=== PATIENT | female | born 1960 | race Caucasian/White ===

== ENCOUNTER 2017-01-22 14:17 | Inpatient (IN) | payer OTHER ==
[~2017-01-22] VITALS: Ht 170.2 cm; Wt 150.0 kg
[2017-01-22] VITALS (13 sets, daily range): BP systolic 152–210; BP diastolic 59–112; PULSE 68–91; TEMP 36.5–36.9; O2SAT 92–95; Ht 170.2 cm; Wt 150.0 kg
[~2017-01-22 14:17] MED LIST: ALPR-411 PO; ASPI81TA28 PO; ATOR-26 PO; CHOL100010 PO; CITA40TA4 PO; FENT25DI2 TD; IPRASOL4 INH; METO1TAB66 PO; MORP30TA23 PO; NYST100098 TOP; OMEP40CA PO; ONDA4TAB46 PO; OXYC1TAB3 PO; PRVHFAIN INH; SYMIN INH; TIOTCAP INH; ZOLP5TAB PO; [UNRECOGNIZED DRUG - REMARK] PO
[2017-01-22] MEDS ORDERED: ZOLP10TA PO (15:01)
[2017-01-22] MEDS ORDERED: MORP30TA PO (15:21)
[2017-01-22] MEDS ORDERED: DRGTP100 TD (15:21)
[2017-01-22] MEDS ORDERED: FENT25DI10 TD (15:21)
[2017-01-22] MEDS ORDERED: SPRIN/30 INH (15:21)
[2017-01-22] MEDS ORDERED: ERGO1CAP41 PO (15:21)
--- NOTE | 2017-01-22 15:23 | DIAGNOSTIC IMAGING REPORT ---
CHEST ONE VIEW PORTABLE HISTORY:56 yearsFemaledialysis port on right fell out last night COMPARISON: 06/29/2015. TECHNIQUE: Portable upright AP view of the chest FINDINGS: Cardiac silhouette is again mildly enlarged. Left internal jugular central venous catheter is present with distal tip terminating within the expected region of the proximal SVC. There is atherosclerosis of the aorta. No pneumothorax or large pleural effusion. There are several masslike opacities in the lungs bilaterally, notably within the right upper lobe which measures up to 2.5 x 2.5 cm. Bones are grossly intact. IMPRESSION: 1. Multiple masslike opacities within the lungs bilaterally warrant further evaluation with CT of the chest. 2. Left internal jugular hemodialysis catheter terminates in the expected region of the proximal SVC. No pneumothorax. The above report was generated using voice recognition software. It may contain grammatical, syntax or spelling errors. Electronically signed by: Denzel Palomo 01/22/2017 3:22 PM Dictated Date/Time: 01/22/2017 3:19 PM
[2017-01-22] MEDS ORDERED: METO-217 PO (15:27)
[2017-01-22 16:53] LABS: ISTAT CREATININE 4.5 mg/dl (0.6-1.3); ISTAT HEMOGLOBIN 9.2 g/dl (12.0-16.0); ISTAT IONIZED CALCIUM 1.17 mmol/l (1.12-1.32)
[2017-01-22 16:54] LABS: BASO % 0.5 %; BASO ABS # 0.05 K/uL (0-0.2); COMPLETE YES; IG% 0.5 %; LYMPH % 22.7 %; LYMPH ABS # 2.16 K/uL (1.2-3.4); MEAN CELL VOLUME 92.4 fL (80-100); MEAN CORPUSCULAR HEMOGLOBIN 29.7 pg (25-34); MEAN CORPUSCULAR HGB CONC 32.1 g/dl (32-36); MEAN PLATELET VOLUME 8.9 fL (7.4-10.4); MONO % 4.7 %; NEUT % 69.6 %; PLATELET COUNT 366 K/uL (130-400); RED BLOOD COUNT 3.03 M/uL (4.2-5.4)
[2017-01-22 17:04] LABS: PARTIAL THROMBOPLASTIN RATIO 1.1; PROTHROMBIN TIME (PATIENT) 11.1 SECONDS (9.0-12.0)
[2017-01-22 17:59] LABS: ALKALINE PHOSPHATASE 113 U/L (45-117); ALT/SGPT 14 U/L (12-78); AST/SGOT 20 U/L (15-37); BLOOD UREA NITROGEN 40 mg/dl (7-18); CALCIUM 8.7 mg/dl (8.5-10.1); CARBON DIOXIDE 19 mmol/L (21-32); CHLORIDE 108 mmol/L (98-107); CKMB/CK RATIO 4.2 (0-3.0); GLUCOSE 142 mg/dl (70-99); POTASSIUM 5.8 mmol/L (3.5-5.1); SODIUM 137 mmol/L (136-145)
[2017-01-22] MEDS ORDERED: ALPRAZOLAM 0.5 MG TAB PO PRN (18:15)
[2017-01-22] MEDS ORDERED: ACETAMINOPHEN 325 MG TAB PO PRN (18:15)
[2017-01-22] MEDS ORDERED: ALBUT/IPRATROP 3MG/0.5MG NEB 3 ML VIAL INH PRN (18:15)
[2017-01-22] MEDS ORDERED: MAGNESIUM HYDROXIDE SUSP 30 ML UDC PO PRN (18:15)
[2017-01-22] MEDS ORDERED: ONDANSETRON 4 MG TAB PO PRN (18:15)
[2017-01-22] MEDS ORDERED: ONDANSETRON INJ 2 MG/ML 2 ML VIAL IV PRN (18:15)
--- NOTE | 2017-01-22 18:25 | Nephrology Consultation ---
Nephrology Consultation Date & Providers Date of Consultation: Jan 22, 2017. Primary Care Provider: Gerson Estrada D.O. Referring Provider: Reason for Consultation Provide emergency HD History of Present Illness Mrs. Beth is a 56 year old white female who is seen at the request of Dr. Hanna to provide emergency HD. Patient is agitated and argumentative. She cannot provide only limited details of her medical history. She states repeatedly "I have cancer throughout my body. I can only live for 3 months and I have this damn thing in my neck!". Medical history was obtained from 06/29 hospital records and discussion with the ED physician. Mrs. Beth lives in [place], [place]. In 06/29 she was found to have a renal mass. She underwent R laproscopic nephrectomy. 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 Post-op course was complicated by retroperitoneal hemorrhage, hypotension and SAVANNAH. Serum creatinine stabilized at 2.1 and patient was discharged from the hospital. She had one [facility] nephrology outpatient visit w/ Dr. Laureano but she was then lost to follow up. Mrs. Beth indicates that she was started on IHD 05/31. She does not remember the name of her regular relationship counselor. She dialyzes at the [facility] HD unit via a R IJ THC. Recently her THC became dislodged. She was admitted to [facility]. Dr. Spivey was able to place a L IJ temporary dialysis catheter. The patient was dialyzed 01/19/14 at [facility] without complication and was discharged to home. Today Mrs. Beth presented to the [facility] dialysis unit. staff development coordinator rn indicated that per policy they were not permitted to use a non tunneled dialysis catheter. The patient was subsequently transported to [facility] for inpatient HD and vascular surgery evaluation. In the ED her serum potassium was elevated at 5.9. ECG revealed mild peaking of the T-waves. Plan of care including admission, HD and vascular surgery evaluation tomorrow was discussed in detail with the patient. She refused indicating "I just want to go home and !' After further discussion w / myself and Dr. Hanna she then agreed to hospital admission, hemodialysis and ongoing medical treatment. Past Medical/Surgical History Medical: # CHF due to diastolic dysfunction # HTN # Obesity # Atrial fibrillation # Metastatic RCCA Surgical: # R IJ THC # Temporary L IJ dialysis catheter # R laproscopic nephrectomy 06/29 due to RCCA Allergies Coded Allergies: Iodinated Diagnostic Agents (Verified Allergy, Severe, ANAPHYLAXIS, ) Perflutren (Verified Allergy, Severe, RASH, DIFFICULTY BREATHING, ANAPHALYSIS, 01/22/17) Surgical Lubricant (Verified Allergy, Mild, rash, 01/22/17) Adhesives (Verified Allergy, Unknown, RASH, 01/22/17) Propylene Glycol (Verified Allergy, Unknown, RASH, 01/22/17) Inpatient Medications Current Inpatient Medications Medications (Trade) Dose Ordered Sig/Rica Route Start Time Stop Time Status Last Admin Dose Admin Heparin Sodium (Porcine) (No Heparin In Dialysis) 1 ea ONE ONCE N/A 01/22/17 18:15 01/22/17 18:16 UNV Family History None stated Negative for CKD / ESRD Social History Smoking Status: Current Every Day Smoker Drug Use: none Housing Status: long-term Occupation: disabled . w/ history of brain tumor. Medically disabled. History of tobacco use. Review of Systems Constitutional: No fever Respiratory: No cough Cardiovascular: No chest pain Abdomen: No pain, No nausea A complete review of systems was performed. Pertinent positives are noted above. All other systems are negative. Physical Exam Date Time Temp Pulse Resp B/P (MAP) Pulse Ox O2 Delivery O2 Flow Rate FiO2 01/22/17 18:06 79 18 178/81 92 Room Air 01/22/17 14:21 36.6 93 20 164/85 96 Room Air General Appearance: + obese, + pertinent finding (agitated) Head: normocephalic, atraumatic Eyes: PERRL, EOMI Neck: no adenopathy, + pertinent finding (L IJ temporary dialysis catheter w/ clean dry dressing in place) Respiratory/Chest: lungs clear Cardiovascular: regular rate, rhythm Abdomen/GI: non tender, soft Extremities/Musculoskelatal: no pedal edema Neurologic/Psych: alert Laboratory Results Last 24 Hours Test 01/22/17 16:33 01/22/17 16:42 01/22/17 18:03 White Blood Count 9.50 K/uL Red Blood Count 3.03 M/uL Hemoglobin 9.0 g/dL Hematocrit 28.0 % Mean Corpuscular Volume 92.4 fL Mean Corpuscular Hemoglobin 29.7 pg Mean Corpuscular Hemoglobin Concent 32.1 g/dl Platelet Count 366 K/uL Mean Platelet Volume 8.9 fL Neutrophils (%) (Auto) 69.6 % Lymphocytes (%) (Auto) 22.7 % Monocytes (%) (Auto) 4.7 % Eosinophils (%) (Auto) 2.0 % Basophils (%) (Auto) 0.5 % Neutrophils # (Auto) 6.60 K/uL Lymphocytes # (Auto) 2.16 K/uL Monocytes # (Auto) 0.45 K/uL Eosinophils # (Auto) 0.19 K/uL Basophils # (Auto) 0.05 K/uL RDW Standard Deviation 44.6 fL RDW Coefficient of Variation 13.2 % Immature Granulocyte % (Auto) 0.5 % Immature Granulocyte # (Auto) 0.05 K/uL Prothrombin Time 11.1 SECONDS Prothromb Time International Ratio 1.0 Activated Partial Thromboplast Time 28.5 SECONDS Partial Thromboplastin Ratio 1.1 Sodium Level 137 mmol/L Potassium Level 5.8 mmol/L Chloride Level 108 mmol/L Carbon Dioxide Level 19 mmol/L Anion Gap 10.0 mmol/L 17.0 mmol/L Blood Urea Nitrogen 40 mg/dl Creatinine 4.50 mg/dl Est Creatinine Clear Calc Drug Dose 20.1 ml/min Estimated GFR () 12.0 Estimated GFR (Non- 10.4 BUN/Creatinine Ratio 9.0 Random Glucose 142 mg/dl Calcium Level 8.7 mg/dl Total Bilirubin 0.2 mg/dl Direct Bilirubin mg/dl Aspartate Amino Transf (AST/SGOT) 20 U/L Alanine Aminotransferase (ALT/SGPT) 14 U/L Alkaline Phosphatase 113 U/L Total Creatine Kinase 57 U/L Creatine Kinase MB 2.4 ng/ml Creatine Kinase MB Ratio 4.2 Troponin I 0.082 ng/ml Total Protein 7.4 gm/dl Albumin 2.4 gm/dl Lipase 144 U/L Chemistry Specimen Hemolysis Bedside Hemoglobin 9.2 g/dl Bedside Hematocrit 27 % Bedside Sodium 139 mEq/L Bedside Potassium 5.9 mEq/L Bedside Chloride 107 mEq/L Bedside Total CO2 22 mEq/l Bedside Blood Urea Nitrogen 45 mg/dl Bedside Creatinine 4.5 mg/dl Bedside Glucose (other) 147 mg/dl Bedside Ionized Calcium (Javan) 1.17 mmol/l Impression (1) Hyperkalemia (2) Metastatic renal cell carcinoma (3) Hypertension (4) End-stage renal disease on hemodialysis Mrs. Beth presents for inpatient dialysis. Her temporary L IJ dialysis catheter could not be used per policy at the outpatient dialysis unit. She is now admitted for correction of hyperkalemia, inpatient HD and vascular surgery evaluation. Patient has metastatic RCCA. Recommendations One hour provided to the patient today in the ED. She is very emotional due to her diagnosis of metastatic cancer. Indications and benefits to hospital admission, HD and vascular surgery evaluation discussed in detail with the patient by myself and Dr. Hanna. Patient consents to the outlined plan of care. Will ask hospitalist service to admit patient. Will schedule 2 hour HD treatment tonight for correction of serum potassium. Will consult vascular surgery to place new IJ THC in am. Recommend that patient be kept NPO after MN for possible procedure tomorrow am. Patient has been discussed w/ HD RN national [employer] member and orders have been placed for heparin free HD in EMR. I have personally reviewed the CXR film taken in the ED. L IJ dialysis catheter appears to be in appropriate position. There is no pneumothorax.
--- NOTE | 2017-01-22 18:50 | History and Physical ---
History & Physical Date & Time of Service: Jan 22, 2017 at 18:27 Chief Complaint: Port In Chest Ripped Out/Neck Pain Primary Care Physician: Gerson Estrada D.O. History of Present Illness Source: patient 56 y/o c/o HD port malfunction. Pt is ESRD with HD on . Pt denies any current issues other than being hungry. Pt denies fever, SOB, chest pain, abd pain, n/v/c/d, LE pain or swelling. She is not interested to repeat her story to me at this time. Further details were taken from other providers' notes and sign out discussions. Pt apparently had some sort of malfunction of her HD catheter. She initially saw the [facility] surg in [place] who placed this catheter. There was some sort of argument and pt has decided she does not want him replacing her catheter. She has a temporary catheter in place and was able to have HD on Sunday, however her usual HD facility ([facility]) is unable to use a temporary catheter and therefore pt cannot receive further HD until she has this catheter replaced. She came to the ED today due to pain in her neck from the catheter that is partially disabled. Pt was seen by Dr. Tovar in the ED. During her discussion with Dr. Tovar, pt reportedly became upset and stated that she did not want the catheter replaced or further HD as she has metastatic renal cancer. She reportedly stated that she would prefer to have the catheter d/c'd in the ED and be allowed to go home to . After further discussions with Dr. Tovar and Dr. Hanna, pt has agreed to stay for emergent HD tonight and catheter replacement tomorrow. Past Medical/Surgical History Medical Problems: (1) Back pain, chronic Status: Chronic (2) Congestive heart failure of unknown etiology Status: Chronic (3) Osteomyelitis Status: Chronic (4) PICC (peripherally inserted central catheter) flush Status: Resolved (5) Pulmonary embolism Status: Resolved (6) Spinal abscess Status: Resolved RCC with mets ESRD Anemia COPD Depression/anxiety HTN Hx of PE Hx of osteomyelitis Family History Family history was reviewed; no changes noted. Social History Smoking Status: Current Every Day Smoker Alcohol Use: none Drug Use: none Housing status: custodial Occupational Status: disabled Allergies Coded Allergies: Iodinated Diagnostic Agents (Verified Allergy, Severe, ANAPHYLAXIS, ) Perflutren (Verified Allergy, Severe, RASH, DIFFICULTY BREATHING, ANAPHALYSIS, 01/22/17) Surgical Lubricant (Verified Allergy, Mild, rash, 01/22/17) Adhesives (Verified Allergy, Unknown, RASH, 01/22/17) Propylene Glycol (Verified Allergy, Unknown, RASH, 01/22/17) Home Medications Scheduled Albuterol (Ventolin Hfa), 2 PUFFS INH QID Aspirin (Aspirin Ec), 81 MG PO DAILY Atorvastatin (Lipitor), 80 MG PO QAM Budesonide/Formoterol Fumarate (Symbicort 160-4.5 Mcg/Act), 2 PUFFS INH BID Citalopram (Citalopram Hydrobromide), 40 MG PO QAM Ergocalciferol (Vitamin D 08026 Unit), 1 CAP PO SUNDAY Fentanyl (Duragesic), 25 MCG TD Q72H Metoprolol Succinate (Toprol Xl), 50 MG PO QAM Tiotropium [place] (Spiriva Handihaler), 2 PUFFS INH QAM Zolpidem Tartrate (Ambien), 10 MG PO HS Scheduled PRN Alprazolam (Xanax), 1 MG PO Q6H PRN for Anxiety Ipratropium-Albuterol (Duoneb), 1 TREATMENT INH Q4H PRN for SOB/Wheezing Morphine Sulfate Ir (Morphine Sulfate Ir), 30 MG PO QAM PRN for Pain Ondansetron Hcl (Zofran), 4 MG PO Q4 PRN for Nausea Oxycodone Ir (Roxicodone Ir), 10 MG PO Q6H PRN for Severe Pain [Itching Medication], 1 TAB PO UD PRN for ITCHING Review of Systems Reviewed and negative Physical Exam Vital Signs Date Time Temp Pulse Resp B/P (MAP) Pulse Ox O2 Delivery O2 Flow Rate FiO2 01/22/17 18:06 79 18 178/81 92 Room Air 01/22/17 14:21 36.6 93 20 164/85 96 Room Air General Appearance: no apparent distress, + obese Head: normocephalic, atraumatic Eyes: normal inspection, EOMI Respiratory/Chest: normal breath sounds, no respiratory distress Cardiovascular: regular rate, rhythm, no edema Abdomen/GI: non tender, soft Extremities/Musculoskelatal: no calf tenderness, no pedal edema Neurologic/Psych: alert, oriented x 3, + pertinent finding (pt is disgruntled with short answers) Skin: normal color, warm/dry Diagnostics Laboratory Results Results Past 24 Hours Test 01/22/17 16:33 01/22/17 16:42 01/22/17 18:03 Range/Units White Blood Count 9.50 4.8-10.8 K/uL Red Blood Count 3.03 4.2-5.4 M/uL Hemoglobin 9.0 12.0-16.0 g/dL Hematocrit 28.0 37-47 % Mean Corpuscular Volume 92.4 80-100 fL Mean Corpuscular Hemoglobin 29.7 25-34 pg Mean Corpuscular Hemoglobin Concent 32.1 32-36 g/dl Platelet Count 366 130-400 K/uL Mean Platelet Volume 8.9 7.4-10.4 fL Neutrophils (%) (Auto) 69.6 % Lymphocytes (%) (Auto) 22.7 % Monocytes (%) (Auto) 4.7 % Eosinophils (%) (Auto) 2.0 % Basophils (%) (Auto) 0.5 % Neutrophils # (Auto) 6.60 1.4-6.5 K/uL Lymphocytes # (Auto) 2.16 1.2-3.4 K/uL Monocytes # (Auto) 0.45 0.11-0.59 K/uL Eosinophils # (Auto) 0.19 0-0.5 K/uL Basophils # (Auto) 0.05 0-0.2 K/uL RDW Standard Deviation 44.6 36.4-46.3 fL RDW Coefficient of Variation 13.2 11.5-14.5 % Immature Granulocyte % (Auto) 0.5 % Immature Granulocyte # (Auto) 0.05 0.00-0.02 K/uL Prothrombin Time 11.1 9.0-12.0 SECONDS Prothromb Time International Ratio 1.0 0.9-1.1 Activated Partial Thromboplast Time 28.5 21.0-31.0 SECONDS Partial Thromboplastin Ratio 1.1 Sodium Level 137 136-145 mmol/L Potassium Level 5.8 3.5-5.1 mmol/L Chloride Level 108 98-107 mmol/L Carbon Dioxide Level 19 21-32 mmol/L Anion Gap 10.0 17.0 16-25 mmol/L Blood Urea Nitrogen 40 7-18 mg/dl Creatinine 4.50 0.60-1.20 mg/dl Est Creatinine Clear Calc Drug Dose 20.1 ml/min Estimated GFR () 12.0 Estimated GFR (Non- 10.4 BUN/Creatinine Ratio 9.0 10-20 Random Glucose 142 70-99 mg/dl Calcium Level 8.7 8.5-10.1 mg/dl Total Bilirubin 0.2 0.2-1 mg/dl Direct Bilirubin 0-0.2 mg/dl Aspartate Amino Transf (AST/SGOT) 20 15-37 U/L Alanine Aminotransferase (ALT/SGPT) 14 12-78 U/L Alkaline Phosphatase 113 45-117 U/L Total Creatine Kinase 57 26-192 U/L Creatine Kinase MB 2.4 0.5-3.6 ng/ml Creatine Kinase MB Ratio 4.2 0-3.0 Troponin I 0.082 0-0.045 ng/ml Total Protein 7.4 6.4-8.2 gm/dl Albumin 2.4 3.4-5.0 gm/dl Lipase 144 73-393 U/L Chemistry Specimen Hemolysis Bedside Hemoglobin 9.2 12.0-16.0 g/dl Bedside Hematocrit 27 37-47 % Bedside Sodium 139 135-144 mEq/L Bedside Potassium 5.9 3.3-5.0 mEq/L Bedside Chloride 107 101-112 mEq/L Bedside Total CO2 22 24-31 mEq/l Bedside Blood Urea Nitrogen 45 7-18 mg/dl Bedside Creatinine 4.5 0.6-1.3 mg/dl Bedside Glucose (other) 147 70-99 mg/dl Bedside Ionized Calcium (Javan) 1.17 1.12-1.32 mmol/l Diagnostic Radiology CXR: opacities of uncertain dx, will need f/u CT chest Normal EKG Impression Assessment and Plan 56 y/o F who was admitted on 01/22 for emergent HD and HD catheter replacement Emergent HD in ESRD pt: Pt's HD schedule has been interrupted due to malfunctioning catheter Baseline cr is around 2.1 HyperK noted HD tonight as per Dr. Tovar, who will be consulted Malfunctioning HD catheter: to be replaced tomorrow with Dr. Maguire Elevated trop: likely related to renal disease Serials pending Tele monitor, can likely move to med/surg if trops are stable Chronic anemia: Uncertain baseline as labs on file are not the most recent Monitor HTN: labile in the setting of likely fluid overload given HD needs continue home meds CHF: continue home meds, no current exacerbation COPD: continue inhaler, no current exacerbation Tobacco use: nicotine patch Other: DNR/DNI Heparin for DVT proph Renal AHA diet CM c/s for ongoing outpt HD needs Pt did express wishes c/w hospice care in the ED. She did not discuss this with this provider, however pt was not interested in speaking with me. This may become a more active request moving forward vs acute adjustment rxn Level of Care Telemetry Resuscitation Status DO NOT RESUSCITATE VTE Prophylaxis VTE Risk Assessment Done? Y/N: Yes Risk Level: Moderate
--- NOTE | 2017-01-22 18:51 | Nephrology Progress Note ---
Nephrology Progress Note Date of Service Jan 22, 2017. Chief Complaint Provide emergency HD Subjective Resting comfortably on HD. Denies angina, dyspnea. L IJ temporary HD catheter running A --> A at Qb 300 cc/min Review of Systems A complete review of systems was performed. Pertinent positives are noted above. All other systems are negative. Vital Signs Last 8 Hrs Date Time Temp Pulse Resp B/P (MAP) Pulse Ox O2 Delivery O2 Flow Rate FiO2 01/22/17 18:06 79 18 178/81 92 Room Air 01/22/17 14:21 36.6 93 20 164/85 96 Room Air Last Recorded Weight Weight (Kilograms): 130.000 Physical Exam General Appearance: no apparent distress Respiratory/Chest: lungs clear Cardiovascular: regular rate, rhythm Family History None stated Negative for CKD / ESRD Social History Drug Use: none Housing Status: group home Occupation: disabled . w/ history of brain tumor. Medically disabled. History of tobacco use. Laboratory Results Past 24 Hours 01/22/17 16:33 Red Blood Count 3.03, Mean Corpuscular Volume 92.4, Mean Corpuscular Hemoglobin 29.7, Mean Corpuscular Hemoglobin Concent 32.1, Mean Platelet Volume 8.9, Neutrophils (%) (Auto) 69.6, Lymphocytes (%) (Auto) 22.7, Monocytes (%) (Auto) 4.7, Eosinophils (%) (Auto) 2.0, Basophils (%) (Auto) 0.5, Neutrophils # (Auto) 6.60, Lymphocytes # (Auto) 2.16, Monocytes # (Auto) 0.45, Eosinophils # (Auto) 0.19, Basophils # (Auto) 0.05 01/22/17 16:33 Test 01/22/17 16:33 01/22/17 16:42 01/22/17 18:30 White Blood Count 9.50 K/uL (4.8-10.8) Red Blood Count 3.03 M/uL (4.2-5.4) Hemoglobin 9.0 g/dL (12.0-16.0) Hematocrit 28.0 % (37-47) Mean Corpuscular Volume 92.4 fL (80-100) Mean Corpuscular Hemoglobin 29.7 pg (25-34) Mean Corpuscular Hemoglobin Concent 32.1 g/dl (32-36) Platelet Count 366 K/uL (130-400) Mean Platelet Volume 8.9 fL (7.4-10.4) Neutrophils (%) (Auto) 69.6 % Lymphocytes (%) (Auto) 22.7 % Monocytes (%) (Auto) 4.7 % Eosinophils (%) (Auto) 2.0 % Basophils (%) (Auto) 0.5 % Neutrophils # (Auto) 6.60 K/uL (1.4-6.5) Lymphocytes # (Auto) 2.16 K/uL (1.2-3.4) Monocytes # (Auto) 0.45 K/uL (0.11-0.59) Eosinophils # (Auto) 0.19 K/uL (0-0.5) Basophils # (Auto) 0.05 K/uL (0-0.2) RDW Standard Deviation 44.6 fL (36.4-46.3) RDW Coefficient of Variation 13.2 % (11.5-14.5) Immature Granulocyte % (Auto) 0.5 % Immature Granulocyte # (Auto) 0.05 K/uL (0.00-0.02) Prothrombin Time 11.1 SECONDS (9.0-12.0) Prothromb Time International Ratio 1.0 (0.9-1.1) Activated Partial Thromboplast Time 28.5 SECONDS (21.0-31.0) Partial Thromboplastin Ratio 1.1 Anion Gap 10.0 mmol/L (3-11) 17.0 mmol/L (16-25) Est Creatinine Clear Calc Drug Dose 20.1 ml/min Estimated GFR () 12.0 Estimated GFR (Non- 10.4 BUN/Creatinine Ratio 9.0 (10-20) Calcium Level 8.7 mg/dl (8.5-10.1) Total Bilirubin 0.2 mg/dl (0.2-1) Direct Bilirubin mg/dl (0-0.2) Aspartate Amino Transf (AST/SGOT) 20 U/L (15-37) Alanine Aminotransferase (ALT/SGPT) 14 U/L (12-78) Alkaline Phosphatase 113 U/L (45-117) Total Creatine Kinase 57 U/L (26-192) Creatine Kinase MB 2.4 ng/ml (0.5-3.6) Creatine Kinase MB Ratio 4.2 (0-3.0) Troponin I 0.082 ng/ml (0-0.045) Total Protein 7.4 gm/dl (6.4-8.2) Albumin 2.4 gm/dl (3.4-5.0) Lipase 144 U/L (73-393) Chemistry Specimen Hemolysis Bedside Hemoglobin 9.2 g/dl (12.0-16.0) Bedside Hematocrit 27 % (37-47) Bedside Sodium 139 mEq/L (135-144) Bedside Potassium 5.9 mEq/L (3.3-5.0) Bedside Chloride 107 mEq/L (101-112) Bedside Total CO2 22 mEq/l (24-31) Bedside Blood Urea Nitrogen 45 mg/dl (7-18) Bedside Creatinine 4.5 mg/dl (0.6-1.3) Bedside Glucose (other) 147 mg/dl (70-99) Bedside Ionized Calcium (Javan) 1.17 mmol/l (1.12-1.32) Allergies Coded Allergies: Iodinated Diagnostic Agents (Verified Allergy, Severe, ANAPHYLAXIS, ) Perflutren (Verified Allergy, Severe, RASH, DIFFICULTY BREATHING, ANAPHALYSIS, 01/22/17) Surgical Lubricant (Verified Allergy, Mild, rash, 01/22/17) Adhesives (Verified Allergy, Unknown, RASH, 01/22/17) Propylene Glycol (Verified Allergy, Unknown, RASH, 01/22/17) Medications Current Inpatient Medications Medications (Trade) Dose Ordered Sig/Rica Route Start Time Stop Time Status Last Admin Dose Admin Heparin Sodium (Porcine) (No Heparin In Dialysis) 1 ea TODAY@1815 N/A 01/22/17 18:15 01/22/17 23:59 Heparin Sodium (Porcine) (Heparin Sq 5000 Unit/0.5ml) 5,000 unit Q8 SQ 01/22/17 22:00 02/21/17 21:59 UNV Acetaminophen (Tylenol Tab) 650 mg Q4H PRN PO 01/22/17 18:15 02/21/17 18:14 Magnesium Hydroxide (Milk Of Magnesia Susp) 30 ml Q12H PRN PO 01/22/17 18:15 02/21/17 18:14 Ondansetron HCl (Zofran Inj) 4 mg Q6H PRN IV 01/22/17 18:15 02/21/17 18:14 Albuterol (Ventolin Hfa Inhaler) 2 puffs QID INH 01/22/17 21:00 02/21/17 20:59 UNV Alprazolam (Xanax Tab) 1 mg Q6H PRN PO 01/22/17 18:15 02/21/17 18:14 Aspirin (Ecotrin Tab) 81 mg DAILY PO 01/23/17 09:00 02/22/17 08:59 UNV Atorvastatin Calcium (Lipitor Tab) 80 mg QAM PO 01/23/17 09:00 02/22/17 08:59 UNV Budesonide/ Formoterol Fumarate (Symbicort 160/ 4.5 Inh) 2 puffs BID INH 01/22/17 21:00 02/21/17 20:59 UNV Citalopram Hydrobromide (celeXA TAB) 40 mg QAM PO 01/23/17 09:00 02/22/17 08:59 UNV Ergocalciferol (Vitamin D Cap) 50,000 interunit UD PO 01/22/17 18:15 02/21/17 18:14 UNV Fentanyl (Duragesic Patch) 25 mcg Q72H TD 01/22/17 18:15 02/05/17 18:14 UNV Albuterol/ Ipratropium (Duoneb) 3 ml Q4H PRN INH 01/22/17 18:15 02/21/17 18:14 Metoprolol Succinate (Toprol Xl Tab) 50 mg QAM PO 01/23/17 09:00 02/22/17 08:59 UNV Ondansetron HCl (Zofran Tab) 4 mg Q4 PRN PO 01/22/17 18:15 02/21/17 18:14 UNV Oxycodone HCl (Roxicodone Immediate Rel Tab) 10 mg Q6H PRN PO 01/22/17 18:15 02/05/17 18:14 Tiotropium [place] (Spiriva Handihaler Inhaler) 60 puff QAM INH 01/23/17 09:00 02/22/17 08:59 UNV Zolpidem Tartrate (Ambien Tab) 10 mg HS PO 01/22/17 21:00 02/21/17 20:59 Non-Formulary Medication (Morphine Sulfate Ir ) 30 mg QAM PRN PO 01/22/17 18:15 02/21/17 18:14 UNV Non-Formulary Medication ([Itching Medication] ) 1 tab UD PRN PO 01/22/17 18:15 02/21/17 18:14 UNV Nicotine (Nicoderm Cq 21MG Patch) 1 patch QAM TD 01/23/17 09:00 02/22/17 08:59 UNV Miscellaneous (Remove Nicoderm Patch) 1 ea HS N/A 01/22/17 21:00 02/21/17 20:59 UNV Impression (1) Hyperkalemia (2) Metastatic renal cell carcinoma (3) Hypertension (4) End-stage renal disease on hemodialysis Mrs. Beth presents for inpatient dialysis. Her temporary L IJ dialysis catheter could not be used per policy at the outpatient dialysis unit. She is now admitted for correction of hyperkalemia, inpatient HD and vascular surgery evaluation. Patient has metastatic RCCA. Recommendations Patient was seen & examined while on HD this evening. She is medically stable at this time. She voices no new medical concerns. 2K 2Ca dialysate being used. No heparin. Will reassess need for HD again in am
[2017-01-22] MEDS ORDERED: MoRPHine SULFATE IR 15 MG TAB (IMMEDIATE RELEASE) PO PRN (19:15)
[2017-01-22 19:26] LABS: HEPATITIS B AB NEG
--- NOTE | 2017-01-22 20:17 | EMERGENCY ROOM VISIT NOTE ---
History Report prepared by Carol: Cory Ordaz Under the Supervision of: Dr. Lm Hanna D.O. First contact with patient: 14:26 Chief Complaint: OTHER COMPLAINT Stated Complaint: PORT IN CHEST RIPPED OUT/NECK PAIN History of Present Illness The patient is a 56 year old female who presents to the Emergency Room with complaints of dialysis port malfunction starting a few days ago. The patient initially had a port in her chest which was being used for dialysis. The dog pulled on the port site last week. On January 18, dialysis could not be performed through the port. On January 20, the patient had a catheter placed in her neck to be used for dialysis. Last night, the patient woke up with blood all over her and her port in her chest fell out. She reports severe pain in her neck. The catheter in neck is pulling and keeps coming out of her neck. The patient has tried to keep it in place by taping it to her neck. Today, the patient was referred to the Emergency Room by the vascular surgeon at [facility] to place a new port, take out the port from her neck, and take out the stitches from her chest. She denies fevers, chills, or any other complaints. Source of History: patient Onset: a few days ago Position: neck, chest Symptom Intensity: severe Quality: other (dialysis port malfunction) Associated Symptoms: No fevers, No chills Review of Systems See HPI for pertinent positives & negatives. A total of 10 systems reviewed and were otherwise negative. Past Medical & Surgical Medical Problems: (1) Acute kidney injury (2) Anemia (3) Back pain, chronic (4) Congestive heart failure of unknown etiology (5) End-stage renal disease on hemodialysis (6) Hyperkalemia (7) Hypertension (8) Metastatic renal cell carcinoma (9) Osteomyelitis (10) PICC (peripherally inserted central catheter) flush (11) Pulmonary embolism (12) Renal mass, right (13) Spinal abscess Family History None stated Social History Smoking Status: Current Every Day Smoker Drug Use: none Housing Status: lives with family Occupation Status: disabled Current/Historical Medications Scheduled Albuterol (Ventolin Hfa), 2 PUFFS INH QID Aspirin (Aspirin Ec), 81 MG PO DAILY Atorvastatin (Lipitor), 80 MG PO QAM Budesonide/Formoterol Fumarate (Symbicort 160-4.5 Mcg/Act), 2 PUFFS INH BID Citalopram (Citalopram Hydrobromide), 40 MG PO QAM Ergocalciferol (Vitamin D 73580 Unit), 1 CAP PO SUNDAY Fentanyl (Duragesic), 25 MCG TD Q72H Metoprolol Succinate (Toprol Xl), 50 MG PO QAM Tiotropium Bailey (Spiriva Handihaler), 2 PUFFS INH QAM Zolpidem Tartrate (Ambien), 10 MG PO HS Scheduled PRN Alprazolam (Xanax), 1 MG PO Q6H PRN for Anxiety Ipratropium-Albuterol (Duoneb), 1 TREATMENT INH Q4H PRN for SOB/Wheezing Morphine Sulfate Ir (Morphine Sulfate Ir), 30 MG PO QAM PRN for Pain Ondansetron Hcl (Zofran), 4 MG PO Q4 PRN for Nausea Oxycodone Ir (Roxicodone Ir), 10 MG PO Q6H PRN for Severe Pain [Itching Medication], 1 TAB PO UD PRN for ITCHING Allergies Coded Allergies: Iodinated Diagnostic Agents (Verified Allergy, Severe, ANAPHYLAXIS, ) Perflutren (Verified Allergy, Severe, RASH, DIFFICULTY BREATHING, ANAPHALYSIS, 01/22/17) Surgical Lubricant (Verified Allergy, Mild, rash, 01/22/17) Adhesives (Verified Allergy, Unknown, RASH, 01/22/17) Propylene Glycol (Verified Allergy, Unknown, RASH, 01/22/17) Physical Exam Vital Signs Date Time Temp Pulse Resp B/P (MAP) Pulse Ox O2 Delivery O2 Flow Rate FiO2 01/22/17 20:00 72 168/71 01/22/17 19:45 75 176/68 01/22/17 19:30 76 200/98 01/22/17 19:15 77 184/112 01/22/17 19:00 77 176/101 01/22/17 18:45 71 183/92 01/22/17 18:30 69 191/88 01/22/17 18:15 72 185/89 01/22/17 18:10 36.5 68 210/95 (133) 01/22/17 18:06 79 18 178/81 92 Room Air 01/22/17 14:21 36.6 93 20 164/85 96 Room Air Physical Exam CONSTITUTIONAL/VITAL SIGNS: Reviewed / noted above. GENERAL: Non-toxic in appearance. INTEGUMENTARY: Warm, dry, and Umbarger. HEAD: Normocephalic. EYES: without scleral icterus or trauma. ENT/OROPHARYNX: clear and moist. LYMPHADENOPATHY/NECK: Is supple without lymphadenopathy or meningismus. Dialysis catheter in the left neck. CHEST: No port in the right chest. RESPIRATORY: Lungs clear and equal. CARDIOVASCULAR: Regular rate and rhythm. GI/ABDOMEN: Soft and nontender. No organomegaly or pulsatile mass. No rebound or guarding. Normal bowel sounds. EXTREMITIES: Warm and well perfused. BACK: No CVA tenderness. NEUROLOGICAL: Intact without focal deficits. PSYCHIATRIC: normal affect. MUSCULOSKELETAL: Normally developed with good muscle tone. Medical Decision & Procedures ER Provider Diagnostic Interpretation: X ray results and stated below per my interpretation and radiology interpretation. CHEST ONE VIEW PORTABLE HISTORY:56 yearsFemaledialysis port on right fell out last night COMPARISON: 06/29/2015. TECHNIQUE: Portable upright AP view of the chest FINDINGS: Cardiac silhouette is again mildly enlarged. Left internal jugular central venous catheter is present with distal tip terminating within the expected region of the proximal SVC. There is atherosclerosis of the aorta. No pneumothorax or large pleural effusion. There are several masslike opacities in the lungs bilaterally, notably within the right upper lobe which measures up to 2.5 x 2.5 cm. Bones are grossly intact. IMPRESSION: 1. Multiple masslike opacities within the lungs bilaterally warrant further evaluation with CT of the chest. 2. Left internal jugular hemodialysis catheter terminates in the expected region of the proximal SVC. No pneumothorax. The above report was generated using voice recognition software. It may contain grammatical, syntax or spelling errors. Electronically signed by: Denzel Palomo 01/22/2017 3:22 PM Dictated Date/Time: 01/22/2017 3:19 PM Laboratory Results 01/22/17 16:33 Red Blood Count 3.03, Mean Corpuscular Volume 92.4, Mean Corpuscular Hemoglobin 29.7, Mean Corpuscular Hemoglobin Concent 32.1, Mean Platelet Volume 8.9, Neutrophils (%) (Auto) 69.6, Lymphocytes (%) (Auto) 22.7, Monocytes (%) (Auto) 4.7, Eosinophils (%) (Auto) 2.0, Basophils (%) (Auto) 0.5, Neutrophils # (Auto) 6.60, Lymphocytes # (Auto) 2.16, Monocytes # (Auto) 0.45, Eosinophils # (Auto) 0.19, Basophils # (Auto) 0.05 01/22/17 16:33 Test 01/22/17 16:33 01/22/17 16:42 01/22/17 18:30 White Blood Count 9.50 K/uL (4.8-10.8) Red Blood Count 3.03 M/uL (4.2-5.4) Hemoglobin 9.0 g/dL (12.0-16.0) Hematocrit 28.0 % (37-47) Mean Corpuscular Volume 92.4 fL (80-100) Mean Corpuscular Hemoglobin 29.7 pg (25-34) Mean Corpuscular Hemoglobin Concent 32.1 g/dl (32-36) Platelet Count 366 K/uL (130-400) Mean Platelet Volume 8.9 fL (7.4-10.4) Neutrophils (%) (Auto) 69.6 % Lymphocytes (%) (Auto) 22.7 % Monocytes (%) (Auto) 4.7 % Eosinophils (%) (Auto) 2.0 % Basophils (%) (Auto) 0.5 % Neutrophils # (Auto) 6.60 K/uL (1.4-6.5) Lymphocytes # (Auto) 2.16 K/uL (1.2-3.4) Monocytes # (Auto) 0.45 K/uL (0.11-0.59) Eosinophils # (Auto) 0.19 K/uL (0-0.5) Basophils # (Auto) 0.05 K/uL (0-0.2) RDW Standard Deviation 44.6 fL (36.4-46.3) RDW Coefficient of Variation 13.2 % (11.5-14.5) Immature Granulocyte % (Auto) 0.5 % Immature Granulocyte # (Auto) 0.05 K/uL (0.00-0.02) Prothrombin Time 11.1 SECONDS (9.0-12.0) Prothromb Time International Ratio 1.0 (0.9-1.1) Activated Partial Thromboplast Time 28.5 SECONDS (21.0-31.0) Partial Thromboplastin Ratio 1.1 Est Creatinine Clear Calc Drug Dose 20.1 ml/min Estimated GFR () 12.0 Estimated GFR (Non- 10.4 BUN/Creatinine Ratio 9.0 (10-20) Calcium Level 8.7 mg/dl (8.5-10.1) Total Bilirubin 0.2 mg/dl (0.2-1) Direct Bilirubin mg/dl (0-0.2) Aspartate Amino Transf (AST/SGOT) 20 U/L (15-37) Alanine Aminotransferase (ALT/SGPT) 14 U/L (12-78) Alkaline Phosphatase 113 U/L (45-117) Total Creatine Kinase 57 U/L (26-192) Creatine Kinase MB 2.4 ng/ml (0.5-3.6) Creatine Kinase MB Ratio 4.2 (0-3.0) Troponin I 0.082 ng/ml (0-0.045) Total Protein 7.4 gm/dl (6.4-8.2) Albumin 2.4 gm/dl (3.4-5.0) Lipase 144 U/L (73-393) Chemistry Specimen Hemolysis Bedside Hemoglobin 9.2 g/dl (12.0-16.0) Bedside Hematocrit 27 % (37-47) Bedside Sodium 139 mEq/L (135-144) Bedside Potassium 5.9 mEq/L (3.3-5.0) Bedside Chloride 107 mEq/L (101-112) Bedside Total CO2 22 mEq/l (24-31) Anion Gap 17.0 mmol/L (16-25) Bedside Blood Urea Nitrogen 45 mg/dl (7-18) Bedside Creatinine 4.5 mg/dl (0.6-1.3) Bedside Glucose (other) 147 mg/dl (70-99) Bedside Ionized Calcium (Javan) 1.17 mmol/l (1.12-1.32) Hepatitis B Surface Antigen NEG (NEG) Hepatitis B Surface Antibody NEG Laboratory results as stated above per my review. ECG Indication: other (Dialysis port malfunction) Rate (beats per minute): 76 Rhythm: normal sinus Findings: no acute ischemic change, no ectopy ED Course 1426: Previous medical records were reviewed. The patient was evaluated in room C04. A complete history and physical examination was performed. 1435: I discussed the patient's case with Paul, from [facility] in [place], who reported that the patient's last dialysis treatment was 3 days ago in [facility]. 1533: I discussed the patient's case with MELANY from the office of Dr. Maguire, vascular surgeon with [facility]. 1700: I discussed the patient's case with Dr. Tovar, milk receiver tank truck with [facility]. 1711: On reevaluation, the patient is resting comfortably. I discussed the results and findings with her. She verbalized agreement of the treatment plan. I spoke with Dr. Lawrence of the [facility] Hospitalist Service. The patient will be evaluated for further management and care. Medical Decision Medication Reconciliation: I attest that I have personally reviewed the patient' s current medication list. Patient was found to have a slightly elevated blood pressure due to circumstances. I do not believe that the patient requires hypertension monitoring. Differential includes acute coronary syndrome, myocardial infarction, CVA, TIA, anemia, infection, pneumonia, UTI, pyelonephritis, poor nutrition, dehydration, electrolyte disturbance,hypoglycemia. This is a 56-year-old female who presents to the ED with a chief complaint of needing a tunneled catheter for dialysis. The patient states that she has had problems with Dr. Rogers from [facility] with regards to her dialysis catheter. She was having problems with a tunneled catheter that she had in her right chest and therefore a temporary dialysis catheter was placed in her left neck. The patient states that she does not want this surgeon to place another tunneled catheter. She went to her [place] dialysis Center today and was told that she could not have this catheter used. She came here to question to have a permacath placed. I spoke with Dr. Maguire who agreed to place the permacath tomorrow. Because the patient has not had dialysis since Sunday, the patient will need to stay for dialysis. I spoke to Dr. Tovar about this. He is arranging for this. I also spoke with the hospitalist who will admit the patient. The patient seems to be frustrated and is somewhat angry. Initially she stated she just wanted to go home because she has cancer. She was convinced to stay and receive dialysis and see Dr. Maguire for the permacath tomorrow. She did agree to stay and will be sent to dialysis at this time. Consults Time Called: 1420 Consulting Physician: Paul, from [facility] in [place] Returned Call: 1435 I discussed the patient's case with Paul, from [facility] in [place], who reported that the patient's last dialysis treatment was 3 days ago in [facility]. Additional Consults: Time Called: 1528 Consulted Physician: MELANY from the office of Dr. Maguire, vascular surgeon with [facility] Returned Call: 1533 Additional Comments: I discussed the patient's case with MELANY from the office of Dr. Maguire, vascular surgeon with [facility]. Time Called: 1645 Consulted Physician: Dr. Tovar, milk receiver tank truck with [facility] Returned Call: 1701 Additional Comments: I discussed the patient's case with Dr. Tovar, milk receiver tank truck with [facility]. Impression Primary Impression: Hyperkalemia Additional Impressions: Acute renal failure on dialysis Malfunctioning dialysis catheter Scribe Attestation The scribe's documentation has been prepared under my direction and personally reviewed by me in its entirety. I confirm that the note above accurately reflects all work, treatment, procedures, and medical decision making performed by me. Departure Information Dispostion Being Evaluated By Hospitalist Referrals No Doctor, Assigned (PCP) Patient Instructions [facility] Problem Qualifiers
[2017-01-22] MEDS ORDERED: FENTANYL PATCH REMOVE & WASTE SCH (20:59)
[2017-01-22] MEDS ORDERED: FENTANYL 25 MCG/HR TDSY TD SCH (21:00)
[2017-01-22] MEDS ORDERED: ZOLPIDEM TARTRATE 10 MG TAB PO SCH (21:00)
[2017-01-22] MEDS: BUDESONIDE/FORMOTEROL FUMARATE 160/4.5 60 PUFFS/INHALER INH SCH (21:38)
[2017-01-22] MEDS: ALBUTEROL HFA 8 GM INHALER INH SCH (21:39)
[2017-01-22] MEDS: OXYCODONE HCL IR 5 MG TAB (IMMEDIATE RELEASE) PO PRN (21:44)
[2017-01-22] MEDS: HEPARIN SOD 5000 UNIT/0.5 ML CARP SQ SCH (21:46)
[2017-01-23] VITALS (21 sets, daily range): BP systolic 121–180; BP diastolic 68–101; PULSE 70–93; TEMP 36.6–36.8; O2SAT 96–100
[2017-01-23] MEDS ORDERED: DiphenhydrAMINE HCL 50 MG/ML VIAL IV STA ×2 (00:41→14:27)
[2017-01-23] MEDS ORDERED: NURSING VERBAL MED ORDER ONE (00:45)
[2017-01-23 05:03] LABS: URINE APPEARANCE CLOUDY (CLEAR); URINE BILIRUBIN NEG (NEG); URINE COLOR YELLOW; URINE EPITHELIAL CELL AUTO >30 /lpf (0-5); URINE NITRITE POS (NEG); URINE PH 7.5 (4.5-7.5); URINE SPECIFIC GRAVITY 1.013 (1.000-1.030); UROBILINOGEN NEG (NEG)
[2017-01-23 05:04] LABS: MANUAL MICROSCOPIC REQUIRED? NO; REVIEW REQ? NO; SULFASALICYLIC ACID POS (NEG)
[2017-01-23] MEDS: HEPARIN SOD 5000 UNIT/0.5 ML CARP SQ SCH ×2 (06:00→14:00)
[2017-01-23 06:27] LABS: HEMATOCRIT 25.2 % (37-47); MEAN CORPUSCULAR HEMOGLOBIN 29.6 pg (25-34); MEAN CORPUSCULAR HGB CONC 32.1 g/dl (32-36); PLATELET COUNT 310 K/uL (130-400); RED BLOOD COUNT 2.74 M/uL (4.2-5.4); WHITE BLOOD COUNT 7.52 K/uL (4.8-10.8)
[2017-01-23 07:00] LABS: BUN/CREATININE RATIO 7.9 (10-20); CALCIUM 8.1 mg/dl (8.5-10.1); CREATININE 3.6 mg/dl (0.60-1.20); POTASSIUM 5.1 mmol/L (3.5-5.1)
[2017-01-23] MEDS ORDERED: CEFAZOLIN IV 2,000 MG in DEXTROSE 5% 50ML 50 ML IV ONE (07:30)
[2017-01-23] MEDS ORDERED: CEFAZOLIN 3000 MG/65 ML D5W IV SCH (08:00)
[2017-01-23] MEDS: BUDESONIDE/FORMOTEROL FUMARATE 160/4.5 60 PUFFS/INHALER INH SCH (08:16)
[2017-01-23] MEDS: ALBUTEROL HFA 8 GM INHALER INH SCH ×3 (08:16→17:00)
[2017-01-23] MEDS: CHECK FENTANYL PATCH PLACEMENT SCH ×3 (08:17→16:51)
[2017-01-23] MEDS ORDERED: CITALOPRAM 40 MG TAB PO SCH (09:00)
[2017-01-23] MEDS ORDERED: NICOTINE 21 MG/24 HR TDSY TD SCH (09:00)
[2017-01-23] MEDS ORDERED: ASPIRIN 81 MG ECTAB PO SCH (09:00)
[2017-01-23] MEDS ORDERED: METOPROLOL SUCC 50MG EXT REL TAB PO SCH (09:00)
[2017-01-23] MEDS ORDERED: ATORVASTATIN 40 MG TAB PO SCH (09:00)
[2017-01-23] MEDS ORDERED: TIOTROPIUM BROMIDE 5 PUFF/90 MCG INH INH SCH (09:00)
--- NOTE | 2017-01-23 09:18 | Nephrology Progress Note ---
Nephrology Progress Note Date of Service Jan 23, 2017. Chief Complaint ESRD Subjective Upset that she is NPO and that procedure has not yet been completed. Denies fever, dyspnea or angina this am. Patient completed 2 hours hemodialysis last evening. Temporary catheter functioned well. Patient was hypertensive at start of treatment. Blood pressure came down with 1 L UF. No complications reported. Serum potassium improved to 5.1 this am. Review of Systems Constitutional: No fever Cardiovascular: No chest pain Respiratory: No dyspnea at rest Abdomen: No pain, No nausea Extremities: No leg edema A complete review of systems was performed. Pertinent positives are noted above. All other systems are negative. Vital Signs Last 8 Hrs Date Time Temp Pulse Resp B/P (MAP) Pulse Ox O2 Delivery O2 Flow Rate FiO2 01/23/17 08:20 36.8 70 18 154/88 (110) 99 01/23/17 04:38 36.7 93 18 160/101 (120) 96 Room Air 01/23/17 04:00 Room Air Last Recorded Weight Weight (Kilograms): 150.000 Physical Exam General Appearance: no apparent distress Head: normocephalic, atraumatic Eyes: PERRL Neck: no adenopathy Respiratory/Chest: lungs clear Cardiovascular: regular rate, rhythm Abdomen/GI: normal bowel sounds, non tender, soft Extremities/Musculoskelatal: no calf tenderness, no pedal edema Neurologic/Psych: alert Family History None stated Negative for CKD / ESRD Social History Alcohol Use: none Drug Use: none Housing Status: [facility] Occupation: disabled . w/ history of brain tumor. Medically disabled. History of tobacco use. Laboratory Results Past 24 Hours 01/22/17 16:33 Red Blood Count 3.03, Mean Corpuscular Volume 92.4, Mean Corpuscular Hemoglobin 29.7, Mean Corpuscular Hemoglobin Concent 32.1, Mean Platelet Volume 8.9, Neutrophils (%) (Auto) 69.6, Lymphocytes (%) (Auto) 22.7, Monocytes (%) (Auto) 4.7, Eosinophils (%) (Auto) 2.0, Basophils (%) (Auto) 0.5, Neutrophils # (Auto) 6.60, Lymphocytes # (Auto) 2.16, Monocytes # (Auto) 0.45, Eosinophils # (Auto) 0.19, Basophils # (Auto) 0.05 01/23/17 06:19 01/22/17 16:33 01/23/17 06:19 Test 01/22/17 16:33 01/22/17 16:42 01/22/17 18:30 01/22/17 22:23 White Blood Count 9.50 K/uL (4.8-10.8) Red Blood Count 3.03 M/uL (4.2-5.4) Hemoglobin 9.0 g/dL (12.0-16.0) Hematocrit 28.0 % (37-47) Mean Corpuscular Volume 92.4 fL (80-100) Mean Corpuscular Hemoglobin 29.7 pg (25-34) Mean Corpuscular Hemoglobin Concent 32.1 g/dl (32-36) Platelet Count 366 K/uL (130-400) Mean Platelet Volume 8.9 fL (7.4-10.4) Neutrophils (%) (Auto) 69.6 % Lymphocytes (%) (Auto) 22.7 % Monocytes (%) (Auto) 4.7 % Eosinophils (%) (Auto) 2.0 % Basophils (%) (Auto) 0.5 % Neutrophils # (Auto) 6.60 K/uL (1.4-6.5) Lymphocytes # (Auto) 2.16 K/uL (1.2-3.4) Monocytes # (Auto) 0.45 K/uL (0.11-0.59) Eosinophils # (Auto) 0.19 K/uL (0-0.5) Basophils # (Auto) 0.05 K/uL (0-0.2) RDW Standard Deviation 44.6 fL (36.4-46.3) RDW Coefficient of Variation 13.2 % (11.5-14.5) Immature Granulocyte % (Auto) 0.5 % Immature Granulocyte # (Auto) 0.05 K/uL (0.00-0.02) Prothrombin Time 11.1 SECONDS (9.0-12.0) Prothromb Time International Ratio 1.0 (0.9-1.1) Activated Partial Thromboplast Time 28.5 SECONDS (21.0-31.0) Partial Thromboplastin Ratio 1.1 Anion Gap 10.0 mmol/L (3-11) 17.0 mmol/L (16-25) Est Creatinine Clear Calc Drug Dose 20.1 ml/min Estimated GFR () 12.0 Estimated GFR (Non- 10.4 BUN/Creatinine Ratio 9.0 (10-20) Calcium Level 8.7 mg/dl (8.5-10.1) Total Bilirubin 0.2 mg/dl (0.2-1) Direct Bilirubin mg/dl (0-0.2) Aspartate Amino Transf (AST/SGOT) 20 U/L (15-37) Alanine Aminotransferase (ALT/SGPT) 14 U/L (12-78) Alkaline Phosphatase 113 U/L (45-117) Total Creatine Kinase 57 U/L (26-192) Creatine Kinase MB 2.4 ng/ml (0.5-3.6) Creatine Kinase MB Ratio 4.2 (0-3.0) Troponin I 0.082 ng/ml (0-0.045) 0.074 ng/ml (0-0.045) Total Protein 7.4 gm/dl (6.4-8.2) Albumin 2.4 gm/dl (3.4-5.0) Lipase 144 U/L (73-393) Chemistry Specimen Hemolysis Bedside Hemoglobin 9.2 g/dl (12.0-16.0) Bedside Hematocrit 27 % (37-47) Bedside Sodium 139 mEq/L (135-144) Bedside Potassium 5.9 mEq/L (3.3-5.0) Bedside Chloride 107 mEq/L (101-112) Bedside Total CO2 22 mEq/l (24-31) Bedside Blood Urea Nitrogen 45 mg/dl (7-18) Bedside Creatinine 4.5 mg/dl (0.6-1.3) Bedside Glucose (other) 147 mg/dl (70-99) Bedside Ionized Calcium (Javan) 1.17 mmol/l (1.12-1.32) Hepatitis B Surface Antigen NEG (NEG) Hepatitis B Surface Antibody NEG Test 01/23/17 04:45 01/23/17 06:19 Urine Color YELLOW Urine Appearance CLOUDY (CLEAR) Urine pH 7.5 (4.5-7.5) Urine Specific [place] 1.013 (1.000-1.030) Urine Protein 1+ (NEG) Urine Glucose (UA) TRACE (NEG) Urine Ketones NEG (NEG) Urine Occult Blood TRACE (NEG) Urine Nitrite POS (NEG) Urine Bilirubin NEG (NEG) Urine Urobilinogen NEG (NEG) Urine Leukocyte Esterase SMALL (NEG) Urine WBC (Auto) >30 /hpf (0-5) Urine RBC (Auto) 5-10 /hpf (0-4) Urine Hyaline Casts (Auto) 1-5 /lpf (0-5) Urine Epithelial Cells (Auto) >30 /lpf (0-5) Urine Bacteria (Auto) 1+ (NEG) Red Blood Count 2.74 M/uL (4.2-5.4) Mean Corpuscular Volume 92.0 fL (80-100) Mean Corpuscular Hemoglobin 29.6 pg (25-34) Mean Corpuscular Hemoglobin Concent 32.1 g/dl (32-36) RDW Standard Deviation 44.1 fL (36.4-46.3) RDW Coefficient of Variation 13.2 % (11.5-14.5) Mean Platelet Volume 8.0 fL (7.4-10.4) Anion Gap 7.0 mmol/L (3-11) Est Creatinine Clear Calc Drug Dose 27.3 ml/min Estimated GFR () 15.7 Estimated GFR (Non- 13.6 BUN/Creatinine Ratio 7.9 (10-20) Calcium Level 8.1 mg/dl (8.5-10.1) Troponin I 0.074 ng/ml (0-0.045) Allergies Coded Allergies: Iodinated Diagnostic Agents (Verified Allergy, Severe, ANAPHYLAXIS, ) Perflutren (Verified Allergy, Severe, RASH, DIFFICULTY BREATHING, ANAPHALYSIS, 01/22/17) Surgical Lubricant (Verified Allergy, Mild, rash, 01/22/17) Adhesives (Verified Allergy, Unknown, RASH, 01/22/17) Propylene Glycol (Verified Allergy, Unknown, RASH, 01/22/17) Medications Current Inpatient Medications Medications (Trade) Dose Ordered Sig/Rica Route Start Time Stop Time Status Last Admin Dose Admin Heparin Sodium (Porcine) (Heparin Sq 5000 Unit/0.5ml) 5,000 unit Q8 SQ 01/22/17 22:00 02/21/17 21:59 01/22/17 21:46 5,000 UNIT Acetaminophen (Tylenol Tab) 650 mg Q4H PRN PO 01/22/17 18:15 02/21/17 18:14 Magnesium Hydroxide (Milk Of Magnesia Susp) 30 ml Q12H PRN PO 01/22/17 18:15 02/21/17 18:14 Ondansetron HCl (Zofran Inj) 4 mg Q6H PRN IV 01/22/17 18:15 02/21/17 18:14 Albuterol (Ventolin Hfa Inhaler) 2 puffs QID INH 01/22/17 21:00 02/21/17 20:59 01/22/17 21:39 2 PUFFS Alprazolam (Xanax Tab) 1 mg Q6H PRN PO 01/22/17 18:15 02/21/17 18:14 Aspirin (Ecotrin Tab) 81 mg DAILY PO 01/23/17 09:00 02/22/17 08:59 Atorvastatin Calcium (Lipitor Tab) 80 mg QAM PO 01/23/17 09:00 02/22/17 08:59 Budesonide/ Formoterol Fumarate (Symbicort 160/ 4.5 Inh) 2 puffs BID INH 01/22/17 21:00 02/21/17 20:59 01/22/17 21:38 2 PUFFS Citalopram Hydrobromide (celeXA TAB) 40 mg QAM PO 01/23/17 09:00 02/22/17 08:59 Ergocalciferol (Vitamin D Cap) 50,000 interunit Mo@0900 PO 01/29/17 09:00 02/28/17 08:59 Fentanyl (Duragesic Patch) 25 mcg Q3D@2100 TD 01/22/17 21:00 02/05/17 20:59 01/22/17 21:45 25 MCG Albuterol/ Ipratropium (Duoneb) 3 ml Q4H PRN INH 01/22/17 18:15 02/21/17 18:14 Metoprolol Succinate (Toprol Xl Tab) 50 mg QAM PO 01/23/17 09:00 02/22/17 08:59 Ondansetron HCl (Zofran Tab) 4 mg Q4 PRN PO 01/22/17 18:15 02/21/17 18:14 Oxycodone HCl (Roxicodone Immediate Rel Tab) 10 mg Q6H PRN PO 01/22/17 18:15 02/05/17 18:14 01/22/17 21:44 10 MG Tiotropium [place] (Spiriva Handihaler Inhaler) 1 puff QAM INH 01/23/17 09:00 02/22/17 08:59 Zolpidem Tartrate (Ambien Tab) 10 mg HS PO 01/22/17 21:00 02/21/17 20:59 01/22/17 21:48 10 MG Morphine Sulfate (MoRPHine SULFATE IR TAB) 30 mg DAILY PRN PO 01/22/17 19:15 02/05/17 19:14 Miscellaneous Information (Order Awaiting Action) 1 ea QS N/A 01/23/17 00:00 02/22/17 00:00 Nicotine (Nicoderm Cq 21MG Patch) 1 patch QAM TD 01/23/17 09:00 02/22/17 08:59 Miscellaneous (Remove Nicoderm Patch) 1 ea HS N/A 01/22/17 21:00 02/21/17 20:59 Miscellaneous (Fentanyl Patch Remove & Waste) 1 ea Q3D@2059 N/A 01/22/17 20:59 02/21/17 20:58 Miscellaneous Information (Check Fentanyl Patch Placement) 1 ea QS N/A 01/23/17 00:00 02/22/17 00:00 01/23/17 08:17 1 EA Cefazolin Sodium 65 ml @ 100 mls/hr PREOP IV 01/23/17 08:00 01/23/17 18:00 Impression (1) Hyperkalemia (2) Metastatic renal cell carcinoma (3) Hypertension (4) End-stage renal disease on hemodialysis Mrs. Beth presents for inpatient dialysis. Her temporary L IJ dialysis catheter could not be used per policy at the outpatient dialysis unit. She is now admitted for correction of hyperkalemia, inpatient HD and vascular surgery evaluation. Patient has metastatic RCCA. Recommendations END STAGE RENAL DISEASE: -- Vascular surgery has been consulted for IJ THC placement and removal of temporary dialysis catheter -- I have spoken w/ Naomi RN at [facility]] HD unit. Their unit closes at 2 pm today. Patient dialyzes TTS. Her chronic HD orders are 4 hr 2K 2Ca HCO3 35 F180 EDW 148 Heparin 3500 bolus + pump 500 units hourly. Appeals Examiner is Dr. Byers, PCP is Dr. Estrada. -- Will provide HD today following IJ THC insertion to ensure catheter function , correct K and allow patient to resume TTS outpatient schedule. Orders placed in EMR and HD RN notified this morning -- Will need to schedule AVF creation as outpatient METASTATIC RCCA: -- Patient reports that she is on chemotherapy and has an established relationship w/ an Oncologist in [place]. Recommend that primary service schedule Oncology follow up prior to discharge to ensure treatment of patient's malignancy
[2017-01-23] MEDS ORDERED: HYDROmorphone INJ 0.5 MG/0.5 ML SYR IV PRN (10:00)
--- NOTE | 2017-01-23 10:19 | Surgery Consultation ---
Consultation Date of Service Jan 23, 2017. (Anaya Ramirez, MELANY) Chief Complaint ESRD, need permcath for HD (Anaya Ramirez, MELANY) History of Present Illness The patient is a 56 year old female with hx of chronic back pain, renal cell ca s/p nephrectomy, admitted with ESRD and hyperkalemia, seen in consultation today for permcath insertion for HD. Pt was recently admitted to [facility] and started on HD through permcath, however, this malfunctioned and pt refused vs surgeon refused to replace it, so temporary line was placed and pt was discharged home for outpt hd. When she arrived at [facility] HD unit, they were unable to use temporary line for HD per regulations, so she was sent to [facility] ED. Last HD had been 01/19, then underwent inpt HD last evening d/t hyperkalemia. Pt c/o chronic pain, refuses to say where. Pt refuses to answer questions and is confrontational regarding timing of her permcath insertion. No further HPI obtainable at this time. (Anaya Ramirez, EMLANY) Vitals Vital Signs Past 12 Hours Date Time Temp Pulse Resp B/P (MAP) Pulse Ox O2 Delivery O2 Flow Rate FiO2 01/23/17 08:20 36.8 70 18 154/88 (110) 99 01/23/17 08:00 Room Air 01/23/17 04:38 36.7 93 18 160/101 (120) 96 Room Air 01/23/17 04:00 Room Air 01/22/17 23:59 Room Air 01/22/17 23:21 36.9 91 16 152/98 (116) 95 Room Air (Anaya Ramirez, ABDIC) Allergies Coded Allergies: Iodinated Diagnostic Agents (Verified Allergy, Severe, ANAPHYLAXIS, ) Perflutren (Verified Allergy, Severe, RASH, DIFFICULTY BREATHING, ANAPHALYSIS, 01/22/17) Surgical Lubricant (Verified Allergy, Mild, rash, 01/22/17) Adhesives (Verified Allergy, Unknown, RASH, 01/22/17) Propylene Glycol (Verified Allergy, Unknown, RASH, 01/22/17) Home Medications Scheduled Albuterol (Ventolin Hfa), 2 PUFFS INH QID Aspirin (Aspirin Ec), 81 MG PO DAILY Atorvastatin (Lipitor), 80 MG PO QAM Budesonide/Formoterol Fumarate (Symbicort 160-4.5 Mcg/Act), 2 PUFFS INH BID Citalopram (Citalopram Hydrobromide), 40 MG PO QAM Ergocalciferol (Vitamin D 08873 Unit), 1 CAP PO SUNDAY Fentanyl (Duragesic), 25 MCG TD Q72H Metoprolol Succinate (Toprol Xl), 50 MG PO QAM Tiotropium [place] (Spiriva [place]), 2 PUFFS INH QAM Zolpidem Tartrate (Ambien), 10 MG PO HS Scheduled PRN Alprazolam (Xanax), 1 MG PO Q6H PRN for Anxiety Ipratropium-Albuterol (Duoneb), 1 TREATMENT INH Q4H PRN for SOB/Wheezing Morphine Sulfate Ir (Morphine Sulfate Ir), 30 MG PO QAM PRN for Pain Ondansetron Hcl (Zofran), 4 MG PO Q4 PRN for Nausea Oxycodone Ir (Roxicodone Ir), 10 MG PO Q6H PRN for Severe Pain [Itching Medication], 1 TAB PO UD PRN for ITCHING Problem List Medical Problems: (1) Acute kidney injury (2) Anemia (3) Back pain, chronic (4) Congestive heart failure of unknown etiology (5) End-stage renal disease on hemodialysis (6) Hyperkalemia (7) Hypertension (8) Metastatic renal cell carcinoma (9) Osteomyelitis (10) PICC (peripherally inserted central catheter) flush (11) Pulmonary embolism (12) Renal mass, right (13) Spinal abscess (Anaya Ramirez, ABDIC) Surgical / Medical History Hx Cardiac Surgery: Yes (CARDIAC CATH NO INTERVENTION, UNSUCCESSFUL) Hx Cancer Surgery: Yes (nephrectomy) Hx Thoracic Surgery: No Hx Urinary Tract Surgery: Yes (STENT PLACEMENT AND REMOVAL) Past Medical/Surgical History: Cancer, Hypertension, Kidney Disease (Anaya Ramirez, ABDIC) Family History None stated (Anaya Ramirez, ABDIC) None stated (Beto Maguire M.D.) Social History Smoking Status: Current Every Day Smoker Hx Tobacco Use In Past Year?: Yes Hx Alcohol Use - Type & Amnt: Yes (socially) Hx Substance Use -Type & Amnt: No (Anaya Ramirez, MELANY) Review of Systems Additional Comments: unobtainable d/t pt refuses (Anaya Ramirez, MELANY) Physical Exam Constitutional: General Apperance: well-nourished, well-developed, obese Level of Distress: NAD (belligerent, confrontational, defers most of exam), chronically ill Psychiatric: Mental Status: active & alert, anxious, agitated Orientation: oriented except where noted, to time, to place, to person Memory: recent memory normal, remote memory normal Head: normocephalic, atraumatic ENMT: hearing grossly normal Neck: trachea midline Lungs: Respiratory effort: no dyspnea Cardiovascular: Heart Auscultation: RRR Peripheral Pulses: Radial Pulse: normal on the left, normal on the right Femoral Pulse: normal on the left, normal on the right Dorsalis Pedis Pulse: decreased on the left, decreased on the right Abdomen: Bowel Sounds: normal Inspection & Palpation: soft, no tenderness, guarding & rebound Extremities: Upper Right: no cyanosis, no edema, no varicosities Upper Left: no cyanosis, no edema, no varicosities Lower Right: no cyanosis, no varicosities, no palpable cord, edema Lower Left: no cyanosis, no varicosities, edema Neurologic: Cranial Nerves: grossly intact Sensation: grossly intact (Anaya Ramirez, MELANY) Assessment and Plan ASSESSMENT and PLAN: ESRD Pt for permcath insertion this afternoon. Pt agitated, stating she wants to eat lunch. Advised that we will perform as soon as possible, however, other cases were already scheduled. Pt states, " I hope I on the table." Began discussion regarding AVF creation as well. Advised pt that AVF typically takes 3 months to mature before using for HD. Pt states that her life expectancy is not that long and she is frustrated that she "has no choices." Advised pt that as long as she wishes to continue with HD, she will require access by starting with the permcath, then possibly having AVF created as outpt if she wishes. When asked if she wishes to continue with current plan for permcath insertion today, pt states,"Whatever." Please call if pt refuses. (Anaya Ramirez, PA-C) Patient was seen, examined, and chart reviewed. Agree with exam and treatment plan of the Vascular PA. Patient in need of permcath for dialysis. I have discussed the risks options and benefits of the procedure with the patient. The patient understands the risks options and benefits and agrees to the procedure. (Beto Maguire M.D.)
--- NOTE | 2017-01-23 10:56 | Procedure Note ---
Pre-Mod Sedation Assessment General Date of Moderate Sedation: Jan 23, 2017. Vital Signs: Vital Signs Past 12 Hours Date Time Temp Pulse Resp B/P (MAP) Pulse Ox O2 Delivery O2 Flow Rate FiO2 01/23/17 08:20 36.8 70 18 154/88 (110) 99 01/23/17 08:00 Room Air 01/23/17 04:38 36.7 93 18 160/101 (120) 96 Room Air 01/23/17 04:00 Room Air 01/22/17 23:59 Room Air 01/22/17 23:21 36.9 91 16 152/98 (116) 95 Room Air Review Cardiovascular: regular rate, rhythm Abdomen: normal bowel sounds, non tender, soft Lungs: lungs clear Pre-Sedation Airway Assessment Smoking Status: Current Every Day Smoker Mallampati Classification: Class I ASA Classification: Class III Notes The planned sedation has been discussed with the patient and consent obtained. I have identified the patient, determined the appropriateness of sedation and have assessed the patient immediately prior to the procedure. All medicine(s) and interventions are by my order.
[2017-01-23] MEDS ORDERED: HEPARIN SOD (PORCINE) 5000 UNIT/ML 1 ML VIAL ONE (11:00)
[2017-01-23] MEDS ORDERED: FENTANYL CITRATE INJ 50 MCG/1 ML 2 ML VIAL ONE (11:01)
[2017-01-23] MEDS ORDERED: MIDAZOLAM HCL 5 MG/ML 1 ML VIAL ONE (11:01)
[2017-01-23] MEDS ORDERED: MIDAZOLAM HCL 1 MG/ML 2ML VIAL IV ONE ×2 (11:48→11:52)
[2017-01-23] MEDS ORDERED: FENTANYL CITRATE INJ 50 MCG/1 ML 2 ML VIAL IV ONE (11:48)
[2017-01-23] MEDS ORDERED: LIDOCAINE HCL 1% 20 ML VIAL INJ ONE ×2 (11:53→11:57)
[2017-01-23] MEDS ORDERED: HEPARIN SOD (PORCINE) 5000 UNIT/ML 1 ML VIAL IV ONE (12:09)
--- NOTE | 2017-01-23 12:13 | Procedure Note ---
Post-Moderate Sedation Plan General Date of Moderate Sedation Jan 23, 2017. Vital Signs: Vital Signs Past 12 Hours Date Time Temp Pulse Resp B/P (MAP) Pulse Ox O2 Delivery O2 Flow Rate FiO2 01/23/17 08:20 36.8 70 18 154/88 (110) 99 01/23/17 08:00 Room Air 01/23/17 04:38 36.7 93 18 160/101 (120) 96 Room Air 01/23/17 04:00 Room Air Review - Discharge Plan Post Moderate Sedation Plan: On clinical assessment, the patient appears to have tolerated the conscious sedation without complications. Patient is recovering as anticipated. Patient will continue to be monitored by nursing and may be discharged when conscious sedation discharge criteria are met.
--- NOTE | 2017-01-23 12:17 | [facility] Operative Report ---
Operative Report Operative Date Jan 23, 2017. Pre-Operative Diagnosis end stage renal disease Post-Operative Diagnosis same Procedure(s) Performed Insertion Of Perm Catheter, Right Internal Jugular Approach, Ultrasound Localization of Right Internal Jugular Vein, Fluoroscopy For Positioning, Moderate Concious Sedation [address] Maguire Extern Surgeon(s) none Estimated Blood Loss 5 ml Findings tip in mid svc Specimens none Anesthesia Local with sedation Complication(s) None Disposition Indications The patient is a 56-year-old white female who has end-stage renal disease. She has a left internal jugular vein temporary catheter in place. She is in need of a tunneled line for dialysis purposes. A right internal jugular vein PermCath was recommended. She understood the risks options benefits and agreed to go ahead with this procedure. Description of Procedure Patient was takent to the angio suite and placed in the supine position. The right side of the neck and chest wall were prepped and draped in a sterile manner. Local anesthesia was then administered to the appropriate areas of the neck and chest wall. Ultrasound was then used to locate the right internal jugular vein. The vein compressed easily, had no filing defects, and was patent. The vein was then punctured under direct ultrasound imaging. A 035 glidewire was then passed centrally under fluoroscopic imaging. A stab wound was then made in the anterior chest wall and a 19 cm permcath was passed from the stab wound on the chest wall to the puncture site on the neck. The puncture site was then dilated till the 14Fr peel away sheath was inserted. The permcath was then inserted through the sheath to a central position in the mid superior vena cava. The peel away sheath was then removed. The catheter was then sutured in place using nylon sutures. The puncture was then closed using a 4-0 Vicryl subcuticular suture. Dermabond was used for a dressing on the puncture site. Both ports aspirated and flushed easily and were then packed with heparin. A sterile dressing was applied to the catheter. The patient left the angio suite in good condition and tolerated the procedure well. Will pull temporary catheter once the permcath is used to ensure a good run. I attest to the content of the Intraoperative Record and any orders documented therein. Any exceptions are noted below.
[2017-01-23] MEDS: OXYCODONE HCL IR 5 MG TAB (IMMEDIATE RELEASE) PO PRN (13:04)
--- NOTE | 2017-01-23 13:48 | Hospitalist Progress Note ---
Hospitalist Progress Note Date of Service Jan 23, 2017. Subjective Pt evaluation today including: conversation w/ patient, physical exam, chart review, lab review, review of studies, review of inpatient medication list Patient very angry, rude, and upset/anxious. Upset that vascular surgery didn't see her last PM. States, "everyone here is lying to me." Cannot obtain ROS due to patient being upset and yelling about not seeing vascular surgery yet. Palliative care: While in ED patient mentioned she would like "catheter d/c'd in the ED and be allowed to go home to ." However, after speaking w/ lace roller and ED physician, patient decided to be admitted and receive dialysis. Discussed consulting palliative care w/ patient and she denied wanting to speak w/ them. Discussed continuing HD at this time and patient deferred to a different topic. Asked patient who her oncologist is and stated "a quack in [place]." Offered for her to speak w/ [facility] oncologist and patient declined. Spoke w/ RN: patient refused medications because she had no breakfast. Very unpleasant and rude to staff. Objective Vital Signs Date Time Temp Pulse Resp B/P (MAP) Pulse Ox O2 Delivery O2 Flow Rate FiO2 01/23/17 13:05 85 20 156/91 100 Nasal Cannula 2.0 01/23/17 12:55 83 20 168/83 100 Nasal Cannula 2.0 01/23/17 12:45 78 20 154/83 100 Nasal Cannula 2.0 01/23/17 12:35 86 20 173/94 100 Nasal Cannula 2.0 01/23/17 12:30 36.7 90 20 177/91 100 Nasal Cannula 2.0 01/23/17 12:11 16 211/91 97 Nasal Cannula 4 01/23/17 08:20 36.8 70 18 154/88 (110) 99 01/23/17 08:00 Room Air 01/23/17 04:38 36.7 93 18 160/101 (120) 96 Room Air 01/23/17 04:00 Room Air 01/22/17 23:59 Room Air 01/22/17 23:21 36.9 91 16 152/98 (116) 95 Room Air 01/22/17 20:25 36.8 73 179/88 (118) 01/22/17 20:15 71 166/59 01/22/17 20:00 36.8 73 18 179/88 Room Air 01/22/17 20:00 72 168/71 01/22/17 19:45 75 176/68 01/22/17 19:30 76 200/98 01/22/17 19:15 77 184/112 01/22/17 19:00 77 176/101 01/22/17 18:45 71 183/92 01/22/17 18:30 69 191/88 01/22/17 18:15 72 185/89 01/22/17 18:10 36.5 68 210/95 (133) 01/22/17 18:06 79 18 178/81 92 Room Air 01/22/17 14:21 36.6 93 20 164/85 96 Room Air Physical Exam General Appearance: no apparent distress, + obese Eyes: normal inspection, PERRL ENT: hearing grossly normal Neck: supple Respiratory/Chest: lungs clear, no respiratory distress, no accessory muscle use Cardiovascular: regular rate, rhythm Abdomen: normal bowel sounds, non tender, soft Extremities: no pedal edema, no calf tenderness Neurologic/Psychiatric: alert, oriented x 3, + pertinent finding (angry, anxious/upset ) Skin: normal color, warm/dry, no rash Laboratory Results Last 24 Hours Test 01/22/17 16:33 01/22/17 16:42 01/22/17 18:30 01/22/17 22:23 White Blood Count 9.50 K/uL Red Blood Count 3.03 M/uL Hemoglobin 9.0 g/dL Hematocrit 28.0 % Mean Corpuscular Volume 92.4 fL Mean Corpuscular Hemoglobin 29.7 pg Mean Corpuscular Hemoglobin Concent 32.1 g/dl Platelet Count 366 K/uL Mean Platelet Volume 8.9 fL Neutrophils (%) (Auto) 69.6 % Lymphocytes (%) (Auto) 22.7 % Monocytes (%) (Auto) 4.7 % Eosinophils (%) (Auto) 2.0 % Basophils (%) (Auto) 0.5 % Neutrophils # (Auto) 6.60 K/uL Lymphocytes # (Auto) 2.16 K/uL Monocytes # (Auto) 0.45 K/uL Eosinophils # (Auto) 0.19 K/uL Basophils # (Auto) 0.05 K/uL RDW Standard Deviation 44.6 fL RDW Coefficient of Variation 13.2 % Immature Granulocyte % (Auto) 0.5 % Immature Granulocyte # (Auto) 0.05 K/uL Prothrombin Time 11.1 SECONDS Prothromb Time International Ratio 1.0 Activated Partial Thromboplast Time 28.5 SECONDS Partial Thromboplastin Ratio 1.1 Sodium Level 137 mmol/L Potassium Level 5.8 mmol/L Chloride Level 108 mmol/L Carbon Dioxide Level 19 mmol/L Anion Gap 10.0 mmol/L 17.0 mmol/L Blood Urea Nitrogen 40 mg/dl Creatinine 4.50 mg/dl Est Creatinine Clear Calc Drug Dose 20.1 ml/min Estimated GFR () 12.0 Estimated GFR (Non- 10.4 BUN/Creatinine Ratio 9.0 Random Glucose 142 mg/dl Calcium Level 8.7 mg/dl Total Bilirubin 0.2 mg/dl Direct Bilirubin mg/dl Aspartate Amino Transf (AST/SGOT) 20 U/L Alanine Aminotransferase (ALT/SGPT) 14 U/L Alkaline Phosphatase 113 U/L Total Creatine Kinase 57 U/L Creatine Kinase MB 2.4 ng/ml Creatine Kinase MB Ratio 4.2 Troponin I 0.082 ng/ml 0.074 ng/ml Total Protein 7.4 gm/dl Albumin 2.4 gm/dl Lipase 144 U/L Chemistry Specimen Hemolysis Bedside Hemoglobin 9.2 g/dl Bedside Hematocrit 27 % Bedside Sodium 139 mEq/L Bedside Potassium 5.9 mEq/L Bedside Chloride 107 mEq/L Bedside Total CO2 22 mEq/l Bedside Blood Urea Nitrogen 45 mg/dl Bedside Creatinine 4.5 mg/dl Bedside Glucose (other) 147 mg/dl Bedside Ionized Calcium (Javan) 1.17 mmol/l Hepatitis B Surface Antigen NEG Hepatitis B Surface Antibody NEG Test 01/23/17 04:45 01/23/17 06:19 Urine Color YELLOW Urine Appearance CLOUDY Urine pH 7.5 Urine Specific [place] 1.013 Urine Protein 1+ Urine Glucose (UA) TRACE Urine Ketones NEG Urine Occult Blood TRACE Urine Nitrite POS Urine Bilirubin NEG Urine Urobilinogen NEG Urine Leukocyte Esterase SMALL Urine WBC (Auto) >30 /hpf Urine RBC (Auto) 5-10 /hpf Urine Hyaline Casts (Auto) 1-5 /lpf Urine Epithelial Cells (Auto) >30 /lpf Urine Bacteria (Auto) 1+ White Blood Count 7.52 K/uL Red Blood Count 2.74 M/uL Hemoglobin 8.1 g/dL Hematocrit 25.2 % Mean Corpuscular Volume 92.0 fL Mean Corpuscular Hemoglobin 29.6 pg Mean Corpuscular Hemoglobin Concent 32.1 g/dl RDW Standard Deviation 44.1 fL RDW Coefficient of Variation 13.2 % Platelet Count 310 K/uL Mean Platelet Volume 8.0 fL Sodium Level 139 mmol/L Potassium Level 5.1 mmol/L Chloride Level 108 mmol/L Carbon Dioxide Level 24 mmol/L Anion Gap 7.0 mmol/L Blood Urea Nitrogen 29 mg/dl Creatinine 3.60 mg/dl Est Creatinine Clear Calc Drug Dose 27.3 ml/min Estimated GFR () 15.7 Estimated GFR (Non- 13.6 BUN/Creatinine Ratio 7.9 Random Glucose 86 mg/dl Calcium Level 8.1 mg/dl Troponin I 0.074 ng/ml Assessment and Plan 56 y/o F who was admitted on 01/22 for emergent HD and HD catheter replacement. Malfunctioning HD catheter: - Consulted vascular surgery, appreciate recommendations -- Insertion Of Perm Catheter, Right Internal Jugular Approach, Ultrasound Localization of Right Internal Jugular Vein, Fluoroscopy For Positioning on 01/23 -- f/u outpatient if wishing to pursue AVF creation ESRD requiring HD on TTS, baseline Cr. 2.1: - Consult nephrology, appreciate recommendations -- Received emergent HD on 01/22 -- HD scheduled for 01/23 after PermCath placement - Supervisor Special Services is Dr. Byers Metastatic RCCA: Follows w/ oncologist in [place]- continue outpatient follow-up Chronically elevated trop, likely related to renal disease- STABLE: - Admit to tele for cardiac monitoring- no acute events - Trend cardiac enzymes- peak trop 0.082 Chronic anemia, likely secondary to ESRD- STABLE: Follow H&H Palliative care: Patient declined consultation HTN: Continue Metoprolol 50 mg daily Chronic diastolic CHF- STABLE: Continue Metoprolol 50 mg daily, ASA 81 mg daily COPD- STABLE: Continue Ventolin, Spiriva, Symbicort, DuoNeb q4 hrs PRN Dyslipidemia: Continue Lipitor 80 mg HS Depression/anxiety/insomnia: Celexa 40 mg QAM, Xanax 0.5 mg q6 hrs PRN, Ambien 10 mg HS Chronic pain: IV Dilaudid 0.5 mg q4 hrs PRN; continue home regimen of Morphine 30 mg QAM, Roxicodone 10 mg q6 hrs PRN, Fentanyl patch Tobacco use: - Smoking cessation counselling - Nicotine patch available GI Prophylaxis: IV Zofran PRN, Milk of Mag PRN DVT Prophylaxis: Heparin TID Code Status: LEVEL V, DNR Dispo: Discharge to home once medically stable
--- NOTE | 2017-01-23 14:30 | Discharge Summary ---
Discharge Summary Date of Service Jan 23, 2017. Discharge Summary Admission Date: Jan 22, 2017 at 18:13 Discharge Date: Jan 23, 2017 Discharge Disposition: Home Principal Diagnosis: Malfunctioning HD catheter Problems/Secondary Diagnoses: ESRD requiring HD on TTS Metastatic RCCA Chronically elevated trop Chronic anemia HTN Chronic diastolic CHF COPD Dyslipidemia Depression/anxiety Insomnia Chronic pain Tobacco use h/o PE h/o osteomyelitis Procedures: CHEST ONE VIEW PORTABLE HISTORY:56 yearsFemaledialysis port on right fell out last night COMPARISON: 06/29/2015. TECHNIQUE: Portable upright AP view of the chest FINDINGS: Cardiac silhouette is again mildly enlarged. Left internal jugular central venous catheter is present with distal tip terminating within the expected region of the proximal SVC. There is atherosclerosis of the aorta. No pneumothorax or large pleural effusion. There are several masslike opacities in the lungs bilaterally, notably within the right upper lobe which measures up to 2.5 x 2.5 cm. Bones are grossly intact. IMPRESSION: 1. Multiple masslike opacities within the lungs bilaterally warrant further evaluation with CT of the chest. 2. Left internal jugular hemodialysis catheter terminates in the expected region of the proximal SVC. No pneumothorax. The above report was generated using voice recognition software. It may contain grammatical, syntax or spelling errors. Electronically signed by: Denzel Palomo 01/22/2017 3:22 PM Dictated Date/Time: 01/22/2017 3:19 PM The status of this report is Signed. Draft = Not yet reviewed or approved by Radiologist. Signed = Reviewed and approved by Radiologist. Operative Report Operative Date Jan 23, 2017. Pre-Operative Diagnosis end stage renal disease Post-Operative Diagnosis same Procedure(s) Performed Insertion Of Perm Catheter, Right Internal Jugular Approach, Ultrasound Localization of Right Internal Jugular Vein, Fluoroscopy For Positioning, Moderate Concious Sedation 114[address] Maguire Analyst Programmer Surgeon(s) none Estimated Blood Loss 5 ml Findings tip in mid svc Specimens none Anesthesia Local with sedation Complication(s) None Disposition Consultations: Nephrology Vascular surgery Medication Reconciliation Continued Medications: Albuterol (Ventolin Hfa) 60 Puffs/5400 Mcg Aers 2 PUFFS INH QID Alprazolam (Xanax) 0.5 Mg Tab 1 MG PO Q6H PRN for Anxiety Aspirin (Aspirin Ec) 81 Mg Tab 81 MG PO DAILY Restart in 1 week if no bleeding from incisions Atorvastatin (Lipitor) 80 Mg Tab 80 MG PO QAM Budesonide/Formoterol Fumarate (Symbicort 160-4.5 Mcg/Act) 60 Puffs/Inhaler Aero 2 PUFFS INH BID Citalopram (Citalopram Hydrobromide) 40 Mg Tab 40 MG PO QAM Ergocalciferol (Vitamin D 43044 Unit) 50,000 Unit Cap 1 CAP PO SUNDAY Fentanyl (Duragesic) 25 Mcg/Hr Dis 25 MCG TD Q72H Ipratropium-Albuterol (Duoneb) 3 Ml Nebu 1 TREATMENT INH Q4H PRN for SOB/Wheezing Metoprolol Succinate (Toprol Xl) 50 Mg Tabcr 50 MG PO QAM, #30 TAB Morphine Sulfate Ir (Morphine Sulfate Ir) 30 Mg Tab 30 MG PO QAM PRN for Pain Ondansetron Hcl (Zofran) 4 Mg Tab 4 MG PO Q4 PRN for Nausea Oxycodone Ir (Roxicodone Ir) 5 Mg Tab 10 MG PO Q6H PRN for Severe Pain Tiotropium [place] (Spiriva Handihaler) 30 Puff/540 Mcg Aerp 2 PUFFS INH QAM Zolpidem Tartrate (Ambien) 10 Mg Tab 10 MG PO HS [Itching Medication] () 1 TAB PO UD PRN for ITCHING Referrals At Discharge Follow up Referrals: Physician Referral - Within 1 Week with Gerson Estrada D.O. Discharge Exam Patient very angry, rude, and upset/anxious. Upset that vascular surgery didn't see her last PM. States, "everyone here is lying to me." Cannot obtain ROS due to patient being upset and yelling about not seeing vascular surgery yet. Palliative care: While in ED patient mentioned she would like "catheter d/c'd in the ED and be allowed to go home to ." However, after speaking w/ piece dye worker and ED physician, patient decided to be admitted and receive dialysis. Discussed consulting palliative care w/ patient and she denied wanting to speak w/ them. Discussed continuing HD at this time and patient deferred to a different topic. Physical Exam: General Appearance: no apparent distress, + obese Eyes: normal inspection, PERRL ENT: hearing grossly normal Neck: supple Respiratory/Chest: lungs clear, no respiratory distress, no accessory muscle use Cardiovascular: regular rate, rhythm Abdomen / GI: normal bowel sounds, non tender, soft Extremities: no calf tenderness, no pedal edema Neurologic/Psychiatric: alert, oriented x 3, + pertinent finding (angry, anxious/upset) Skin: normal color, warm/dry, no rash Hospital Course Admission H&P: 56 y/o c/o HD port malfunction. Pt is ESRD with HD on //. Pt denies any current issues other than being hungry. Pt denies fever, SOB, chest pain, abd pain, n/v/c/d, LE pain or swelling. She is not interested to repeat her story to me at this time. Further details were taken from other providers' notes and sign out discussions. Pt apparently had some sort of malfunction of her HD catheter. She initially saw the [facility] surg in [place] who placed this catheter. There was some sort of argument and pt has decided she does not want him replacing her catheter. She has a temporary catheter in place and was able to have HD on Sunday, however her usual HD facility ([facility]) is unable to use a temporary catheter and therefore pt cannot receive further HD until she has this catheter replaced. She came to the ED today due to pain in her neck from the catheter that is partially disabled. Pt was seen by Dr. Tovar in the ED. During her discussion with Dr. Tovar, pt reportedly became upset and stated that she did not want the catheter replaced or further HD as she has metastatic renal cancer. She reportedly stated that she would prefer to have the catheter d/c'd in the ED and be allowed to go home to . After further discussions with Dr. Tovar and Dr. Hanna, pt has agreed to stay for emergent HD tonight and catheter replacement tomorrow. Physical Exam Vital Signs Date Time Temp Pulse Resp B/P (MAP) Pulse Ox O2 Delivery O2 Flow Rate FiO2 01/22/17 18:06 79 18 178/81 92 Room Air 01/22/17 14:21 36.6 93 20 164/85 96 Room Air General Appearance: no apparent distress, + obese Head: normocephalic, atraumatic Eyes: normal inspection, EOMI Respiratory/Chest: normal breath sounds, no respiratory distress Cardiovascular: regular rate, rhythm, no edema Abdomen/GI: non tender, soft Extremities/Musculoskelatal: no calf tenderness, no pedal edema Neurologic/Psych: alert, oriented x 3, + pertinent finding (pt is disgruntled with short answers) Skin: normal color, warm/dry Malfunctioning HD catheter: - Consulted vascular surgery, appreciate recommendations -- Insertion Of Perm Catheter, Right Internal Jugular Approach, Ultrasound Localization of Right Internal Jugular Vein, Fluoroscopy For Positioning on 01/23 -- Discussed AVF creation w/ patient if she wishes to pursue -- f/u outpatient ESRD requiring HD on TTS, baseline Cr. 2.1: - Consult nephrology, appreciate recommendations -- Received emergent HD on 01/22 -- HD on 01/23 after PermCath placement - Sample Tailor is Dr. Byers- continue outpatient f/u Metastatic RCCA: Follows w/ oncologist in [place]- continue outpatient follow-up Chronically elevated trop, likely related to renal disease- STABLE: - Admit to tele for cardiac monitoring- no acute events - Trend cardiac enzymes- peak trop 0.082 Chronic anemia, likely secondary to ESRD- STABLE: Followed [facility]&H Palliative care: Patient declined consultation HTN: Continue Metoprolol 50 mg daily Chronic diastolic CHF- STABLE: Continue Metoprolol 50 mg daily, ASA 81 mg daily COPD- STABLE: Continue Ventolin, Spiriva, Symbicort, DuoNeb q4 hrs PRN Dyslipidemia: Continue Lipitor 80 mg HS Depression/anxiety/insomnia: Celexa 40 mg QAM, Xanax 0.5 mg q6 hrs PRN, Ambien 10 mg HS Chronic pain: IV Dilaudid 0.5 mg q4 hrs PRN; continue home regimen of Morphine 30 mg QAM, Roxicodone 10 mg q6 hrs PRN, Fentanyl patch Tobacco use: - Smoking cessation counselling - Nicotine patch available GI Prophylaxis: IV Zofran PRN, Milk of Mag PRN DVT Prophylaxis: Heparin TID Code Status: LEVEL V, DNR Dispo: Discharge to home Total Time Spent: Greater than 30 minutes This includes examination of the patient, discharge planning, medication reconciliation, and communication with other providers. Discharge Instructions Please refer to the electronic Patient Visit Report (Discharge Instructions) for additional information. Follow-Up Please follow-up with your PCP within 5-7 days Continue HD on Sunday, , Sunday Please keep follow-up with Oncologist Follow-up with Dr. Maguire (vascular surgery) as instructed by him Please follow-up/keep all of your subspecialty appointments Additional Copies To Gerson Estrada D.O.
--- NOTE | 2017-01-23 14:35 | Discharge Instructions ---
Discharge Instructions Date of Service Jan 23, 2017. Admission Reason for Admission: Acute Kidney Injury Discharge Discharge Diagnosis / Problem: Malfunctioning HD catheter; ESRD requiring HD Discharge Goals Goal(s): Decrease discomfort, Improve function, Therapeutic intervention, Prevent Disease Progression Activity Recommendations Activity Limitations: resume your previous activity (if no limitations per vascular surgery or as per vascular surgery instructions ) . Instructions / Follow-Up Instructions / Follow-Up Resume all regular home medications as prescribed Continue with dialysis as scheduled on Sunday, , Sunday at [facility] Follow-ups: Please follow-up with your PCP within 5-7 days Please keep follow-up with Oncologist Follow-up with Dr. Maguire (vascular surgery) as instructed by him Please follow-up/keep all of your subspecialty appointments Current Hospital Diet Patient's current hospital diet: AHA Diet (Heart Healthy), Renal Diet Discharge Diet Recommended Diet: AHA Diet (Heart Healthy), Renal Diet Procedures Procedures Performed: 1. Insertion Of Perm Catheter, Right Internal Jugular Approach, Ultrasound Localization of Right Internal Jugular Vein, Fluoroscopy For Positioning, Moderate Concious Sedation 1148 To 1210 2. Chest x-ray Pending Studies Studies pending at discharge: no Laboratory Results Last 24 Hours Test 01/22/17 16:33 01/22/17 16:42 01/22/17 18:30 01/22/17 22:23 White Blood Count 9.50 K/uL Red Blood Count 3.03 M/uL Hemoglobin 9.0 g/dL Hematocrit 28.0 % Mean Corpuscular Volume 92.4 fL Mean Corpuscular Hemoglobin 29.7 pg Mean Corpuscular Hemoglobin Concent 32.1 g/dl Platelet Count 366 K/uL Mean Platelet Volume 8.9 fL Neutrophils (%) (Auto) 69.6 % Lymphocytes (%) (Auto) 22.7 % Monocytes (%) (Auto) 4.7 % Eosinophils (%) (Auto) 2.0 % Basophils (%) (Auto) 0.5 % Neutrophils # (Auto) 6.60 K/uL Lymphocytes # (Auto) 2.16 K/uL Monocytes # (Auto) 0.45 K/uL Eosinophils # (Auto) 0.19 K/uL Basophils # (Auto) 0.05 K/uL RDW Standard Deviation 44.6 fL RDW Coefficient of Variation 13.2 % Immature Granulocyte % (Auto) 0.5 % Immature Granulocyte # (Auto) 0.05 K/uL Prothrombin Time 11.1 SECONDS Prothromb Time International Ratio 1.0 Activated Partial Thromboplast Time 28.5 SECONDS Partial Thromboplastin Ratio 1.1 Sodium Level 137 mmol/L Potassium Level 5.8 mmol/L Chloride Level 108 mmol/L Carbon Dioxide Level 19 mmol/L Anion Gap 10.0 mmol/L 17.0 mmol/L Blood Urea Nitrogen 40 mg/dl Creatinine 4.50 mg/dl Est Creatinine Clear Calc Drug Dose 20.1 ml/min Estimated GFR () 12.0 Estimated GFR (Non- 10.4 BUN/Creatinine Ratio 9.0 Random Glucose 142 mg/dl Calcium Level 8.7 mg/dl Total Bilirubin 0.2 mg/dl Direct Bilirubin mg/dl Aspartate Amino Transf (AST/SGOT) 20 U/L Alanine Aminotransferase (ALT/SGPT) 14 U/L Alkaline Phosphatase 113 U/L Total Creatine Kinase 57 U/L Creatine Kinase MB 2.4 ng/ml Creatine Kinase MB Ratio 4.2 Troponin I 0.082 ng/ml 0.074 ng/ml Total Protein 7.4 gm/dl Albumin 2.4 gm/dl Lipase 144 U/L Chemistry Specimen Hemolysis Bedside Hemoglobin 9.2 g/dl Bedside Hematocrit 27 % Bedside Sodium 139 mEq/L Bedside Potassium 5.9 mEq/L Bedside Chloride 107 mEq/L Bedside Total CO2 22 mEq/l Bedside Blood Urea Nitrogen 45 mg/dl Bedside Creatinine 4.5 mg/dl Bedside Glucose (other) 147 mg/dl Bedside Ionized Calcium (Javan) 1.17 mmol/l Hepatitis B Surface Antigen NEG Hepatitis B Surface Antibody NEG Test 01/23/17 04:45 01/23/17 06:19 Urine Color YELLOW Urine Appearance CLOUDY Urine pH 7.5 Urine Specific Stout 1.013 Urine Protein 1+ Urine Glucose (UA) TRACE Urine Ketones NEG Urine Occult Blood TRACE Urine Nitrite POS Urine Bilirubin NEG Urine Urobilinogen NEG Urine Leukocyte Esterase SMALL Urine WBC (Auto) >30 /hpf Urine RBC (Auto) 5-10 /hpf Urine Hyaline Casts (Auto) 1-5 /lpf Urine Epithelial Cells (Auto) >30 /lpf Urine Bacteria (Auto) 1+ White Blood Count 7.52 K/uL Red Blood Count 2.74 M/uL Hemoglobin 8.1 g/dL Hematocrit 25.2 % Mean Corpuscular Volume 92.0 fL Mean Corpuscular Hemoglobin 29.6 pg Mean Corpuscular Hemoglobin Concent 32.1 g/dl RDW Standard Deviation 44.1 fL RDW Coefficient of Variation 13.2 % Platelet Count 310 K/uL Mean Platelet Volume 8.0 fL Sodium Level 139 mmol/L Potassium Level 5.1 mmol/L Chloride Level 108 mmol/L Carbon Dioxide Level 24 mmol/L Anion Gap 7.0 mmol/L Blood Urea Nitrogen 29 mg/dl Creatinine 3.60 mg/dl Est Creatinine Clear Calc Drug Dose 27.3 ml/min Estimated GFR () 15.7 Estimated GFR (Non- 13.6 BUN/Creatinine Ratio 7.9 Random Glucose 86 mg/dl Calcium Level 8.1 mg/dl Troponin I 0.074 ng/ml Medical Emergencies . Who to Call and When: Medical Emergencies: If at any time you feel your situation is an emergency, please call 911 immediately. . Non-Emergent Contact Non-Emergency issues call your: Primary Care Provider . . "Provider Documentation" section prepared by Juana Rhoades. . VTE Core Measure Inpt VTE Proph given/why not?: Unfractionated heparin SQ, T.E.D. Stockings, SCD 's
[2017-01-23] MEDS ORDERED: HYDROmorphone INJ 0.5 MG/0.5 ML SYR IV ONE (15:30)
--- NOTE | 2017-01-23 16:45 | DIAGNOSTIC IMAGING REPORT ---
VENOUS MAPPING RIGHT UPPER EXTREMITY CLINICAL HISTORY: End stage renal disease COMPARISON STUDY: No previous studies for comparison. FINDINGS: The patient would not tolerate compression. A central venous catheter is visualized within the right internal jugular vein. Basilic and cephalic vein diameters and depths at the shoulder, proximal upper arm, mid upper arm, distal upper arm, antecubital fossa, proximal forearm, mid forearm, distal forearm, and wrists were measured and recorded. The worksheet was scanned into PACS. IMPRESSION: Venous mapping was performed, and the data was scanned into PACS on the document section of the examination. Electronically signed by: Emery Acevedo M.D. 01/23/2017 4:44 PM Dictated Date/Time: 01/23/2017 4:39 PM
--- NOTE | 2017-01-24 12:32 | Procedure Note ---
Procedure Note Date of Service Jan 24, 2017. Procedure Note Late Entry Removal of Left Internal Jugular Temporary Dialysis Catheter Date of Service 01/23/2017 Time of Procedure 16:50 Narrative: Called to bedside by RN caring for the patient. Patient had a LIJ temporary dialysis catheter placed at [facility] They reported that calls to vascular surgery went unanswered I was called to evaluate and remove the line as the ICU provides line services when needed and as the Chief APC for the hospitalist service Discharge summary and instructions were completed in the chart Dr. Subhash Lorenzana had issued order to remove temporary dialysis prior to discharge home Chart reviewed revealing INR of 1.0, platelet count of 310,000 Insertion of right perm catheter placed by Dr. Maguire and completed at 12:10pm Hemodialysis successfully performed via perm cath from 12:30pm to15:30 The left IJ temporary catheter dressing was removed and the insertion site examined. Using clean technique, 2 retaining sutures were easily removed and the left IJ temporary catheter was removed with out difficulty I personally applied the first 5 minutes of direct pressure to the sight. No bleeding or hematoma was identified. Celia Osborne RN was then instructed to apply direct pressure for a total of 15 mins and then apply dressing with tape and leave in place for 24 hours. Nursing staff advised to call me or Dr. Stevenson if any complications developed. The patient tolerated the procedure well. There was no evidence of blood loss or hematoma at the completion of the removal of the line. All questioned addressed to the satisfaction of the patient
[2017-01-29] MEDS ORDERED: ERGOCALCIFEROL 50,000 INTER.UNIT CAP PO SCH (09:00)
[2017-02-14] MEDS ORDERED: CEFA1INJ3 IV (12:52)
[2017-02-14] MEDS ORDERED: ACET-1047 PO (15:05)
[2017-02-14] MEDS ORDERED: VANC1INJ9 IV (15:05)
== END 2017-01-23 19:08 | disposition home or self-care (01) | DRG 314 ==
LOC: C.EDB 14:19 → C.2E 18:13 → ENRESERV 18:25 → CANRESERV 18:25 → ENRESERV 18:43
PROVIDERS: ADMIT Family Medicine; ATTEND Internal Medicine
PROC: 02HV33Z Insertion of Infusion Device into Superior Vena Cava, Percutaneous Approach (ICD-10-PCS; principal; 2017-01-23 11:45)
PROC: 0JH60XZ Insertion of Tunneled Vascular Access Device into Chest Subcutaneous Tissue and Fascia, Open Approach (ICD-10-PCS; principal; 2017-01-23 11:45)
PROC: 0JP Subcutaneous Tissue and Fascia, Removal (ICD-10-PCS; principal; 2017-01-23 11:45)
DX: T82.49XA Other complication of vascular dialysis catheter, initial encounter (principal); N18.6 End stage renal disease; N17.9 Acute kidney failure, unspecified; I13.2 Hypertensive heart and chronic kidney disease with heart failure and with stage 5 chronic kidney disease, or end stage renal disease; I50.32 Chronic diastolic (congestive) heart failure; C79.9 Secondary malignant neoplasm of unspecified site; Z68.43 Body mass index [BMI] 50.0-59.9, adult; E87.5 Hyperkalemia; D64.9 Anemia, unspecified; J44.9 Chronic obstructive pulmonary disease, unspecified; E78.5 Hyperlipidemia, unspecified; G89.29 Other chronic pain; M54.5 Low back pain; I48.91 Unspecified atrial fibrillation; F41.9 Anxiety disorder, unspecified; E66.9 Obesity, unspecified; G47.00 Insomnia, unspecified; F32.9 Major depressive disorder, single episode, unspecified; F17.200 Nicotine dependence, unspecified, uncomplicated; Z51.81 Encounter for therapeutic drug level monitoring; Z79.899 Other long term (current) drug therapy; Z79.82 Long term (current) use of aspirin; Z79.891 Long term (current) use of opiate analgesic; Z66 Do not resuscitate; Z99.2 Dependence on renal dialysis; Z85.528 Personal history of other malignant neoplasm of kidney; Z90.5 Acquired absence of kidney; Z86.711 Personal history of pulmonary embolism; Z87.39 Personal history of other diseases of the musculoskeletal system and connective tissue; Y83.8 Other surgical procedures as the cause of abnormal reaction of the patient, or of later complication, without mention of misadventure at the time of the procedure; Y99.8 Other external cause status

== ENCOUNTER 2017-02-06 19:17 | Inpatient (IN) | payer OTHER ==
[~2017-02-06] VITALS: Ht 170.2 cm; Wt 159.5 kg
[~2017-02-06 19:17] MED LIST changes: -CHOL100010 PO; +ERGO1CAP41 PO; +FENT25DI10 TD; -FENT25DI2 TD; +METO-217 PO; -METO1TAB66 PO; +MORP30TA PO; -MORP30TA23 PO; -NYST100098 TOP; -OMEP40CA PO; +SPRIN/30 INH; -TIOTCAP INH; +ZOLP10TA PO; -ZOLP5TAB PO
--- NOTE | 2017-02-06 19:55 | EMERGENCY ROOM VISIT NOTE ---
History Report prepared by Carol: Radha Costello Under the Supervision of: Dr. Adonis Gil D.O. First contact with patient: 19:25 Chief Complaint: INFECTION Stated Complaint: CHEST PAIN - CAN'T TURN NECK RIGHT History of Present Illness The patient is a 56 year old female who presents to the Emergency Room with complaints of persistent right sided chest pain that began yesterday. She currently rates her discomfort as a 10/10 in severity. The patient states that two weeks ago she had a port placed for dialysis. She states that she was given 1 mg of Fentanyl and 1 mg of Xanax for her discomfort. The patient states that she has been experiencing pain to the right side of her neck. She states that she cannot move her neck without pain. The patient additionally associates 102 degrees Fahrenheit, stating that she last took Tylenol around 1500 today. She states that she has not been to dialysis in four cycles, but states that she still makes urine. The patient states that she did go to dialysis a few days ago, but states that the port was not working properly so she left without dialysis. She states that she goes to dialysis on Sunday, , and Sunday. The patient additionally reports shortness of breath and nausea. She denies any vomiting or swelling to her lower extremities. The patient denies being on any blood thinners. Source of History: patient Onset: yesterday Position: chest (right) Symptom Intensity: 10/10 Timing: other (persistent) Associated Symptoms: + fevers, + neck pain, + SOB, + nausea, No vomiting Review of Systems See HPI for pertinent positives & negatives. A total of 10 systems reviewed and were otherwise negative. Past Medical & Surgical Medical Problems: (1) Acute kidney injury (2) Anemia (3) Back pain, chronic (4) Congestive heart failure of unknown etiology (5) Dialysis catheter clot or failure (6) End-stage renal disease on hemodialysis (7) Hyperkalemia (8) Hypertension (9) Metastatic renal cell carcinoma (10) Osteomyelitis (11) PICC (peripherally inserted central catheter) flush (12) Pulmonary embolism (13) Renal mass, right (14) Spinal abscess Family History None stated Social History Smoking Status: Current Every Day Smoker Drug Use: none Housing Status: lives with family Occupation Status: disabled Current/Historical Medications Scheduled Albuterol (Ventolin Hfa), 2 PUFFS INH QID Aspirin (Aspirin Ec), 81 MG PO DAILY Atorvastatin (Lipitor), 80 MG PO QAM Budesonide/Formoterol Fumarate (Symbicort 160-4.5 Mcg/Act), 2 PUFFS INH BID Citalopram (Citalopram Hydrobromide), 40 MG PO QAM Ergocalciferol (Vitamin D 24813 Unit), 1 CAP PO SUNDAY Fentanyl (Duragesic), 25 MCG TD Q72H Metoprolol Succinate (Toprol Xl), 50 MG PO QAM Tiotropium [place] (Spiriva Handihaler), 2 PUFFS INH QAM Trazodone Hcl (Trazodone), 50 MG PO HS Zolpidem Tartrate (Ambien), 10 MG PO HS Scheduled PRN Alprazolam (Xanax), 1 MG PO Q6H PRN for Anxiety Hydroxyzine Hcl (Atarax), 25 MG PO DIRECTED PRN for Itching Ipratropium-Albuterol (Duoneb), 1 TREATMENT INH Q4H PRN for SOB/Wheezing Morphine Sulfate Ir (Morphine Sulfate Ir), 30 MG PO QAM PRN for Pain Ondansetron Hcl (Zofran), 4 MG PO Q4 PRN for Nausea Oxycodone Ir (Roxicodone Ir), 10 MG PO Q6H PRN for Severe Pain Allergies Coded Allergies: Iodinated Diagnostic Agents (Verified Allergy, Severe, ANAPHYLAXIS, ) Perflutren (Verified Allergy, Severe, RASH, DIFFICULTY BREATHING, ANAPHALYSIS, 02/06/17) Surgical Lubricant (Verified Allergy, Mild, rash, 02/06/17) Adhesives (Verified Allergy, Unknown, RASH, 02/06/17) Propylene Glycol (Verified Allergy, Unknown, RASH, 02/06/17) Physical Exam Vital Signs Date Time Temp Pulse Resp B/P (MAP) Pulse Ox O2 Delivery O2 Flow Rate FiO2 02/07/17 00:59 97 22 197/89 97 Room Air 02/07/17 00:04 94 02/06/17 23:33 94 25 195/121 98 Room Air 02/06/17 22:10 92 22 219/84 100 Room Air 02/06/17 20:47 84 22 177/114 100 Room Air 02/06/17 20:23 84 02/06/17 19:45 100 Room Air 02/06/17 19:19 36.9 24 213/86 Room Air Physical Exam GENERAL: Patient is awake, alert, very anxious and uncomfortable appearing. EYES: The conjunctivae are clear. The pupils are round and reactive. EARS, NOSE, MOUTH AND THROAT: The nose is without any evidence of any deformity. Mucous membranes are moist tongue is midline NECK: Induration and tenderness over right vascular bundle, no erythema was noted, no posterior tenderness noted. RESPIRATORY: Diminished breath sounds in both bases. No tachypnea or conversational dyspnea. CARDIOVASCULAR: Tachycardic rate, regular rhythm, no murmur noted to auscultation. GASTROINTESTINAL: The abdomen is soft. Bowel sounds are present in all quadrants. Abdomen is nontender MUSCULOSKELETAL/EXTREMITIES: There is no evidence of gross deformity full range of motion is noted in the hips and shoulders SKIN: Pedal edema noted bilaterally, dialysis is port noted in right chest wall. There is no obvious evidence of any rash. There are no petechiae, pallor or cyanosis noted. NEUROLOGIC: Patient is awake alert and oriented x3. Medical Decision & Procedures ER Provider Diagnostic Interpretation: Radiology results as stated below per my review and radiologist interpretation: CHEST ONE VIEW PORTABLE CLINICAL HISTORY: 56 years-old Female presenting with Sepsis. TECHNIQUE: Portable upright AP view of the chest was obtained. COMPARISON: 01/22/2017. FINDINGS: Tunneled right internal jugular dialysis catheter terminates in the right IJ proximal to the brachiocephalic confluence. Cardiomediastinal silhouette remains prominent. Multiple rounded opacities noted in the right mid and upper lung as well as the left lower lung, unchanged from prior. No large effusion or pneumothorax. Osseous structures and upper abdomen normal. IMPRESSION: 1. Tunneled right IJ dialysis catheter terminates proximal to the expected location. Replacement/repositioning recommended. 2. Multiple masslike opacities for which chest CT is warranted as previously mentioned. The report will be called/faxed according to standard departmental protocol. Electronically signed by: Ross Mao M.D. 02/06/2017 8:06 PM Dictated Date/Time: 02/06/2017 8:03 PM RIGHT EXTREMITY NONVASCULAR LIMITED CLINICAL HISTORY: 56 years-old Female presenting with right neck pain after port placement Right. TECHNIQUE: Real-time grayscale ultrasound imaging of the right base of the neck was performed. Color Doppler was also performed. COMPARISON: None. FINDINGS: Nonocclusive filling defect in the right internal jugular vein along the course of the catheter, consistent with nonocclusive thrombus. Subclavian vein patent. At the site of clinical interest at the port, no associated fluid collection. IMPRESSION: 1. No associated fluid collection at the port site to suggest hematoma or abscess. 2. Nonocclusive thrombus along the course of the intravascular catheter within the right internal jugular vein. Electronically signed by: Ross Mao M.D. 02/06/2017 9:58 PM Dictated Date/Time: 02/06/2017 9:56 PM Laboratory Results Test 02/06/17 21:16 02/06/17 23:20 02/06/17 23:25 Venous Blood pH 7.35 (7.36-7.41) Venous Blood Partial Pressure CO2 32 mmHg (38.0-50.0) Venous Blood Partial Pressure O2 27 mmHg Venous Blood HCO3 17 mmol/L Venous Blood Oxygen Saturation < 60.0 % Venous Blood Base Excess -7.3 mmol/L Erythrocyte Sedimentation Rate 50 mm/hr (0-21) Prothrombin Time 12.0 SECONDS (9.0-12.0) Prothromb Time International Ratio 1.1 (0.9-1.1) Phosphorus Level 4.0 mg/dl (2.5-4.9) Total Bilirubin 0.3 mg/dl (0.2-1) Aspartate Amino Transf (AST/SGOT) 11 U/L (15-37) Alanine Aminotransferase (ALT/SGPT) 10 U/L (12-78) Alkaline Phosphatase 101 U/L (45-117) Total Creatine Kinase 36 U/L (26-192) Creatine Kinase MB < 0.5 ng/ml (0.5-3.6) Creatine Kinase MB Ratio (0-3.0) Troponin I 0.064 ng/ml (0-0.045) C-Reactive Protein 3.62 mg/dl (0-0.29) Pro-B-Type Natriuretic Peptide 7070 pg/ml (0-900) Total Protein 6.7 gm/dl (6.4-8.2) Albumin 2.4 gm/dl (3.4-5.0) Globulin 4.3 gm/dl (2.5-4.0) Albumin/Globulin Ratio 0.6 (0.9-2) Lipase 172 U/L (73-393) Bedside Lactic Acid Venous 0.85 mmol/L (0.90-1.70) Laboratory results per my review. Medications Administered Medications (Trade) Dose Ordered Sig/Rica Route Start Time Stop Time Status Last Admin Dose Admin Lorazepam (Ativan Tab) 1 mg NOW STAT PO 02/06/17 20:29 02/06/17 20:30 DC 02/06/17 20:33 1 MG Hydromorphone HCl (Dilaudid Inj) 1 mg NOW STAT IV 02/06/17 23:04 02/06/17 23:05 DC 02/06/17 23:38 1 MG Ondansetron HCl (Zofran Inj) 4 mg NOW STAT IV 02/06/17 23:04 02/06/17 23:05 DC 02/06/17 23:37 4 MG Magnesium Sulfate (Magnesium Sulfate) 1 gm NOW STAT IV 02/07/17 00:13 02/07/17 00:14 DC 02/07/17 00:23 1 GM Vancomycin HCl 2800 mg/Sodium Chloride 556 ml @ 200 mls/hr ONE STAT IV 02/07/17 00:25 02/07/17 03:11 DC 02/07/17 00:57 200 MLS/HR Procedure Central Venous Catheter Indication: renal failure Catheter type: triple lumen Location: right femoral vein Verbal consent was obtained after the risks and benefits were explained, including but not limited to pneumothorax, hemothorax, vessel injury, bleeding, scarring, infection, pain, and bone/joint/nerve damage. At this time, the risks of the procedure are less than the risks of NOT performing the procedure. A time out was taken and the correct patient and site identified. The patient was placed in the supine position and the skin was prepped in the standard fashion with chlorhexidine and full sterile drapes applied. The proper landmarks were identified with ultrasound, anesthetized with 1% lidocaine without epinephrine, and the needle was inserted through the skin in the standard fashion. The needle was carefully advanced into blood vessel lumen under ultrasound guidance. The guidewire was placed uneventfully. The vessel is dilated and the catheter was placed. It was sutured into position. There was good blood return from all ports. The patient tolerated the procedure well and there were no complications. Post procedure x-ray was normal. ECG Indication: chest pain Rhythm: normal sinus Findings: no ectopy, other (no acute ST segment change) Comparison ECG Date: 01/22/17 Change: no significant change ED Course 1928: The patient was evaluated in room B6. A complete history and physical examination were performed. 2028:Ordered Ativan Tab 1 mg PO. 2099: I reevaluated the patient and she is resting. Nursing staff is having difficulty establishing an IV site. 2230: I reevaluated the patient and an IV still has not been established. The patient will now get a central line. 2250: The patient would not allow me to place a central line on her without being fully sedated. I told her that we do not do that here. She has decided to sign out against medical advice. 4: After further discussion with the patient she has agreed to the central line. See procedure note for further detail. Ordered Zofran Inj 4 mg IV, Dilaudid Inj 1 mg IV. 0013: Ordered Magnesium Sulfate 1 gm IV. 0015: I reevaluated the patient and she is resting. I discussed the exam findings with her and I discussed the treatment plan. She verbalized complete understanding and agreement. She will be evaluated for further treatment. 0025: Ordered Vancomycin HCl 2800 mg/Sodium Chloride 556 ml @ 200 mls/hr IV. 0035: I discussed the patients case with [place] [facility] [place] is going to evaluate the patient for further treatment. Medical Decision Differential diagnosis: Etiologies such as DVT, musculoskeletal, infection, joint effusion, trauma, lymphedema, idiopathic, CHF, as well as others were entertained. Nursing notes reviewed. The patient is a 56-year-old female who presented to the emergency department for evaluation of neck pain. The patient states that she's been increasing fever as well as pain around the right side of her neck. The patient recently had a dialysis port placed on the right side of her chest. She states that she' s had significant pain there. The patient was treated with pain medication as well as antiemetics. I discussed the patient's laboratory and radiographic studies with her. Attempts to obtain IV access as well as blood were not very successful so a central line was placed. I discussed the patient's condition hospitalist. At this point I feel the patient may require inpatient evaluation as well as dialysis. She may also require an evaluation to determine if this port is functioning or may need to be removed. Medication Reconcilliation Current Medication List: was personally reviewed by me Blood Pressure Screening Patient's blood pressure: Elevated blood pressure Blood pressure disposition: Did not require urgent referral She is in renal failure Consults Time Called: 9 Consulting Physician: JENNIFER Keenan Returned Call: 0035 I discussed the patients case with JENNIFER Keenan. He is going to evaluate the patient for further treatment. Impression Primary Impression: Dialysis catheter clot or failure Additional Impressions: Renal failure Fever Hypomagnesemia Scribe Attestation The scribe's documentation has been prepared under my direction and personally reviewed by me in its entirety. I confirm that the note above accurately reflects all work, treatment, procedures, and medical decision making performed by me. Departure Information Dispostion Being Evaluated By Hospitalist Referrals Gerson Estrada D.O. (PCP) Problem Qualifiers Additional Impressions: Renal failure Renal failure chronicity: unspecified chronicity Qualified Codes: N19 - Unspecified kidney failure Fever Fever type: unspecified Qualified Codes: R50.9 - Fever, unspecified
[2017-02-06] MEDS ORDERED: TRAZ50TA35 PO (19:57)
[2017-02-06] MEDS ORDERED: HYDR-3124 PO (19:57)
--- NOTE | 2017-02-06 20:08 | DIAGNOSTIC IMAGING REPORT ---
CHEST ONE VIEW PORTABLE CLINICAL HISTORY: 56 years-old Female presenting with Sepsis. TECHNIQUE: Portable upright AP view of the chest was obtained. COMPARISON: 01/22/2017. FINDINGS: Tunneled right internal jugular dialysis catheter terminates in the right IJ proximal to the brachiocephalic confluence. Cardiomediastinal silhouette remains prominent. Multiple rounded opacities noted in the right mid and upper lung as well as the left lower lung, unchanged from prior. No large effusion or pneumothorax. Osseous structures and upper abdomen normal. IMPRESSION: 1. Tunneled right IJ dialysis catheter terminates proximal to the expected location. Replacement/repositioning recommended. 2. Multiple masslike opacities for which chest CT is warranted as previously mentioned. The report will be called/faxed according to standard departmental protocol. Electronically signed by: Ross Mao M.D. 02/06/2017 8:06 PM Dictated Date/Time: 02/06/2017 8:03 PM
[2017-02-06] MEDS ORDERED: LORAZEPAM 1 MG TAB PO STA (20:29)
[2017-02-06 21:30] LABS: VEN BLD GAS O2 SATURATION < 60.0 %; VEN BLOOD GAS BASE EXCESS -7.3 mmol/L; VENOUS BLOOD GAS PCO2 32 mmHg (38.0-50.0); VENOUS BLOOD GAS PO2 27 mmHg
--- NOTE | 2017-02-06 22:00 | DIAGNOSTIC IMAGING REPORT ---
RIGHT EXTREMITY NONVASCULAR LIMITED CLINICAL HISTORY: 56 years-old Female presenting with right neck pain after port placement Right. TECHNIQUE: Real-time grayscale ultrasound imaging of the right base of the neck was performed. Color Doppler was also performed. COMPARISON: None. FINDINGS: Nonocclusive filling defect in the right internal jugular vein along the course of the catheter, consistent with nonocclusive thrombus. Subclavian vein patent. At the site of clinical interest at the port, no associated fluid collection. IMPRESSION: 1. No associated fluid collection at the port site to suggest hematoma or abscess. 2. Nonocclusive thrombus along the course of the intravascular catheter within the right internal jugular vein. Electronically signed by: Ross Mao M.D. 02/06/2017 9:58 PM Dictated Date/Time: 02/06/2017 9:56 PM
[2017-02-06] MEDS ORDERED: HYDROmorphone INJ 1 MG/ML SYR IV STA (23:04)
[2017-02-06] MEDS ORDERED: ONDANSETRON INJ 2 MG/ML 2 ML VIAL IV STA (23:04)
[2017-02-06 23:30] LABS: BASO % 0.3 %; BASO ABS # 0.04 K/uL (0-0.2); COMPLETE YES; EOS % 0.2 %; HEMATOCRIT 28.1 % (37-47); IG% 0.2 %; LYMPH % 7.4 %; LYMPH ABS # 0.94 K/uL (1.2-3.4); MEAN CELL VOLUME 91.8 fL (80-100); MEAN CORPUSCULAR HEMOGLOBIN 29.7 pg (25-34); MEAN CORPUSCULAR HGB CONC 32.4 g/dl (32-36); MEAN PLATELET VOLUME 9.1 fL (7.4-10.4); MONO % 3.3 %; NEUT % 88.6 %; PLATELET COUNT 255 K/uL (130-400); RED BLOOD COUNT 3.06 M/uL (4.2-5.4); WHITE BLOOD COUNT 12.65 K/uL (4.8-10.8)
[2017-02-06 23:41] LABS: INR 1.1 (0.9-1.1); PARTIAL THROMBOPLASTIN RATIO 0.9
[2017-02-07] VITALS (12 sets, daily range): BP systolic 108–253; BP diastolic 50–99; PULSE 75–90; TEMP 36.7–38.9; O2SAT 91–98; Ht 170.2 cm; Wt 159.5 kg
[2017-02-07 00:02] LABS: ALB/GLOB RATIO 0.6 (0.9-2); ALKALINE PHOSPHATASE 101 U/L (45-117); ALT/SGPT 10 U/L (12-78); AST/SGOT 11 U/L (15-37); BLOOD UREA NITROGEN 57 mg/dl (7-18); C-REACTIVE PROTEIN 3.62 mg/dl (0-0.29); CALCIUM 7.9 mg/dl (8.5-10.1); CARBON DIOXIDE 18 mmol/L (21-32); CHLORIDE 109 mmol/L (98-107); GLUCOSE 127 mg/dl (70-99); MAGNESIUM 1.6 mg/dl (1.8-2.4); POTASSIUM 5.2 mmol/L (3.5-5.1); SODIUM 138 mmol/L (136-145)
[2017-02-07] MEDS ORDERED: MAGNESIUM SULFATE 1GM / D5W 1 GM BAG IV STA (00:13)
[2017-02-07] MEDS ORDERED: VANCOMYCIN IV STA (00:17)
[2017-02-07] MEDS ORDERED: SODIUM CHLORIDE 0.9% IV STA (00:17)
[2017-02-07] MEDS ORDERED: VANCOMYCIN INJ 2,800 MG in SODIUM CHLORIDE 0.9% 500ML 500 ML IV STA (00:25)
[2017-02-07] MEDS ORDERED: ALPRAZOLAM 0.5 MG TAB PO PRN (02:00)
[2017-02-07] MEDS ORDERED: HEPARIN SOD 5000 UNIT/0.5 ML CARP ONE (02:11)
[2017-02-07] MEDS ORDERED: HEPARIN 25000 UNIT/500 ML D5W ONE (02:11)
[2017-02-07] MEDS ORDERED: METOPROLOL TARTRATE 1 MG/ML VIAL ONE (02:45)
--- NOTE | 2017-02-07 02:53 | History and Physical ---
History & Physical Date & Time of Service: Feb 07, 2017 at 02:22 Chief Complaint: Chest Pain - Can't Turn Neck Right Primary Care Physician: Gerson Estrada D.O. History of Present Illness Source: patient, hospital records Mrs. Beth is a 56 year old female who presented to the ER as recommended by her dialysis as her tunneled catheter had stopped working. She also complains of right neck pain and chest pain. When seen s/p Dilaudid and lorazepam she was unable to provide any meaningful history and repeatedly tells me her oncologist is a "quack", palliative care a"a joke" and the doctors don't know what they are doing. This appears to be similar to her previous admission on January 22 at which time she had a temporary catheter that was replaced with her current tunneled cath by Dr Maguire. She reports being awake all of that procedure and it being extremely traumatic. She also required emergent dialysis during that admission for end stage renal disease. History was therefore taken from previous admission and ER notes. In 06/29 she was found to have a renal mass. She underwent R laparoscopic nephrectomy. 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 Started on IHD 05/31. Initially dialyzed at the [facility] HD unit via a R IJ THC. THC became dislodged. Admitted to [facility] - Dr. Spivey was able to place a L IJ temporary dialysis catheter. She was then admitted to [facility] from -24 January for perm cath placement as her dialysis unit was unable to use the temporary cath. I am unclear how much she has dialyzed since having a perm cath placed by Dr Maguire on 24 January 2016 as she is not forthcoming with this information. The rest is as above. Past Medical/Surgical History Medical Problems: (1) Back pain, chronic (2) Congestive heart failure of unknown etiology (3) Osteomyelitis Status: Chronic (4) Pulmonary embolism (5) Spinal abscess (6) Malignant renal cell carcinoma (7) Hx C. diff colitis Family History None stated Noncontributory Social History Smoking Status: Current Every Day Smoker Drug Use: none Marital Status: Housing status: lives with family, [facility] Occupational Status: employed, disabled Immunizations History of Influenza Vaccine: Unknown History of Tetanus Vaccine?: Unknown History of Pneumococcal: Unknown History of Hepatitis B Vaccine: Unknown Multi-Drug Resistant Organisms History of MDRO: No Allergies Coded Allergies: Iodinated Diagnostic Agents (Verified Allergy, Severe, ANAPHYLAXIS, ) Perflutren (Verified Allergy, Severe, RASH, DIFFICULTY BREATHING, ANAPHALYSIS, 02/06/17) Surgical Lubricant (Verified Allergy, Mild, rash, 02/06/17) Adhesives (Verified Allergy, Unknown, RASH, 02/06/17) Propylene Glycol (Verified Allergy, Unknown, RASH, 02/06/17) Home Medications Scheduled Albuterol (Ventolin Hfa), 2 PUFFS INH QID Aspirin (Aspirin Ec), 81 MG PO DAILY Atorvastatin (Lipitor), 80 MG PO QAM Budesonide/Formoterol Fumarate (Symbicort 160-4.5 Mcg/Act), 2 PUFFS INH BID Citalopram (Citalopram Hydrobromide), 40 MG PO QAM Ergocalciferol (Vitamin D 95023 Unit), 1 CAP PO SUNDAY Fentanyl (Duragesic), 25 MCG TD Q72H Metoprolol Succinate (Toprol Xl), 50 MG PO QAM Tiotropium [place] (Spiriva Handihaler), 2 PUFFS INH QAM Trazodone Hcl (Trazodone), 50 MG PO HS Zolpidem Tartrate (Ambien), 10 MG PO HS Scheduled PRN Alprazolam (Xanax), 1 MG PO Q6H PRN for Anxiety Hydroxyzine Hcl (Atarax), 25 MG PO DIRECTED PRN for Itching Ipratropium-Albuterol (Duoneb), 1 TREATMENT INH Q4H PRN for SOB/Wheezing Morphine Sulfate Ir (Morphine Sulfate Ir), 30 MG PO QAM PRN for Pain Ondansetron Hcl (Zofran), 4 MG PO Q4 PRN for Nausea Oxycodone Ir (Roxicodone Ir), 10 MG PO Q6H PRN for Severe Pain Review of Systems Unable to obtain as patient did not wish to answer questions and frequently falling asleep during H&P Physical Exam Vital Signs Date Time Temp Pulse Resp B/P (MAP) Pulse Ox O2 Delivery O2 Flow Rate FiO2 02/07/17 00:59 97 22 197/89 97 Room Air 02/07/17 00:04 94 02/06/17 23:33 94 25 195/121 98 Room Air 02/06/17 22:10 92 22 219/84 100 Room Air 02/06/17 20:47 84 22 177/114 100 Room Air 02/06/17 20:23 84 02/06/17 19:45 100 Room Air 02/06/17 19:19 36.9 24 213/86 Room Air General Appearance: + moderate distress (on palpation anywhere on upper extremity), + obese, + pertinent finding (appears very tired) Eyes: normal inspection (pupils equal, dilated) ENT: normal ENT inspection, pharynx normal Neck: supple, no JVD Respiratory/Chest: + pertinent finding (tender all over upper extremity with light touch) Cardiovascular: regular rate, rhythm, no murmur, normal peripheral pulses Abdomen/GI: normal bowel sounds, non tender, soft Extremities/Musculoskelatal: no calf tenderness, normal capillary refill, no pedal edema, + pertinent finding (Hx right above elbow amputation) Skin: normal color, warm/dry, no rash Diagnostics Laboratory Results Results Past 24 Hours Test 02/06/17 21:16 02/06/17 23:20 02/06/17 23:25 Range/Units Venous Blood pH 7.35 7.36-7.41 Venous Blood Partial Pressure CO2 32 38.0-50.0 mmHg Venous Blood Partial Pressure O2 27 mmHg Venous Blood HCO3 17 mmol/L Venous Blood Oxygen Saturation < 60.0 % Venous Blood Base Excess -7.3 mmol/L White Blood Count 12.65 4.8-10.8 K/uL Red Blood Count 3.06 4.2-5.4 M/uL Hemoglobin 9.1 12.0-16.0 g/dL Hematocrit 28.1 37-47 % Mean Corpuscular Volume 91.8 80-100 fL Mean Corpuscular Hemoglobin 29.7 25-34 pg Mean Corpuscular Hemoglobin Concent 32.4 32-36 g/dl Platelet Count 255 130-400 K/uL Mean Platelet Volume 9.1 7.4-10.4 fL Neutrophils (%) (Auto) 88.6 % Lymphocytes (%) (Auto) 7.4 % Monocytes (%) (Auto) 3.3 % Eosinophils (%) (Auto) 0.2 % Basophils (%) (Auto) 0.3 % Neutrophils # (Auto) 11.19 1.4-6.5 K/uL Lymphocytes # (Auto) 0.94 1.2-3.4 K/uL Monocytes # (Auto) 0.42 0.11-0.59 K/uL Eosinophils # (Auto) 0.03 0-0.5 K/uL Basophils # (Auto) 0.04 0-0.2 K/uL RDW Standard Deviation 44.9 36.4-46.3 fL RDW Coefficient of Variation 13.4 11.5-14.5 % Immature Granulocyte % (Auto) 0.2 % Immature Granulocyte # (Auto) 0.03 0.00-0.02 K/uL Erythrocyte Sedimentation Rate 50 0-21 mm/hr Prothrombin Time 12.0 9.0-12.0 SECONDS Prothromb Time International Ratio 1.1 0.9-1.1 Activated Partial Thromboplast Time 23.9 21.0-31.0 SECONDS Partial Thromboplastin Ratio 0.9 Sodium Level 138 136-145 mmol/L Potassium Level 5.2 3.5-5.1 mmol/L Chloride Level 109 98-107 mmol/L Carbon Dioxide Level 18 21-32 mmol/L Anion Gap 11.0 3-11 mmol/L Blood Urea Nitrogen 57 7-18 mg/dl Creatinine 4.70 0.60-1.20 mg/dl Estimated GFR () 11.4 Estimated GFR (Non- 9.8 BUN/Creatinine Ratio 12.0 10-20 Random Glucose 127 70-99 mg/dl Calcium Level 7.9 8.5-10.1 mg/dl Phosphorus Level 4.0 2.5-4.9 mg/dl Magnesium Level 1.6 1.8-2.4 mg/dl Total Bilirubin 0.3 0.2-1 mg/dl Aspartate Amino Transf (AST/SGOT) 11 15-37 U/L Alanine Aminotransferase (ALT/SGPT) 10 12-78 U/L Alkaline Phosphatase 101 45-117 U/L Total Creatine Kinase 36 26-192 U/L Creatine Kinase MB < 0.5 0.5-3.6 ng/ml Creatine Kinase MB Ratio 0-3.0 Troponin I 0.064 0-0.045 ng/ml C-Reactive Protein 3.62 0-0.29 mg/dl Pro-B-Type Natriuretic Peptide 7070 0-900 pg/ml Total Protein 6.7 6.4-8.2 gm/dl Albumin 2.4 3.4-5.0 gm/dl Globulin 4.3 2.5-4.0 gm/dl Albumin/Globulin Ratio 0.6 0.9-2 Lipase 172 73-393 U/L Bedside Lactic Acid Venous 0.85 0.90-1.70 mmol/L Microbiology Results 02/06/17 Blood Culture, Received Pending 02/06/17 Blood Culture, Received Pending Diagnostic Radiology CHEST ONE VIEW PORTABLE CLINICAL HISTORY: 56 years-old Female presenting with Sepsis. TECHNIQUE: Portable upright AP view of the chest was obtained. COMPARISON: 01/22/2017. FINDINGS: Tunneled right internal jugular dialysis catheter terminates in the right IJ proximal to the brachiocephalic confluence. Cardiomediastinal silhouette remains prominent. Multiple rounded opacities noted in the right mid and upper lung as well as the left lower lung, unchanged from prior. No large effusion or pneumothorax. Osseous structures and upper abdomen normal. IMPRESSION: 1. Tunneled right IJ dialysis catheter terminates proximal to the expected location. Replacement/repositioning recommended. 2. Multiple masslike opacities for which chest CT is warranted as previously mentioned. The report will be called/faxed according to standard departmental protocol. Electronically signed by: Ross Mao M.D. 02/06/2017 8:06 PM Dictated Date/Time: 02/06/2017 8:03 PM RIGHT EXTREMITY NONVASCULAR LIMITED CLINICAL HISTORY: 56 years-old Female presenting with right neck pain after port placement Right. TECHNIQUE: Real-time grayscale ultrasound imaging of the right base of the neck was performed. Color Doppler was also performed. COMPARISON: None. FINDINGS: Nonocclusive filling defect in the right internal jugular vein along the course of the catheter, consistent with nonocclusive thrombus. Subclavian vein patent. At the site of clinical interest at the port, no associated fluid collection. IMPRESSION: 1. No associated fluid collection at the port site to suggest hematoma or abscess. 2. Nonocclusive thrombus along the course of the intravascular catheter within the right internal jugular vein. Electronically signed by: Ross Mao M.D. 02/06/2017 9:58 PM Dictated Date/Time: 02/06/2017 9:56 PM EKG Normal sinus rhythm, 92 bpm Poor R wave progression No significant change from previous EKG 01/23/2016 Impression Assessment and Plan 56 year old female with metastatic renal cell carcinoma who presents to the ER on advice of her dialysis unit due to a non functioning tunneled catheter placed on 01/23/[address] Maguire. Non occlusive clot shown on imaging Suspected infection - pending UA, mildly raised WBC, no source but also unable to take any meaningful history from patient at present. - treat with vanc and zosyn - follow up blood cultures - consider echo +/- CT chest to assess for septic emboli and right heart strain Right sided neck pain and chest pain - unclear history whether acute, subacute or chronic given she has had similar complaints on her previous admissions. Light touch suggests this is neuropathic pain and may benefit from gabapentin ( renally dosed) etc... - chest pain may represent a PE given history of this on her problem list, unfortunately limited with CT given ESRD and unclear when her next dialysis will be. On treatment with IV heparin overnight - consult pain management End stage renal disease - patient reportedly does still make some urine however - consult nephrology - renal diet Nonocclusive thrombus in intravascular catheter within right IJ vein - start IV heparin - Consult Vascular (Dr Maguire) Elevated troponin - at baseline secondary to end stage renal disease, no need to repeat Chronic anemia: at baseline, likely secondary to nutrition and malignancy HTN: continue home meds CHF: continue home meds, no current exacerbation COPD: continue inhalers, add duonebs to help with coughing, no current exacerbation Code - DNR/DNI as per patient wishes VTE Prophylaxis - IV heparin bolus + standard dose drip Disposition - admit to telemetry Attending Addendum: I have physically seen and examined this patient, have supervised the medical residents activities, and agree with the H&P as noted above with the following exceptions: NONE The patient is awake, disoriented, responses to questiions after coaxing, normocephalic and atraumatic, lying in bed and in moderate distress secondary to generalized pain HEENT--PERRL, EOMI, mucous membranes and oropharynx dry. Neck--supple, no JVD or bruits, thyroid normal, trachea midline, no adenopathy. Heart--normal S1 and S2, no extra beats, no murmurs, rubs or gallops. Lungs--decreased breath sounds throughout, no respiratory distress, no accessory muscle use. Abdomen--normal bowel sounds and soft, nontender and nondistended, morbidly obese. Extremities--no cyanosis, clubbing or edema. There are good distal pulses b/l. History of right above elbow amputation. Dermatologic--normal skin turgor, normal color, warm and dry, no abnormal lymph nodes, no rash. Neurologic--uncooperative with exam Rheumatologic--uncooperative with exam. Pain on palpation of upper extremities. Psychiatric--anxious, complains of pain all over. Assessment and Plan: 1. End-stage renal disease on hemodialysis/nonfunctional tunneled catheter placed on 01/23/2017/nonocclusive right upper extremity DVT-- The patient will be admitted to the telemetry unit. Empiric vancomycin IV with pharmacokinetic monitoring and Zosyn 3.375 mg IV every 8 hours. Follow blood cultures. Anticoagulation with IV heparin standard dose per protocol. Consults to vascular surgery Dr. Maguire. Consult to infectious disease Dr. Mott. Consult to nephrology. Consult pain management. Level of Care Telemetry Advanced Directives Existing Advance Directive: No Existing Living Will: No Existing Power of Lead Refinery Supervisor: No Resuscitation Status DO NOT RESUSCITATE VTE Prophylaxis VTE Risk Assessment Done? Y/N: Yes Risk Level: High Given or contraindicated: Other Anticoagulation Resident Tracking Resident Involvement: Resident Care Provided Care Provided: Adult Hospital Medicine
[2017-02-07] MEDS ORDERED: NURSING VERBAL MED ORDER STA (02:55)
[2017-02-07] MEDS ORDERED: AMLODIPINE BESYLATE 5 MG TAB PO STA (03:40)
[2017-02-07] MEDS ORDERED: PIPERACILL/TAZOBAC IV 4.5 GM in DEXTROSE 5% 100ML 100 ML IV ONE (04:30)
[2017-02-07] MEDS ORDERED: HEPARIN 25000 UNIT/ D5W 500 ML (PHARMACY PREPARED) IV PRN ×2 (04:30)
[2017-02-07] MEDS: ACETAMINOPHEN 325 MG TAB PO PRN ×2 (05:12→23:59)
[2017-02-07 05:44] LABS: URINE APPEARANCE TURBID (CLEAR); URINE BILIRUBIN NEG (NEG); URINE COLOR YELLOW; URINE EPITHELIAL CELL AUTO >30 /lpf (0-5); URINE NITRITE POS (NEG); URINE SPECIFIC GRAVITY 1.021 (1.000-1.030); UROBILINOGEN NEG (NEG); ZZUR CULT IF INDIC CLEAN CATCH YES
[2017-02-07] MEDS ORDERED: ACETAMINOPHEN 325 MG TAB ONE (05:47)
[2017-02-07 06:02] LABS: MANUAL MICROSCOPIC REQUIRED? NO; REVIEW REQ? YES
[2017-02-07 06:53] LABS: BASO % 0.4 %; BASO ABS # 0.04 K/uL (0-0.2); EOS % 0.2 %; HEMATOCRIT 24.9 % (37-47); IG% 0.3 %; LYMPH % 6.6 %; LYMPH ABS # 0.74 K/uL (1.2-3.4); MEAN CELL VOLUME 92.6 fL (80-100); MEAN CORPUSCULAR HEMOGLOBIN 30.5 pg (25-34); MEAN CORPUSCULAR HGB CONC 32.9 g/dl (32-36); MEAN PLATELET VOLUME 9.2 fL (7.4-10.4); MONO % 4.4 %; NEUT % 88.1 %; PLATELET COUNT 218 K/uL (130-400); RED BLOOD COUNT 2.69 M/uL (4.2-5.4); WHITE BLOOD COUNT 11.27 K/uL (4.8-10.8)
[2017-02-07 07:35] LABS: COMPLETE YES
[2017-02-07] MEDS: ALBUT/IPRATROP 3MG/0.5MG NEB 3 ML VIAL INH SCH ×4 (07:49→19:10)
[2017-02-07 08:00] LABS: BUN/CREATININE RATIO 11.8 (10-20); CALCIUM 7.6 mg/dl (8.5-10.1); CREATININE 4.7 mg/dl (0.60-1.20); MAGNESIUM 1.7 mg/dl (1.8-2.4); POTASSIUM 5.3 mmol/L (3.5-5.1)
[2017-02-07] MEDS: FENTANYL PATCH REMOVE & WASTE SCH (08:59)
[2017-02-07] MEDS ORDERED: ALBUTEROL HFA 8 GM INHALER INH SCH (09:00)
[2017-02-07] MEDS: CHECK FENTANYL PATCH PLACEMENT SCH ×3 (09:06→23:58)
[2017-02-07] MEDS: FENTANYL 25 MCG/HR TDSY TD SCH (09:07)
[2017-02-07] MEDS: CITALOPRAM 40 MG TAB PO SCH (09:08)
[2017-02-07] MEDS: ASPIRIN 81 MG ECTAB PO SCH (09:08)
[2017-02-07] MEDS: METOPROLOL SUCC 50MG EXT REL TAB PO SCH (09:08)
[2017-02-07] MEDS: ATORVASTATIN 40 MG TAB PO SCH (09:08)
[2017-02-07] MEDS: BUDESONIDE/FORMOTEROL FUMARATE 160/4.5 60 PUFFS/INHALER INH SCH ×2 (09:09→20:26)
[2017-02-07] MEDS: TIOTROPIUM BROMIDE 5 PUFF/90 MCG INH INH SCH (09:14)
--- NOTE | 2017-02-07 09:41 | Pain Management Consultation ---
Pain Management Consultation Date of Consultation Feb 07, 2017. Reason for Consultation Right-sided cervicalgia Pain Location 1 - History I saw 56-year-old MsRosita Beth today the [facility]. She has a history of renal failure on hemodialysis and recently had a permanent tunneled dialysis catheter placed through her right IJ on 01/23/2017. She states that since that time she's had pressure and discomfort in her right side of her neck which she feels is attributed to her dialysis catheter. She states that it is difficult to move her neck to the right side. She denies any other possible etiology of her pain including falls or trauma to the area. She states that her pain is difficult to describe it characterizes it as as a pressure feeling rating it at about 3 out of 10. She is tearful on exam and has a lot of questions about dialysis and renal transplantation today. She offers no other constitutional complaints Past Medical/Surgical History (1) Renal mass, right (2) Anemia (3) Chronic osteomyelitis (4) Degenerative joint disease (5) Low back strain (6) Acute kidney injury (7) End-stage renal disease on hemodialysis (8) Metastatic renal cell carcinoma (9) Fever (10) Renal failure (11) Hypomagnesemia (12) End stage renal disease (13) Dialysis catheter clot or failure (14) Back pain, chronic (15) Osteomyelitis (16) Pulmonary embolism (17) Spinal abscess (18) Congestive heart failure of unknown etiology (19) Respiratory distress (20) SOB (shortness of breath) (21) CHF (congestive heart failure) (22) Osteomyelitis (23) PICC (peripherally inserted central catheter) flush (24) Hypertension Family History None stated Family Hx Review: history personally reviewed by me Social / Work History Marital Status: Housing Status: lives with family Occupation: disabled Allergies Coded Allergies: Iodinated Diagnostic Agents (Verified Allergy, Severe, ANAPHYLAXIS, ) Perflutren (Verified Allergy, Severe, RASH, DIFFICULTY BREATHING, ANAPHALYSIS, 02/06/17) Surgical Lubricant (Verified Allergy, Mild, rash, 02/06/17) Adhesives (Verified Allergy, Unknown, RASH, 02/06/17) Propylene Glycol (Verified Allergy, Unknown, RASH, 02/06/17) Medications Current Inpatient Medications Medications (Trade) Dose Ordered Sig/Rica Route Start Time Stop Time Status Last Admin Dose Admin Ondansetron HCl (Zofran Inj) 4 mg Q6H PRN IV 02/07/17 02:00 03/09/17 01:59 Alprazolam (Xanax Tab) 1 mg Q6H PRN PO 02/07/17 02:00 03/09/17 01:59 Aspirin (Ecotrin Tab) 81 mg DAILY PO 02/07/17 09:00 03/09/17 08:59 02/07/17 09:08 81 MG Atorvastatin Calcium (Lipitor Tab) 80 mg QAM PO 02/07/17 09:00 03/09/17 08:59 02/07/17 09:08 80 MG Budesonide/ Formoterol Fumarate (Symbicort 160/ 4.5 Inh) 2 puffs BID INH 02/07/17 09:00 03/09/17 08:59 02/07/17 09:09 2 PUFFS Citalopram Hydrobromide (celeXA TAB) 40 mg QAM PO 02/07/17 09:00 03/09/17 08:59 02/07/17 09:08 40 MG Fentanyl (Duragesic Patch) 25 mcg Q72H TD 02/07/17 09:00 02/21/17 08:59 02/07/17 09:07 25 MCG Hydroxyzine HCl (Vistaril Tab) 25 mg Q6H PRN PO 02/07/17 02:00 03/09/17 01:59 Metoprolol Succinate (Toprol Xl Tab) 50 mg QAM PO 02/07/17 09:00 03/09/17 08:59 02/07/17 09:08 50 MG Oxycodone HCl (Roxicodone Immediate Rel Tab) 10 mg Q6H PRN PO 02/07/17 02:00 02/21/17 01:59 Tiotropium [place] (Spiriva Handihaler Inhaler) 1 puff QAM INH 02/07/17 09:00 03/09/17 08:59 02/07/17 09:14 1 PUFF Trazodone HCl (Desyrel Tab) 50 mg HS PO 02/07/17 21:00 03/09/17 20:59 Zolpidem Tartrate (Ambien Tab) 10 mg HS PO 02/07/17 21:00 03/09/17 20:59 Piperacillin Sod/ Tazobactam Sod 4.5 gm/Dextrose 120 ml @ 30 mls/hr Q12@0000,1200 IV 02/07/17 12:00 02/09/17 11:59 Albuterol/ Ipratropium (Duoneb) 3 ml QIDR INH 02/07/17 08:00 03/09/17 07:59 02/07/17 07:49 3 ML Miscellaneous (Fentanyl Patch Remove & Waste) 1 ea Q3D@0859 N/A 02/07/17 08:59 03/09/17 08:58 Miscellaneous Information (Check Fentanyl Patch Placement) 1 ea QS N/A 02/07/17 08:00 03/09/17 07:59 02/07/17 09:06 1 EA Heparin Sodium (Porcine) 57913 unit/Dextrose 500 ml @ 36 mls/hr [id number] PRN IV 02/07/17 04:30 03/09/17 04:29 Acetaminophen (Tylenol Tab) 650 mg Q4H PRN PO 02/07/17 05:00 03/09/17 04:59 02/07/17 05:12 650 MG Review of Systems 10 point review of systems was otherwise negative aside from HPI Physical Exam Height & Weight: Height 5 feet, 7.00 inches. Weight 155.600 (Kilograms) 343 (Pounds) Last Vital Signs Documentation Date Time Temp Pulse Resp B/P (MAP) Pulse Ox O2 Delivery O2 Flow Rate FiO2 02/07/17 08:00 38.0 88 20 171/60 (97) 96 Room Air Exam: Patient's awake alert noted 3 appearing in no acute distress eating breakfast on examination. Pupils are equal round and reactive to light She has minimal discomfort over her axial cervical spine she does have decreased range of motion in all planes of her cervical spine particular with right sidebending. She is tender over her tunneled catheter at the right side at the inferior portion of her sternocleidomastoid. There is no facet provocation of her cervical spine being positive She moves all extremities with 5 out of 5 strength with the exception of a portion of her left arm being absent. Gait was not observed Laboratory Laboratory Results (Last CBC): 02/07/17 06:11 Red Blood Count 2.69 L, Mean Corpuscular Volume 92.6, Mean Corpuscular Hemoglobin 30.5, Mean Corpuscular Hemoglobin Concent 32.9, Mean Platelet Volume 9.2, Neutrophils (%) (Auto) 88.1, Lymphocytes (%) (Auto) 6.6, Monocytes (%) ( Auto) 4.4, Eosinophils (%) (Auto) 0.2, Basophils (%) (Auto) 0.4, Neutrophils # ( Auto) 9.94 H, Lymphocytes # (Auto) 0.74 L, Monocytes # (Auto) 0.50, Eosinophils # (Auto) 0.02, Basophils # (Auto) 0.04 Assessment 1. Right Sided cervicalgia suspect secondary to presence of tunneled hemodialysis catheter 2. Renal failure with hemodialysis Recommendations 1. We'll check plain film x-ray of her cervical spine to ensure there is no other pathology that could be responsible for her pain however I suspect that her pain is secondary to presence of her catheter. I asked her to speak with vascular team in regards to options for her dialysis. She understands why this catheter is necessary for her medical care. 2. I would continue her current medications as prescribed in regards to pain. 3. Please call with any questions
--- NOTE | 2017-02-07 09:51 | Surgery Consultation ---
Consultation Date of Service Feb 07, 2017. Chief Complaint permcath dislodged History of Present Illness The patient is a 56 year old female with multiple medical problems, including ESRD on HD, admitted with dislodged permcath. Pt had permcath inserted a few weeks ago by Dr Maguire. Per HD unit, pt has not had HD for over 1 week. When she presented for HD yesterday, they noted her catheter cuff was dislodged. Pt states she feels terrible. Admits fevers and feeling terrible x 1 week. Refuses to answer any other questions or name a family member we can speak with. Vitals Vital Signs Past 12 Hours Date Time Temp Pulse Resp B/P (MAP) Pulse Ox O2 Delivery O2 Flow Rate FiO2 02/07/17 08:00 38.0 88 20 171/60 (97) 96 Room Air 02/07/17 07:20 82 20 97 Room Air 02/07/17 06:15 38.2 165/60 (95) 02/07/17 04:25 38.9 02/07/17 04:04 37.5 90 26 253/99 Room Air 02/07/17 03:03 82 22 215/99 98 02/07/17 02:57 82 22 181/122 97 Room Air 02/07/17 02:50 94 220/91 02/07/17 00:59 97 22 197/89 97 Room Air 02/07/17 00:04 94 02/06/17 23:33 94 25 195/121 98 Room Air 02/06/17 22:10 92 22 219/84 100 Room Air Allergies Coded Allergies: Iodinated Diagnostic Agents (Verified Allergy, Severe, ANAPHYLAXIS, ) Perflutren (Verified Allergy, Severe, RASH, DIFFICULTY BREATHING, ANAPHALYSIS, 02/06/17) Surgical Lubricant (Verified Allergy, Mild, rash, 02/06/17) Adhesives (Verified Allergy, Unknown, RASH, 02/06/17) Propylene Glycol (Verified Allergy, Unknown, RASH, 02/06/17) Home Medications Scheduled Albuterol (Ventolin Hfa), 2 PUFFS INH QID Aspirin (Aspirin Ec), 81 MG PO DAILY Atorvastatin (Lipitor), 80 MG PO QAM Budesonide/Formoterol Fumarate (Symbicort 160-4.5 Mcg/Act), 2 PUFFS INH BID Citalopram (Citalopram Hydrobromide), 40 MG PO QAM Ergocalciferol (Vitamin D 99632 Unit), 1 CAP PO SUNDAY Fentanyl (Duragesic), 25 MCG TD Q72H Metoprolol Succinate (Toprol Xl), 50 MG PO QAM Tiotropium [place] (Spiriva Handihaler), 2 PUFFS INH QAM Trazodone Hcl (Trazodone), 50 MG PO HS Zolpidem Tartrate (Ambien), 10 MG PO HS Scheduled PRN Alprazolam (Xanax), 1 MG PO Q6H PRN for Anxiety Hydroxyzine Hcl (Atarax), 25 MG PO DIRECTED PRN for Itching Ipratropium-Albuterol (Duoneb), 1 TREATMENT INH Q4H PRN for SOB/Wheezing Morphine Sulfate Ir (Morphine Sulfate Ir), 30 MG PO QAM PRN for Pain Ondansetron Hcl (Zofran), 4 MG PO Q4 PRN for Nausea Oxycodone Ir (Roxicodone Ir), 10 MG PO Q6H PRN for Severe Pain Problem List Medical Problems: (1) Acute kidney injury (2) Anemia (3) Back pain, chronic (4) Congestive heart failure of unknown etiology (5) Dialysis catheter clot or failure (6) End-stage renal disease on hemodialysis (7) Hyperkalemia (8) Hypertension (9) Metastatic renal cell carcinoma (10) Osteomyelitis (11) PICC (peripherally inserted central catheter) flush (12) Pulmonary embolism (13) Renal mass, right (14) Spinal abscess Surgical / Medical History Hx Cardiac Surgery: Yes (CARDIAC CATH NO INTERVENTION, UNSUCCESSFUL) Hx Abdominal Surgery: Yes (cholecystectomy, appendectomy) Hx Cancer Surgery: Yes (nephrectomy) Hx Thoracic Surgery: No Hx Orthopedic: Yes (above L elbow amputation) Hx Urinary Tract Surgery: Yes (STENT PLACEMENT AND REMOVAL) Past Medical/Surgical History: CHF, Hypertension, Kidney Disease Family History None stated Social History Smoking Status: Current Every Day Smoker Hx Tobacco Use In Past Year?: Yes Hx Alcohol Use - Type & Amnt: Yes (socially ) Hx Substance Use -Type & Amnt: No Review of Systems Additional Comments: refuses to answer questions Physical Exam Constitutional: General Apperance: obese Level of Distress: acutely ill, chronically ill Psychiatric: Mental Status: lethargic Head: normocephalic, atraumatic ENMT: normal ENT inspection Neck: supple, trachea midline, pertinent finding (exquisite tenderness and mild edema/erythema over R IJ permcath tunnel. ) Lungs: Auscultation: decreased breath sounds, wet rales/crackles Cardiovascular: Apical Impulse: not displaced Heart Auscultation: RRR, no rubs, no gallops Peripheral Pulses: Pulses: full and equal, in all extremities except if noted Bruits: none appreciated Carotid Pulse: normal on the left, normal on the right Radial Pulse: normal on the right Femoral Pulse: normal on the right Posterior Tibialis Pulse: decreased on the left, decreased on the right Dorsalis Pedis Pulse: decreased on the left, decreased on the right Abdomen: Bowel Sounds: normal Inspection & Palpation: soft, non-distended, no tenderness, guarding & rebound Musculoskeletal: normal strength (5/5 throughout), normal tone Extremities: Upper Right: no cyanosis, no edema, no varicosities Lower Right: no cyanosis, no varicosities, edema Lower Left: no cyanosis, no varicosities, edema Assessment and Plan ASSESSMENT and PLAN: Infected and dislodged permcath ESRD on HD Pt with exquisite tenderness, mild edema over permcath tunnel, fever, and mild leukocytosis, indicating permcath infection. Blood cx drawn, not completed. Pt discussed with Dr Laureano. Recommend pt to have permcath removed today, if possible. Unfortunately, Dr Maguire is out of town until next week, so recommend discuss with gen surgery whether they are comfortable removing it. Otheriwse, pt will require transfer for removal. She will also require temporary HD catheter insertion in order to undergo HD until blood cx neg and new permcath is safe to place sometime next week. Unsure whether pt understanding the discussion as she either cannot or refuses to answer.
[2017-02-07] MEDS ORDERED: PIPERACILL/TAZOBAC CONSULT ACTIVE PRN (10:15)
[2017-02-07 10:50] LABS: PARTIAL THROMBOPLASTIN RATIO 1.9
--- NOTE | 2017-02-07 10:53 | Nephrology Consultation ---
Nephrology Consultation Date & Providers Date of Consultation: Feb 07, 2017. Primary Care Provider: Gerson Estrada D.O. Referring Provider: Reason for Consultation ESRD History of Present Illness Nikky was seen and evaluated in her hospital room this morning. I discussed the plan of care with Dr. Lorenzana and with Anaya Ramirez. I also spoke with nursing staff (Naomi) at the patient's dialysis unit ([facility]). The patient's last dialysis treatment was one week ago. She has a history of non compliance with therapy and many missed treatments. She presented to the unit yesterday and was referred to the ED at [facility] due to a dislodged permcath. Dialysis was not able to be performed. Maty refused to answer questions this morning. She did offer that she has been feeling terrible with fevers and chills for one week. She reports significant pain in her neck. She has tenderness along the catheter. Medical records including records from her prior hospitalization were reviewed in detail today. Cultures are pending. Past Medical/Surgical History Medical: Mrs. Beth lives in [place], [place]. In 06/29 she was found to have a renal mass. She underwent R laproscopic nephrectomy. 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 Post-op course was complicated by retroperitoneal hemorrhage, hypotension and SAVANNAH. Serum creatinine stabilized at 2.1 and patient was discharged from the hospital. She had one [facility] nephrology outpatient visit w/ Dr. Laureano but she was then lost to follow up. Mrs. Beth indicates that she was started on IHD 05/31. 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 She dialyzes at the [facility] HD unit via a R IJ THC. Recently her THC became dislodged. She was admitted to [facility]. Dr. Spivey was able to place a L IJ temporary dialysis catheter. The patient was dialyzed 01/19/14 at [facility] without complication and was discharged to home. She was admitted to [facility] earlier this month. Dr. Maguire placed a TDC on January 22. Yesterday Mrs. Beth presented to the [facility] dialysis unit. staffing account manager indicated that per policy they were not permitted to use a non tunneled dialysis catheter. The patient was referred to [facility] for inpatient HD and vascular surgery evaluation. # ESRD # CHF due to diastolic dysfunction # HTN # Obesity # Atrial fibrillation # Metastatic RCCA Surgical: # R IJ THC (multiple) # Temporary L IJ dialysis catheter # R laproscopic nephrectomy 06/29 due to RCCA Allergies Coded Allergies: Iodinated Diagnostic Agents (Verified Allergy, Severe, ANAPHYLAXIS, ) Perflutren (Verified Allergy, Severe, RASH, DIFFICULTY BREATHING, ANAPHALYSIS, 02/06/17) Surgical Lubricant (Verified Allergy, Mild, rash, 02/06/17) Adhesives (Verified Allergy, Unknown, RASH, 02/06/17) Propylene Glycol (Verified Allergy, Unknown, RASH, 02/06/17) Inpatient Medications Current Inpatient Medications Medications (Trade) Dose Ordered Sig/Rica Route Start Time Stop Time Status Last Admin Dose Admin Ondansetron HCl (Zofran Inj) 4 mg Q6H PRN IV 02/07/17 02:00 03/09/17 01:59 Alprazolam (Xanax Tab) 1 mg Q6H PRN PO 02/07/17 02:00 03/09/17 01:59 Aspirin (Ecotrin Tab) 81 mg DAILY PO 02/07/17 09:00 03/09/17 08:59 02/07/17 09:08 81 MG Atorvastatin Calcium (Lipitor Tab) 80 mg QAM PO 02/07/17 09:00 03/09/17 08:59 02/07/17 09:08 80 MG Budesonide/ Formoterol Fumarate (Symbicort 160/ 4.5 Inh) 2 puffs BID INH 02/07/17 09:00 03/09/17 08:59 02/07/17 09:09 2 PUFFS Citalopram Hydrobromide (celeXA TAB) 40 mg QAM PO 02/07/17 09:00 03/09/17 08:59 02/07/17 09:08 40 MG Fentanyl (Duragesic Patch) 25 mcg Q72H TD 02/07/17 09:00 02/21/17 08:59 02/07/17 09:07 25 MCG Hydroxyzine HCl (Vistaril Tab) 25 mg Q6H PRN PO 02/07/17 02:00 03/09/17 01:59 Metoprolol Succinate (Toprol Xl Tab) 50 mg QAM PO 02/07/17 09:00 03/09/17 08:59 02/07/17 09:08 50 MG Oxycodone HCl (Roxicodone Immediate Rel Tab) 10 mg Q6H PRN PO 02/07/17 02:00 02/21/17 01:59 Tiotropium [place] (Spiriva Handihaler Inhaler) 1 puff QAM INH 02/07/17 09:00 03/09/17 08:59 02/07/17 09:14 1 PUFF Trazodone HCl (Desyrel Tab) 50 mg HS PO 02/07/17 21:00 03/09/17 20:59 Zolpidem Tartrate (Ambien Tab) 10 mg HS PO 02/07/17 21:00 03/09/17 20:59 Piperacillin Sod/ Tazobactam Sod 4.5 gm/Dextrose 120 ml @ 30 mls/hr Q12@0000,1200 IV 02/07/17 12:00 02/09/17 11:59 Albuterol/ Ipratropium (Duoneb) 3 ml QIDR INH 02/07/17 08:00 03/09/17 07:59 02/07/17 07:49 3 ML Miscellaneous (Fentanyl Patch Remove & Waste) 1 ea Q3D@0859 N/A 02/07/17 08:59 03/09/17 08:58 Miscellaneous Information (Check Fentanyl Patch Placement) 1 ea QS N/A 02/07/17 08:00 03/09/17 07:59 02/07/17 09:06 1 EA Heparin Sodium (Porcine) 86328 unit/Dextrose 500 ml @ 36 mls/hr [id number] PRN IV 02/07/17 04:30 03/09/17 04:29 Acetaminophen (Tylenol Tab) 650 mg Q4H PRN PO 02/07/17 05:00 03/09/17 04:59 02/07/17 05:12 650 MG Piperacillin Sod/ Tazobactam Sod (Consult) 1 ea UD PRN N/A 02/07/17 10:15 03/09/17 10:14 Family History None stated Social History Smoking Status: Current Every Day Smoker Drug Use: none Marital Status: Housing Status: lives with family Occupation: disabled Review of Systems A complete review of systems was performed. Pertinent positives are noted above. All other systems are negative. Physical Exam Date Time Temp Pulse Resp B/P (MAP) Pulse Ox O2 Delivery O2 Flow Rate FiO2 02/07/17 08:00 38.0 88 20 171/60 (97) 96 Room Air 02/07/17 07:20 82 20 97 Room Air 02/07/17 06:15 38.2 165/60 (95) 02/07/17 04:25 38.9 02/07/17 04:04 37.5 90 26 253/99 Room Air 02/07/17 03:03 82 22 215/99 98 02/07/17 02:57 82 22 181/122 97 Room Air 02/07/17 02:50 94 220/91 02/07/17 00:59 97 22 197/89 97 Room Air 02/07/17 00:04 94 02/06/17 23:33 94 25 195/121 98 Room Air 02/06/17 22:10 92 22 219/84 100 Room Air 02/06/17 20:47 84 22 177/114 100 Room Air 02/06/17 20:23 84 02/06/17 19:45 100 Room Air 02/06/17 19:19 36.9 24 213/86 Room Air General Appearance: + mild distress, + obese Head: normocephalic, atraumatic Eyes: normal inspection, sclerae normal ENT: normal ENT inspection, pharynx normal Neck: + JVD, + pertinent finding (RIJ TDC with tenderness and surrounding erythema) Extremities/Musculoskelatal: + pertinent finding (LE edema +1 with no distal cyanosis) Patient refused the majority of her exam Laboratory Results Last 24 Hours Test 02/06/17 21:16 02/06/17 23:20 02/06/17 23:25 02/07/17 05:26 Venous Blood pH 7.35 Venous Blood Partial Pressure CO2 32 mmHg Venous Blood Partial Pressure O2 27 mmHg Venous Blood HCO3 17 mmol/L Venous Blood Oxygen Saturation < 60.0 % Venous Blood Base Excess -7.3 mmol/L White Blood Count 12.65 K/uL Red Blood Count 3.06 M/uL Hemoglobin 9.1 g/dL Hematocrit 28.1 % Mean Corpuscular Volume 91.8 fL Mean Corpuscular Hemoglobin 29.7 pg Mean Corpuscular Hemoglobin Concent 32.4 g/dl Platelet Count 255 K/uL Mean Platelet Volume 9.1 fL Neutrophils (%) (Auto) 88.6 % Lymphocytes (%) (Auto) 7.4 % Monocytes (%) (Auto) 3.3 % Eosinophils (%) (Auto) 0.2 % Basophils (%) (Auto) 0.3 % Neutrophils # (Auto) 11.19 K/uL Lymphocytes # (Auto) 0.94 K/uL Monocytes # (Auto) 0.42 K/uL Eosinophils # (Auto) 0.03 K/uL Basophils # (Auto) 0.04 K/uL RDW Standard Deviation 44.9 fL RDW Coefficient of Variation 13.4 % Immature Granulocyte % (Auto) 0.2 % Immature Granulocyte # (Auto) 0.03 K/uL Erythrocyte Sedimentation Rate 50 mm/hr Prothrombin Time 12.0 SECONDS Prothromb Time International Ratio 1.1 Activated Partial Thromboplast Time 23.9 SECONDS Partial Thromboplastin Ratio 0.9 Sodium Level 138 mmol/L Potassium Level 5.2 mmol/L Chloride Level 109 mmol/L Carbon Dioxide Level 18 mmol/L Anion Gap 11.0 mmol/L Blood Urea Nitrogen 57 mg/dl Creatinine 4.70 mg/dl Estimated GFR () 11.4 Estimated GFR (Non- 9.8 BUN/Creatinine Ratio 12.0 Random Glucose 127 mg/dl Calcium Level 7.9 mg/dl Phosphorus Level 4.0 mg/dl Magnesium Level 1.6 mg/dl Total Bilirubin 0.3 mg/dl Aspartate Amino Transf (AST/SGOT) 11 U/L Alanine Aminotransferase (ALT/SGPT) 10 U/L Alkaline Phosphatase 101 U/L Total Creatine Kinase 36 U/L Creatine Kinase MB < 0.5 ng/ml Creatine Kinase MB Ratio Troponin I 0.064 ng/ml C-Reactive Protein 3.62 mg/dl Pro-B-Type Natriuretic Peptide 7070 pg/ml Total Protein 6.7 gm/dl Albumin 2.4 gm/dl Globulin 4.3 gm/dl Albumin/Globulin Ratio 0.6 Lipase 172 U/L Bedside Lactic Acid Venous 0.85 mmol/L Urine Color YELLOW Urine Appearance TURBID Urine pH 6.0 Urine Specific [place] 1.021 Urine Protein 4+ Urine Glucose (UA) 1+ Urine Ketones NEG Urine Occult Blood 2+ Urine Nitrite POS Urine Bilirubin NEG Urine Urobilinogen NEG Urine Leukocyte Esterase MODERATE Urine WBC (Auto) >30 /hpf Urine RBC (Auto) 5-10 /hpf Urine Hyaline Casts (Auto) 1-5 /lpf Urine Epithelial Cells (Auto) >30 /lpf Urine Bacteria (Auto) 2+ Urine Yeast (Auto) Test 02/07/17 06:11 02/07/17 10:08 White Blood Count 11.27 K/uL Red Blood Count 2.69 M/uL Hemoglobin 8.2 g/dL Hematocrit 24.9 % Mean Corpuscular Volume 92.6 fL Mean Corpuscular Hemoglobin 30.5 pg Mean Corpuscular Hemoglobin Concent 32.9 g/dl Platelet Count 218 K/uL Mean Platelet Volume 9.2 fL Neutrophils (%) (Auto) 88.1 % Lymphocytes (%) (Auto) 6.6 % Monocytes (%) (Auto) 4.4 % Eosinophils (%) (Auto) 0.2 % Basophils (%) (Auto) 0.4 % Neutrophils # (Auto) 9.94 K/uL Lymphocytes # (Auto) 0.74 K/uL Monocytes # (Auto) 0.50 K/uL Eosinophils # (Auto) 0.02 K/uL Basophils # (Auto) 0.04 K/uL RDW Standard Deviation 45.4 fL RDW Coefficient of Variation 13.4 % Immature Granulocyte % (Auto) 0.3 % Immature Granulocyte # (Auto) 0.03 K/uL Red Blood Cell Morphology Unremarkable Sodium Level 134 mmol/L Potassium Level 5.3 mmol/L Chloride Level 107 mmol/L Carbon Dioxide Level 20 mmol/L Anion Gap 7.0 mmol/L Blood Urea Nitrogen 55 mg/dl Creatinine 4.70 mg/dl Est Creatinine Clear Calc Drug Dose 21.4 ml/min Estimated GFR () 11.4 Estimated GFR (Non- 9.8 BUN/Creatinine Ratio 11.8 Random Glucose 135 mg/dl Calcium Level 7.6 mg/dl Magnesium Level 1.7 mg/dl Impression (1) End-stage renal disease on hemodialysis (2) Fever (3) Hypertension (4) Dialysis catheter clot or failure Mrs. Beth presents with ESRD and multiple electrolyte abnormalities including hyperkalemia due to missed dialysis treatments. She has evidence of volume overload. CXR was reviewed. Her TDC is retracted. She is febrile and the catheter has evidence of a tunnel tract infection. Blood cultures have been obtained and are pending. The catheter will need to be removed today. It cannot be used for dialysis. A request for placement of a temporary catheter has been made. We will plan hemodialysis once access has been secured. Unfortunately, Dr. Maguire is not available so alternative arrangements are being made. At least 45 minutes was spent today discussing and coordinating care with members involved. At this time, blood pressure, volume status and electrolytes are acceptable and dialysis will be provided once clinically appropriate.
--- NOTE | 2017-02-07 11:36 | Medical Consult ---
Consultation Date of Consultation: Feb 07, 2017. Attending Physician: Subhash Lorenzana D.O. Reason for Consultation: Removal of tunneled HD catheter. History of Present Illness History mostly obtained from ED records- patient extremely drowsy and only answers questions with a few words. 56-year-old female with history of ESRD on HD admitted to [facility] for infected and dislodged perm cath- Right Internal Jugular. Patient was sent to ED by dialysis after it was discovered that her catheter was not functioning. Perm cath was placed by Dr. Maguire on 01/23/2017. Patient states that she had not been feeling well for at least the last week to 10 days. Past Medical/Surgical History Medical Problems: (1) Acute renal failure on dialysis Status: Acute (2) End stage renal disease Status: Acute (3) Fever Status: Acute (4) Hypomagnesemia Status: Acute (5) Renal failure Status: Acute Surgical History Hx Cardiac Surgery: Yes (CARDIAC CATH NO INTERVENTION, UNSUCCESSFUL) Hx Abdominal Surgery: Yes (cholecystectomy, appendectomy) Hx Cancer Surgery: Yes (nephrectomy) Hx Thoracic Surgery: No Hx Orthopedic: Yes (above L elbow amputation) Hx Urinary Tract Surgery: Yes (STENT PLACEMENT AND REMOVAL) Past Medical/Surgical History: CHF, Hypertension, Kidney Disease Family History None stated Social History Smoking Status: Current Every Day Smoker Drug Use: none Marital Status: Housing Status: lives with family Occupation Status: disabled Allergies Coded Allergies: Iodinated Diagnostic Agents (Verified Allergy, Severe, ANAPHYLAXIS, ) Perflutren (Verified Allergy, Severe, RASH, DIFFICULTY BREATHING, ANAPHALYSIS, 02/06/17) Surgical Lubricant (Verified Allergy, Mild, rash, 02/06/17) Adhesives (Verified Allergy, Unknown, RASH, 02/06/17) Propylene Glycol (Verified Allergy, Unknown, RASH, 02/06/17) Current Inpatient Medications Current Inpatient Medications Medications (Trade) Dose Ordered Sig/Rica Route Start Time Stop Time Status Last Admin Dose Admin Ondansetron HCl (Zofran Inj) 4 mg Q6H PRN IV 02/07/17 02:00 03/09/17 01:59 Alprazolam (Xanax Tab) 1 mg Q6H PRN PO 02/07/17 02:00 03/09/17 01:59 Aspirin (Ecotrin Tab) 81 mg DAILY PO 02/07/17 09:00 03/09/17 08:59 02/07/17 09:08 81 MG Atorvastatin Calcium (Lipitor Tab) 80 mg QAM PO 02/07/17 09:00 03/09/17 08:59 02/07/17 09:08 80 MG Budesonide/ Formoterol Fumarate (Symbicort 160/ 4.5 Inh) 2 puffs BID INH 02/07/17 09:00 03/09/17 08:59 02/07/17 09:09 2 PUFFS Citalopram Hydrobromide (celeXA TAB) 40 mg QAM PO 02/07/17 09:00 03/09/17 08:59 02/07/17 09:08 40 MG Fentanyl (Duragesic Patch) 25 mcg Q72H TD 02/07/17 09:00 02/21/17 08:59 02/07/17 09:07 25 MCG Hydroxyzine HCl (Vistaril Tab) 25 mg Q6H PRN PO 02/07/17 02:00 03/09/17 01:59 Metoprolol Succinate (Toprol Xl Tab) 50 mg QAM PO 02/07/17 09:00 03/09/17 08:59 02/07/17 09:08 50 MG Oxycodone HCl (Roxicodone Immediate Rel Tab) 10 mg Q6H PRN PO 02/07/17 02:00 02/21/17 01:59 Tiotropium [place] (Spiriva Handihaler Inhaler) 1 puff QAM INH 02/07/17 09:00 03/09/17 08:59 02/07/17 09:14 1 PUFF Trazodone HCl (Desyrel Tab) 50 mg HS PO 02/07/17 21:00 03/09/17 20:59 Zolpidem Tartrate (Ambien Tab) 10 mg HS PO 02/07/17 21:00 03/09/17 20:59 Piperacillin Sod/ Tazobactam Sod 4.5 gm/Dextrose 120 ml @ 30 mls/hr Q12@0000,1200 IV 02/07/17 12:00 02/09/17 11:59 Albuterol/ Ipratropium (Duoneb) 3 ml QIDR INH 02/07/17 08:00 03/09/17 07:59 02/07/17 07:49 3 ML Miscellaneous (Fentanyl Patch Remove & Waste) 1 ea Q3D@0859 N/A 02/07/17 08:59 03/09/17 08:58 Miscellaneous Information (Check Fentanyl Patch Placement) 1 ea QS N/A 02/07/17 08:00 03/09/17 07:59 02/07/17 09:06 1 EA Heparin Sodium (Porcine) 70524 unit/Dextrose 500 ml @ 36 mls/hr [id number] PRN IV 02/07/17 04:30 03/09/17 04:29 Acetaminophen (Tylenol Tab) 650 mg Q4H PRN PO 02/07/17 05:00 03/09/17 04:59 02/07/17 05:12 650 MG Piperacillin Sod/ Tazobactam Sod (Consult) 1 ea UD PRN N/A 02/07/17 10:15 03/09/17 10:14 Review of Systems Quite difficult to obtain- patient in and out of sleep. Constitutional: + fever, + fatigue Physical Exam Date Time Temp Pulse Resp B/P (MAP) Pulse Ox O2 Delivery O2 Flow Rate FiO2 02/07/17 08:00 38.0 88 20 171/60 (97) 96 Room Air 02/07/17 07:20 82 20 97 Room Air 02/07/17 06:15 38.2 165/60 (95) 02/07/17 04:25 38.9 02/07/17 04:04 37.5 90 26 253/99 Room Air 02/07/17 03:03 82 22 215/99 98 02/07/17 02:57 82 22 181/122 97 Room Air 02/07/17 02:50 94 220/91 02/07/17 00:59 97 22 197/89 97 Room Air 02/07/17 00:04 94 02/06/17 23:33 94 25 195/121 98 Room Air 02/06/17 22:10 92 22 219/84 100 Room Air 02/06/17 20:47 84 22 177/114 100 Room Air 02/06/17 20:23 84 02/06/17 19:45 100 Room Air 02/06/17 19:19 36.9 24 213/86 Room Air General Appearance: + moderate distress, + obese, + pertinent finding (patient expresses that everywhere hurts. ) Head: normocephalic, atraumatic Neck: no JVD, + pertinent finding ( mild edema/erythema over R IJ permcath tunnel, pain with palpation ) Respiratory/Chest: + decreased breath sounds Abdomen/GI: soft Laboratory Results Last 24 Hours Test 02/06/17 21:16 02/06/17 23:20 02/06/17 23:25 02/07/17 05:26 Venous Blood pH 7.35 Venous Blood Partial Pressure CO2 32 mmHg Venous Blood Partial Pressure O2 27 mmHg Venous Blood HCO3 17 mmol/L Venous Blood Oxygen Saturation < 60.0 % Venous Blood Base Excess -7.3 mmol/L White Blood Count 12.65 K/uL Red Blood Count 3.06 M/uL Hemoglobin 9.1 g/dL Hematocrit 28.1 % Mean Corpuscular Volume 91.8 fL Mean Corpuscular Hemoglobin 29.7 pg Mean Corpuscular Hemoglobin Concent 32.4 g/dl Platelet Count 255 K/uL Mean Platelet Volume 9.1 fL Neutrophils (%) (Auto) 88.6 % Lymphocytes (%) (Auto) 7.4 % Monocytes (%) (Auto) 3.3 % Eosinophils (%) (Auto) 0.2 % Basophils (%) (Auto) 0.3 % Neutrophils # (Auto) 11.19 K/uL Lymphocytes # (Auto) 0.94 K/uL Monocytes # (Auto) 0.42 K/uL Eosinophils # (Auto) 0.03 K/uL Basophils # (Auto) 0.04 K/uL RDW Standard Deviation 44.9 fL RDW Coefficient of Variation 13.4 % Immature Granulocyte % (Auto) 0.2 % Immature Granulocyte # (Auto) 0.03 K/uL Erythrocyte Sedimentation Rate 50 mm/hr Prothrombin Time 12.0 SECONDS Prothromb Time International Ratio 1.1 Activated Partial Thromboplast Time 23.9 SECONDS Partial Thromboplastin Ratio 0.9 Sodium Level 138 mmol/L Potassium Level 5.2 mmol/L Chloride Level 109 mmol/L Carbon Dioxide Level 18 mmol/L Anion Gap 11.0 mmol/L Blood Urea Nitrogen 57 mg/dl Creatinine 4.70 mg/dl Estimated GFR () 11.4 Estimated GFR (Non- 9.8 BUN/Creatinine Ratio 12.0 Random Glucose 127 mg/dl Calcium Level 7.9 mg/dl Phosphorus Level 4.0 mg/dl Magnesium Level 1.6 mg/dl Total Bilirubin 0.3 mg/dl Aspartate Amino Transf (AST/SGOT) 11 U/L Alanine Aminotransferase (ALT/SGPT) 10 U/L Alkaline Phosphatase 101 U/L Total Creatine Kinase 36 U/L Creatine Kinase MB < 0.5 ng/ml Creatine Kinase MB Ratio Troponin I 0.064 ng/ml C-Reactive Protein 3.62 mg/dl Pro-B-Type Natriuretic Peptide 7070 pg/ml Total Protein 6.7 gm/dl Albumin 2.4 gm/dl Globulin 4.3 gm/dl Albumin/Globulin Ratio 0.6 Lipase 172 U/L Bedside Lactic Acid Venous 0.85 mmol/L Urine Color YELLOW Urine Appearance TURBID Urine pH 6.0 Urine Specific [place] 1.021 Urine Protein 4+ Urine Glucose (UA) 1+ Urine Ketones NEG Urine Occult Blood 2+ Urine Nitrite POS Urine Bilirubin NEG Urine Urobilinogen NEG Urine Leukocyte Esterase MODERATE Urine WBC (Auto) >30 /hpf Urine RBC (Auto) 5-10 /hpf Urine Hyaline Casts (Auto) 1-5 /lpf Urine Epithelial Cells (Auto) >30 /lpf Urine Bacteria (Auto) 2+ Urine Yeast (Auto) Test 02/07/17 06:11 02/07/17 10:08 White Blood Count 11.27 K/uL Red Blood Count 2.69 M/uL Hemoglobin 8.2 g/dL Hematocrit 24.9 % Mean Corpuscular Volume 92.6 fL Mean Corpuscular Hemoglobin 30.5 pg Mean Corpuscular Hemoglobin Concent 32.9 g/dl Platelet Count 218 K/uL Mean Platelet Volume 9.2 fL Neutrophils (%) (Auto) 88.1 % Lymphocytes (%) (Auto) 6.6 % Monocytes (%) (Auto) 4.4 % Eosinophils (%) (Auto) 0.2 % Basophils (%) (Auto) 0.4 % Neutrophils # (Auto) 9.94 K/uL Lymphocytes # (Auto) 0.74 K/uL Monocytes # (Auto) 0.50 K/uL Eosinophils # (Auto) 0.02 K/uL Basophils # (Auto) 0.04 K/uL RDW Standard Deviation 45.4 fL RDW Coefficient of Variation 13.4 % Immature Granulocyte % (Auto) 0.3 % Immature Granulocyte # (Auto) 0.03 K/uL Red Blood Cell Morphology Unremarkable Sodium Level 134 mmol/L Potassium Level 5.3 mmol/L Chloride Level 107 mmol/L Carbon Dioxide Level 20 mmol/L Anion Gap 7.0 mmol/L Blood Urea Nitrogen 55 mg/dl Creatinine 4.70 mg/dl Est Creatinine Clear Calc Drug Dose 21.4 ml/min Estimated GFR () 11.4 Estimated GFR (Non- 9.8 BUN/Creatinine Ratio 11.8 Random Glucose 135 mg/dl Calcium Level 7.6 mg/dl Magnesium Level 1.7 mg/dl Assessment & Plan Discussed patient with Dr. Garcia- Will add patient to OR schedule for perm cath removal. Patient NPO after midnight. Stop Heparin at 7AM tomorrow, 02/08/2017, for 9am start in OR. We will continue to follow. 02/07/17 3:[address] Lorenzana will plan removal today at his request hold heparin 1 1/2 hr before procedure discussed with pt consent obtained
[2017-02-07] MEDS: PIPERACILL/TAZOBAC IV 4.5 GM in DEXTROSE 5% 100ML 100 ML IV SCH ×2 (12:09→23:58)
--- NOTE | 2017-02-07 13:28 | DIAGNOSTIC IMAGING REPORT ---
C-SPINE ROUTINE 4 OR 5 VIEWS HISTORY: 56 years-old Female r sided cervicalgia COMPARISON: Chest radiograph 02/06/2017 TECHNIQUE: Lateral, bilateral oblique, AP and odontoid views of the cervical spine. FINDINGS: The sixth and seventh vertebral segments are not well seen on the lateral projection secondary to overlying soft tissue. There is intervertebral disc space narrowing with prominent endplate spurring at the C5-C6 and C6-C7 levels. No acute fracture is identified. There is 2 mm retrolisthesis of C3 on C4 with extension. This is likely on a degenerative basis as there is associated moderate facet arthropathy at this level. Multilevel moderate facet arthropathy involves the mid and lower levels. Evaluation of the foramina is limited secondary to positioning. Image odontoid process and lateral pillars of C1 appear intact. There is no prevertebral soft tissue swelling There is atherosclerotic plaquing of the carotid bulbs. There is a right internal jugular hemodialysis catheter which appears unchanged with distal tip terminating at the level of the right clavicular head. IMPRESSION: 1. No acute fracture. 2 mm retrolisthesis of C3 on C4 is likely secondary to associated facet arthropathy. 2. Intervertebral disc space narrowing is seen at C5-C6 and C6-C7. 3. Carotid atherosclerotic vascular disease. The above report was generated using voice recognition software. It may contain grammatical, syntax or spelling errors. Electronically signed by: Denzel Palomo M.D. 02/07/2017 1:27 PM Dictated Date/Time: 02/07/2017 1:22 PM
--- NOTE | 2017-02-07 14:25 | Inpt Pre-Op Anesthesia Eval ---
Pre-Op Anesthesia Consultation Service Date Feb 07, 2017. Surgery Proposed Surgery Surgeon: Height / Weight / BMI Height: 5 (Feet) 7.00 (Inches) 170.2 (Centimeters) 1.7018 (Meters) Weight: 343 (Pounds) 0.6 (Ounces) 155.600 (Kilograms) 360483.000 (Grams) BMI: 53.519 Allergies Latex Allergies: No Coded Allergies: Iodinated Diagnostic Agents (Verified Allergy, Severe, ANAPHYLAXIS, ) Perflutren (Verified Allergy, Severe, RASH, DIFFICULTY BREATHING, ANAPHALYSIS, 02/06/17) Surgical Lubricant (Verified Allergy, Mild, rash, 02/06/17) Adhesives (Verified Allergy, Unknown, RASH, 02/06/17) Propylene Glycol (Verified Allergy, Unknown, RASH, 02/06/17) Home Medications Scheduled Albuterol (Ventolin Hfa), 2 PUFFS INH QID Aspirin (Aspirin Ec), 81 MG PO DAILY Atorvastatin (Lipitor), 80 MG PO QAM Budesonide/Formoterol Fumarate (Symbicort 160-4.5 Mcg/Act), 2 PUFFS INH BID Citalopram (Citalopram Hydrobromide), 40 MG PO QAM Ergocalciferol (Vitamin D 32724 Unit), 1 CAP PO SUNDAY Fentanyl (Duragesic), 25 MCG TD Q72H Metoprolol Succinate (Toprol Xl), 50 MG PO QAM Tiotropium [place] (Spiriva Handihaler), 2 PUFFS INH QAM Trazodone Hcl (Trazodone), 50 MG PO HS Zolpidem Tartrate (Ambien), 10 MG PO HS Scheduled PRN Alprazolam (Xanax), 1 MG PO Q6H PRN for Anxiety Hydroxyzine Hcl (Atarax), 25 MG PO DIRECTED PRN for Itching Ipratropium-Albuterol (Duoneb), 1 TREATMENT INH Q4H PRN for SOB/Wheezing Morphine Sulfate Ir (Morphine Sulfate Ir), 30 MG PO QAM PRN for Pain Ondansetron Hcl (Zofran), 4 MG PO Q4 PRN for Nausea Oxycodone Ir (Roxicodone Ir), 10 MG PO Q6H PRN for Severe Pain Inpatient Medications Acetaminophen (Tylenol Tab) 650 mg Q4H PRN PO Last administered on 02/07/17 05 :12; Admin Dose 650 MG; Start 02/07/17 at 05:00; Stop 03/09/17 at 04:59 Albuterol/ Ipratropium (Duoneb) 3 ml QIDR INH Last administered on 02/07/17 11: 23; Admin Dose 3 ML; Start 02/07/17 at 08:00; Stop 03/09/17 at 07:59 Alprazolam (Xanax Tab) 1 mg Q6H PRN PO; Start 02/07/17 at 02:00; Stop 03/09/17 at 01:59 Aspirin (Ecotrin Tab) 81 mg DAILY PO Last administered on 02/07/17 09:08; Admin Dose 81 MG; Start 02/07/17 at 09:00; Stop 03/09/17 at 08:59 Atorvastatin Calcium (Lipitor Tab) 80 mg QAM PO Last administered on 02/07/17 09:08; Admin Dose 80 MG; Start 02/07/17 at 09:00; Stop 03/09/17 at 08:59 Budesonide/ Formoterol Fumarate (Symbicort 160/ 4.5 Inh) 2 puffs BID INH Last administered on 02/07/17 09:09; Admin Dose 2 PUFFS; Start 02/07/17 at 09:00; Stop 03/09/17 at 08:59 Citalopram Hydrobromide (celeXA TAB) 40 mg QAM PO Last administered on 09:08; Admin Dose 40 MG; Start 02/07/17 at 09:00; Stop 03/09/17 at 08:59 Epoetin [place] (Procrit Inj) 10,000 units TODAY@1500 IV; Start 02/07/17 at 15:00; Stop 02/07/17 at 18:00 Fentanyl (Duragesic Patch) 25 mcg Q72H TD Last administered on 02/07/17 09:07; Admin Dose 25 MCG; Start 02/07/17 at 09:00; Stop 02/21/17 at 08:59 Heparin Sodium (Porcine) 58481 unit/Dextrose 500 ml @ 36 mls/hr [id number] PRN IV ; Start 02/07/17 at 04:30; Stop 03/09/17 at 04:29 Hydroxyzine HCl (Vistaril Tab) 25 mg Q6H PRN PO; Start 02/07/17 at 02:00; Stop 03/09/17 at 01:59 Metoprolol Succinate (Toprol Xl Tab) 50 mg QAM PO Last administered on 09:08; Admin Dose 50 MG; Start 02/07/17 at 09:00; Stop 03/09/17 at 08:59 Miscellaneous (Fentanyl Patch Remove & Waste) 1 ea Q3D@0859 N/A; Start 02/07/17 at 08:59; Stop 03/09/17 at 08:58 Miscellaneous Information (Check Fentanyl Patch Placement) 1 ea QS N/A Last administered on 02/07/17 09:06; Admin Dose 1 EA; Start 02/07/17 at 08:00; Stop 03/09/17 at 07:59 Ondansetron HCl (Zofran Inj) 4 mg Q6H PRN IV; Start 02/07/17 at 02:00; Stop at 01:59 Oxycodone HCl (Roxicodone Immediate Rel Tab) 10 mg Q6H PRN PO; Start 02/07/17 at 02:00; Stop 02/21/17 at 01:59 Piperacillin Sod/ Tazobactam Sod (Consult) 1 ea UD PRN N/A; Start 02/07/17 at 10:15; Stop 03/09/17 at 10:14 Piperacillin Sod/ Tazobactam Sod 4.5 gm/Dextrose 120 ml @ 30 mls/hr Q12@0000, 1200 IV Last administered on 02/07/17 12:09; Admin Dose 30 MLS/HR; Start at 12:00; Stop 02/09/17 at 11:59 Tiotropium [place] (Spiriva Handihaler Inhaler) 1 puff QAM INH Last administered on 02/07/17 09:14; Admin Dose 1 PUFF; Start 02/07/17 at 09:00; Stop 03/09/17 at 08:59 Trazodone HCl (Desyrel Tab) 50 mg HS PO; Start 02/07/17 at 21:00; Stop 03/09/17 at 20:59 Zolpidem Tartrate (Ambien Tab) 10 mg HS PO; Start 02/07/17 at 21:00; Stop at 20:59 Past Medical History Atrial Fibrillation, Diabetes, Arthritis, Asthma, Pulmonary Emboli, Anxiety, Reflux, Blood Dyscrasias, Cancer, High Cholesterol, Heart Disease, CHF, Hypertension, Kidney Disease, CVA/TIA, Other, Depression History of Psychiatric Problem: No Past Surgical History Hx Cardiac Surgery: Yes (CARDIAC CATH NO INTERVENTION, UNSUCCESSFUL) Hx Abdominal Surgery: Yes (cholecystectomy, appendectomy) Hx Cancer Surgery: Yes (nephrectomy) Hx Thoracic Surgery: No Hx Orthopedic: Yes (above L elbow amputation) Hx Urinary Tract Surgery: Yes (STENT PLACEMENT AND REMOVAL) Anesthesia History Hx Anesthesia Reactions: No Anesthesia Complications: None Hx Post-Op Nausea and Vomiting: Yes Family Anesthesia Complication: None Social History Alcohol Use: Yes (socially ) Substance Use: No Smoking Status: Current Every Day Smoker Tobacco Use In Past Year?: Yes Dip or Chew Tobacco Use: No How Many Cigarettes per Day: 20 Testing Laboratory Results Last Resulted CBC 02/07/17 06:11 Red Blood Count 2.69 L, Mean Corpuscular Volume 92.6, Mean Corpuscular Hemoglobin 30.5, Mean Corpuscular Hemoglobin Concent 32.9, Mean Platelet Volume 9.2, Neutrophils (%) (Auto) 88.1, Lymphocytes (%) (Auto) 6.6, Monocytes (%) ( Auto) 4.4, Eosinophils (%) (Auto) 0.2, Basophils (%) (Auto) 0.4, Neutrophils # ( Auto) 9.94 H, Lymphocytes # (Auto) 0.74 L, Monocytes # (Auto) 0.50, Eosinophils # (Auto) 0.02, Basophils # (Auto) 0.04 Last Resulted BMP 02/07/17 06:11 Test 02/06/17 23:20 02/07/17 10:08 Range/Units Prothrombin Time INR 1.1 0.9-1.1 Prothrombin Time 12.0 9.0-12.0 SECONDS PTT 49.7 *H 21.0-31.0 SECONDS Partial Thromboplastin Ratio 1.9 Exam Risk The proposed anesthesia plan with the risk/benefits has been reviewed with the patient / POA / parent / guardian and accept the plan. Vital Signs Last Vital Signs Documentation Date Time Temp Pulse Resp B/P (MAP) Pulse Ox O2 Delivery O2 Flow Rate FiO2 02/07/17 12:00 Room Air 02/07/17 11:34 37.8 85 22 168/66 (100) 91 Review Teaching/Discussion Pre-Anesthesia Teaching/Discussion Notes: Instructed NPO after midnight before surgery,except medications with 15 cc of water. Medication instructions provided according to the PAT guidelines. Chart Review Additional Notes: Pt seen pre op for permcath placement tomorrow. Risks/benefits explained and pt consented. Will recheck K in am.
[2017-02-07] MEDS ORDERED: KETAMINE HCL INJ 50 MG/ML 10 ML VIAL ONE (14:58)
[2017-02-07] MEDS ORDERED: MIDAZOLAM HCL 1 MG/ML 2ML VIAL ONE (14:58)
[2017-02-07] MEDS ORDERED: LIDOCAINE HCL 1% 20 ML VIAL ONE (14:58)
[2017-02-07] MEDS ORDERED: BUPIVACAINE/EPINEPHRINE 0.5% MPF 1:200,000 10 ML VIAL ONE (14:58)
[2017-02-07] MEDS ORDERED: EpHEDrine SULFATE INJ 50 MG/ML AMP IV PRN (15:00)
[2017-02-07] MEDS ORDERED: ONDANSETRON INJ 2 MG/ML 2 ML VIAL IV PRN (15:00)
[2017-02-07] MEDS ORDERED: ATROPINE SULFATE 0.1 MG/ML 5ML SYR IV PRN (15:00)
[2017-02-07] MEDS ORDERED: EPOETIN ALFA 10,000 UNITS/ML VIAL IV SCH (15:00)
[2017-02-07] MEDS ORDERED: FENTANYL CITRATE INJ 50 MCG/1 ML 2 ML VIAL IV PRN (15:00)
--- NOTE | 2017-02-07 15:04 | History & Physical Bridge Note ---
H&P Re-Evaluation Bridge Note: I have examined the patient, reviewed the History & Physical and in the interval since the performance of the History & Physical I have noted the following changes of clinical significance: No changes noted discussed with Dr Lorenzana would like cath removed today. pt ate breakfast and on heparin drip will plan for 3:30 or 4:00 hold heparin 1 1/2 hour before consent signed
[2017-02-07] MEDS ORDERED: FENTANYL CITRATE INJ 50 MCG/1 ML 2 ML VIAL ONE (15:31)
--- NOTE | 2017-02-07 15:43 | [facility] Operative Report ---
Operative Report Operative Date Feb 07, 2017. Pre-Operative Diagnosis Infected Dialysis Catheter right int jugular Post-Operative Diagnosis Same Infected Dialysis Catheter Procedure(s) Performed Removal Infected Dialysis Catheter Surgeon Dr. Hammonds Etl Lead Surgeon(s) Vick Bailey PA-C Estimated Blood Loss 0ml Findings as preop Specimens Microbiology: Infected Dialysis Catheter -Gram Stain -Anaerobic/Aerobic -Gram Stain Permanent Specimen: A. Explanted Dialysis Catheter Indications infected dialysis cath Description of Procedure removal send tip for c and s I attest to the content of the Intraoperative Record and any orders documented therein. Any exceptions are noted below.
[2017-02-07] MEDS ORDERED: PROPOFOL IV EMULSION 10 MG/ML 20 ML VIAL IV ONE (15:54)
[2017-02-07] MEDS ORDERED: LIDOCAINE HCL 2% 2 ML VIAL (20MG/ML) ONE (15:54)
--- NOTE | 2017-02-07 16:02 | Anesthesiology Progress Note ---
Anesthesia Post Op Note Date & Time Feb 07, 2017 at 16:01 Vital Signs Pain Intensity: 0 Vital Signs Past 12 Hours Date Time Temp Pulse Resp B/P (MAP) Pulse Ox O2 Delivery O2 Flow Rate FiO2 02/07/17 16:00 36.9 73 16 111/51 99 Mask 7 02/07/17 15:50 81 14 94/58 95 Mask 7 02/07/17 15:40 37.2 85 14 96/61 95 Mask 7 02/07/17 15:01 37.1 82 16 117/84 (95) 93 Room Air 02/07/17 12:00 Room Air 02/07/17 11:34 37.8 85 22 168/66 (100) 91 Room Air 02/07/17 11:25 90 20 92 Room Air 02/07/17 08:30 Room Air 02/07/17 08:00 38.0 88 20 171/60 (97) 96 Room Air 02/07/17 07:20 82 20 97 Room Air 02/07/17 06:15 38.2 165/60 (95) 02/07/17 04:25 38.9 02/07/17 04:04 37.5 90 26 253/99 Room Air Notes Mental Status: alert / awake / arousable, participated in evaluation Pt Amnestic to Procedure: Yes Nausea / Vomiting: adequately controlled Pain: adequately controlled Airway Patency, RR, SpO2: stable & adequate BP & HR: stable & adequate Hydration State: stable & adequate Anesthetic Complications: no major complications apparent
--- NOTE | 2017-02-07 16:05 | OPERATIVE REPORT ---
DATE OF OPERATION: 02/07/2017 PREOPERATIVE DIAGNOSIS: Infected dialysis catheter, right internal jugular. POSTOPERATIVE DIAGNOSIS: Same. PROCEDURE: Removal. SURGEON: Dr. Hammonds. HAND BOOKED FOLDER AND STITCHER: Earl Bailey PA-C. OPERATION AND FINDINGS: SUMMARY: The patient who has a BMI of 54 was brought into the operating room theater. Actually we used the same bed we did when we were over in the hospital bed. We laid her fairly flat. Anesthesia gave her some minimal IV sedation. The right chest area was prepped with Betadine solution and the neck area and properly draped. After some IV sedation we used local anesthetic to infiltrate right around the entry site of the dialysis catheter in the anterior chest wall which shows no real true inflammation, had purulent drainage, but little redness at the entrance. We then removed the sutures that held the catheter in place and actually we looked at the preop chest x-ray on her and this seemed like the catheter may have been almost out of the internal jugular. It was hard to tell given the patient's position but having said that once we achieved enough sufficient anesthetic level, we just gently tugged on the catheter and actually came out with the Dacron cuff fairly easily. We held pressure on the internal jugular area at the site of the exit in the anterior chest wall. We cut the tip of the catheter and sent it for cultures. At this point, we held pressure for approximately 5 minutes. There was no true evidence of any bleeding along the tract, but a small opening I put 1 single suture of 3-0 nylon to close the entry site in the anterior chest wall, some Vaseline gauze was placed along with 2 x 2 and Op-Site since the patient was allergic to any adhesive tape. The procedure was tolerated well by the patient, 0 blood loss. The patient was taken to recovery room in good condition. I attest to the content of the Intraoperative Record and any orders documented therein. Any exception s are noted below.
--- NOTE | 2017-02-07 16:19 | Progress Note ---
Progress Note Date of Service Feb 07, 2017. Progress Note admission follow up note, patient admitted after midnight today patient still lethargic, vitals stable but spiking fevers blood cultures growing gram positive cocci discussed case with Dr. Larueano, Dr. Hammonds and ICU staff had tunnelled HD catheter removed today for line holiday plan for temp line tomorrow and then can perform HD 56 year old female with metastatic renal cell carcinoma who presents to the ER on advice of her dialysis unit due to a non functioning tunneled catheter placed on 01/23/[address] Maguire. Non occlusive clot shown on imaging Sepsis secondary to infected tunneled HD catheter - continue vancomycin and Zosyn - 1 set of blood cultures growing gram positive cocci - will order echocardiogram to look for endocarditis, no murmurs on exam Right sided neck pain and chest pain - - ongoing issue, related to line placement, c/o this last admission - sleeping comfortably, no complaints of pain today End stage renal disease - patient reportedly does still make some urine however - consult nephrology - plan for HD tomorrow after temporary line placed Nonocclusive thrombus in intravascular catheter within right IJ vein - stop heparin, pull line today Elevated troponin - at baseline secondary to end stage renal disease, no need to repeat Chronic anemia: at baseline, likely secondary to nutrition and malignancy HTN: continue home meds CHF: continue home meds, no current exacerbation COPD: continue inhalers, add duonebs to help with coughing, no current exacerbation Code - DNR/DNI as per patient wishes VTE Prophylaxis - IV heparin bolus + standard dose drip Disposition - admit to telemetry
[2017-02-07] MEDS: OXYCODONE HCL IR 5 MG TAB (IMMEDIATE RELEASE) PO PRN (18:18)
[2017-02-07] MEDS: TRAZODONE HCL 50 MG TAB PO SCH (20:26)
[2017-02-07] MEDS: ZOLPIDEM TARTRATE 10 MG TAB PO SCH (20:26)
[2017-02-07] MEDS ORDERED: VANCOMYCIN CONSULT ACTIVE PRN (21:00)
--- NOTE | 2017-02-07 21:19 | Pharmacy Progress Note ---
Pharmacy Abx Initial Consult Date of Service Feb 07, 2017. Pharmacy Dosing Scope Date of Consult: 02/07/17 Consultation requested by: Dr. Jones Pharmacy is consulted to initiate vancomycin IV dosing therapy, order appropriate labs and adjust drug dose/frequency. Subjective The patient is a 56 year old female admitted on Feb 07, 2017 at 01:56. Objective Height (Feet): 5 Height (Inches): 7.00 Weight (Kilograms): 155.600 Vital Signs (Past 12Hrs) Vital Signs Past 12 Hours Date Time Temp Pulse Resp B/P (MAP) Pulse Ox O2 Delivery O2 Flow Rate FiO2 02/07/17 20:12 37.2 79 18 123/50 (74) 98 Nasal Cannula 2.0 02/07/17 20:00 Nasal Cannula 2.0 02/07/17 19:10 80 18 98 Nasal Cannula 3.0 02/07/17 17:20 36.9 78 22 108/76 (87) 96 Nasal Cannula 3.0 02/07/17 16:50 36.7 80 20 139/52 (81) 98 Nasal Cannula 3.0 02/07/17 16:20 36.8 75 20 121/50 (73) 97 Nasal Cannula 3.0 02/07/17 16:00 Nasal Cannula 3.0 02/07/17 16:00 36.9 73 16 111/51 99 Mask 7 02/07/17 15:50 81 14 94/58 95 Mask 7 02/07/17 15:40 37.2 85 14 96/61 95 Mask 7 02/07/17 15:01 37.1 82 16 117/84 (95) 93 Room Air 02/07/17 12:00 Room Air 02/07/17 11:34 37.8 85 22 168/66 (100) 91 Room Air 02/07/17 11:25 90 20 92 Room Air Lab Results (24Hrs) Laboratory Tests (24 Hours) Test 02/06/17 23:20 02/07/17 06:11 C-Reactive Protein 3.62 mg/dl (0-0.29) H Erythrocyte Sedimentation Rate 50 mm/hr (0-21) H Total Creatine Kinase 36 U/L (26-192) White Blood Count 11.27 K/uL (4.8-10.8) H Red Blood Count 2.69 M/uL (4.2-5.4) L Hemoglobin 8.2 g/dL (12.0-16.0) L Hematocrit 24.9 % (37-47) L Mean Corpuscular Volume 92.6 fL (80-100) Mean Corpuscular Hemoglobin 30.5 pg (25-34) Mean Corpuscular Hemoglobin Concent 32.9 g/dl (32-36) Platelet Count 218 K/uL (130-400) Mean Platelet Volume 9.2 fL (7.4-10.4) Neutrophils (%) (Auto) 88.1 % Lymphocytes (%) (Auto) 6.6 % Monocytes (%) (Auto) 4.4 % Eosinophils (%) (Auto) 0.2 % Basophils (%) (Auto) 0.4 % Neutrophils # (Auto) 9.94 K/uL (1.4-6.5) H Lymphocytes # (Auto) 0.74 K/uL (1.2-3.4) L Monocytes # (Auto) 0.50 K/uL (0.11-0.59) Eosinophils # (Auto) 0.02 K/uL (0-0.5) Basophils # (Auto) 0.04 K/uL (0-0.2) Micro Results Date/Time Source Procedure Growth Status 02/06/17 21:09 Blood Blood Culture - Preliminary Gram Positive Cocci Resulted 02/06/17 21:01 Blood Blood Culture - Preliminary Gram Positive Cocci Resulted 02/07/17 05:26 Urine , Clean Catch Urine Culture Pending Received 02/07/17 15:32 Catheter Tip Perm. Catheter Catheter Tip Culture Pending Received Risk Factors for Resistance * Resident in a [place] [facility] facility or extended-care facility * Hospitalization for 48 hours or more within the past 90 days * Chronic dialysis within the past 30 days * Immunocompromised (chronic steroid therapy, chemotherapy, immunomodulators) Assessment & Plan Assessment 56 year old female currently on Zosyn and received a one time dose of vancomycin for infected perm cath, now with GPC in 2 of 2 blood cultures. Plan Vancomycin IV * Loading dose: 2800 mg (17.5 mg/kg) given last night ~0100 (suspect that this would have achieved a peak of between 25-30) * Patient is a dialysis patient so maintenance doses are based upon pre- dialysis levels * Plan is for patient to have dialysis in the AM * Will order random level w/ AM labs and re-dose based upon the level Piperacillin/tazobactam * Continue 4.5 g IV extended infusion every 12 hours dialysis. - of note, will d /c 02/09 @ 1159 * Aggressive dosing selected due to critically ill status/BMI 35 or more/ history of cystic fibrosis. Pharmacy will continue to follow and will adjust dose/frequency as necessary. Thank you.
[2017-02-07] MEDS: ONDANSETRON INJ 2 MG/ML 2 ML VIAL IV PRN (23:59)
[2017-02-08] VITALS (12 sets, daily range): BP systolic 100–163; BP diastolic 47–60; PULSE 68–85; TEMP 36.1–38.8; O2SAT 92–98
[2017-02-08 05:13] LABS: BASO % 0.3 %; BASO ABS # 0.04 K/uL (0-0.2); EOS % 0.2 %; HEMATOCRIT 23.9 % (37-47); IG% 0.2 %; LYMPH % 7.8 %; LYMPH ABS # 0.95 K/uL (1.2-3.4); MEAN CELL VOLUME 91.9 fL (80-100); MEAN CORPUSCULAR HEMOGLOBIN 28.5 pg (25-34); MEAN PLATELET VOLUME 9.1 fL (7.4-10.4); NEUT % 87.5 %; PLATELET COUNT 202 K/uL (130-400); WHITE BLOOD COUNT 12.16 K/uL (4.8-10.8)
[2017-02-08 05:24] LABS: PARTIAL THROMBOPLASTIN RATIO 1.2
[2017-02-08 05:51] LABS: BUN/CREATININE RATIO 11.1 (10-20); CALCIUM 7.6 mg/dl (8.5-10.1); COMPLETE YES; CREATININE 5.4 mg/dl (0.60-1.20); MAGNESIUM 1.9 mg/dl (1.8-2.4); PHOSPHORUS 5.9 mg/dl (2.5-4.9); POTASSIUM 5.9 mmol/L (3.5-5.1)
--- NOTE | 2017-02-08 06:37 | Surgery Progress Note ---
Surgery Progress Note Date of Service Feb 08, 2017. Subjective Post OP Day: 1 s/p removal infected dialysis cath rij alert coherent op findings discussed with pt Objective Vital Signs: Date Time Temp Pulse Resp B/P (MAP) Pulse Ox O2 Delivery O2 Flow Rate FiO2 02/08/17 04:00 Nasal Cannula 2.0 02/08/17 04:00 36.7 77 20 108/54 (72) 97 Nasal Cannula 2.0 02/08/17 00:00 Nasal Cannula 2.0 02/08/17 00:00 38.8 82 21 163/60 (94) 98 Nasal Cannula 2.0 02/07/17 20:12 37.2 79 18 123/50 (74) 98 Nasal Cannula 2.0 02/07/17 20:00 Nasal Cannula 2.0 02/07/17 19:10 80 18 98 Nasal Cannula 3.0 02/07/17 17:20 36.9 78 22 108/76 (87) 96 Nasal Cannula 3.0 02/07/17 16:50 36.7 80 20 139/52 (81) 98 Nasal Cannula 3.0 02/07/17 16:20 36.8 75 20 121/50 (73) 97 Nasal Cannula 3.0 02/07/17 16:00 Nasal Cannula 3.0 02/07/17 16:00 36.9 73 16 111/51 99 Mask 7 02/07/17 15:50 81 14 94/58 95 Mask 7 02/07/17 15:40 37.2 85 14 96/61 95 Mask 7 02/07/17 15:01 37.1 82 16 117/84 (95) 93 Room Air 02/07/17 12:00 Room Air 02/07/17 11:34 37.8 85 22 168/66 (100) 91 Room Air 02/07/17 11:25 90 20 92 Room Air 02/07/17 08:30 Room Air 02/07/17 08:00 38.0 88 20 171/60 (97) 96 Room Air 02/07/17 07:20 82 20 97 Room Air Incision(s): intact, findings (dressing intact dry, no chest wall swelling or neck swelling) Laboratory Results: Results Past 24 Hours Test 02/07/17 10:08 02/08/17 04:49 Range/Units Activated Partial Thromboplast Time 49.7 31.7 21.0-31.0 SECONDS Partial Thromboplastin Ratio 1.9 1.2 White Blood Count 12.16 4.8-10.8 K/uL Red Blood Count 2.60 4.2-5.4 M/uL Hemoglobin 7.4 12.0-16.0 g/dL Hematocrit 23.9 37-47 % Mean Corpuscular Volume 91.9 80-100 fL Mean Corpuscular Hemoglobin 28.5 25-34 pg Mean Corpuscular Hemoglobin Concent 31.0 32-36 g/dl Platelet Count 202 130-400 K/uL Mean Platelet Volume 9.1 7.4-10.4 fL Neutrophils (%) (Auto) 87.5 % Lymphocytes (%) (Auto) 7.8 % Monocytes (%) (Auto) 4.0 % Eosinophils (%) (Auto) 0.2 % Basophils (%) (Auto) 0.3 % Neutrophils # (Auto) 10.63 1.4-6.5 K/uL Lymphocytes # (Auto) 0.95 1.2-3.4 K/uL Monocytes # (Auto) 0.49 0.11-0.59 K/uL Eosinophils # (Auto) 0.03 0-0.5 K/uL Basophils # (Auto) 0.04 0-0.2 K/uL RDW Standard Deviation 45.4 36.4-46.3 fL RDW Coefficient of Variation 13.5 11.5-14.5 % Immature Granulocyte % (Auto) 0.2 % Immature Granulocyte # (Auto) 0.02 0.00-0.02 K/uL Red Blood Cell Morphology Unremarkable Sodium Level 133 136-145 mmol/L Potassium Level 5.9 3.5-5.1 mmol/L Chloride Level 107 98-107 mmol/L Carbon Dioxide Level 19 21-32 mmol/L Anion Gap 7.0 3-11 mmol/L Blood Urea Nitrogen 60 7-18 mg/dl Creatinine 5.40 0.60-1.20 mg/dl Est Creatinine Clear Calc Drug Dose 18.7 ml/min Estimated GFR () 9.6 Estimated GFR (Non- 8.3 BUN/Creatinine Ratio 11.1 10-20 Random Glucose 120 70-99 mg/dl Calcium Level 7.6 8.5-10.1 mg/dl Phosphorus Level 5.9 2.5-4.9 mg/dl Magnesium Level 1.9 1.8-2.4 mg/dl Albumin 1.8 3.4-5.0 gm/dl Random Vancomycin Level 18.7 mcg/ml Microbiology Results 02/07/17 Catheter Tip Culture, Received Pending Assessment & Plan 02/08/17 change dressing prn will follow peripherally
[2017-02-08] MEDS: ALBUT/IPRATROP 3MG/0.5MG NEB 3 ML VIAL INH SCH ×4 (07:29→19:25)
--- NOTE | 2017-02-08 09:27 | Anesthesiology Progress Note ---
Anesthesia Post Op Note Date & Time Feb 08, 2017 at 09:27 Vital Signs Pain Intensity: 0.0 Vital Signs Past 12 Hours Date Time Temp Pulse Resp B/P (MAP) Pulse Ox O2 Delivery O2 Flow Rate FiO2 02/08/17 08:19 36.7 71 18 121/51 (74) 98 2.0 02/08/17 07:33 70 18 98 Nasal Cannula 3.0 02/08/17 04:00 Nasal Cannula 2.0 02/08/17 04:00 36.7 77 20 108/54 (72) 97 Nasal Cannula 2.0 02/08/17 00:00 Nasal Cannula 2.0 02/08/17 00:00 38.8 82 21 163/60 (94) 98 Nasal Cannula 2.0 Notes Mental Status: alert / awake / arousable, participated in evaluation Pt Amnestic to Procedure: Yes Nausea / Vomiting: adequately controlled Pain: adequately controlled Airway Patency, RR, SpO2: stable & adequate BP & HR: stable & adequate Hydration State: stable & adequate Anesthetic Complications: no major complications apparent
[2017-02-08] MEDS: CHECK FENTANYL PATCH PLACEMENT SCH ×3 (09:50→23:39)
[2017-02-08] MEDS: SODIUM BICARBONATE 650 MG TAB PO SCH ×3 (09:55→20:31)
[2017-02-08] MEDS: OXYCODONE HCL IR 5 MG TAB (IMMEDIATE RELEASE) PO PRN ×2 (09:55→20:30)
[2017-02-08] MEDS: CITALOPRAM 40 MG TAB PO SCH (09:56)
[2017-02-08] MEDS: METOPROLOL SUCC 50MG EXT REL TAB PO SCH (09:56)
[2017-02-08] MEDS: ASPIRIN 81 MG ECTAB PO SCH (09:56)
[2017-02-08] MEDS: ATORVASTATIN 40 MG TAB PO SCH (09:56)
[2017-02-08] MEDS: TIOTROPIUM BROMIDE 5 PUFF/90 MCG INH INH SCH (09:57)
[2017-02-08] MEDS: BUDESONIDE/FORMOTEROL FUMARATE 160/4.5 60 PUFFS/INHALER INH SCH ×2 (09:57→20:30)
--- NOTE | 2017-02-08 10:43 | Nephrology Progress Note ---
Nephrology Progress Note Date of Service Feb 08, 2017. Chief Complaint ESRD Subjective I had a long conversation with Maty early this morning. She expressed frustration and multiple concerns. Maty's primary personal goal at this time is to avoid pain and suffering. She expressed a desire to preserve her quality of life including the ability to swim and shower. She has been suffering with dialysis. She has suffered through the placement of multiple dialysis catheters and mentally is not in a good place to have another procedure performed. She also stated that she is not sure dialysis is something that she wants to continue. She is not ready to enter into hospice care however. She is aware of the limited options at this time to treat her renal dysfunction. She is aware of the risk of from ESRD. She stated that she is not afraid to . She would not definitely make a commitment to not restarting dialysis. She does not want to feel pressured into having a dialysis catheter placed. At this time, my understanding is that she would like to wait to speak to psychiatry and take her time before having any additional procedures. I returned later this morning and readdressed Maty. She reiterated that she does not wish to procedure with placement of a temporary hemodialysis catheter at this time unless she can be put to sleep. I explained that I did not think that would be an option given the risks of anesthesia for a bedside procedure. She denies fevers or chills. She is having some persistent pain at the site of prior catheter removal. Review of Systems A complete review of systems was performed. Pertinent positives are noted above. All other systems are negative. Vital Signs Last 8 Hrs Date Time Temp Pulse Resp B/P (MAP) Pulse Ox O2 Delivery O2 Flow Rate FiO2 02/08/17 08:19 36.7 71 18 121/51 (74) 98 2.0 02/08/17 07:33 70 18 98 Nasal Cannula 3.0 02/08/17 04:00 Nasal Cannula 2.0 02/08/17 04:00 36.7 77 20 108/54 (72) 97 Nasal Cannula 2.0 Last Recorded Weight Weight (Kilograms): 155.700 Physical Exam General Appearance: no apparent distress, + obese Head: normocephalic, atraumatic Eyes: normal inspection, sclerae normal ENT: normal ENT inspection, pharynx normal Neck: supple, + JVD, + pertinent finding (Improving erythema at site of prior RIJ catheter) Neurologic/Psych: alert, + depressed affect, + pertinent finding (No tremor) Heart and lung exam were deferred by patient request Family History None stated Social History Drug Use: none Marital Status: Housing Status: lives with family Occupation: disabled Laboratory Results Past 24 Hours 02/08/17 04:49 Red Blood Count 2.60, Mean Corpuscular Volume 91.9, Mean Corpuscular Hemoglobin 28.5, Mean Corpuscular Hemoglobin Concent 31.0, Mean Platelet Volume 9.1, Neutrophils (%) (Auto) 87.5, Lymphocytes (%) (Auto) 7.8, Monocytes (%) (Auto) 4.0, Eosinophils (%) (Auto) 0.2, Basophils (%) (Auto) 0.3, Neutrophils # (Auto) 10.63, Lymphocytes # (Auto) 0.95, Monocytes # (Auto) 0.49, Eosinophils # (Auto) 0.03, Basophils # (Auto) 0.04 02/08/17 04:49 Test 02/08/17 04:49 White Blood Count 12.16 K/uL (4.8-10.8) Red Blood Count 2.60 M/uL (4.2-5.4) Hemoglobin 7.4 g/dL (12.0-16.0) Hematocrit 23.9 % (37-47) Mean Corpuscular Volume 91.9 fL (80-100) Mean Corpuscular Hemoglobin 28.5 pg (25-34) Mean Corpuscular Hemoglobin Concent 31.0 g/dl (32-36) Platelet Count 202 K/uL (130-400) Mean Platelet Volume 9.1 fL (7.4-10.4) Neutrophils (%) (Auto) 87.5 % Lymphocytes (%) (Auto) 7.8 % Monocytes (%) (Auto) 4.0 % Eosinophils (%) (Auto) 0.2 % Basophils (%) (Auto) 0.3 % Neutrophils # (Auto) 10.63 K/uL (1.4-6.5) Lymphocytes # (Auto) 0.95 K/uL (1.2-3.4) Monocytes # (Auto) 0.49 K/uL (0.11-0.59) Eosinophils # (Auto) 0.03 K/uL (0-0.5) Basophils # (Auto) 0.04 K/uL (0-0.2) RDW Standard Deviation 45.4 fL (36.4-46.3) RDW Coefficient of Variation 13.5 % (11.5-14.5) Immature Granulocyte % (Auto) 0.2 % Immature Granulocyte # (Auto) 0.02 K/uL (0.00-0.02) Red Blood Cell Morphology Unremarkable Activated Partial Thromboplast Time 31.7 SECONDS (21.0-31.0) Partial Thromboplastin Ratio 1.2 Anion Gap 7.0 mmol/L (3-11) Est Creatinine Clear Calc Drug Dose 18.7 ml/min Estimated GFR () 9.6 Estimated GFR (Non- 8.3 BUN/Creatinine Ratio 11.1 (10-20) Calcium Level 7.6 mg/dl (8.5-10.1) Phosphorus Level 5.9 mg/dl (2.5-4.9) Magnesium Level 1.9 mg/dl (1.8-2.4) Albumin 1.8 gm/dl (3.4-5.0) Random Vancomycin Level 18.7 mcg/ml Allergies Coded Allergies: Iodinated Diagnostic Agents (Verified Allergy, Severe, ANAPHYLAXIS, ) Perflutren (Verified Allergy, Severe, RASH, DIFFICULTY BREATHING, ANAPHALYSIS, 02/06/17) Surgical Lubricant (Verified Allergy, Mild, rash, 02/06/17) Adhesives (Verified Allergy, Unknown, RASH, 02/06/17) Propylene Glycol (Verified Allergy, Unknown, RASH, 02/06/17) Medications Current Inpatient Medications Medications (Trade) Dose Ordered Sig/Rica Route Start Time Stop Time Status Last Admin Dose Admin Ondansetron HCl (Zofran Inj) 4 mg Q6H PRN IV 02/07/17 02:00 03/09/17 01:59 02/07/17 23:59 4 MG Alprazolam (Xanax Tab) 1 mg Q6H PRN PO 02/07/17 02:00 03/09/17 01:59 Aspirin (Ecotrin Tab) 81 mg DAILY PO 02/07/17 09:00 03/09/17 08:59 02/08/17 09:56 81 MG Atorvastatin Calcium (Lipitor Tab) 80 mg QAM PO 02/07/17 09:00 03/09/17 08:59 02/08/17 09:56 80 MG Budesonide/ Formoterol Fumarate (Symbicort 160/ 4.5 Inh) 2 puffs BID INH 02/07/17 09:00 03/09/17 08:59 02/08/17 09:57 2 PUFFS Citalopram Hydrobromide (celeXA TAB) 40 mg QAM PO 02/07/17 09:00 03/09/17 08:59 02/08/17 09:56 40 MG Fentanyl (Duragesic Patch) 25 mcg Q72H TD 02/07/17 09:00 02/21/17 08:59 02/07/17 09:07 25 MCG Hydroxyzine HCl (Vistaril Tab) 25 mg Q6H PRN PO 02/07/17 02:00 03/09/17 01:59 Metoprolol Succinate (Toprol Xl Tab) 50 mg QAM PO 02/07/17 09:00 03/09/17 08:59 02/08/17 09:56 50 MG Oxycodone HCl (Roxicodone Immediate Rel Tab) 10 mg Q6H PRN PO 02/07/17 02:00 02/21/17 01:59 02/08/17 09:55 10 MG Tiotropium Carson (Spiriva Handihaler Inhaler) 1 puff QAM INH 02/07/17 09:00 03/09/17 08:59 02/08/17 09:57 1 PUFF Trazodone HCl (Desyrel Tab) 50 mg HS PO 02/07/17 21:00 03/09/17 20:59 02/07/17 20:26 50 MG Zolpidem Tartrate (Ambien Tab) 10 mg HS PO 02/07/17 21:00 03/09/17 20:59 02/07/17 20:26 10 MG Piperacillin Sod/ Tazobactam Sod 4.5 gm/Dextrose 120 ml @ 30 mls/hr Q12@0000,1200 IV 02/07/17 12:00 02/09/17 11:59 02/07/17 23:58 30 MLS/HR Albuterol/ Ipratropium (Duoneb) 3 ml QIDR INH 02/07/17 08:00 03/09/17 07:59 02/08/17 07:29 3 ML Miscellaneous (Fentanyl Patch Remove & Waste) 1 ea Q3D@0859 N/A 02/07/17 08:59 03/09/17 08:58 Miscellaneous Information (Check Fentanyl Patch Placement) 1 ea QS N/A 02/07/17 08:00 03/09/17 07:59 02/08/17 09:50 1 EA Acetaminophen (Tylenol Tab) 650 mg Q4H PRN PO 02/07/17 05:00 03/09/17 04:59 02/07/17 23:59 650 MG Piperacillin Sod/ Tazobactam Sod (Consult) 1 ea UD PRN N/A 02/07/17 10:15 03/09/17 10:14 Ondansetron HCl (Zofran Inj) 4 mg ONE PRN IV 02/07/17 15:00 Vancomycin HCl (Consult) 1 ea UD PRN N/A 02/07/17 21:00 03/09/17 20:59 Sodium Bicarbonate (Sodium Bicarbonate Tab) 650 mg TID PO 02/08/17 09:00 03/10/17 08:59 02/08/17 09:55 650 MG Impression (1) End-stage renal disease on hemodialysis (2) Fever (3) Hypertension (4) Dialysis catheter clot or failure Mrs. Beth is a 56 year old female with ESRD. She has staph bacteremia from an infected TDC. Urine culture grew E coli. The catheter was also non functional. Catheter has been removed and patient is refusing placement of a new catheter. She has deferred dialysis (as documented in the subjective portion of the note above). She is agreeable to medications to treat her infection and as an attempt to temporize electrolyte and acid/base abnormalities. She has evidence of volume overload. We have discussed dying of end-stage renal disease and her limited life expectancy without dialysis. She would like time prior to moving forward with any procedures. I discussed the current plan of care and my conversations with Dr. Lorenzana this morning. I asked Maty to consider a blood transfusion for anemia. Recommendations -- Start NaHCO3 1300 BID -- Potassium restrict diet -- Monitor metabolic profile q 12 hours -- Psych consult pending -- Consult palliative care -- Continue discussion regarding goals of care -- Consider PRBC (washed) transfusion with furosemide -- Consider standing dose of loop diuretic -- Monitor vanco level prior to each dose
[2017-02-08] MEDS: PIPERACILL/TAZOBAC IV 4.5 GM in DEXTROSE 5% 100ML 100 ML IV SCH ×2 (12:33→23:38)
--- NOTE | 2017-02-08 12:42 | Psychiatric Consultation ---
Consultation Date of Consultation Feb 08, 2017. Identifying Data 56-year-old woman with multiple medical problems including metastatic renal carcinoma with end-stage renal disease, hypertension, diabetes, morbid obesity, CHF COPD who was admitted to the hospital for a failed hemodialysis catheter. We are consulted to evaluate depression. Information is gathered from the patient and the electronic medical record, and considered to be reliable. Chief Complaint "I don't want nothing". History of Present Illness Maty Beth is a 56-year-old woman with multiple medical conditions as listed above, who reported to the emergency department for admission due to a failed hemodialysis catheter. She was found to be septic, and since has had Dr. Jamie Beaver remove the failed catheter in her right arm. She is being followed by nephrology, Dr. Laureano, who is suggesting she have another hemodialysis placed via the groin which she is refusing. It has been clearly discussed in documented, that without the catheter and the hemodialysis, that she is at risk of a hastened due to her end-stage renal disease and is accepting of that. When I see her today she is both angry and depressed. She indicates that she is been through many surgeries over the course the last 7 years, many of them because of left arm injuries incurred after she passed out and was down on that arm for 3 days. 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 She has also had multiple catheters placed for her hemodialysis, the last of which she found very painful and traumatic. She is refusing to have another one placed in left she is under anesthesia, which according to Dr. Laureano's note, is not a possibility due to the risks associated with her many medical conditions. She admits that she has been depressed since she had to have her arm removed and has been on Celexa 40 mg, without benefit. She yells angrily about the worthlessness of the medications and those who prescribed them. She talks at length about her many medical conditions including her renal carcinoma that has since metastasized to her left kidney, liver, pancreas in both lungs. She is blaming other people for not treating her conditions appropriately, resulting in the extensive metastasis. She admits that she has been severely depressed and having suicidal thoughts "all the time" and is somewhat gamy when I ask her if she is safe here in the hospital. She indicates that she "can't answer that honestly because she'll commit me". She then talks angrily about her previous commitment [facility], after her diagnosis of renal cell carcinoma, when she also made a statement about having suicidal thoughts. She denies any auditory or visual hallucinations. She denies any self-injurious acts. Her anxiety is high regarding her conditions and medical decisions. She is able to restate what Dr. Laureano has told her, specifically that without dialysis she will hasten her own and says that ultimately "I want to live" but is not willing to suffer more trauma in having another catheter placed and less it is under anesthesia. She is already a DO NOT RESUSCITATE and does not want to pursue life with more pain. She says that she feels like she is a "thorn in everyone's side". The patient is fully oriented, remembers conversations with her previous physicians, understands the risks and refusing the dialysis catheter and hemodialysis. Past Psychiatric History Current OP Treatment: no current treatment Prior OP Treatment: psychiatrist (court ordered) Prior Psych Hospitalizations: none ([facility] in [place], [facility] in 1993 for suicide attempt) Access to a Gun: No Suicide Attempts: Yes Past Medication Trials Cannot remember but says she has had many trials Past Medical/Surgical History History of Concussion/Seizure: No (1) obesity class IV (2) End stage renal disease (3) Chronic osteomyelitis (4) Dialysis catheter clot or failure (5) Congestive heart failure of unknown etiology (6) Hypertension Allergies Allergies: Coded Allergies: Iodinated Diagnostic Agents (Verified Allergy, Severe, ANAPHYLAXIS, ) Perflutren (Verified Allergy, Severe, RASH, DIFFICULTY BREATHING, ANAPHALYSIS, 02/06/17) Surgical Lubricant (Verified Allergy, Mild, rash, 02/06/17) Adhesives (Verified Allergy, Unknown, RASH, 02/06/17) Propylene Glycol (Verified Allergy, Unknown, RASH, 02/06/17) Home Medications Scheduled Albuterol (Ventolin Hfa), 2 PUFFS INH QID Aspirin (Aspirin Ec), 81 MG PO DAILY Atorvastatin (Lipitor), 80 MG PO QAM Budesonide/Formoterol Fumarate (Symbicort 160-4.5 Mcg/Act), 2 PUFFS INH BID Citalopram (Citalopram Hydrobromide), 40 MG PO QAM Ergocalciferol (Vitamin D 65305 Unit), 1 CAP PO SUNDAY Fentanyl (Duragesic), 25 MCG TD Q72H Metoprolol Succinate (Toprol Xl), 50 MG PO QAM Tiotropium [place] (Spiriva Handihaler), 2 PUFFS INH QAM Trazodone Hcl (Trazodone), 50 MG PO HS Zolpidem Tartrate (Ambien), 10 MG PO HS Scheduled PRN Alprazolam (Xanax), 1 MG PO Q6H PRN for Anxiety Hydroxyzine Hcl (Atarax), 25 MG PO DIRECTED PRN for Itching Ipratropium-Albuterol (Duoneb), 1 TREATMENT INH Q4H PRN for SOB/Wheezing Morphine Sulfate Ir (Morphine Sulfate Ir), 30 MG PO QAM PRN for Pain Ondansetron Hcl (Zofran), 4 MG PO Q4 PRN for Nausea Oxycodone Ir (Roxicodone Ir), 10 MG PO Q6H PRN for Severe Pain Family History None stated History of Suicide: No History of Substance Abuse: Yes (father was an alcoholic, mother a drug addict) Psychiatric History: No Alcohol Use Alcohol Use In Past 12 Months: No Smoking Use Smoking Status: Current Every Day Smoker Personal History Lives in: [facility] Education: started high school (dropped out at age 18) Work History: On disability Relationship History: ( for 32 years to her current who she does not have good things to say about) Children: 3 children who she feels use her for money and things Psychological Trauma History: Other (prior dialysis catheter placements, losing her left arm) Review of Systems Constitutional: denies no symptoms reported, denies see HPI, denies chills, denies diaphoresis, denies fever, denies malaise, denies weakness, denies other Eyes: denies: no symptoms, as stated in HPI, eye pain, tearing, itching, redness, discharge, double vision, visual changes, blurred vision, photophobia, other ENT: denies: no symptoms reported, see HPI, ear pain, ear discharge, loss of hearing, tinnitus, nasal pain, nasal congestion, rhinorrhea, epistaxis, sore throat, stidor, throat swelling, mouth pain, mouth swelling, dental pain, gum swelling, other Cardiovascular: denies: no symptoms reported, see HPI, chest pain, chest tightness, chest pressure, diaphoresis, palpitations, syncope, other Respiratory: reports: short of breath Gastrointestinal: denies no symptoms reported, denies see HPI, denies abdominal pain, denies constipation, denies diarrhea, denies nausea, denies vomiting, denies other Genitourinary - Female: denies: no symptoms, see HPI, rash, amenorrhea, dysmenorrhea, menorrhagia, metrorrhagia, , vaginal bleeding, vaginal itching, vaginal discharge, vulvadynia, other Musculoskeletal: back pain Integumentary: denies no symptoms reported, denies see HPI, denies change in color, denies change in hair/nails, denies dryness, denies lesions, denies lumps , denies rash, denies other Neurologic: denies: no symptoms, see HPI, headache, numbness, paresthesias, pre -existing deficit, seizure, tingling, tremors, general weakness, tics, focal weakness, vertigo, lethargy, memory loss, dizziness, other Endocrine: denies: no symptoms, as stated in HPI, cold intolerance, heat intolerance, hair changes, goiter, polydipsia, polyuria, skin changes, other Hematologic / Lymphatic: denies: no symptoms, as stated in HPI, abnormal clotting, adenopathy, anemia, easy bleeding, easy bruising, gums bleeding, petechiae, other Examination Physical Examination As per Dr. Laureano Vital Signs Vital Signs Past 12 Hours Date Time Temp Pulse Resp B/P (MAP) Pulse Ox O2 Delivery O2 Flow Rate FiO2 02/08/17 12:03 36.9 68 18 102/52 (69) 92 2.0 02/08/17 08:30 Nasal Cannula 2.0 02/08/17 08:19 36.7 71 18 121/51 (74) 98 2.0 02/08/17 07:33 70 18 98 Nasal Cannula 3.0 02/08/17 04:00 Nasal Cannula 2.0 02/08/17 04:00 36.7 77 20 108/54 (72) 97 Nasal Cannula 2.0 Laboratory Results Last 24 Hours Test 02/08/17 04:49 White Blood Count 12.16 K/uL Red Blood Count 2.60 M/uL Hemoglobin 7.4 g/dL Hematocrit 23.9 % Mean Corpuscular Volume 91.9 fL Mean Corpuscular Hemoglobin 28.5 pg Mean Corpuscular Hemoglobin Concent 31.0 g/dl Platelet Count 202 K/uL Mean Platelet Volume 9.1 fL Neutrophils (%) (Auto) 87.5 % Lymphocytes (%) (Auto) 7.8 % Monocytes (%) (Auto) 4.0 % Eosinophils (%) (Auto) 0.2 % Basophils (%) (Auto) 0.3 % Neutrophils # (Auto) 10.63 K/uL Lymphocytes # (Auto) 0.95 K/uL Monocytes # (Auto) 0.49 K/uL Eosinophils # (Auto) 0.03 K/uL Basophils # (Auto) 0.04 K/uL RDW Standard Deviation 45.4 fL RDW Coefficient of Variation 13.5 % Immature Granulocyte % (Auto) 0.2 % Immature Granulocyte # (Auto) 0.02 K/uL Red Blood Cell Morphology Unremarkable Activated Partial Thromboplast Time 31.7 SECONDS Partial Thromboplastin Ratio 1.2 Sodium Level 133 mmol/L Potassium Level 5.9 mmol/L Chloride Level 107 mmol/L Carbon Dioxide Level 19 mmol/L Anion Gap 7.0 mmol/L Blood Urea Nitrogen 60 mg/dl Creatinine 5.40 mg/dl Est Creatinine Clear Calc Drug Dose 18.7 ml/min Estimated GFR () 9.6 Estimated GFR (Non- 8.3 BUN/Creatinine Ratio 11.1 Random Glucose 120 mg/dl Calcium Level 7.6 mg/dl Phosphorus Level 5.9 mg/dl Magnesium Level 1.9 mg/dl Albumin 1.8 gm/dl Random Vancomycin Level 18.7 mcg/ml Mental Examination During interview pt is: alert and oriented, cooperative Appearance: appropriately dressed Eye contact is: good Motor behavior is: psychomotor agitation Speech: loud (angry) Affect: labile (from angry to crying) Mood is: depressed Thought process: tangential Thought content: reality based without delusions Suicidal thought are: present, Plan: present (gamy, would not directly answer questions) Homicidal thoughts are: denied Hallucinations: denies auditory, denies visual Cognition: memory grossly intact, attention grossly intact, language grossly intact Intelligence estimated to be: average Insight: fair Judgement: poor Impression / Recommendations Impression 56-year-old woman who is admitted to the Hospital due to hemodialysis catheter failure. They're recommending a new catheter be placed in her groin which she is refusing and less she is under anesthesia. She is not a candidate for anesthesia per the notes, and Dr. Villagran has reviewed the risks of refusing to have that done including . The patient is able to restate those risks, and says that she is willing to accept the risk of dying although if she could have the procedures with anesthesia and says "I want to live". I believe that she has a good grasp on her prognosis and understands that her many conditions are likely to have a poor outcome. Nonetheless I have tried to talk with her about the benefits of treating her depression so that she does not make her decisions in that context. At this point however she does not want me to change her medications or make any further adjustments to treat her depression. She does not feel that it would be worth it. We try to discuss again whether she would be willing to have the catheter placed in order to proceed with dialysis but she angrily refuses and less she is under anesthesia. Although she is clearly depressed and at times being gamy with me about her level of suicidality, I believe that she has the capability to make her own decisions about this. She has already designated herself as a DO NOT RESUSCITATE and is doing so with a sound mind. I have considered whether or not there would be benefited in bringing her to the mental health unit to treat her depression and I feel that there are many barriers to this. She would not, on a voluntary basis and therefore we would have to commit her and this would only further fuel her anger at the system for "doing to her". I'm also not sure that she would benefit from the inpatient environment given the degree of her medical concerns. Ultimately, if she is going to refuse further treatment for her end- stage renal disease, then it seems that pallliative care would be appropriate. To be sure that we are not missing any vital pieces of information, we will attempt to contact her with whom she lives, to determine if he has concerns about her coming home or has had evidence that she is at risk for imminent suicide. I have offered to return if she wishes to talk or if she changes her mind about treating her depression with other medications. 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 -At this point I see no benefit in forcing inpatient mental health treatment on her and less there is information from the family that is of concern. This is because I do not think that there are risk factors for us to mediate in the inpatient setting given the severity of her medical conditions if she refuses dialysis Has been reviewed with Dr. Jane Mario
--- NOTE | 2017-02-08 13:25 | Progress Note ---
Subjective Date of Service: Feb 08, 2017. Subjective Pt evaluation today including: conversation w/ patient, physical exam, lab review, review of studies, conversation w/ office 365 consultant, review of inpatient medication list Pain: pain in neck PO Intake: adequate Voiding: no voiding problems patient laying in bed this AM, upset about her prognosis long talk with Dr. Laureano this AM with patient, discussed future with dialysis patient tearful, frustrated with pain associated with catheters and frustrated with infected line discussed that blood cultures positive but covered with antibiotics plan today is to treat with antibiotics, no temp cath today plan for bicarb, blood and kayexalate ICU team will be able to place the temp cath if needed appreciate psychiatry and nephrology notes, talked personally with Dr. Laureano and ICU team Problem List Medical Problems: (1) Acute renal failure on dialysis Status: Acute (2) End stage renal disease Status: Acute (3) Fever Status: Acute (4) Hypomagnesemia Status: Acute (5) Renal failure Status: Acute Review of Systems Constitutional: + fever, + weakness, + fatigue Psychiatric: + depression symptoms, + anxiety All Other Systems: Reviewed and Negative Medications Current Inpatient Medications Medications (Trade) Dose Ordered Sig/Rica Route Start Time Stop Time Status Last Admin Dose Admin Ondansetron HCl (Zofran Inj) 4 mg Q6H PRN IV 02/07/17 02:00 03/09/17 01:59 02/07/17 23:59 4 MG Alprazolam (Xanax Tab) 1 mg Q6H PRN PO 02/07/17 02:00 03/09/17 01:59 Aspirin (Ecotrin Tab) 81 mg DAILY PO 02/07/17 09:00 03/09/17 08:59 02/08/17 09:56 81 MG Atorvastatin Calcium (Lipitor Tab) 80 mg QAM PO 02/07/17 09:00 03/09/17 08:59 02/08/17 09:56 80 MG Budesonide/ Formoterol Fumarate (Symbicort 160/ 4.5 Inh) 2 puffs BID INH 02/07/17 09:00 03/09/17 08:59 02/08/17 09:57 2 PUFFS Citalopram Hydrobromide (celeXA TAB) 40 mg QAM PO 02/07/17 09:00 03/09/17 08:59 02/08/17 09:56 40 MG Fentanyl (Duragesic Patch) 25 mcg Q72H TD 02/07/17 09:00 02/21/17 08:59 02/07/17 09:07 25 MCG Hydroxyzine HCl (Vistaril Tab) 25 mg Q6H PRN PO 02/07/17 02:00 03/09/17 01:59 Metoprolol Succinate (Toprol Xl Tab) 50 mg QAM PO 02/07/17 09:00 03/09/17 08:59 02/08/17 09:56 50 MG Oxycodone HCl (Roxicodone Immediate Rel Tab) 10 mg Q6H PRN PO 02/07/17 02:00 02/21/17 01:59 02/08/17 09:55 10 MG Tiotropium [place] (Spiriva Handihaler Inhaler) 1 puff QAM INH 02/07/17 09:00 03/09/17 08:59 02/08/17 09:57 1 PUFF Trazodone HCl (Desyrel Tab) 50 mg HS PO 02/07/17 21:00 03/09/17 20:59 02/07/17 20:26 50 MG Zolpidem Tartrate (Ambien Tab) 10 mg HS PO 02/07/17 21:00 03/09/17 20:59 02/07/17 20:26 10 MG Piperacillin Sod/ Tazobactam Sod 4.5 gm/Dextrose 120 ml @ 30 mls/hr Q12@0000,1200 IV 02/07/17 12:00 02/18/17 11:59 02/08/17 12:33 30 MLS/HR Albuterol/ Ipratropium (Duoneb) 3 ml QIDR INH 02/07/17 08:00 03/09/17 07:59 02/08/17 07:29 3 ML Miscellaneous (Fentanyl Patch Remove & Waste) 1 ea Q3D@0859 N/A 02/07/17 08:59 03/09/17 08:58 Miscellaneous Information (Check Fentanyl Patch Placement) 1 ea QS N/A 02/07/17 08:00 03/09/17 07:59 02/08/17 09:50 1 EA Acetaminophen (Tylenol Tab) 650 mg Q4H PRN PO 02/07/17 05:00 03/09/17 04:59 02/07/17 23:59 650 MG Piperacillin Sod/ Tazobactam Sod (Consult) 1 ea UD PRN N/A 02/07/17 10:15 03/09/17 10:14 Ondansetron HCl (Zofran Inj) 4 mg ONE PRN IV 02/07/17 15:00 Vancomycin HCl (Consult) 1 ea UD PRN N/A 02/07/17 21:00 03/09/17 20:59 Sodium Bicarbonate (Sodium Bicarbonate Tab) 650 mg TID PO 02/08/17 09:00 03/10/17 08:59 02/08/17 09:55 650 MG Objective Vital Signs Date Time Temp Pulse Resp B/P (MAP) Pulse Ox O2 Delivery O2 Flow Rate FiO2 02/08/17 12:03 36.9 68 18 102/52 (69) 92 2.0 02/08/17 08:30 Nasal Cannula 2.0 02/08/17 08:19 36.7 71 18 121/51 (74) 98 2.0 02/08/17 07:33 70 18 98 Nasal Cannula 3.0 02/08/17 04:00 Nasal Cannula 2.0 02/08/17 04:00 36.7 77 20 108/54 (72) 97 Nasal Cannula 2.0 02/08/17 00:00 Nasal Cannula 2.0 02/08/17 00:00 38.8 82 21 163/60 (94) 98 Nasal Cannula 2.0 02/07/17 20:12 37.2 79 18 123/50 (74) 98 Nasal Cannula 2.0 02/07/17 20:00 Nasal Cannula 2.0 02/07/17 19:10 80 18 98 Nasal Cannula 3.0 02/07/17 17:20 36.9 78 22 108/76 (87) 96 Nasal Cannula 3.0 02/07/17 16:50 36.7 80 20 139/52 (81) 98 Nasal Cannula 3.0 02/07/17 16:20 36.8 75 20 121/50 (73) 97 Nasal Cannula 3.0 02/07/17 16:00 Nasal Cannula 3.0 02/07/17 16:00 36.9 73 16 111/51 99 Mask 7 02/07/17 15:50 81 14 94/58 95 Mask 7 02/07/17 15:40 37.2 85 14 96/61 95 Mask 7 02/07/17 15:01 37.1 82 16 117/84 (95) 93 Room Air Physical Exam General Appearance: no apparent distress, + obese Eyes: normal inspection, EOMI, sclerae normal ENT: normal ENT inspection, hearing grossly normal, pharynx normal Neck: supple, no adenopathy, no JVD, trachea midline Respiratory/Chest: chest non-tender, lungs clear, normal breath sounds, no respiratory distress, no accessory muscle use Cardiovascular: regular rate, rhythm, no edema, no gallop, no JVD, no murmur Abdomen: normal bowel sounds, non tender, soft, no organomegaly Neurologic/Psychiatric: banquet houseperson II-XII nml as tested, alert, oriented x 3, + motor weakness, + depressed affect Skin: normal color, warm/dry, no rash Lymphatic: no adenopathy Laboratory Results Last 24 Hours Test 02/08/17 04:49 White Blood Count 12.16 K/uL Red Blood Count 2.60 M/uL Hemoglobin 7.4 g/dL Hematocrit 23.9 % Mean Corpuscular Volume 91.9 fL Mean Corpuscular Hemoglobin 28.5 pg Mean Corpuscular Hemoglobin Concent 31.0 g/dl Platelet Count 202 K/uL Mean Platelet Volume 9.1 fL Neutrophils (%) (Auto) 87.5 % Lymphocytes (%) (Auto) 7.8 % Monocytes (%) (Auto) 4.0 % Eosinophils (%) (Auto) 0.2 % Basophils (%) (Auto) 0.3 % Neutrophils # (Auto) 10.63 K/uL Lymphocytes # (Auto) 0.95 K/uL Monocytes # (Auto) 0.49 K/uL Eosinophils # (Auto) 0.03 K/uL Basophils # (Auto) 0.04 K/uL RDW Standard Deviation 45.4 fL RDW Coefficient of Variation 13.5 % Immature Granulocyte % (Auto) 0.2 % Immature Granulocyte # (Auto) 0.02 K/uL Red Blood Cell Morphology Unremarkable Activated Partial Thromboplast Time 31.7 SECONDS Partial Thromboplastin Ratio 1.2 Sodium Level 133 mmol/L Potassium Level 5.9 mmol/L Chloride Level 107 mmol/L Carbon Dioxide Level 19 mmol/L Anion Gap 7.0 mmol/L Blood Urea Nitrogen 60 mg/dl Creatinine 5.40 mg/dl Est Creatinine Clear Calc Drug Dose 18.7 ml/min Estimated GFR () 9.6 Estimated GFR (Non- 8.3 BUN/Creatinine Ratio 11.1 Random Glucose 120 mg/dl Calcium Level 7.6 mg/dl Phosphorus Level 5.9 mg/dl Magnesium Level 1.9 mg/dl Albumin 1.8 gm/dl Random Vancomycin Level 18.7 mcg/ml Assessment and Plan 56 year old female with metastatic renal cell carcinoma who presents to the ER on advice of her dialysis unit due to a non functioning tunneled catheter placed on 01/23/[address] Maguire. Non occlusive clot shown on imaging, evidence of line infection with positive blood cultures the next morning Sepsis secondary to infected tunneled HD catheter - continue vancomycin and Zosyn - both blood cultures and tip of catheter growing gram positive cocci - will order echocardiogram to look for endocarditis, no murmurs on exam, will follow up on these results - plan to consult ID tomorrow - allow for line holiday, no plans for temp line today, likely tomorrow because she will need HD Right sided neck pain and chest pain - - ongoing issue, related to line placement, c/o this last admission - no complaints of pain today after line pulled End stage renal disease - - consult nephrology - no HD today, will treat with HCO3 and blood transfusion as needed and Lasix - Kayexalate for hyperkalemia, 5.9, repeat later today Nonocclusive thrombus in intravascular catheter within right IJ vein - stop heparin, line pulled on 02/07 Elevated troponin - at baseline secondary to end stage renal disease, no need to repeat Chronic anemia: drifting down, will likely transfuse but need to get consent type and cross HTN: continue home meds CHF: continue home meds, no current exacerbation COPD: continue inhalers, add duonebs to help with coughing, no current exacerbation Depression: appreciate psychiatry consult, continue Celexa Code - DNR/DNI as per patient wishes Disposition: patient unsure at this time if she wants to continue with HD given the fact that she keeps getting infections and it hurts she is depressed discussed situation with her oncologist, says he is "a quack" and wants her to take 12 pills a day which she does not want to do discussed hospice, she says "they'll just drug me up with morphine all the time" for now, will treat her medically, no plan for line today, will need to decide about line tomorrow if she is to continue with HD
--- NOTE | 2017-02-08 13:46 | Pharmacy Progress Note ---
Pharmacy Abx Dose Short Note Date of Service Feb 08, 2017. Assessment & Plan Assessment 56 year old female receiving Vancomycin/Zosyn for treatment of 2/2 positive blood cultures and cath tip growing staph aureus. Day # 2 of antimicrobial therapy. Plan Vancomycin * Random level of 18.7 mcg/mL is therapeutic. * Patient refusing HD catheter at this time. Typically Vanco is dosed in HD patients with pre-HD levels. * ~250 cc of urine is documented over the past 24 hours so this does concern me that her vanc could be cleared at a slow rate * My plan will be to re-dose her with 6 mg/kg to ensure that she does not fall below a therapeutic level for the next 24 hours. * Goal level for bacteremia: 15 to 20 mcg/mL * Random level ordered for: 02/08/17 * IF patient still refusing dialysis AND cultures result in MRSA, would recommend change to Daptomycin as Vancomycin is not feasible. Pharmacy will continue to follow and will adjust dose/frequency as necessary. Thank you.
[2017-02-08] MEDS ORDERED: SODIUM POLYST. SULF SUSP 15G/60ML PO ONE (14:00)
[2017-02-08] MEDS ORDERED: VANCOMYCIN INJ 1,000 MG in SODIUM CHLORIDE 0.9% 250ML 250 ML IV SCH (14:00)
--- NOTE | 2017-02-08 14:27 | Palliative Care Progress Note ---
Palliative Care Progress Note Date of Service Feb 08, 2017. Subjective Spoke with hospitalist. I was instructed to hold off on consult until further notice.
[2017-02-08 16:04] LABS: BUN/CREATININE RATIO 10.5 (10-20); CALCIUM 7.9 mg/dl (8.5-10.1); CREATININE 5.9 mg/dl (0.60-1.20)
[2017-02-08 16:35] LABS: PHOSPHORUS 7.1 mg/dl (2.5-4.9)
[2017-02-08] MEDS: ZOLPIDEM TARTRATE 10 MG TAB PO SCH (20:29)
[2017-02-08] MEDS: TRAZODONE HCL 50 MG TAB PO SCH (20:31)
[2017-02-09] VITALS (22 sets, daily range): BP systolic 101–145; BP diastolic 44–79; PULSE 65–87; TEMP 36.5–37.5; O2SAT 90–99
[2017-02-09] MEDS: hydrOXYzine HCL 25 MG TAB PO PRN ×2 (02:31→09:07)
[2017-02-09] MEDS: ALBUT/IPRATROP 3MG/0.5MG NEB 3 ML VIAL INH SCH ×4 (07:32→19:02)
[2017-02-09 08:52] LABS: BASO % 0.3 %; BASO ABS # 0.02 K/uL (0-0.2); EOS % 5.2 %; HEMATOCRIT 21.5 % (37-47); IG% 0.1 %; LYMPH % 15.1 %; LYMPH ABS # 1.19 K/uL (1.2-3.4); MEAN CELL VOLUME 91.5 fL (80-100); MEAN CORPUSCULAR HEMOGLOBIN 30.6 pg (25-34); MEAN CORPUSCULAR HGB CONC 33.5 g/dl (32-36); MEAN PLATELET VOLUME 9.8 fL (7.4-10.4); MONO % 7.9 %; NEUT % 71.4 %; PLATELET COUNT 183 K/uL (130-400); RED BLOOD COUNT 2.35 M/uL (4.2-5.4); WHITE BLOOD COUNT 7.89 K/uL (4.8-10.8)
[2017-02-09] MEDS: METOPROLOL SUCC 50MG EXT REL TAB PO SCH (09:05)
[2017-02-09] MEDS: ATORVASTATIN 40 MG TAB PO SCH (09:05)
[2017-02-09] MEDS: BUDESONIDE/FORMOTEROL FUMARATE 160/4.5 60 PUFFS/INHALER INH SCH ×2 (09:05→21:01)
[2017-02-09] MEDS: CITALOPRAM 40 MG TAB PO SCH (09:05)
[2017-02-09] MEDS: ASPIRIN 81 MG ECTAB PO SCH (09:05)
[2017-02-09] MEDS: SODIUM BICARBONATE 650 MG TAB PO SCH ×3 (09:06→21:02)
[2017-02-09] MEDS: TIOTROPIUM BROMIDE 5 PUFF/90 MCG INH INH SCH (09:06)
[2017-02-09] MEDS: CHECK FENTANYL PATCH PLACEMENT SCH ×3 (09:06→23:28)
[2017-02-09 09:17] LABS: COMPLETE YES; MICROCYTOSIS PRESENT
[2017-02-09 09:22] LABS: BUN/CREATININE RATIO 11.6 (10-20); CALCIUM 7.5 mg/dl (8.5-10.1); CREATININE 6.4 mg/dl (0.60-1.20); MAGNESIUM 1.8 mg/dl (1.8-2.4); PHOSPHORUS 7.9 mg/dl (2.5-4.9); POTASSIUM 5.1 mmol/L (3.5-5.1)
[2017-02-09] MEDS: OXYCODONE HCL IR 5 MG TAB (IMMEDIATE RELEASE) PO PRN ×2 (09:51→21:06)
--- NOTE | 2017-02-09 10:03 | Nephrology Progress Note ---
Nephrology Progress Note Date of Service Feb 09, 2017. Chief Complaint ESRD Subjective No acute events overnight. Maty reports difficulty sleeping. She did not answer most of my questions bu reiterated that she will not consent to having a catheter placed unless she is adequately sedated. She remains very confrontational. We had another long conversation regarding her personal goals of care and wishes. She expressed that her primary goal is to spend as much time with her grandchildren as possible. We discussed the quality of her life on dialysis. She acknowledged that she has an option to not continue dialysis. I expressed that given her advanced comorbid illness overall goals of hemodialysis are palliative in nature. She understands that ultimately her prognosis is poor and what dialysis has to offer. Given this understanding, Maty reports that she does not want to have a new hemodialysis catheter placed unless she can be sedated throughout the procedure. I explained that this is not currently possible at [facility]. She expressed that she would not to transfer to a facility which would be farther away from family. Review of Systems A complete review of systems was performed. Pertinent positives are noted above. All other systems are negative. Vital Signs Last 8 Hrs Date Time Temp Pulse Resp B/P (MAP) Pulse Ox O2 Delivery O2 Flow Rate FiO2 02/09/17 08:00 36.5 86 20 143/63 (89) 90 Nasal Cannula 2.0 02/09/17 07:32 68 18 94 Nasal Cannula 2.0 02/09/17 04:00 37.2 83 18 109/47 (67) 98 Nasal Cannula 2.0 02/09/17 04:00 Room Air 2.0 Nasal Cannula Last Recorded Weight Weight (Kilograms): 154.700 Physical Exam General Appearance: no apparent distress, + obese Head: normocephalic, atraumatic Eyes: normal inspection, sclerae normal ENT: normal ENT inspection, pharynx normal Neck: supple, + JVD, + pertinent finding (improving erythema over right chest wall) Extremities/Musculoskelatal: + pedal edema, + pertinent finding (no distal cyanosis) Neurologic/Psych: alert, + depressed affect heart, lung and abdominal exam deferred at patient request Family History None stated Social History Drug Use: none Marital Status: Housing Status: lives with family Occupation: disabled Laboratory Results Past 24 Hours 02/09/17 05:30 Red Blood Count 2.35, Mean Corpuscular Volume 91.5, Mean Corpuscular Hemoglobin 30.6, Mean Corpuscular Hemoglobin Concent 33.5, Mean Platelet Volume 9.8, Neutrophils (%) (Auto) 71.4, Lymphocytes (%) (Auto) 15.1, Monocytes (%) (Auto) 7.9, Eosinophils (%) (Auto) 5.2, Basophils (%) (Auto) 0.3, Neutrophils # (Auto) 5.64, Lymphocytes # (Auto) 1.19, Monocytes # (Auto) 0.62, Eosinophils # (Auto) 0.41, Basophils # (Auto) 0.02 02/08/17 15:07 02/09/17 05:30 Test 02/08/17 15:07 02/09/17 05:30 Anion Gap 12.0 mmol/L (3-11) 13.0 mmol/L (3-11) Est Creatinine Clear Calc Drug Dose 17.1 ml/min 15.7 ml/min Estimated GFR () 8.7 7.8 Estimated GFR (Non- 7.5 6.8 BUN/Creatinine Ratio 10.5 (10-20) 11.6 (10-20) Calcium Level 7.9 mg/dl (8.5-10.1) 7.5 mg/dl (8.5-10.1) Phosphorus Level 7.1 mg/dl (2.5-4.9) 7.9 mg/dl (2.5-4.9) Albumin 1.8 gm/dl (3.4-5.0) White Blood Count 7.89 K/uL (4.8-10.8) Red Blood Count 2.35 M/uL (4.2-5.4) Hemoglobin 7.2 g/dL (12.0-16.0) Hematocrit 21.5 % (37-47) Mean Corpuscular Volume 91.5 fL (80-100) Mean Corpuscular Hemoglobin 30.6 pg (25-34) Mean Corpuscular Hemoglobin Concent 33.5 g/dl (32-36) Platelet Count 183 K/uL (130-400) Mean Platelet Volume 9.8 fL (7.4-10.4) Neutrophils (%) (Auto) 71.4 % Lymphocytes (%) (Auto) 15.1 % Monocytes (%) (Auto) 7.9 % Eosinophils (%) (Auto) 5.2 % Basophils (%) (Auto) 0.3 % Neutrophils # (Auto) 5.64 K/uL (1.4-6.5) Lymphocytes # (Auto) 1.19 K/uL (1.2-3.4) Monocytes # (Auto) 0.62 K/uL (0.11-0.59) Eosinophils # (Auto) 0.41 K/uL (0-0.5) Basophils # (Auto) 0.02 K/uL (0-0.2) RDW Standard Deviation 45.0 fL (36.4-46.3) RDW Coefficient of Variation 13.3 % (11.5-14.5) Immature Granulocyte % (Auto) 0.1 % Immature Granulocyte # (Auto) 0.01 K/uL (0.00-0.02) Basophilic Stippling 1+ Microcytosis PRESENT Magnesium Level 1.8 mg/dl (1.8-2.4) Random Vancomycin Level 24.4 mcg/ml Allergies Coded Allergies: Iodinated Diagnostic Agents (Verified Allergy, Severe, ANAPHYLAXIS, ) Perflutren (Verified Allergy, Severe, RASH, DIFFICULTY BREATHING, ANAPHALYSIS, 02/06/17) Surgical Lubricant (Verified Allergy, Mild, rash, 02/06/17) Adhesives (Verified Allergy, Unknown, RASH, 02/06/17) Propylene Glycol (Verified Allergy, Unknown, RASH, 02/06/17) Medications Current Inpatient Medications Medications (Trade) Dose Ordered Sig/Rica Route Start Time Stop Time Status Last Admin Dose Admin Ondansetron HCl (Zofran Inj) 4 mg Q6H PRN IV 02/07/17 02:00 03/09/17 01:59 02/07/17 23:59 4 MG Alprazolam (Xanax Tab) 1 mg Q6H PRN PO 02/07/17 02:00 03/09/17 01:59 Aspirin (Ecotrin Tab) 81 mg DAILY PO 02/07/17 09:00 03/09/17 08:59 02/09/17 09:05 81 MG Atorvastatin Calcium (Lipitor Tab) 80 mg QAM PO 02/07/17 09:00 03/09/17 08:59 02/09/17 09:05 80 MG Budesonide/ Formoterol Fumarate (Symbicort 160/ 4.5 Inh) 2 puffs BID INH 02/07/17 09:00 03/09/17 08:59 02/09/17 09:05 2 PUFFS Citalopram Hydrobromide (celeXA TAB) 40 mg QAM PO 02/07/17 09:00 03/09/17 08:59 02/09/17 09:05 40 MG Fentanyl (Duragesic Patch) 25 mcg Q72H TD 02/07/17 09:00 02/21/17 08:59 02/07/17 09:07 25 MCG Hydroxyzine HCl (Vistaril Tab) 25 mg Q6H PRN PO 02/07/17 02:00 03/09/17 01:59 02/09/17 09:07 25 MG Metoprolol Succinate (Toprol Xl Tab) 50 mg QAM PO 02/07/17 09:00 03/09/17 08:59 02/09/17 09:05 50 MG Oxycodone HCl (Roxicodone Immediate Rel Tab) 10 mg Q6H PRN PO 02/07/17 02:00 02/21/17 01:59 02/08/17 20:30 10 MG Tiotropium [place] (Spiriva Handihaler Inhaler) 1 puff QAM INH 02/07/17 09:00 03/09/17 08:59 02/09/17 09:06 1 PUFF Trazodone HCl (Desyrel Tab) 50 mg HS PO 02/07/17 21:00 03/09/17 20:59 02/08/17 20:31 50 MG Zolpidem Tartrate (Ambien Tab) 10 mg HS PO 02/07/17 21:00 03/09/17 20:59 02/08/17 20:29 10 MG Piperacillin Sod/ Tazobactam Sod 4.5 gm/Dextrose 120 ml @ 30 mls/hr Q12@0000,1200 IV 02/07/17 12:00 02/18/17 11:59 02/08/17 23:38 30 MLS/HR Albuterol/ Ipratropium (Duoneb) 3 ml QIDR INH 02/07/17 08:00 03/09/17 07:59 02/09/17 07:32 3 ML Miscellaneous (Fentanyl Patch Remove & Waste) 1 ea Q3D@0859 N/A 02/07/17 08:59 03/09/17 08:58 Miscellaneous Information (Check Fentanyl Patch Placement) 1 ea QS N/A 02/07/17 08:00 03/09/17 07:59 02/09/17 09:06 1 EA Acetaminophen (Tylenol Tab) 650 mg Q4H PRN PO 02/07/17 05:00 03/09/17 04:59 02/07/17 23:59 650 MG Piperacillin Sod/ Tazobactam Sod (Consult) 1 ea UD PRN N/A 02/07/17 10:15 03/09/17 10:14 Ondansetron HCl (Zofran Inj) 4 mg ONE PRN IV 02/07/17 15:00 Vancomycin HCl (Consult) 1 ea UD PRN N/A 02/07/17 21:00 03/09/17 20:59 Sodium Bicarbonate (Sodium Bicarbonate Tab) 1,300 mg TID PO 02/08/17 21:00 03/10/17 08:59 02/09/17 09:06 1,300 MG Heparin Sodium (Porcine) (Heparin 10 Unit/ ml 5 ml Flush) 5 ml PRN PRN FLUSH 02/09/17 00:30 03/11/17 00:29 Impression (1) End-stage renal disease on hemodialysis (2) Fever (3) Hypertension (4) Dialysis catheter clot or failure Mrs. Beth is a 56 year old female with ESRD. She developed staph bacteremia from an infected TDC. Urine culture grew E coli. This catheter had been dislodged as have many prior catheters. She has a history of non compliance with dialysis treatments. She had missed a week of dialysis prior to presenting to the hospital. The infected catheter has been removed and patient is refusing placement of a new catheter unless it can be performed under sedation. This is not currently an option at [facility]. Follow up cultures are pending. She has evidence of volume overload but is breathing comfortably with supplemental O2. She is non oliguric. Overall metabolic profile is acceptable to defer dialysis another day but ultimately decisions need to be made today prior to the weekend if transfer to another facility is to be considered. This was discussed with Dr. Lorenzana. Overall, goals of dialysis are palliative and Maty understands that ultimately her prognosis is guarded. She does no feel that she has the resources or support to guide her through this very difficult time. I suspect that she would benefit from palliative care consultation but she has been resistant to this. We have discussed dying of end-stage renal disease and her limited life expectancy without dialysis. I remain at an impasse an will wait to hear back from Dr. Lorenzana. We can continue current medical therapy and I will also reach out to the patient's primary water sander in [place]. Recommendations -- Continue NaHCO3 1300 BID -- Potassium restrict diet -- Monitor metabolic profile q 12 hours -- Continue discussion regarding goals of care -- Repeat blood cultures ideally to document clearance prior to placing a new TDC -- Monitor vanco level prior to each dose
[2017-02-09] MEDS: PIPERACILL/TAZOBAC IV 4.5 GM in DEXTROSE 5% 100ML 100 ML IV SCH (11:27)
--- NOTE | 2017-02-09 11:27 | Surgery Progress Note ---
Surgery Progress Note Date of Service Feb 09, 2017. Subjective Post OP Day: 2 s/p removal infected dialysis cath rij alert coherent denies pain at surgical site. Objective Vital Signs: Date Time Temp Pulse Resp B/P (MAP) Pulse Ox O2 Delivery O2 Flow Rate FiO2 02/09/17 08:00 36.5 86 20 143/63 (89) 90 Nasal Cannula 2.0 02/09/17 07:32 68 18 94 Nasal Cannula 2.0 02/09/17 04:00 37.2 83 18 109/47 (67) 98 Nasal Cannula 2.0 02/09/17 04:00 Room Air 2.0 Nasal Cannula 02/08/17 23:59 Room Air 2.0 Nasal Cannula 02/08/17 23:37 36.1 85 18 107/55 (72) 95 Room Air 02/08/17 20:27 37.0 72 18 100/47 (64) 93 Room Air 02/08/17 20:00 93 Room Air 02/08/17 19:25 73 18 95 Nasal Cannula 3.0 02/08/17 16:36 37.0 71 16 112/52 (72) 96 Nasal Cannula 2.0 02/08/17 16:00 96 Room Air 02/08/17 15:49 72 18 96 Nasal Cannula 3.0 02/08/17 12:30 Nasal Cannula 2.0 02/08/17 12:03 36.9 68 18 102/52 (69) 92 2.0 Laboratory Results: Results Past 24 Hours Test 02/08/17 15:07 02/09/17 05:30 Range/Units Sodium Level 135 134 136-145 mmol/L Potassium Level 5.0 5.1 3.5-5.1 mmol/L Chloride Level 104 103 98-107 mmol/L Carbon Dioxide Level 19 18 21-32 mmol/L Anion Gap 12.0 13.0 3-11 mmol/L Blood Urea Nitrogen 63 74 7-18 mg/dl Creatinine 5.90 6.40 0.60-1.20 mg/dl Est Creatinine Clear Calc Drug Dose 17.1 15.7 ml/min Estimated GFR () 8.7 7.8 Estimated GFR (Non- 7.5 6.8 BUN/Creatinine Ratio 10.5 11.6 10-20 Random Glucose 116 109 70-99 mg/dl Calcium Level 7.9 7.5 8.5-10.1 mg/dl Phosphorus Level 7.1 7.9 2.5-4.9 mg/dl Albumin 1.8 3.4-5.0 gm/dl White Blood Count 7.89 4.8-10.8 K/uL Red Blood Count 2.35 4.2-5.4 M/uL Hemoglobin 7.2 12.0-16.0 g/dL Hematocrit 21.5 37-47 % Mean Corpuscular Volume 91.5 80-100 fL Mean Corpuscular Hemoglobin 30.6 25-34 pg Mean Corpuscular Hemoglobin Concent 33.5 32-36 g/dl Platelet Count 183 130-400 K/uL Mean Platelet Volume 9.8 7.4-10.4 fL Neutrophils (%) (Auto) 71.4 % Lymphocytes (%) (Auto) 15.1 % Monocytes (%) (Auto) 7.9 % Eosinophils (%) (Auto) 5.2 % Basophils (%) (Auto) 0.3 % Neutrophils # (Auto) 5.64 1.4-6.5 K/uL Lymphocytes # (Auto) 1.19 1.2-3.4 K/uL Monocytes # (Auto) 0.62 0.11-0.59 K/uL Eosinophils # (Auto) 0.41 0-0.5 K/uL Basophils # (Auto) 0.02 0-0.2 K/uL RDW Standard Deviation 45.0 36.4-46.3 fL RDW Coefficient of Variation 13.3 11.5-14.5 % Immature Granulocyte % (Auto) 0.1 % Immature Granulocyte # (Auto) 0.01 0.00-0.02 K/uL Basophilic Stippling 1+ Microcytosis PRESENT Magnesium Level 1.8 1.8-2.4 mg/dl Random Vancomycin Level 24.4 mcg/ml Microbiology Results 02/09/17 Blood Culture, Received Pending Assessment & Plan Removed suture from surgical incision- incision healing nicely. Clean dressing placed Change dressing PRN. General surgery will sign off at this time.
--- NOTE | 2017-02-09 14:55 | ECHOCARDIOGRAM REPORT ---
*NOTICE TO RECEIVING [employer] This information is strictly Confidential and protected under [place] law. [place] law prohibits you from making any further disclosure of this information unless further disclosure is expressly permitted by the written consent of the person to whom it pertains or is authorized by law. A general authorization for the release of medical or other information is not sufficient for this purpose. Hospital accepts no responsibility if the information is made available to any other person, INCLUDING THE PATIENT. Interpretation Summary * Name: DELBERT ROWE Study Date: 02/09/2017 07:02 AM BP: 121/51 mmHg * Patient Location: C.2E\S\E210\S\1 HR: 86 * : 1960 (M/d/yyyy) Gender: Female Height: 67 in * Age: 56 yrs Ethnicity: CA Weight: 343 lb * Ordering Physician: Subhash Lorenzana * Referring Physician: Self, Referred * Performed By: Jackson Padgett RCS * * Reason For Study: Endocarditis * BSA: 2.5 m2 * -- Conclusions -- * 1. Normal LV size, mild concentric LVH. * 2. Hyperdynamic LV, LVEF >70%. No regional wall motion abnormalities. * 3. XENA with LVOT obstruction. Peak gradient at rest 35 mmHg. * 4. Normal RV size and function. * 5. Grade II diastolic dysfunction. * 6. No definitive vegetations. * 7. Compared with prior study on 07/14/2014: No significant changes. Procedure Details * Left Ventricle The left ventricle is grossly normal size. There is mild concentric left ventricular hypertrophy. The echo findings are consistent with left ventricular outflow obstruction. Ejection Fraction = >70 %. The left ventricle is hyperdynamic. No regional wall motion abnormalities noted. * Right Ventricle The right ventricle is grossly normal size. The right ventricular systolic function is normal as assessed by tricuspid annular plane systolic excursion (TAPSE) (normal >1.5 cm). * Atria The left atrium is moderately dilated. The right atrium is mildly dilated. There is no evidence of atrial septal defect, but resolution does not allow assessment for a patent foramen ovale. * Mitral Valve There is mild to moderate mitral annular calcification. There is systolic anterior motion of the mitral valve. The mitral valve leaflets appear thickened, but open well. There is no mitral valve stenosis. Significant mitral regurgitation is absent. * Tricuspid Valve Significant tricuspid regurgitation is absent. * Aortic Valve The aortic valve opens well. Aortic valve sclerosis mild, without significant aortic valvular stenosis. Trace aortic regurgitation. * Pulmonic Valve The pulmonic valve is not well visualized. * Great Vessels The aortic root and proximal ascending aorta are normal sized. * Pericardium/Pleural There is no pericardial effusion. * Left Ventricular Diastolic Function Diastolic dysfunction, Grade II (pseudonormalization pattern). * * MMode 2D Measurements and Calculations * IVSd 1.5 cm * * LVIDd 5.2 cm * LVIDs 3.0 cm * LVPWd 1.5 cm * * IVS/LVPW 0.95 * FS 42.7 % * EDV(Teich) 127.7 ml * ESV(Teich) 34.0 ml * EF(Teich) 73.4 % * * EDV(cubed) 138.1 ml * ESV(cubed) 26.0 ml * EF(cubed) 81.1 % * * LV mass(C)d 336.4 grams * LV mass(C)dI 132.3 grams/m\S\2 * * SV(Teich) 93.7 ml * SI(Teich) 36.9 ml/m\S\2 * SV(cubed) 112.1 ml * SI(cubed) 44.1 ml/m\S\2 * * Ao root diam 3.3 cm * Ao root area 8.4 cm\S\2 * * LVOT diam 2.0 cm * LVOT area 3.0 cm\S\2 * * EDV(MOD-sp4) 170.5 ml * ESV(MOD-sp4) 36.1 ml * EF(MOD-sp4) 78.8 % * * EDV(MOD-sp2) 122.0 ml * ESV(MOD-sp2) 34.2 ml * EF(MOD-sp2) 71.9 % * * SV(MOD-sp4) 134.4 ml * SI(MOD-sp4) 52.8 ml/m\S\2 * * SV(MOD-sp2) 87.8 ml * SI(MOD-sp2) 34.5 ml/m\S\2 * * * Doppler Measurements and Calculations * MV E max kamari 157.6 cm/sec * MV A max kamari 143.0 cm/sec * * MV E/A 1.1 * * MV dec time 0.21 sec * * Ao V2 max 305.6 cm/sec * Ao max PG 37.4 mmHg * Ao max PG (full) -3.62 mmHg * Ao V2 mean 228.1 cm/sec * Ao mean PG 23.5 mmHg * Ao V2 VTI 67.1 cm * MAHIN(V,A) 3.1 cm\S\2 * MAHIN(V,D) 3.1 cm\S\2 * * LV V1 max PG 41.0 mmHg * * LV V1 max 320.2 cm/sec * * SV(Ao) 566.2 ml * SI(Ao) 222.6 ml/m\S\2 * * *
[2017-02-09] MEDS ORDERED: FUROSEMIDE INJ 80 MG in SYRINGE 0 ML IV SCH (15:00)
--- NOTE | 2017-02-09 15:15 | Progress Note ---
Subjective Date of Service: Feb 09, 2017. Subjective Pt evaluation today including: conversation w/ patient, physical exam, lab review, conversation w/ campaign consultant, review of inpatient medication list Pain: no pain reported PO Intake: adequate Voiding: no voiding problems long discussion with patient today about prognosis and plan difficult for patient to commit to what she wants to do she understands that she needs dialysis, without it she will , however, even as outpatient she would show up once a week she blames others for her situation, [facility] urologist and oncologist for her cancer says she will agree to get temporary HD catheter in neck or subclavian but wants to be "knocked out" for procedure she asked about permanent access, told her that Dr. Maguire would be back next week she blames him for her current situation with line infection Dr. Laureano talked with the patient at length today, discussed that she is not a great candidate for HD, that she has terminal cancer she has long history of non-compliance she has repeated issues with her access at this time she does not want to stop treatment, she knows that her time is limited with her family so she wants to live as long as she can discussed anemia, she consented to blood transfusion Problem List Medical Problems: (1) Acute renal failure on dialysis Status: Acute (2) End stage renal disease Status: Acute (3) Fever Status: Acute (4) Hypomagnesemia Status: Acute (5) Renal failure Status: Acute Review of Systems Constitutional: + weakness, + fatigue All Other Systems: Reviewed and Negative Medications Current Inpatient Medications Medications (Trade) Dose Ordered Sig/Rica Route Start Time Stop Time Status Last Admin Dose Admin Ondansetron HCl (Zofran Inj) 4 mg Q6H PRN IV 02/07/17 02:00 03/09/17 01:59 02/07/17 23:59 4 MG Alprazolam (Xanax Tab) 1 mg Q6H PRN PO 02/07/17 02:00 03/09/17 01:59 Aspirin (Ecotrin Tab) 81 mg DAILY PO 02/07/17 09:00 03/09/17 08:59 02/09/17 09:05 81 MG Atorvastatin Calcium (Lipitor Tab) 80 mg QAM PO 02/07/17 09:00 03/09/17 08:59 02/09/17 09:05 80 MG Budesonide/ Formoterol Fumarate (Symbicort 160/ 4.5 Inh) 2 puffs BID INH 02/07/17 09:00 03/09/17 08:59 02/09/17 09:05 2 PUFFS Citalopram Hydrobromide (celeXA TAB) 40 mg QAM PO 02/07/17 09:00 03/09/17 08:59 02/09/17 09:05 40 MG Fentanyl (Duragesic Patch) 25 mcg Q72H TD 02/07/17 09:00 02/21/17 08:59 02/07/17 09:07 25 MCG Hydroxyzine HCl (Vistaril Tab) 25 mg Q6H PRN PO 02/07/17 02:00 03/09/17 01:59 02/09/17 09:07 25 MG Metoprolol Succinate (Toprol Xl Tab) 50 mg QAM PO 02/07/17 09:00 03/09/17 08:59 02/09/17 09:05 50 MG Oxycodone HCl (Roxicodone Immediate Rel Tab) 10 mg Q6H PRN PO 02/07/17 02:00 02/21/17 01:59 02/09/17 09:51 10 MG Tiotropium [place] (Spiriva Handihaler Inhaler) 1 puff QAM INH 02/07/17 09:00 03/09/17 08:59 02/09/17 09:06 1 PUFF Trazodone HCl (Desyrel Tab) 50 mg HS PO 02/07/17 21:00 03/09/17 20:59 02/08/17 20:31 50 MG Zolpidem Tartrate (Ambien Tab) 10 mg HS PO 02/07/17 21:00 03/09/17 20:59 02/08/17 20:29 10 MG Albuterol/ Ipratropium (Duoneb) 3 ml QIDR INH 02/07/17 08:00 03/09/17 07:59 02/09/17 11:35 3 ML Miscellaneous (Fentanyl Patch Remove & Waste) 1 ea Q3D@0859 N/A 02/07/17 08:59 03/09/17 08:58 Miscellaneous Information (Check Fentanyl Patch Placement) 1 ea QS N/A 02/07/17 08:00 03/09/17 07:59 02/09/17 09:06 1 EA Acetaminophen (Tylenol Tab) 650 mg Q4H PRN PO 02/07/17 05:00 03/09/17 04:59 02/07/17 23:59 650 MG Ondansetron HCl (Zofran Inj) 4 mg ONE PRN IV 02/07/17 15:00 Sodium Bicarbonate (Sodium Bicarbonate Tab) 1,300 mg TID PO 02/08/17 21:00 03/10/17 08:59 02/09/17 09:06 1,300 MG Heparin Sodium (Porcine) (Heparin 10 Unit/ ml 5 ml Flush) 5 ml PRN PRN FLUSH 02/09/17 00:30 03/11/17 00:29 02/09/17 10:44 5 ML Furosemide 80 mg/ Syringe 8 ml @ 4 mls/min TODAY@1500 IV 02/09/17 15:00 02/09/17 18:00 Ceftriaxone Sodium 2000 mg/ Dextrose 70 ml @ 140 mls/hr Q24H IV 02/09/17 16:00 02/23/17 15:59 Objective Vital Signs Date Time Temp Pulse Resp B/P (MAP) Pulse Ox O2 Delivery O2 Flow Rate FiO2 02/09/17 12:00 Nasal Cannula 2.0 02/09/17 11:35 79 18 98 Nasal Cannula 2.0 02/09/17 11:24 36.8 77 20 140/52 (81) 97 Nasal Cannula 2.0 02/09/17 08:00 36.5 86 20 143/63 (89) 90 Nasal Cannula 2.0 02/09/17 08:00 Nasal Cannula 2.0 02/09/17 07:32 68 18 94 Nasal Cannula 2.0 02/09/17 04:00 37.2 83 18 109/47 (67) 98 Nasal Cannula 2.0 02/09/17 04:00 Room Air 2.0 Nasal Cannula 02/08/17 23:59 Room Air 2.0 Nasal Cannula 02/08/17 23:37 36.1 85 18 107/55 (72) 95 Room Air 02/08/17 20:27 37.0 72 18 100/47 (64) 93 Room Air 02/08/17 20:00 93 Room Air 02/08/17 19:25 73 18 95 Nasal Cannula 3.0 02/08/17 16:36 37.0 71 16 112/52 (72) 96 Nasal Cannula 2.0 02/08/17 16:00 96 Room Air 02/08/17 15:49 72 18 96 Nasal Cannula 3.0 Physical Exam General Appearance: no apparent distress, + obese Eyes: normal inspection, EOMI, sclerae normal ENT: + pertinent finding (poor dentition) Neck: supple, no adenopathy, no JVD, trachea midline Respiratory/Chest: chest non-tender, lungs clear, no respiratory distress, no accessory muscle use, + decreased breath sounds (bases) Cardiovascular: regular rate, rhythm, no edema, no gallop, no JVD, no murmur Abdomen: normal bowel sounds, non tender, soft, no organomegaly Extremities: normal range of motion, non-tender, no pedal edema, no calf tenderness, pelvis stable, + pertinent finding (left arm amputated above elbow) 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, no motor/sensory deficits, oriented x 3, + depressed affect Skin: normal color, warm/dry, no rash Laboratory Results Last 24 Hours Test 02/08/17 15:07 02/09/17 05:30 Sodium Level 135 mmol/L 134 mmol/L Potassium Level 5.0 mmol/L 5.1 mmol/L Chloride Level 104 mmol/L 103 mmol/L Carbon Dioxide Level 19 mmol/L 18 mmol/L Anion Gap 12.0 mmol/L 13.0 mmol/L Blood Urea Nitrogen 63 mg/dl 74 mg/dl Creatinine 5.90 mg/dl 6.40 mg/dl Est Creatinine Clear Calc Drug Dose 17.1 ml/min 15.7 ml/min Estimated GFR () 8.7 7.8 Estimated GFR (Non- 7.5 6.8 BUN/Creatinine Ratio 10.5 11.6 Random Glucose 116 mg/dl 109 mg/dl Calcium Level 7.9 mg/dl 7.5 mg/dl Phosphorus Level 7.1 mg/dl 7.9 mg/dl Albumin 1.8 gm/dl White Blood Count 7.89 K/uL Red Blood Count 2.35 M/uL Hemoglobin 7.2 g/dL Hematocrit 21.5 % Mean Corpuscular Volume 91.5 fL Mean Corpuscular Hemoglobin 30.6 pg Mean Corpuscular Hemoglobin Concent 33.5 g/dl Platelet Count 183 K/uL Mean Platelet Volume 9.8 fL Neutrophils (%) (Auto) 71.4 % Lymphocytes (%) (Auto) 15.1 % Monocytes (%) (Auto) 7.9 % Eosinophils (%) (Auto) 5.2 % Basophils (%) (Auto) 0.3 % Neutrophils # (Auto) 5.64 K/uL Lymphocytes # (Auto) 1.19 K/uL Monocytes # (Auto) 0.62 K/uL Eosinophils # (Auto) 0.41 K/uL Basophils # (Auto) 0.02 K/uL RDW Standard Deviation 45.0 fL RDW Coefficient of Variation 13.3 % Immature Granulocyte % (Auto) 0.1 % Immature Granulocyte # (Auto) 0.01 K/uL Basophilic Stippling 1+ Microcytosis PRESENT Magnesium Level 1.8 mg/dl Random Vancomycin Level 24.4 mcg/ml Assessment and Plan 56 year old female with metastatic renal cell carcinoma who presents to the ER on advice of her dialysis unit due to a non functioning tunneled catheter placed on 01/23/[address] Maguire. Non occlusive clot shown on imaging, evidence of line infection with positive blood cultures the next morning Sepsis secondary to infected tunneled HD catheter - blood cultures with MSSA, change antibiotics to Rocephin IV daily - both blood cultures and tip of catheter growing gram positive cocci - MSSA - will order echocardiogram to look for endocarditis - no evidence of vegetations on echo - consult ID for recommendations on plan for antibiotics - line holiday, but needs temp HD catheter today if possible, ICU team to discuss with patient, she cannot commit at this time End stage renal disease - - needs HD soon, she will not agree yet to temp HD line, wants to discuss with ICU team - K is 5.1, Phos elevated, BUN climbing, no signs of uremia currently and volume status acceptable - makes urine, will give Lasix 80mg IV between units Chronic anemia: Hb down to 7.2 today, patient agrees to 2 units of PRBC, will give Lasix 80mg IV between Nonocclusive thrombus in intravascular catheter within right IJ vein - stop heparin, line pulled on 02/07 Elevated troponin - at baseline secondary to end stage renal disease, no need to repeat HTN: continue home meds CHF: continue home meds, no current exacerbation COPD: continue inhalers, add duonebs to help with coughing, no current exacerbation Depression: appreciate psychiatry consult, continue Celexa Code - DNR/DNI as per patient wishes Disposition: see details above in subjective about discussion with patient ICU team to assess for temp HD catheter, transfuse PRBC, Lasix, continue Rocephin IV
[2017-02-09] MEDS: CEFTRIAXONE SOD INJ 2000 MG in DEXTROSE 5% 50ML IV SCH (15:58)
[2017-02-09] MEDS: TRAZODONE HCL 50 MG TAB PO SCH (21:01)
[2017-02-09] MEDS: ZOLPIDEM TARTRATE 10 MG TAB PO SCH (21:05)
[2017-02-10] VITALS (26 sets, daily range): BP systolic 83–138; BP diastolic 37–77; PULSE 58–102; TEMP 36.5–36.9; O2SAT 91–99
[2017-02-10] MEDS: OXYCODONE HCL IR 5 MG TAB (IMMEDIATE RELEASE) PO PRN ×2 (04:28→12:25)
[2017-02-10] MEDS: ONDANSETRON INJ 2 MG/ML 2 ML VIAL IV PRN (04:28)
[2017-02-10 04:43] LABS: BASO % 0.6 %; BASO ABS # 0.04 K/uL (0-0.2); COMPLETE YES; EOS % 6.3 %; HEMATOCRIT 27.1 % (37-47); LYMPH % 19.8 %; LYMPH ABS # 1.38 K/uL (1.2-3.4); MEAN CELL VOLUME 89.4 fL (80-100); MEAN CORPUSCULAR HEMOGLOBIN 29.7 pg (25-34); MEAN CORPUSCULAR HGB CONC 33.2 g/dl (32-36); MEAN PLATELET VOLUME 9.2 fL (7.4-10.4); MONO % 8.2 %; NEUT % 65.1 %; PLATELET COUNT 194 K/uL (130-400); RED BLOOD COUNT 3.03 M/uL (4.2-5.4); WHITE BLOOD COUNT 6.98 K/uL (4.8-10.8)
[2017-02-10 05:17] LABS: BUN/CREATININE RATIO 11.4 (10-20); CALCIUM 7.1 mg/dl (8.5-10.1); CREATININE 7.2 mg/dl (0.60-1.20); POTASSIUM 5.4 mmol/L (3.5-5.1)
[2017-02-10 05:42] LABS: PHOSPHORUS 8.4 mg/dl (2.5-4.9)
[2017-02-10] MEDS: ALBUT/IPRATROP 3MG/0.5MG NEB 3 ML VIAL INH SCH ×4 (07:08→19:07)
[2017-02-10] MEDS ORDERED: SODIUM POLYST. SULF SUSP 15G/60ML PO ONE (08:00)
[2017-02-10] MEDS: CHECK FENTANYL PATCH PLACEMENT SCH ×3 (08:23→23:46)
[2017-02-10] MEDS: BUDESONIDE/FORMOTEROL FUMARATE 160/4.5 60 PUFFS/INHALER INH SCH ×2 (08:23→20:21)
[2017-02-10] MEDS: FENTANYL PATCH REMOVE & WASTE SCH (08:23)
[2017-02-10] MEDS: TIOTROPIUM BROMIDE 5 PUFF/90 MCG INH INH SCH (08:23)
[2017-02-10] MEDS: FENTANYL 25 MCG/HR TDSY TD SCH (08:24)
[2017-02-10] MEDS: SODIUM BICARBONATE 650 MG TAB PO SCH ×3 (08:25→20:22)
[2017-02-10] MEDS: hydrOXYzine HCL 25 MG TAB PO PRN (08:25)
[2017-02-10] MEDS: ASPIRIN 81 MG ECTAB PO SCH (08:26)
[2017-02-10] MEDS: ATORVASTATIN 40 MG TAB PO SCH (08:26)
[2017-02-10] MEDS: CITALOPRAM 40 MG TAB PO SCH (08:26)
[2017-02-10] MEDS: METOPROLOL SUCC 50MG EXT REL TAB PO SCH (08:27)
--- NOTE | 2017-02-10 12:10 | Nephrology Progress Note ---
Nephrology Progress Note Date of Service Feb 10, 2017. Chief Complaint ESRD Subjective I had another long conversation with Maty today. She did not endorse pain. She noted itching on her chest around the site of the removed TDC tape/ dressing. She denies fevers or chills. She denies shortness of breath. She is tired. Maty was sleeping intermittently while I was in the room. She continues to become confrontational in response to questions. Appetite fair. She tolerated PRBC transfusion yesterday. I asked Maty why she didn't want to meet with the ICU team to discuss dialysis catheter placement yesterday. Her response was that she didn't understand why she couldn't just have an AVF or graft placed in her arm. I explained that at this time a hemodialysis catheter is the only option usable within a suitable timeframe. She has been told this before. She expressed frustration that a fistula or a graft was not placed months ago. She does not want another catheter because of her history of complications with catheters. She also desires to swim and shower. I attempted to discuss the benefits/burden of treatment. Overall, she expressed suffering associated with dialysis. I acknowledged this and again tried to explain the option of continued medical management for her kidney disease. Ultimately, if she does view hemodialysis as an palliative treatment she should not have a catheter placed. She would not clearly commit to a plan of care. She does not want dialysis but when I asked why she had continued, she expressed that she does not want to lose the ability to see her grandchildren. I asked her if she would consider discharge home with hospice so that she could spend quality time with her family. She does not want hospice. She is not comfortable with the thought of dying. I offered that she could speak with palliative care and she again declined. I offered that she could speak to the ICU attending today and explained that exchange of the femoral CVC for a non tunneled dialysis catheter might be an option to enable HD today. Her response was "I'll do whatever." I attempted to contact Dr. Byers yesterday but was not able to speak with him. Maty has told me that she has never met him and didn't think there would be any benefit to talking with him. I asked Maty if I could call her or if there was any family that she wanted me to contact. She said, "No. They don't care about me." Review of Systems A complete review of systems was performed. Pertinent positives are noted above. All other systems are negative. Vital Signs Last 8 Hrs Date Time Temp Pulse Resp B/P (MAP) Pulse Ox O2 Delivery O2 Flow Rate FiO2 02/10/17 08:05 36.5 78 19 123/50 (74) 94 Nasal Cannula 2.0 02/10/17 08:00 Room Air 02/10/17 07:08 84 16 98 Nasal Cannula 2.0 02/10/17 04:00 Room Air 2.0 Nasal Cannula 02/10/17 03:24 36.6 102 18 116/56 (76) 98 Nasal Cannula 2.0 Humidified Oxygen Last Recorded Weight Weight (Kilograms): 158.500 Physical Exam General Appearance: no apparent distress, + obese Head: normocephalic, atraumatic Eyes: normal inspection, sclerae normal ENT: normal ENT inspection, pharynx normal Neck: + pertinent finding (dressing over prior TDC exit site is intact) Extremities/Musculoskelatal: + pedal edema Neurologic/Psych: alert, + depressed affect heart, lung and abdominal exam deferred to patient comfort Family History None stated Social History Drug Use: none Marital Status: Housing Status: lives with family Occupation: disabled Laboratory Results Past 24 Hours 02/10/17 04:30 Red Blood Count 3.03, Mean Corpuscular Volume 89.4, Mean Corpuscular Hemoglobin 29.7, Mean Corpuscular Hemoglobin Concent 33.2, Mean Platelet Volume 9.2, Neutrophils (%) (Auto) 65.1, Lymphocytes (%) (Auto) 19.8, Monocytes (%) (Auto) 8.2, Eosinophils (%) (Auto) 6.3, Basophils (%) (Auto) 0.6, Neutrophils # (Auto) 4.55, Lymphocytes # (Auto) 1.38, Monocytes # (Auto) 0.57, Eosinophils # (Auto) 0.44, Basophils # (Auto) 0.04 02/10/17 04:30 Test 02/10/17 04:30 White Blood Count 6.98 K/uL (4.8-10.8) Red Blood Count 3.03 M/uL (4.2-5.4) Hemoglobin 9.0 g/dL (12.0-16.0) Hematocrit 27.1 % (37-47) Mean Corpuscular Volume 89.4 fL (80-100) Mean Corpuscular Hemoglobin 29.7 pg (25-34) Mean Corpuscular Hemoglobin Concent 33.2 g/dl (32-36) Platelet Count 194 K/uL (130-400) Mean Platelet Volume 9.2 fL (7.4-10.4) Neutrophils (%) (Auto) 65.1 % Lymphocytes (%) (Auto) 19.8 % Monocytes (%) (Auto) 8.2 % Eosinophils (%) (Auto) 6.3 % Basophils (%) (Auto) 0.6 % Neutrophils # (Auto) 4.55 K/uL (1.4-6.5) Lymphocytes # (Auto) 1.38 K/uL (1.2-3.4) Monocytes # (Auto) 0.57 K/uL (0.11-0.59) Eosinophils # (Auto) 0.44 K/uL (0-0.5) Basophils # (Auto) 0.04 K/uL (0-0.2) RDW Standard Deviation 50.3 fL (36.4-46.3) RDW Coefficient of Variation 15.2 % (11.5-14.5) Immature Granulocyte % (Auto) 0.0 % Immature Granulocyte # (Auto) 0.00 K/uL (0.00-0.02) Anion Gap 11.0 mmol/L (3-11) Est Creatinine Clear Calc Drug Dose 13.9 ml/min Estimated GFR () 6.8 Estimated GFR (Non- 5.9 BUN/Creatinine Ratio 11.4 (10-20) Calcium Level 7.1 mg/dl (8.5-10.1) Phosphorus Level 8.4 mg/dl (2.5-4.9) Magnesium Level 2.0 mg/dl (1.8-2.4) Allergies Coded Allergies: Iodinated Diagnostic Agents (Verified Allergy, Severe, ANAPHYLAXIS, ) Perflutren (Verified Allergy, Severe, RASH, DIFFICULTY BREATHING, ANAPHALYSIS, 02/06/17) Surgical Lubricant (Verified Allergy, Mild, rash, 02/06/17) Adhesives (Verified Allergy, Unknown, RASH, 02/06/17) Propylene Glycol (Verified Allergy, Unknown, RASH, 02/06/17) Medications Current Inpatient Medications Medications (Trade) Dose Ordered Sig/Rica Route Start Time Stop Time Status Last Admin Dose Admin Ondansetron HCl (Zofran Inj) 4 mg Q6H PRN IV 02/07/17 02:00 03/09/17 01:59 02/10/17 04:28 4 MG Alprazolam (Xanax Tab) 1 mg Q6H PRN PO 02/07/17 02:00 03/09/17 01:59 Aspirin (Ecotrin Tab) 81 mg DAILY PO 02/07/17 09:00 03/09/17 08:59 02/10/17 08:26 81 MG Atorvastatin Calcium (Lipitor Tab) 80 mg QAM PO 02/07/17 09:00 03/09/17 08:59 02/10/17 08:26 80 MG Budesonide/ Formoterol Fumarate (Symbicort 160/ 4.5 Inh) 2 puffs BID INH 02/07/17 09:00 03/09/17 08:59 02/10/17 08:23 2 PUFFS Citalopram Hydrobromide (celeXA TAB) 40 mg QAM PO 02/07/17 09:00 03/09/17 08:59 02/10/17 08:26 40 MG Fentanyl (Duragesic Patch) 25 mcg Q72H TD 02/07/17 09:00 02/21/17 08:59 02/10/17 08:24 25 MCG Hydroxyzine HCl (Vistaril Tab) 25 mg Q6H PRN PO 02/07/17 02:00 03/09/17 01:59 02/10/17 08:25 25 MG Metoprolol Succinate (Toprol Xl Tab) 50 mg QAM PO 02/07/17 09:00 03/09/17 08:59 02/10/17 08:27 50 MG Oxycodone HCl (Roxicodone Immediate Rel Tab) 10 mg Q6H PRN PO 02/07/17 02:00 02/21/17 01:59 02/10/17 04:28 10 MG Tiotropium [place] (Spiriva Handihaler Inhaler) 1 puff QAM INH 02/07/17 09:00 03/09/17 08:59 02/10/17 08:23 1 PUFF Trazodone HCl (Desyrel Tab) 50 mg HS PO 02/07/17 21:00 03/09/17 20:59 02/09/17 21:01 50 MG Zolpidem Tartrate (Ambien Tab) 10 mg HS PO 02/07/17 21:00 03/09/17 20:59 02/09/17 21:05 10 MG Albuterol/ Ipratropium (Duoneb) 3 ml QIDR INH 02/07/17 08:00 03/09/17 07:59 02/10/17 07:08 3 ML Miscellaneous (Fentanyl Patch Remove & Waste) 1 ea Q3D@0859 N/A 02/07/17 08:59 03/09/17 08:58 02/10/17 08:23 1 EA Miscellaneous Information (Check Fentanyl Patch Placement) 1 ea QS N/A 02/07/17 08:00 03/09/17 07:59 02/10/17 08:23 1 EA Acetaminophen (Tylenol Tab) 650 mg Q4H PRN PO 02/07/17 05:00 03/09/17 04:59 02/07/17 23:59 650 MG Ondansetron HCl (Zofran Inj) 4 mg ONE PRN IV 02/07/17 15:00 Sodium Bicarbonate (Sodium Bicarbonate Tab) 1,300 mg TID PO 02/08/17 21:00 03/10/17 08:59 02/10/17 08:25 1,300 MG Heparin Sodium (Porcine) (Heparin 10 Unit/ ml 5 ml Flush) 5 ml PRN PRN FLUSH 02/09/17 00:30 03/11/17 00:29 02/09/17 22:41 5 ML Ceftriaxone Sodium 2000 mg/ Dextrose 70 ml @ 140 mls/hr Q24H IV 02/09/17 16:00 02/23/17 15:59 02/09/17 15:58 140 MLS/HR Impression (1) End-stage renal disease on hemodialysis (2) Fever (3) Hypertension (4) Dialysis catheter clot or failure Mrs. Beth is a 56 year old female with ESRD. She presented with MSSA bacteremia from an infected TDC. Urine culture grew E coli. Follow up cultures are pending. TTE is also pending. Maty's goals and personal wishes remain unclear to me despite multiple conversations. Ultimately, I think it would be best to arrange a meeting with the patient, her family and care providers. Dialysis catheter placement is not deemed appropriate unless she expresses that she views dialysis as an acceptable part of her treatment plan moving forward. I would not place a non tunneled dialysis catheter unless she is agreeable to having it removed and having a PermCath placed. If dialysis becomes indicated and she is willing, I would favor exchange of the femoral CVC for a [place] catheter. Maty is more sleepy today which is likely related to multiple different medications that she is taking including zolpidem, Zestril, trazodone, fentanyl and oxycodone. Overall, she has evidence of hypervolemia but volume status is appropriate. I would continue furosemide to encourage UOP and kaluresis. She has mild hyperkalemia but is refusing Kayexalate because she still has loose stool from the prior dose. I favor focus on management of metabolic acidosis. Recommendations -- Continue NaHCO3 1300 BID -- Potassium restrict diet -- Monitor metabolic profile q 12 hours -- Continue discussion regarding goals of care -- Repeat blood cultures are pending
[2017-02-10] MEDS ORDERED: FENTANYL CITRATE INJ 50 MCG/1 ML 2 ML VIAL ONE (14:38)
[2017-02-10] MEDS ORDERED: LIDOCAINE HCL 1% 20 ML VIAL ONE (14:43)
--- NOTE | 2017-02-10 15:20 | Progress Note ---
Subjective Date of Service: Feb 10, 2017. Subjective Pt evaluation today including: conversation w/ patient, physical exam, lab review, conversation w/ product management consultant, review of inpatient medication list Pain: no pain PO Intake: adequate Voiding: no voiding problems patient continues to be frustrated by situation, was still not committing to getting line yesterday discussed that she needs to get temp HD catheter today as BUN rising, more lethargic, could become confused and then unable to make decisions she agreed to allow temp HD catheter in groin discussed with Dr. Laureano and sound assistant, line will be placed, consent signed patient still displays depression, tearful often about her situation no complaints today Problem List Medical Problems: (1) Acute renal failure on dialysis Status: Acute (2) End stage renal disease Status: Acute (3) Fever Status: Acute (4) Hypomagnesemia Status: Acute (5) Renal failure Status: Acute Review of Systems All Other Systems: Reviewed and Negative Medications Current Inpatient Medications Medications (Trade) Dose Ordered Sig/Rica Route Start Time Stop Time Status Last Admin Dose Admin Ondansetron HCl (Zofran Inj) 4 mg Q6H PRN IV 02/07/17 02:00 03/09/17 01:59 02/10/17 04:28 4 MG Alprazolam (Xanax Tab) 1 mg Q6H PRN PO 02/07/17 02:00 03/09/17 01:59 Aspirin (Ecotrin Tab) 81 mg DAILY PO 02/07/17 09:00 03/09/17 08:59 02/10/17 08:26 81 MG Atorvastatin Calcium (Lipitor Tab) 80 mg QAM PO 02/07/17 09:00 03/09/17 08:59 02/10/17 08:26 80 MG Budesonide/ Formoterol Fumarate (Symbicort 160/ 4.5 Inh) 2 puffs BID INH 02/07/17 09:00 03/09/17 08:59 02/10/17 08:23 2 PUFFS Citalopram Hydrobromide (celeXA TAB) 40 mg QAM PO 02/07/17 09:00 03/09/17 08:59 02/10/17 08:26 40 MG Fentanyl (Duragesic Patch) 25 mcg Q72H TD 02/07/17 09:00 02/21/17 08:59 02/10/17 08:24 25 MCG Hydroxyzine HCl (Vistaril Tab) 25 mg Q6H PRN PO 02/07/17 02:00 03/09/17 01:59 02/10/17 08:25 25 MG Metoprolol Succinate (Toprol Xl Tab) 50 mg QAM PO 02/07/17 09:00 03/09/17 08:59 02/10/17 08:27 50 MG Oxycodone HCl (Roxicodone Immediate Rel Tab) 10 mg Q6H PRN PO 02/07/17 02:00 02/21/17 01:59 02/10/17 12:25 10 MG Tiotropium [place] (Spiriva Handihaler Inhaler) 1 puff QAM INH 02/07/17 09:00 03/09/17 08:59 02/10/17 08:23 1 PUFF Trazodone HCl (Desyrel Tab) 50 mg HS PO 02/07/17 21:00 03/09/17 20:59 02/09/17 21:01 50 MG Zolpidem Tartrate (Ambien Tab) 10 mg HS PO 02/07/17 21:00 03/09/17 20:59 02/09/17 21:05 10 MG Albuterol/ Ipratropium (Duoneb) 3 ml QIDR INH 02/07/17 08:00 03/09/17 07:59 02/10/17 15:02 3 ML Miscellaneous (Fentanyl Patch Remove & Waste) 1 ea Q3D@0859 N/A 02/07/17 08:59 03/09/17 08:58 02/10/17 08:23 1 EA Miscellaneous Information (Check Fentanyl Patch Placement) 1 ea QS N/A 02/07/17 08:00 03/09/17 07:59 02/10/17 08:23 1 EA Acetaminophen (Tylenol Tab) 650 mg Q4H PRN PO 02/07/17 05:00 03/09/17 04:59 02/07/17 23:59 650 MG Ondansetron HCl (Zofran Inj) 4 mg ONE PRN IV 02/07/17 15:00 Sodium Bicarbonate (Sodium Bicarbonate Tab) 1,300 mg TID PO 02/08/17 21:00 8/26/17 08:59 02/10/17 14:13 1,300 MG Heparin Sodium (Porcine) (Heparin 10 Unit/ ml 5 ml Flush) 5 ml PRN PRN FLUSH 02/09/17 00:30 03/11/17 00:29 02/09/17 22:41 5 ML Ceftriaxone Sodium 2000 mg/ Dextrose 70 ml @ 140 mls/hr Q24H IV 02/09/17 16:00 02/23/17 15:59 02/09/17 15:58 140 MLS/HR Objective Vital Signs Date Time Temp Pulse Resp B/P (MAP) Pulse Ox O2 Delivery O2 Flow Rate FiO2 02/10/17 15:03 72 16 98 Nasal Cannula 2.0 02/10/17 12:00 Room Air 02/10/17 11:46 36.9 71 20 113/49 (70) 94 Nasal Cannula 2.0 02/10/17 11:00 76 16 96 Room Air 02/10/17 08:05 36.5 78 19 123/50 (74) 94 Nasal Cannula 2.0 02/10/17 08:00 Room Air 02/10/17 07:08 84 16 98 Nasal Cannula 2.0 02/10/17 04:00 Room Air 2.0 Nasal Cannula 02/10/17 03:24 36.6 102 18 116/56 (76) 98 Nasal Cannula 2.0 Humidified Oxygen 02/09/17 23:59 Room Air 2.0 Nasal Cannula 02/09/17 23:19 36.5 81 22 123/51 (75) 98 Nasal Cannula 2.0 02/09/17 22:22 36.8 78 120/60 02/09/17 21:45 75 113/59 02/09/17 21:15 80 117/60 02/09/17 20:50 36.6 74 113/52 02/09/17 20:35 78 129/60 98 02/09/17 20:35 76 129/60 98 02/09/17 20:21 36.8 78 112/59 99 02/09/17 20:00 98 Nasal Cannula 02/09/17 19:02 76 16 98 Nasal Cannula 2.0 02/09/17 19:02 36.5 76 18 128/60 99 02/09/17 19:02 76 128/60 99 02/09/17 18:15 36.6 82 101/49 98 02/09/17 17:56 36.7 80 18 108/56 93 2.0 02/09/17 17:15 37.0 77 102/44 98 02/09/17 16:55 36.7 78 18 111/54 98 02/09/17 16:33 36.8 80 18 109/47 97 02/09/17 16:00 98 Room Air 02/09/17 15:52 37.5 87 18 114/46 (68) 98 Nasal Cannula 2.0 02/09/17 15:46 75 16 98 Nasal Cannula 2.0 Physical Exam General Appearance: no apparent distress, + obese Neck: supple, no adenopathy, no JVD, trachea midline Respiratory/Chest: chest non-tender, lungs clear, normal breath sounds, no respiratory distress, no accessory muscle use Cardiovascular: regular rate, rhythm, no edema, no gallop, no JVD, no murmur Abdomen: normal bowel sounds, non tender, soft, no organomegaly Extremities: normal range of motion, non-tender, no pedal edema, no calf tenderness, pelvis stable, + pertinent finding (left arm above the elbow amputation) Neurologic/Psychiatric: edi programmer II-XII nml as tested, no motor/sensory deficits, alert, oriented x 3, + depressed affect Skin: normal color, warm/dry, no rash Laboratory Results Last 24 Hours Test 02/10/17 04:30 White Blood Count 6.98 K/uL Red Blood Count 3.03 M/uL Hemoglobin 9.0 g/dL Hematocrit 27.1 % Mean Corpuscular Volume 89.4 fL Mean Corpuscular Hemoglobin 29.7 pg Mean Corpuscular Hemoglobin Concent 33.2 g/dl Platelet Count 194 K/uL Mean Platelet Volume 9.2 fL Neutrophils (%) (Auto) 65.1 % Lymphocytes (%) (Auto) 19.8 % Monocytes (%) (Auto) 8.2 % Eosinophils (%) (Auto) 6.3 % Basophils (%) (Auto) 0.6 % Neutrophils # (Auto) 4.55 K/uL Lymphocytes # (Auto) 1.38 K/uL Monocytes # (Auto) 0.57 K/uL Eosinophils # (Auto) 0.44 K/uL Basophils # (Auto) 0.04 K/uL RDW Standard Deviation 50.3 fL RDW Coefficient of Variation 15.2 % Immature Granulocyte % (Auto) 0.0 % Immature Granulocyte # (Auto) 0.00 K/uL Sodium Level 133 mmol/L Potassium Level 5.4 mmol/L Chloride Level 103 mmol/L Carbon Dioxide Level 19 mmol/L Anion Gap 11.0 mmol/L Blood Urea Nitrogen 82 mg/dl Creatinine 7.20 mg/dl Est Creatinine Clear Calc Drug Dose 13.9 ml/min Estimated GFR () 6.8 Estimated GFR (Non- 5.9 BUN/Creatinine Ratio 11.4 Random Glucose 114 mg/dl Calcium Level 7.1 mg/dl Phosphorus Level 8.4 mg/dl Magnesium Level 2.0 mg/dl Assessment and Plan 56 year old female with metastatic renal cell carcinoma who presents to the ER on advice of her dialysis unit due to a non functioning tunneled catheter placed on 01/23/[address] Maguire. Non occlusive clot shown on imaging, evidence of line infection with positive blood cultures the next morning Sepsis secondary to infected tunneled HD catheter - blood cultures with MSSA, change antibiotics to Rocephin IV daily - both blood cultures and tip of catheter growing gram positive cocci - MSSA - no evidence of vegetations on echo - consult ID for recommendations on plan for antibiotics - line holiday x 3 days, plan for HD catheter (temporary) today - will need new tunneled catheter this week once vascular surgery available End stage renal disease - - needs HD today, she agrees to temp HD line, will be placed in right femoral vein - K is 5.3, Phos elevated, BUN climbing, more lethargy, pruritis Chronic anemia: Hb down to 7.2 yesterday, patient agreed to 2 units of PRBC - tolerated transfusion well, lasix 80mg IV given in between - Hb 9.0 today Nonocclusive thrombus in intravascular catheter within right IJ vein - stop heparin, line pulled on 02/07 Elevated troponin - at baseline secondary to end stage renal disease, no need to repeat HTN: continue home meds CHF: continue home meds, no current exacerbation COPD: continue inhalers, add duonebs to help with coughing, no current exacerbation Depression: appreciate psychiatry consult, continue Celexa Code - DNR/DNI as per patient wishes Disposition: continue Rocephin, follow up ID recommendations, temp HD catheter to be placed and HD orders per Dr. Laureano
[2017-02-10] MEDS ORDERED: EPOETIN ALFA 20,000 UNITS/ML VIAL IV SCH (15:45)
[2017-02-10] MEDS ORDERED: HEPARIN SOD (PORCINE) 1000 UNIT/ML 10 ML VIAL IV SCH (15:45)
--- NOTE | 2017-02-10 17:06 | Procedure Note ---
Procedure Note Procedure Date Feb 10, 2017. Central Line Procedure time out: side/site verified, patient ID confirmed, sterile procedure used Consent obtained: written Time of procedure: 16:30 Performed by: attending Indications: other (Hemodialysis) Prep: chlorhexadine prep, sterile drape, sterile procedures used Anesthesia: local injection, lidocaine 1% without epi Central line lumen: triple Central line location: femoral (L) Additional details: percutaneous placement, ultrasound guidance, Selinger technique used, line sutured, good blood return Complications: none Patient tolerated procedure: well Post-procedure vital signs: reviewed and stable Comments: May proceed with hemodialysis The right femoral TLC was removed, pressure applied for 15 minutes. No evidence of bleeding or hematoma, dressing applied
--- NOTE | 2017-02-10 19:55 | Medical Consult ---
Consultation Date of Consultation: Feb 10, 2017. Attending Physician: Subhash Lorenzana D.O. Reason for Consultation: MRSA hemodialysis catheter infection History of Present Illness 56-year-old female with history of renal cell carcinoma, status post right nephrectomy, on dialysis, now presents with acute onset of infection of her dialysis catheter, now status post removal, with blood cultures positive for methicillin sensitive Staph aureus. Patient has been treated with IV vancomycin. Awaiting consultation from regarding further access placement. Patient has remained afebrile since removal of catheter. Catheter tip culture also growing methicillin sensitive Staph aureus. Past Medical/Surgical History Medical Problems: (1) Acute renal failure on dialysis Status: Acute (2) End stage renal disease Status: Acute (3) Fever Status: Acute (4) Hypomagnesemia Status: Acute (5) Renal failure Status: Acute Medical Problems: (1) Acute kidney injury (2) Anemia (3) Back pain, chronic (4) Congestive heart failure of unknown etiology (5) Dialysis catheter clot or failure (6) End-stage renal disease on hemodialysis (7) Hyperkalemia (8) Hypertension (9) Metastatic renal cell carcinoma (10) obesity class IV (11) Osteomyelitis (12) PICC (peripherally inserted central catheter) flush (13) Pulmonary embolism (14) Renal mass, right (15) Spinal abscess Family History None stated noncontributory Social History Smoking Status: Current Every Day Smoker Drug Use: none Marital Status: Housing Status: lives with family Occupation Status: disabled Allergies Coded Allergies: Iodinated Diagnostic Agents (Verified Allergy, Severe, ANAPHYLAXIS, ) Perflutren (Verified Allergy, Severe, RASH, DIFFICULTY BREATHING, ANAPHALYSIS, 02/06/17) Surgical Lubricant (Verified Allergy, Mild, rash, 02/06/17) Adhesives (Verified Allergy, Unknown, RASH, 02/06/17) Propylene Glycol (Verified Allergy, Unknown, RASH, 02/06/17) Current Inpatient Medications Current Inpatient Medications Medications (Trade) Dose Ordered Sig/Rica Route Start Time Stop Time Status Last Admin Dose Admin Ondansetron HCl (Zofran Inj) 4 mg Q6H PRN IV 02/07/17 02:00 03/09/17 01:59 02/10/17 04:28 4 MG Alprazolam (Xanax Tab) 1 mg Q6H PRN PO 02/07/17 02:00 03/09/17 01:59 Aspirin (Ecotrin Tab) 81 mg DAILY PO 02/07/17 09:00 03/09/17 08:59 02/10/17 08:26 81 MG Atorvastatin Calcium (Lipitor Tab) 80 mg QAM PO 02/07/17 09:00 03/09/17 08:59 02/10/17 08:26 80 MG Budesonide/ Formoterol Fumarate (Symbicort 160/ 4.5 Inh) 2 puffs BID INH 02/07/17 09:00 03/09/17 08:59 02/10/17 08:23 2 PUFFS Citalopram Hydrobromide (celeXA TAB) 40 mg QAM PO 02/07/17 09:00 03/09/17 08:59 02/10/17 08:26 40 MG Fentanyl (Duragesic Patch) 25 mcg Q72H TD 02/07/17 09:00 02/21/17 08:59 02/10/17 08:24 25 MCG Hydroxyzine HCl (Vistaril Tab) 25 mg Q6H PRN PO 02/07/17 02:00 03/09/17 01:59 02/10/17 08:25 25 MG Metoprolol Succinate (Toprol Xl Tab) 50 mg QAM PO 02/07/17 09:00 03/09/17 08:59 02/10/17 08:27 50 MG Oxycodone HCl (Roxicodone Immediate Rel Tab) 10 mg Q6H PRN PO 02/07/17 02:00 02/21/17 01:59 02/10/17 12:25 10 MG Tiotropium [place] (Spiriva Handihaler Inhaler) 1 puff QAM INH 02/07/17 09:00 03/09/17 08:59 02/10/17 08:23 1 PUFF Trazodone HCl (Desyrel Tab) 50 mg HS PO 02/07/17 21:00 03/09/17 20:59 02/09/17 21:01 50 MG Zolpidem Tartrate (Ambien Tab) 10 mg HS PO 02/07/17 21:00 03/09/17 20:59 02/09/17 21:05 10 MG Albuterol/ Ipratropium (Duoneb) 3 ml QIDR INH 02/07/17 08:00 03/09/17 07:59 02/10/17 15:02 3 ML Miscellaneous (Fentanyl Patch Remove & Waste) 1 ea Q3D@0859 N/A 02/07/17 08:59 03/09/17 08:58 02/10/17 08:23 1 EA Miscellaneous Information (Check Fentanyl Patch Placement) 1 ea QS N/A 02/07/17 08:00 03/09/17 07:59 02/10/17 16:00 1 EA Acetaminophen (Tylenol Tab) 650 mg Q4H PRN PO 02/07/17 05:00 03/09/17 04:59 02/07/17 23:59 650 MG Ondansetron HCl (Zofran Inj) 4 mg ONE PRN IV 02/07/17 15:00 Sodium Bicarbonate (Sodium Bicarbonate Tab) 1,300 mg TID PO 02/08/17 21:00 03/10/17 08:59 02/10/17 14:13 1,300 MG Heparin Sodium (Porcine) (Heparin 10 Unit/ ml 5 ml Flush) 5 ml PRN PRN FLUSH 02/09/17 00:30 03/11/17 00:29 02/09/17 22:41 5 ML Ceftriaxone Sodium 2000 mg/ Dextrose 70 ml @ 140 mls/hr Q24H IV 02/09/17 16:00 02/23/17 15:59 02/09/17 15:58 140 MLS/HR Heparin Sodium (Porcine) (Heparin Iv Bolus) 1,000 unit TODAY@1545 IV 02/10/17 15:45 02/10/17 23:00 Heparin Sodium (Porcine) (Heparin Iv Bolus) 1,000 unit 1545,1645,1745 IV 02/10/17 15:45 02/10/17 23:00 Epoetin Jose (Procrit Inj) 20,000 units TODAY@1545 IV 02/10/17 15:45 02/10/17 23:00 02/10/17 18:00 20,000 UNITS Review of Systems Constitutional: + fever, + chills Eyes: No problem reported ENT: No problem reported Respiratory: No problem reported Cardiovascular: No problem reported Abdomen: No problem reported Musculoskeletal: No problem reported Genitourinary - Female: No problem reported Neurologic: No problem reported Psychiatric: No problem reported Endocrine: No problem reported Hematologic / Lymphatic: No problem reported Integumentary: + new/changing skin lesions Allergic / Immunologic: No problem reported Physical Exam Date Time Temp Pulse Resp B/P (MAP) Pulse Ox O2 Delivery O2 Flow Rate FiO2 02/10/17 19:30 66 109/57 02/10/17 19:15 63 119/53 02/10/17 19:00 69 120/72 02/10/17 18:45 69 111/57 02/10/17 18:30 58 130/77 02/10/17 18:15 70 122/59 02/10/17 18:00 68 125/65 02/10/17 17:45 71 116/64 02/10/17 17:30 66 118/59 02/10/17 17:15 65 115/63 02/10/17 17:00 68 109/60 02/10/17 16:45 72 113/58 02/10/17 16:30 36.6 74 116/64 (81) 02/10/17 16:00 98 Nasal Cannula 2.0 Humidified Oxygen 02/10/17 15:40 71 93/38 (56) 02/10/17 15:38 73 83/37 (52) 91 02/10/17 15:03 72 16 98 Nasal Cannula 2.0 02/10/17 12:00 Room Air 02/10/17 11:46 36.9 71 20 113/49 (70) 94 Nasal Cannula 2.0 02/10/17 11:00 76 16 96 Room Air 02/10/17 08:05 36.5 78 19 123/50 (74) 94 Nasal Cannula 2.0 02/10/17 08:00 Room Air 02/10/17 07:08 84 16 98 Nasal Cannula 2.0 02/10/17 04:00 Room Air 2.0 Nasal Cannula 02/10/17 03:24 36.6 102 18 116/56 (76) 98 Nasal Cannula 2.0 Humidified Oxygen 02/09/17 23:59 Room Air 2.0 Nasal Cannula 02/09/17 23:19 36.5 81 22 123/51 (75) 98 Nasal Cannula 2.0 02/09/17 22:22 36.8 78 120/60 02/09/17 21:45 75 113/59 02/09/17 21:15 80 117/60 02/09/17 20:50 36.6 74 113/52 02/09/17 20:35 78 129/60 98 02/09/17 20:35 76 129/60 98 02/09/17 20:21 36.8 78 112/59 99 02/09/17 20:00 98 Nasal Cannula General Appearance: WD/WN, no apparent distress Head: normocephalic, atraumatic Eyes: normal inspection, EOMI, sclerae normal ENT: normal ENT inspection, pharynx normal Neck: supple, no adenopathy, thyroid normal, trachea midline Respiratory/Chest: chest non-tender, lungs clear, normal breath sounds, no respiratory distress Cardiovascular: regular rate, rhythm, no gallop, no murmur Abdomen/GI: normal bowel sounds, non tender, soft, no organomegaly Back: normal inspection, no CVA tenderness Extremities/Musculoskelatal: no calf tenderness, normal capillary refill Neurologic/Psych: alert, oriented x 3 Skin: normal color, no rash, + pertinent finding ( Surgical dressing intact) Lymphatic: no adenopathy Laboratory Results RUN DATE: 02/09/17 [facility] LAB PAGE 1 RUN TIME: 0759 Specimen Inquiry PATIENT: DELBERT ROWE LOC: [place] U # : [id number] AGE/SX: 56/F ROOM: E210 REG : 07/26/[address]: Subhash Lorenzana D.O. : 1960 BED: 1 DIS : STATUS: ADM IN TLOC: SPEC #: [id number] JULITA: 02/06/17 STATUS: COMP REQ #: [id number] RECD: 02/06/[address]: Adonis Gil DO SOURCE: BLOOD ENTR: 02/06/[address] [facility] [address]: Gerson Estrada D.O. SPDESC: ORDERED: BLOOD CULTURE Procedure Result Verified Site BLD CULT Final 02/09/17-1699 Organism 1 STAPHYLOCOCCUS AUREUS SENS SENSITIVITY TO FOLLOW Phoned Positive Blood Culture Gram Stain Report to JUDI GIORDANO on 02/07/17 At 1830 By BRANDO. Results were verbalized back to BRANDO. 1. STAPHYLOCOCCUS AUREUS Target Route Dose RX AB Cost M.I.C. IQ ------ ----- ------ -- ------ -------- - ------ TRIMET/SULFA S <=0.5/ 9.5 * OXACILLIN S 0.5 VANCOMYCIN S 2 ERYTHROMYCIN S <=0.5 TETRACYCLINE S <=4 CLINDAMYCIN S <=0.5 DAPTOMYCIN S 1 S = SENSITIVE I = INTERMEDIATE R = RESISTANT Last 24 Hours Test 02/10/17 04:30 White Blood Count 6.98 K/uL Red Blood Count 3.03 M/uL Hemoglobin 9.0 g/dL Hematocrit 27.1 % Mean Corpuscular Volume 89.4 fL Mean Corpuscular Hemoglobin 29.7 pg Mean Corpuscular Hemoglobin Concent 33.2 g/dl Platelet Count 194 K/uL Mean Platelet Volume 9.2 fL Neutrophils (%) (Auto) 65.1 % Lymphocytes (%) (Auto) 19.8 % Monocytes (%) (Auto) 8.2 % Eosinophils (%) (Auto) 6.3 % Basophils (%) (Auto) 0.6 % Neutrophils # (Auto) 4.55 K/uL Lymphocytes # (Auto) 1.38 K/uL Monocytes # (Auto) 0.57 K/uL Eosinophils # (Auto) 0.44 K/uL Basophils # (Auto) 0.04 K/uL RDW Standard Deviation 50.3 fL RDW Coefficient of Variation 15.2 % Immature Granulocyte % (Auto) 0.0 % Immature Granulocyte # (Auto) 0.00 K/uL Sodium Level 133 mmol/L Potassium Level 5.4 mmol/L Chloride Level 103 mmol/L Carbon Dioxide Level 19 mmol/L Anion Gap 11.0 mmol/L Blood Urea Nitrogen 82 mg/dl Creatinine 7.20 mg/dl Est Creatinine Clear Calc Drug Dose 13.9 ml/min Estimated GFR () 6.8 Estimated GFR (Non- 5.9 BUN/Creatinine Ratio 11.4 Random Glucose 114 mg/dl Calcium Level 7.1 mg/dl Phosphorus Level 8.4 mg/dl Magnesium Level 2.0 mg/dl Patient Name: DELBERT ROWE Unit Number: [id number] Dictated: 02/06/172002 Transcribed: 02/06/172002 PBS Printed Date/Time: [~ rep prt dt]/[~ rep prt tm] [~ rep ct labl] - [~ rep ct ivnm] [facility] Radiology Department [place], [place] [id number] Dictated: 02/06/172002 Transcribed: 02/06/172002 PBS Printed Date/Time: [~ rep prt dt]/[~ rep prt tm] [~ rep ct labl] - [~ rep ct ivnm] [~ rep ct add3]] CHEST ONE VIEW PORTABLE CLINICAL HISTORY: 56 years-old Female presenting with Sepsis. TECHNIQUE: Portable upright AP view of the chest was obtained. COMPARISON: 01/22/2017. FINDINGS: Tunneled right internal jugular dialysis catheter terminates in the right IJ proximal to the brachiocephalic confluence. Cardiomediastinal silhouette remains prominent. Multiple rounded opacities noted in the right mid and upper lung as well as the left lower lung, unchanged from prior. No large effusion or pneumothorax. Osseous structures and upper abdomen normal. IMPRESSION: 1. Tunneled right IJ dialysis catheter terminates proximal to the expected location. Replacement/repositioning recommended. 2. Multiple masslike opacities for which chest CT is warranted as previously mentioned. The report will be called/faxed according to standard departmental protocol. Electronically signed by: Ross Mao M.D. 02/06/2017 8:06 PM Dictated Date/Time: 02/06/2017 8:03 PM The status of this report is Signed. Draft = Not yet reviewed or approved by Radiologist. Signed = Reviewed and approved by Radiologist. <AttendingPhy></AttendingPhy> <FamilyPhy>Gerson Estrada D.O.</FamilyPhy> < PrimaryPhy>Gerson Estrada D.O.</PrimaryPhy> <UnitNumber>[id number]</UnitNumber> <VisitNumber>[id number]</VisitNumber> <PatientName>DELBERT ROWE</PatientName > <DateOfBirth>1960</DateOfBirth> <Location>C[facility]</Location> <ServiceDate> 02/06/17</ServiceDate> <MNE>ESINDI</MNE> <OrderingPhy>Adonis Gil D.O.</ OrderingPhy> <OrderingPhyMNE>f rep ord dr gaston</OrderingPhyMNE> <DictatingPhyMNE> f rep dict dr gaston</DictatingPhyMNE> <CCListMNE>f rep ct briane</CCListMNE> < AdmittingPhyMNE>f pt admit dr gaston</AdmittingPhyMNE> <AttendingPhyMNE>f pt attend dr gaston</AttendingPhyMNE> <ConsultingPhyMNE>f pt consult dr gaston</ConsultingPhyMNE> <FamilyPhyMNE>f pt fam dr gaston</FamilyPhyMNE> <OtherPhyMNE>f pt other dr gaston</OtherPhyMNE> < PrimaryPhyMNE>f pt prim care dr gaston</PrimaryPhyMNE> <ReferringPhyMNE>f pt referring dr gaston</ReferringPhyMNE> Assessment & Plan methicillin sensitive Staph aureus infection of dialysis catheter now status post removal. Complicated picture given underlying metastatic renal cell carcinoma, will need to decide upon decisions regarding ultimate placement and aggressiveness of therapy. For now, would prefer patient be treated with IV cefazolin while in hospital, with decision regarding further therapy to be based on decisions regarding ultimate care. Patient will need at least 2 weeks of IV antibiotic therapy fever Staph aureus bacteremia. Will discuss with all involved.
[2017-02-10] MEDS: HEPARIN SOD (PORCINE) 1000 UNIT/ML 10 ML VIAL IV SCH (20:12)
[2017-02-10] MEDS: CEFTRIAXONE SOD INJ 2000 MG in DEXTROSE 5% 50ML IV SCH (20:21)
[2017-02-10] MEDS: ZOLPIDEM TARTRATE 10 MG TAB PO SCH (20:21)
[2017-02-10] MEDS: TRAZODONE HCL 50 MG TAB PO SCH (20:22)
[2017-02-11] VITALS (15 sets, daily range): BP systolic 84–118; BP diastolic 52–70; PULSE 60–91; TEMP 36.4–37.1; O2SAT 92–99
[2017-02-11 05:01] LABS: BASO % 0.4 %; BASO ABS # 0.02 K/uL (0-0.2); HEMATOCRIT 25.6 % (37-47); IG% 0.4 %; LYMPH % 21.3 %; LYMPH ABS # 1.21 K/uL (1.2-3.4); MEAN CELL VOLUME 88.9 fL (80-100); MEAN CORPUSCULAR HEMOGLOBIN 28.5 pg (25-34); MEAN PLATELET VOLUME 9.1 fL (7.4-10.4); MONO % 9.8 %; NEUT % 62.1 %; PLATELET COUNT 178 K/uL (130-400); RED BLOOD COUNT 2.88 M/uL (4.2-5.4); WHITE BLOOD COUNT 5.69 K/uL (4.8-10.8)
[2017-02-11 05:32] LABS: COMPLETE YES
[2017-02-11 05:35] LABS: BUN/CREATININE RATIO 10.2 (10-20); CALCIUM 6.8 mg/dl (8.5-10.1); CREATININE 5.5 mg/dl (0.60-1.20); MAGNESIUM 1.8 mg/dl (1.8-2.4); PHOSPHORUS 6.9 mg/dl (2.5-4.9); POTASSIUM 4.4 mmol/L (3.5-5.1)
[2017-02-11] MEDS: ALBUT/IPRATROP 3MG/0.5MG NEB 3 ML VIAL INH SCH ×4 (07:27→20:20)
[2017-02-11] MEDS: SODIUM BICARBONATE 650 MG TAB PO SCH ×3 (08:39→21:10)
[2017-02-11] MEDS: TIOTROPIUM BROMIDE 5 PUFF/90 MCG INH INH SCH (08:40)
[2017-02-11] MEDS: ASPIRIN 81 MG ECTAB PO SCH (08:40)
[2017-02-11] MEDS: hydrOXYzine HCL 25 MG TAB PO PRN (08:40)
[2017-02-11] MEDS: BUDESONIDE/FORMOTEROL FUMARATE 160/4.5 60 PUFFS/INHALER INH SCH ×2 (08:40→21:10)
[2017-02-11] MEDS: METOPROLOL SUCC 50MG EXT REL TAB PO SCH (08:41)
[2017-02-11] MEDS: CITALOPRAM 40 MG TAB PO SCH (08:41)
[2017-02-11] MEDS: ATORVASTATIN 40 MG TAB PO SCH (08:41)
[2017-02-11] MEDS: CHECK FENTANYL PATCH PLACEMENT SCH ×2 (09:03→15:31)
[2017-02-11] MEDS: OXYCODONE HCL IR 5 MG TAB (IMMEDIATE RELEASE) PO PRN ×2 (10:52→19:22)
--- NOTE | 2017-02-11 13:27 | Nephrology Progress Note ---
Nephrology Progress Note Date of Service Feb 11, 2017. Chief Complaint ESRD Subjective No acute events overnight. Maty tolerated hemodialysis yesterday well without complications. She remains tired and sleeping most of the day. She slept throughout hemodialysis yesterday. She does not remember the treatment. Her appetite remains fair. She reiterated her desire to continue dialysis to improve quality of life. She is agreeable to having another PermCath placed by Dr. Maguire. Maty denies fevers or chills. Review of Systems A complete review of systems was performed. Pertinent positives are noted above. All other systems are negative. Vital Signs Last 8 Hrs Date Time Temp Pulse Resp B/P (MAP) Pulse Ox O2 Delivery O2 Flow Rate FiO2 02/11/17 12:18 36.6 90 22 84/62 (69) 94 Nasal Cannula 2.0 02/11/17 11:31 91 16 94 Nasal Cannula 2.0 02/11/17 08:38 37.0 72 17 105/52 (69) 92 Nasal Cannula 2.0 02/11/17 08:00 Room Air 02/11/17 07:27 79 14 95 Nasal Cannula 2.0 Last Recorded Weight Weight (Kilograms): 155.900 Physical Exam General Appearance: no apparent distress, + obese Head: normocephalic, atraumatic Eyes: normal inspection, sclerae normal ENT: normal ENT inspection, pharynx normal Neck: supple, no JVD Respiratory/Chest: lungs clear, no respiratory distress, no accessory muscle use Cardiovascular: regular rate, rhythm, no gallop Abdomen/GI: non tender, soft Extremities/Musculoskelatal: normal inspection, no pedal edema, + pertinent finding (femoral HD catheter) Neurologic/Psych: alert, oriented x 3 Family History None stated Social History Drug Use: none Marital Status: Housing Status: lives with family Occupation: disabled Laboratory Results Past 24 Hours 02/11/17 04:26 Red Blood Count 2.88, Mean Corpuscular Volume 88.9, Mean Corpuscular Hemoglobin 28.5, Mean Corpuscular Hemoglobin Concent 32.0, Mean Platelet Volume 9.1, Neutrophils (%) (Auto) 62.1, Lymphocytes (%) (Auto) 21.3, Monocytes (%) (Auto) 9.8, Eosinophils (%) (Auto) 6.0, Basophils (%) (Auto) 0.4, Neutrophils # (Auto) 3.54, Lymphocytes # (Auto) 1.21, Monocytes # (Auto) 0.56, Eosinophils # (Auto) 0.34, Basophils # (Auto) 0.02 02/11/17 04:26 Test 02/11/17 04:26 White Blood Count 5.69 K/uL (4.8-10.8) Red Blood Count 2.88 M/uL (4.2-5.4) Hemoglobin 8.2 g/dL (12.0-16.0) Hematocrit 25.6 % (37-47) Mean Corpuscular Volume 88.9 fL (80-100) Mean Corpuscular Hemoglobin 28.5 pg (25-34) Mean Corpuscular Hemoglobin Concent 32.0 g/dl (32-36) Platelet Count 178 K/uL (130-400) Mean Platelet Volume 9.1 fL (7.4-10.4) Neutrophils (%) (Auto) 62.1 % Lymphocytes (%) (Auto) 21.3 % Monocytes (%) (Auto) 9.8 % Eosinophils (%) (Auto) 6.0 % Basophils (%) (Auto) 0.4 % Neutrophils # (Auto) 3.54 K/uL (1.4-6.5) Lymphocytes # (Auto) 1.21 K/uL (1.2-3.4) Monocytes # (Auto) 0.56 K/uL (0.11-0.59) Eosinophils # (Auto) 0.34 K/uL (0-0.5) Basophils # (Auto) 0.02 K/uL (0-0.2) RDW Standard Deviation 48.7 fL (36.4-46.3) RDW Coefficient of Variation 14.9 % (11.5-14.5) Immature Granulocyte % (Auto) 0.4 % Immature Granulocyte # (Auto) 0.02 K/uL (0.00-0.02) Red Blood Cell Morphology Unremarkable Anion Gap 8.0 mmol/L (3-11) Est Creatinine Clear Calc Drug Dose 18.5 ml/min Estimated GFR () 9.4 Estimated GFR (Non- 8.1 BUN/Creatinine Ratio 10.2 (10-20) Calcium Level 6.8 mg/dl (8.5-10.1) Phosphorus Level 6.9 mg/dl (2.5-4.9) Magnesium Level 1.8 mg/dl (1.8-2.4) Allergies Coded Allergies: Iodinated Diagnostic Agents (Verified Allergy, Severe, ANAPHYLAXIS, ) Perflutren (Verified Allergy, Severe, RASH, DIFFICULTY BREATHING, ANAPHALYSIS, 02/06/17) Surgical Lubricant (Verified Allergy, Mild, rash, 02/06/17) Adhesives (Verified Allergy, Unknown, RASH, 02/06/17) Propylene Glycol (Verified Allergy, Unknown, RASH, 02/06/17) Medications Current Inpatient Medications Medications (Trade) Dose Ordered Sig/Rica Route Start Time Stop Time Status Last Admin Dose Admin Ondansetron HCl (Zofran Inj) 4 mg Q6H PRN IV 02/07/17 02:00 03/09/17 01:59 02/10/17 04:28 4 MG Alprazolam (Xanax Tab) 1 mg Q6H PRN PO 02/07/17 02:00 03/09/17 01:59 Aspirin (Ecotrin Tab) 81 mg DAILY PO 02/07/17 09:00 03/09/17 08:59 02/11/17 08:40 81 MG Atorvastatin Calcium (Lipitor Tab) 80 mg QAM PO 02/07/17 09:00 03/09/17 08:59 02/11/17 08:41 80 MG Budesonide/ Formoterol Fumarate (Symbicort 160/ 4.5 Inh) 2 puffs BID INH 02/07/17 09:00 03/09/17 08:59 02/11/17 08:40 2 PUFFS Citalopram Hydrobromide (celeXA TAB) 40 mg QAM PO 02/07/17 09:00 03/09/17 08:59 02/11/17 08:41 40 MG Fentanyl (Duragesic Patch) 25 mcg Q72H TD 02/07/17 09:00 02/21/17 08:59 02/10/17 08:24 25 MCG Hydroxyzine HCl (Vistaril Tab) 25 mg Q6H PRN PO 02/07/17 02:00 03/09/17 01:59 02/11/17 08:40 25 MG Metoprolol Succinate (Toprol Xl Tab) 50 mg QAM PO 02/07/17 09:00 03/09/17 08:59 02/11/17 08:41 50 MG Oxycodone HCl (Roxicodone Immediate Rel Tab) 10 mg Q6H PRN PO 02/07/17 02:00 02/21/17 01:59 02/11/17 10:52 10 MG Tiotropium [place] (Spiriva Handihaler Inhaler) 1 puff QAM INH 02/07/17 09:00 03/09/17 08:59 02/11/17 08:40 1 PUFF Trazodone HCl (Desyrel Tab) 50 mg HS PO 02/07/17 21:00 03/09/17 20:59 02/09/17 21:01 50 MG Zolpidem Tartrate (Ambien Tab) 10 mg HS PO 02/07/17 21:00 03/09/17 20:59 02/09/17 21:05 10 MG Albuterol/ Ipratropium (Duoneb) 3 ml QIDR INH 02/07/17 08:00 03/09/17 07:59 02/11/17 11:31 3 ML Miscellaneous (Fentanyl Patch Remove & Waste) 1 ea Q3D@0859 N/A 02/07/17 08:59 03/09/17 08:58 02/10/17 08:23 1 EA Miscellaneous Information (Check Fentanyl Patch Placement) 1 ea QS N/A 02/07/17 08:00 03/09/17 07:59 02/11/17 09:03 1 EA Acetaminophen (Tylenol Tab) 650 mg Q4H PRN PO 02/07/17 05:00 03/09/17 04:59 02/07/17 23:59 650 MG Ondansetron HCl (Zofran Inj) 4 mg ONE PRN IV 02/07/17 15:00 Sodium Bicarbonate (Sodium Bicarbonate Tab) 1,300 mg TID PO 02/08/17 21:00 03/10/17 08:59 02/11/17 08:39 1,300 MG Heparin Sodium (Porcine) (Heparin 10 Unit/ ml 5 ml Flush) 5 ml PRN PRN FLUSH 02/09/17 00:30 03/11/17 00:29 02/09/17 22:41 5 ML Ceftriaxone Sodium 2000 mg/ Dextrose 70 ml @ 140 mls/hr Q24H IV 02/09/17 16:00 02/23/17 15:59 02/10/17 20:21 140 MLS/HR Impression (1) End-stage renal disease on hemodialysis (2) Hypertension (3) Dialysis catheter clot or failure (4) Staphylococcus aureus bacteremia Mrs. Beth is a 56 year old female with ESRD. She presented with MSSA bacteremia from an infected TDC. Follow up cultures are pending. TTE negative for vegetations. She is currently being treated IV cefazolin. Maty's overall prognosis remains guarded. She will need to follow up with oncology to discuss prognosis and overall plan of care. At this time, she has requested to restart dialysis as a palliative therapy which can only safely provide benefit if she is compliant with follow up for treatments. She tolerated yesterday's dialysis well but was very somnolent which is likely related to many of the medications she is taking. Maty understands that placement of a new PermCath carries inherent risks including potential infection. She has had multiple catheters in the past and risks and potential benefits of catheter placement may favor medical management moving forward in the future. Recommendations ESRD: -- Consult vascular surgery to discuss TDC placement tomorrow -- Plan HD tomorrow -- Stop oral NaHCO3 -- Potassium restrict diet -- Monitor metabolic profile daily -- Continue discussion regarding goals of care -- Repeat blood cultures are pending Anemia: -- Epogen 36659 IU given yesterday -- Check iron profile with AM labs MSSA bacteremia and TDC infection: -- ID note reviewed this morning -- Continue cefazolin for now -- Follow up blood culture pending Metastatic renal cell carcinoma: -- Follow up with oncology and palliative care for continued goals of care discussion
--- NOTE | 2017-02-11 14:11 | Progress Note ---
Subjective Date of Service: Feb 11, 2017. Subjective Pt evaluation today including: conversation w/ patient, physical exam, lab review, conversation w/ [employer] application consultant, review of inpatient medication list Pain: no pain PO Intake: adequate Voiding: no voiding problems patient feeling well today, had HD yesterday, slept through HD catheter placement as well as HD, does not remember appetite is intact, making urine discussed need for tunneled dialysis catheter, need to discuss with vascular surgery tomorrow she has questions regarding her left amputation, some blisters but they are going away she had an appointment in [place] with an orthotics provider for arm will have to reschedule Problem List Medical Problems: (1) Acute renal failure on dialysis Status: Acute (2) End stage renal disease Status: Acute (3) Fever Status: Acute (4) Hypomagnesemia Status: Acute (5) Renal failure Status: Acute Review of Systems All Other Systems: Reviewed and Negative Medications Current Inpatient Medications Medications (Trade) Dose Ordered Sig/Rica Route Start Time Stop Time Status Last Admin Dose Admin Ondansetron HCl (Zofran Inj) 4 mg Q6H PRN IV 02/07/17 02:00 03/09/17 01:59 02/10/17 04:28 4 MG Alprazolam (Xanax Tab) 1 mg Q6H PRN PO 02/07/17 02:00 03/09/17 01:59 Aspirin (Ecotrin Tab) 81 mg DAILY PO 02/07/17 09:00 03/09/17 08:59 02/11/17 08:40 81 MG Atorvastatin Calcium (Lipitor Tab) 80 mg QAM PO 02/07/17 09:00 03/09/17 08:59 02/11/17 08:41 80 MG Budesonide/ Formoterol Fumarate (Symbicort 160/ 4.5 Inh) 2 puffs BID INH 02/07/17 09:00 03/09/17 08:59 02/11/17 08:40 2 PUFFS Citalopram Hydrobromide (celeXA TAB) 40 mg QAM PO 02/07/17 09:00 03/09/17 08:59 02/11/17 08:41 40 MG Fentanyl (Duragesic Patch) 25 mcg Q72H TD 02/07/17 09:00 02/21/17 08:59 02/10/17 08:24 25 MCG Hydroxyzine HCl (Vistaril Tab) 25 mg Q6H PRN PO 02/07/17 02:00 03/09/17 01:59 02/11/17 08:40 25 MG Metoprolol Succinate (Toprol Xl Tab) 50 mg QAM PO 02/07/17 09:00 03/09/17 08:59 02/11/17 08:41 50 MG Oxycodone HCl (Roxicodone Immediate Rel Tab) 10 mg Q6H PRN PO 02/07/17 02:00 02/21/17 01:59 02/11/17 10:52 10 MG Tiotropium [place] (Spiriva Handihaler Inhaler) 1 puff QAM INH 02/07/17 09:00 03/09/17 08:59 02/11/17 08:40 1 PUFF Trazodone HCl (Desyrel Tab) 50 mg HS PO 02/07/17 21:00 03/09/17 20:59 02/09/17 21:01 50 MG Zolpidem Tartrate (Ambien Tab) 10 mg HS PO 02/07/17 21:00 03/09/17 20:59 02/09/17 21:05 10 MG Albuterol/ Ipratropium (Duoneb) 3 ml QIDR INH 02/07/17 08:00 03/09/17 07:59 02/11/17 11:31 3 ML Miscellaneous (Fentanyl Patch Remove & Waste) 1 ea Q3D@0859 N/A 02/07/17 08:59 03/09/17 08:58 02/10/17 08:23 1 EA Miscellaneous Information (Check Fentanyl Patch Placement) 1 ea QS N/A 02/07/17 08:00 03/09/17 07:59 02/11/17 09:03 1 EA Acetaminophen (Tylenol Tab) 650 mg Q4H PRN PO 02/07/17 05:00 03/09/17 04:59 02/07/17 23:59 650 MG Ondansetron HCl (Zofran Inj) 4 mg ONE PRN IV 02/07/17 15:00 Sodium Bicarbonate (Sodium Bicarbonate Tab) 1,300 mg TID PO 02/08/17 21:00 03/10/17 08:59 02/11/17 08:39 1,300 MG Heparin Sodium (Porcine) (Heparin 10 Unit/ ml 5 ml Flush) 5 ml PRN PRN FLUSH 02/09/17 00:30 03/11/17 00:29 02/09/17 22:41 5 ML Ceftriaxone Sodium 2000 mg/ Dextrose 70 ml @ 140 mls/hr Q24H IV 02/09/17 16:00 02/23/17 15:59 02/10/17 20:21 140 MLS/HR Objective Vital Signs Date Time Temp Pulse Resp B/P (MAP) Pulse Ox O2 Delivery O2 Flow Rate FiO2 02/11/17 12:18 36.6 90 22 84/62 (69) 94 Nasal Cannula 2.0 02/11/17 12:00 Room Air 02/11/17 11:31 91 16 94 Nasal Cannula 2.0 02/11/17 08:38 37.0 72 17 105/52 (69) 92 Nasal Cannula 2.0 02/11/17 08:00 Room Air 02/11/17 07:27 79 14 95 Nasal Cannula 2.0 02/11/17 04:12 99 Nasal Cannula 2.0 Humidified Oxygen 02/11/17 03:52 37.1 68 18 118/59 (78) 98 Nasal Cannula 2.0 Humidified Oxygen 02/11/17 00:13 36.7 79 22 111/66 (81) 96 Nasal Cannula 2.0 02/11/17 00:07 99 Nasal Cannula 2.0 Humidified Oxygen 02/10/17 20:00 99 Nasal Cannula 2.0 Humidified Oxygen 02/10/17 19:56 36.7 64 16 109/57 (74) 99 Nasal Cannula 2.0 02/10/17 19:55 36.7 63 138/74 (95) 02/10/17 19:45 73 116/63 02/10/17 19:30 66 109/57 02/10/17 19:15 63 119/53 02/10/17 19:00 69 120/72 02/10/17 18:45 69 111/57 02/10/17 18:30 58 130/77 02/10/17 18:15 70 122/59 02/10/17 18:00 68 125/65 02/10/17 17:45 71 116/64 02/10/17 17:30 66 118/59 02/10/17 17:15 65 115/63 02/10/17 17:00 68 109/60 02/10/17 16:45 72 113/58 02/10/17 16:30 36.6 74 116/64 (81) 02/10/17 16:00 98 Nasal Cannula 2.0 Humidified Oxygen 02/10/17 15:40 71 93/38 (56) 02/10/17 15:38 73 83/37 (52) 91 02/10/17 15:03 72 16 98 Nasal Cannula 2.0 Physical Exam General Appearance: no apparent distress, + obese Neck: supple, no adenopathy, no JVD, trachea midline Respiratory/Chest: chest non-tender, lungs clear, normal breath sounds, no respiratory distress, no accessory muscle use Cardiovascular: regular rate, rhythm, no edema, no gallop, no JVD, no murmur Abdomen: normal bowel sounds, non tender, soft, no organomegaly Extremities: normal range of motion, non-tender, normal inspection, no pedal edema, no calf tenderness, pelvis stable Neurologic/Psychiatric: inclusion intern II-XII nml as tested, no motor/sensory deficits, alert, normal mood/affect, oriented x 3 Skin: normal color, warm/dry, no rash, + pertinent finding (left arm stump with some blisters, no sign of infection) Laboratory Results Last 24 Hours Test 02/11/17 04:26 White Blood Count 5.69 K/uL Red Blood Count 2.88 M/uL Hemoglobin 8.2 g/dL Hematocrit 25.6 % Mean Corpuscular Volume 88.9 fL Mean Corpuscular Hemoglobin 28.5 pg Mean Corpuscular Hemoglobin Concent 32.0 g/dl Platelet Count 178 K/uL Mean Platelet Volume 9.1 fL Neutrophils (%) (Auto) 62.1 % Lymphocytes (%) (Auto) 21.3 % Monocytes (%) (Auto) 9.8 % Eosinophils (%) (Auto) 6.0 % Basophils (%) (Auto) 0.4 % Neutrophils # (Auto) 3.54 K/uL Lymphocytes # (Auto) 1.21 K/uL Monocytes # (Auto) 0.56 K/uL Eosinophils # (Auto) 0.34 K/uL Basophils # (Auto) 0.02 K/uL RDW Standard Deviation 48.7 fL RDW Coefficient of Variation 14.9 % Immature Granulocyte % (Auto) 0.4 % Immature Granulocyte # (Auto) 0.02 K/uL Red Blood Cell Morphology Unremarkable Sodium Level 135 mmol/L Potassium Level 4.4 mmol/L Chloride Level 102 mmol/L Carbon Dioxide Level 25 mmol/L Anion Gap 8.0 mmol/L Blood Urea Nitrogen 55 mg/dl Creatinine 5.50 mg/dl Est Creatinine Clear Calc Drug Dose 18.5 ml/min Estimated GFR () 9.4 Estimated GFR (Non- 8.1 BUN/Creatinine Ratio 10.2 Random Glucose 92 mg/dl Calcium Level 6.8 mg/dl Phosphorus Level 6.9 mg/dl Magnesium Level 1.8 mg/dl Assessment and Plan 56 year old female with metastatic renal cell carcinoma who presents to the ER on advice of her dialysis unit due to a non functioning tunneled catheter placed on 01/23/[address] Maguire. Non occlusive clot shown on imaging, evidence of line infection with positive blood cultures the next morning Sepsis secondary to infected tunneled HD catheter - blood cultures with MSSA, ID recommends Cefazolin, will need 2 weeks total called pharmacy to renally dose the Cefazolin - both blood cultures and tip of catheter growing gram positive cocci - MSSA - no evidence of vegetations on echo - line holiday x 3 days, HD catheter (temporary) placed on 02/10, will need pulled once tunneled cath placed - will need new tunneled catheter this week once vascular surgery available, Dr. Maguire should be back on 02/12 End stage renal disease - - HD on 02/10, tolerated well, plan for HD tomorrow per nephrology - K is normal, Phos elevated, BUN now in the 50's with dialysis Chronic anemia: Hb down to 7.2 02/09, patient agreed to 2 units of PRBC - tolerated transfusion well, lasix 80mg IV given in between - Hb 8.2 today Nonocclusive thrombus in intravascular catheter within right IJ vein - stop heparin, line pulled on 02/07 Elevated troponin - at baseline secondary to end stage renal disease, no need to repeat HTN: continue home meds CHF: continue home meds, no current exacerbation COPD: continue inhalers, add duonebs to help with coughing, no current exacerbation Depression: appreciate psychiatry consult, continue Celexa Code - DNR/DNI as per patient wishes Disposition: plan for HD tomorrow, needs evaluated by Dr. Maguire tomorrow for new tunneled HD catheter plan for 2 weeks of IV antibiotics, ID recommends Cefazolin CM will need to help arrange for antibiotics once she is ready for discharge patient from home
[2017-02-11] MEDS ORDERED: [UNRECOGNIZED DRUG - OTHER] PRN (14:30)
[2017-02-11] MEDS ORDERED: CEFAZOLIN PRN (14:30)
[2017-02-11] MEDS ORDERED: CEFAZOLIN SOD 2000 MG in DEXTROSE 5% 50ML IV ONE (15:00)
[2017-02-11] MEDS: TRAZODONE HCL 50 MG TAB PO SCH (21:10)
[2017-02-11] MEDS: ZOLPIDEM TARTRATE 10 MG TAB PO SCH (21:13)
[2017-02-12] VITALS (13 sets, daily range): BP systolic 93–128; BP diastolic 44–61; PULSE 67–89; TEMP 36.5–36.8; O2SAT 93–98
[2017-02-12 05:43] LABS: BASO % 0.3 %; BASO ABS # 0.02 K/uL (0-0.2); HEMATOCRIT 25.8 % (37-47); IG% 0.7 %; LYMPH % 26.6 %; LYMPH ABS # 1.89 K/uL (1.2-3.4); MEAN CELL VOLUME 89.3 fL (80-100); MEAN CORPUSCULAR HEMOGLOBIN 29.1 pg (25-34); MEAN CORPUSCULAR HGB CONC 32.6 g/dl (32-36); MEAN PLATELET VOLUME 9.5 fL (7.4-10.4); MONO % 9.3 %; NEUT % 57.1 %; PLATELET COUNT 206 K/uL (130-400); RED BLOOD COUNT 2.89 M/uL (4.2-5.4); WHITE BLOOD COUNT 7.11 K/uL (4.8-10.8)
[2017-02-12 06:27] LABS: BUN/CREATININE RATIO 10.3 (10-20); CALCIUM 7.2 mg/dl (8.5-10.1); CREATININE 6.8 mg/dl (0.60-1.20); FERRITIN 452.1 ng/ml (8.0-388.0); MAGNESIUM 1.8 mg/dl (1.8-2.4); POTASSIUM 4.9 mmol/L (3.5-5.1)
[2017-02-12 06:28] LABS: PHOSPHORUS 8.5 mg/dl (2.5-4.9)
[2017-02-12 06:33] LABS: COMPLETE YES
[2017-02-12] MEDS: ALBUT/IPRATROP 3MG/0.5MG NEB 3 ML VIAL INH SCH ×4 (07:02→19:48)
[2017-02-12] MEDS: ASPIRIN 81 MG ECTAB PO SCH (08:27)
[2017-02-12] MEDS: CHECK FENTANYL PATCH PLACEMENT SCH ×4 (08:27→22:47)
[2017-02-12] MEDS: CITALOPRAM 40 MG TAB PO SCH (08:27)
[2017-02-12] MEDS: BUDESONIDE/FORMOTEROL FUMARATE 160/4.5 60 PUFFS/INHALER INH SCH ×2 (08:27→20:41)
[2017-02-12] MEDS: ATORVASTATIN 40 MG TAB PO SCH (08:27)
[2017-02-12] MEDS: METOPROLOL SUCC 50MG EXT REL TAB PO SCH (08:28)
[2017-02-12] MEDS: OXYCODONE HCL IR 5 MG TAB (IMMEDIATE RELEASE) PO PRN ×3 (08:36→23:24)
[2017-02-12] MEDS: TIOTROPIUM BROMIDE 5 PUFF/90 MCG INH INH SCH (09:13)
--- NOTE | 2017-02-12 10:03 | Nephrology Progress Note ---
Nephrology Progress Note Date of Service Feb 12, 2017. Chief Complaint PCN sensitive staph aureus HD catheter in this patient w/ ESRD Subjective Mrs. Beth was seen & examined in the ICU this morning. She denied fever, dyspnea or angina. She voiced no medical concerns. Mrs. Beth was last dialyzed on Sunday via a temporary femoral dialysis catheter. She notes that her regular outpatient treatment days are TTS. She is agreeable to having a new IJ THC placed. Review of Systems Constitutional: No fever Cardiovascular: No chest pain Respiratory: No dyspnea at rest Abdomen: No pain, No nausea, No vomiting Extremities: No leg edema A complete review of systems was performed. Pertinent positives are noted above. All other systems are negative. Vital Signs Last 8 Hrs Date Time Temp Pulse Resp B/P (MAP) Pulse Ox O2 Delivery O2 Flow Rate FiO2 02/12/17 08:11 36.8 82 19 93/53 (66) 98 Nasal Cannula 2.0 02/12/17 08:00 95 Nasal Cannula 2.0 02/12/17 07:03 89 16 95 Nasal Cannula 2.0 02/12/17 04:03 93 Room Air 02/12/17 04:02 36.6 80 18 100/60 (73) 96 Nasal Cannula 2.0 02/12/17 01:53 93 Room Air Last Recorded Weight Weight (Kilograms): 158.200 Physical Exam General Appearance: no apparent distress, + obese Head: normocephalic, atraumatic Eyes: PERRL, EOMI Neck: no adenopathy Respiratory/Chest: lungs clear, no respiratory distress Cardiovascular: regular rate, rhythm Abdomen/GI: normal bowel sounds, non tender, soft Extremities/Musculoskelatal: no calf tenderness, no pedal edema Neurologic/Psych: alert, oriented x 3 Family History None stated Social History Drug Use: none Marital Status: Housing Status: lives with family Occupation: disabled Laboratory Results Past 24 Hours 02/12/17 05:04 Red Blood Count 2.89, Mean Corpuscular Volume 89.3, Mean Corpuscular Hemoglobin 29.1, Mean Corpuscular Hemoglobin Concent 32.6, Mean Platelet Volume 9.5, Neutrophils (%) (Auto) 57.1, Lymphocytes (%) (Auto) 26.6, Monocytes (%) (Auto) 9.3, Eosinophils (%) (Auto) 6.0, Basophils (%) (Auto) 0.3, Neutrophils # (Auto) 4.06, Lymphocytes # (Auto) 1.89, Monocytes # (Auto) 0.66, Eosinophils # (Auto) 0.43, Basophils # (Auto) 0.02 02/12/17 05:04 Test 02/12/17 05:04 White Blood Count 7.11 K/uL (4.8-10.8) Red Blood Count 2.89 M/uL (4.2-5.4) Hemoglobin 8.4 g/dL (12.0-16.0) Hematocrit 25.8 % (37-47) Mean Corpuscular Volume 89.3 fL (80-100) Mean Corpuscular Hemoglobin 29.1 pg (25-34) Mean Corpuscular Hemoglobin Concent 32.6 g/dl (32-36) Platelet Count 206 K/uL (130-400) Mean Platelet Volume 9.5 fL (7.4-10.4) Neutrophils (%) (Auto) 57.1 % Lymphocytes (%) (Auto) 26.6 % Monocytes (%) (Auto) 9.3 % Eosinophils (%) (Auto) 6.0 % Basophils (%) (Auto) 0.3 % Neutrophils # (Auto) 4.06 K/uL (1.4-6.5) Lymphocytes # (Auto) 1.89 K/uL (1.2-3.4) Monocytes # (Auto) 0.66 K/uL (0.11-0.59) Eosinophils # (Auto) 0.43 K/uL (0-0.5) Basophils # (Auto) 0.02 K/uL (0-0.2) RDW Standard Deviation 49.1 fL (36.4-46.3) RDW Coefficient of Variation 14.9 % (11.5-14.5) Immature Granulocyte % (Auto) 0.7 % Immature Granulocyte # (Auto) 0.05 K/uL (0.00-0.02) Red Blood Cell Morphology Unremarkable Anion Gap 10.0 mmol/L (3-11) Est Creatinine Clear Calc Drug Dose 15.0 ml/min Estimated GFR () 7.3 Estimated GFR (Non- 6.3 BUN/Creatinine Ratio 10.3 (10-20) Calcium Level 7.2 mg/dl (8.5-10.1) Phosphorus Level 8.5 mg/dl (2.5-4.9) Magnesium Level 1.8 mg/dl (1.8-2.4) Iron Level 110 mcg/dl (35-150) Total Iron Binding Capacity 147 mcg/dl (250-450) Transferrin 118 mg/dl (200-360) Transferrin % Saturation 67 % (15-50) Ferritin 452.1 ng/ml (8.0-388.0) Allergies Coded Allergies: Iodinated Diagnostic Agents (Verified Allergy, Severe, ANAPHYLAXIS, ) Perflutren (Verified Allergy, Severe, RASH, DIFFICULTY BREATHING, ANAPHALYSIS, 02/06/17) Surgical Lubricant (Verified Allergy, Mild, rash, 02/06/17) Adhesives (Verified Allergy, Unknown, RASH, 02/06/17) Propylene Glycol (Verified Allergy, Unknown, RASH, 02/06/17) Medications Current Inpatient Medications Medications (Trade) Dose Ordered Sig/Rica Route Start Time Stop Time Status Last Admin Dose Admin Ondansetron HCl (Zofran Inj) 4 mg Q6H PRN IV 02/07/17 02:00 03/09/17 01:59 02/10/17 04:28 4 MG Alprazolam (Xanax Tab) 1 mg Q6H PRN PO 02/07/17 02:00 03/09/17 01:59 Aspirin (Ecotrin Tab) 81 mg DAILY PO 02/07/17 09:00 03/09/17 08:59 02/12/17 08:27 81 MG Atorvastatin Calcium (Lipitor Tab) 80 mg QAM PO 02/07/17 09:00 03/09/17 08:59 02/12/17 08:27 80 MG Budesonide/ Formoterol Fumarate (Symbicort 160/ 4.5 Inh) 2 puffs BID INH 02/07/17 09:00 03/09/17 08:59 02/12/17 08:27 2 PUFFS Citalopram Hydrobromide (celeXA TAB) 40 mg QAM PO 02/07/17 09:00 03/09/17 08:59 02/12/17 08:27 40 MG Fentanyl (Duragesic Patch) 25 mcg Q72H TD 02/07/17 09:00 02/21/17 08:59 02/10/17 08:24 25 MCG Hydroxyzine HCl (Vistaril Tab) 25 mg Q6H PRN PO 02/07/17 02:00 03/09/17 01:59 02/11/17 08:40 25 MG Metoprolol Succinate (Toprol Xl Tab) 50 mg QAM PO 02/07/17 09:00 03/09/17 08:59 02/11/17 08:41 50 MG Oxycodone HCl (Roxicodone Immediate Rel Tab) 10 mg Q6H PRN PO 02/07/17 02:00 02/21/17 01:59 02/12/17 08:36 10 MG Tiotropium [place] (Spiriva Handihaler Inhaler) 1 puff QAM INH 02/07/17 09:00 03/09/17 08:59 02/12/17 09:13 1 PUFF Trazodone HCl (Desyrel Tab) 50 mg HS PO 02/07/17 21:00 03/09/17 20:59 02/11/17 21:10 50 MG Zolpidem Tartrate (Ambien Tab) 10 mg HS PO 02/07/17 21:00 03/09/17 20:59 02/11/17 21:13 10 MG Albuterol/ Ipratropium (Duoneb) 3 ml QIDR INH 02/07/17 08:00 03/09/17 07:59 02/12/17 07:02 3 ML Miscellaneous (Fentanyl Patch Remove & Waste) 1 ea Q3D@0859 N/A 02/07/17 08:59 03/09/17 08:58 02/10/17 08:23 1 EA Miscellaneous Information (Check Fentanyl Patch Placement) 1 ea QS N/A 02/07/17 08:00 03/09/17 07:59 02/12/17 08:27 1 EA Acetaminophen (Tylenol Tab) 650 mg Q4H PRN PO 02/07/17 05:00 03/09/17 04:59 02/07/17 23:59 650 MG Ondansetron HCl (Zofran Inj) 4 mg ONE PRN IV 02/07/17 15:00 Heparin Sodium (Porcine) (Heparin 10 Unit/ ml 5 ml Flush) 5 ml PRN PRN FLUSH 02/09/17 00:30 03/11/17 00:29 02/09/17 22:41 5 ML Miscellaneous Information 1 ea UD PRN N/A 02/11/17 14:30 02/21/17 14:29 Cefazolin Sodium 1000 mg/Dextrose 55 ml @ 110 mls/hr DAILY@1600 IV 02/12/17 16:00 02/25/17 15:59 Impression (1) End-stage renal disease on hemodialysis (2) Hypertension (3) Dialysis catheter clot or failure (4) Staphylococcus aureus bacteremia Mrs. Beth is a 56 year old female with ESRD. She presented with MSSA bacteremia from an infected TDC. Follow up cultures are pending. TTE negative for vegetations. She is currently being treated IV cefazolin. Maty's overall prognosis remains guarded. She will need to follow up with oncology to discuss prognosis and overall plan of care. At this time, she has requested to restart dialysis as a palliative therapy which can only safely provide benefit if she is compliant with follow up for treatments. She tolerated yesterday's dialysis well but was very somnolent which is likely related to many of the medications she is taking. Maty understands that placement of a new PermCath carries inherent risks including potential infection. She has had multiple catheters in the past and risks and potential benefits of catheter placement may favor medical management moving forward in the future. Recommendations ESRD: -- Volume status & electrolyte balance are currently acceptable. No acute indication for HD this morning -- I have spoken w/ Vascular Surgery. They are tentatively planning new IJ THC tomorrow and removal of R femoral temporary catheter pending results of 2nd set of blood cultures -- Potassium restrict diet -- Monitor metabolic profile daily -- Continue discussion regarding goals of care Anemia: -- Iron saturation 67% w/ ferritin 400. Hold IV iron at this time -- Will provide TYRELL w/ dialysis treatments MSSA bacteremia and TDC infection: -- IJ THC removed 02/07/17 -- 02/10/17 ID note reviewed this morning -- Continue cefazolin for now -- Follow up blood culture pending Metastatic renal cell carcinoma: -- Recommend consultation w/ Oncology to define treatment options and prognosis
--- NOTE | 2017-02-12 10:54 | Progress Note ---
Progress Note Date of Service Feb 12, 2017. Progress Note 56 yo f with multiple medical problems, including ESRD on HD, seen today for permcath replacement. Infected permcath removed last week by general surgery, tip cx nad blood cx positive for staph. New cx drawn, no results yet. VSS stable. Tentatively planning on permcath insertion tomorrow in OR. Discussed procedure with pt, she is resistant and belligerent d/t previous experiences and recent infection, but she is agreeable. Procedure, risks, benefits and alternatives discussed with pt, she expresses understanding and agreement.
[2017-02-12] MEDS: hydrOXYzine HCL 25 MG TAB PO PRN (12:14)
--- NOTE | 2017-02-12 14:50 | Hospitalist Progress Note ---
Hospitalist Progress Note Date of Service Feb 12, 2017. Subjective Pt evaluation today including: conversation w/ patient Pt denies neck pain. Says she is going to have the perm cath placed tomorrow but is adamant about getting sedation. She also states she has not had any treatment recently for her metastatic RCC and is interested in seeing an Oncologist here to see if there are any treatment regimens for her. All Other Systems: Reviewed and Negative Objective Vital Signs Date Time Temp Pulse Resp B/P (MAP) Pulse Ox O2 Delivery O2 Flow Rate FiO2 02/12/17 12:00 Nasal Cannula 2.0 02/12/17 11:51 36.5 75 19 107/55 (72) 97 Nasal Cannula 2.0 02/12/17 11:05 68 16 97 Nasal Cannula 2.0 02/12/17 08:11 36.8 82 19 93/53 (66) 98 Nasal Cannula 2.0 02/12/17 08:00 95 Nasal Cannula 2.0 02/12/17 07:03 89 16 95 Nasal Cannula 2.0 02/12/17 04:03 93 Room Air 02/12/17 04:02 36.6 80 18 100/60 (73) 96 Nasal Cannula 2.0 02/12/17 01:53 93 Room Air 02/11/17 23:39 36.4 63 20 112/56 (74) 98 Nasal Cannula 2.0 02/11/17 21:16 93 Room Air 02/11/17 19:45 78 16 96 Nasal Cannula 2.0 02/11/17 19:22 36.6 69 18 102/70 (81) 97 Nasal Cannula 2.0 Humidified Oxygen 02/11/17 16:00 93 Room Air 02/11/17 15:52 36.7 81 18 106/54 (71) 93 Nasal Cannula 2.0 Humidified Oxygen 02/11/17 15:15 60 16 96 Nasal Cannula 2.0 Physical Exam General Appearance: no apparent distress (with very flat affect), + obese ( morbidly) Eyes: normal inspection, sclerae normal ENT: hearing grossly normal Neck: trachea midline Respiratory/Chest: lungs clear, normal breath sounds, no respiratory distress, no accessory muscle use Cardiovascular: regular rate, rhythm, no edema, no gallop, no murmur Abdomen: normal bowel sounds, non tender, soft (and morbidly obese) Extremities: + pertinent finding (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 with small scab and 0.5cm clear fluid-filled blister over previous incisional scar) Neurologic/Psychiatric: alert, + depressed affect Skin: normal color, warm/dry, no rash Laboratory Results Last 24 Hours Test 02/12/17 05:04 White Blood Count 7.11 K/uL Red Blood Count 2.89 M/uL Hemoglobin 8.4 g/dL Hematocrit 25.8 % Mean Corpuscular Volume 89.3 fL Mean Corpuscular Hemoglobin 29.1 pg Mean Corpuscular Hemoglobin Concent 32.6 g/dl Platelet Count 206 K/uL Mean Platelet Volume 9.5 fL Neutrophils (%) (Auto) 57.1 % Lymphocytes (%) (Auto) 26.6 % Monocytes (%) (Auto) 9.3 % Eosinophils (%) (Auto) 6.0 % Basophils (%) (Auto) 0.3 % Neutrophils # (Auto) 4.06 K/uL Lymphocytes # (Auto) 1.89 K/uL Monocytes # (Auto) 0.66 K/uL Eosinophils # (Auto) 0.43 K/uL Basophils # (Auto) 0.02 K/uL RDW Standard Deviation 49.1 fL RDW Coefficient of Variation 14.9 % Immature Granulocyte % (Auto) 0.7 % Immature Granulocyte # (Auto) 0.05 K/uL Red Blood Cell Morphology Unremarkable Sodium Level 136 mmol/L Potassium Level 4.9 mmol/L Chloride Level 102 mmol/L Carbon Dioxide Level 24 mmol/L Anion Gap 10.0 mmol/L Blood Urea Nitrogen 70 mg/dl Creatinine 6.80 mg/dl Est Creatinine Clear Calc Drug Dose 15.0 ml/min Estimated GFR () 7.3 Estimated GFR (Non- 6.3 BUN/Creatinine Ratio 10.3 Random Glucose 100 mg/dl Calcium Level 7.2 mg/dl Phosphorus Level 8.5 mg/dl Magnesium Level 1.8 mg/dl Iron Level 110 mcg/dl Total Iron Binding Capacity 147 mcg/dl Transferrin 118 mg/dl Transferrin % Saturation 67 % Ferritin 452.1 ng/ml Assessment and Plan 56 year old female with metastatic renal cell carcinoma who presents to the ER on advice of her dialysis unit due to a non functioning tunneled catheter placed on 01/23/[address] Maguire. Non occlusive clot shown on imaging, evidence of line infection with positive blood cultures the next morning Sepsis, MSSA bacteremia secondary to infected tunneled HD catheter - blood cultures with MSSA, ID recommends Cefazolin, will need 2 weeks total called pharmacy to renally dose the Cefazolin - both blood cultures and tip of catheter growing gram positive cocci - MSSA - no evidence of vegetations on echo - line holiday x 3 days, HD catheter (temporary) placed on 02/10, will need pulled once tunneled cath placed on 02/13 -called Anesthesia to request to talk to her today about possible sedation for her treatment UTI-growing E. coli pansensitive -Cefazolin will cover for this as well End stage renal disease on HD - labs ok today, no HD needed - HD on 02/10, tolerated well, plan for HD tomorrow per nephrology after perm cath placed - K is normal, Phos elevated, BUN now in the 50's with dialysis -Appreciate Nephro consult -Nephro recommended dc NaHCO3 started on admission as HCO3 normalized with HD Chronic anemia: Hb down to 7.2 02/09,received 2 units of PRBC on 02/09. Fe studies with high serum Fe and high transferrin sat 67% - Hb 8.4 today -Nephro managing but hold off on Epo at this time Nonocclusive thrombus in intravascular catheter within right IJ vein - initially given IV heparin, line pulled on 02/07, heparin stopped, no further treatment needed with anticoagulation Elevated troponin - at baseline secondary to end stage renal disease, no need to repeat HTN: BPs actually on low side continue home metoprolol with hold parameters CHF: continue home meds, no current exacerbation COPD: continue inhalers, add duonebs to help with coughing, no current exacerbation Depression: appreciate psychiatry consult, continue Celexa and no active +SI or need for inpt Psych stay 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 States she was on po chemo at some point but has not taken any treatment, has distrust in previous Oncologist and now not following with Oncology? She is interested in seeking consultation here with [facility] -place Oncology consultation to see if any treatment options for her Code - DNR/DNI as per patient wishes Disposition: plan for HD tomorrow, and placement of new tunneled HD catheter plan for 2 weeks of IV antibiotics, ID recommends Cefazolin CM will need to help arrange for antibiotics once she is ready for discharge patient from home
--- NOTE | 2017-02-12 15:31 | Anesthesiology Progress Note ---
Anesthesia Progress Note Date of Service Feb 12, 2017. Progress Notes This is a 56 y/o w female presenting for a permacath placement.PMHx is significant for morbid obesity,COPD/Asthma,sleep apnea on home oxygen,HTN,CHF, CAD,s/p [place] late 1979's early ,no stent,,Hx/o Afib,dyslipidemia,Hx/o PE, chronic anemia,S/P CVA 1 year ago w/mild left sided weakness,s/p right nephrectomy for renal cell cancer,ESRD on H/D,and XENA of anter. MV leaflet.Discussed anesthesia w/pt.,risks vs benefits ,all questions answered.Informed consent obtained. ASA 4
[2017-02-12] MEDS: CEFAZOLIN IV 1,000 MG in DEXTROSE 5% 50ML 50 ML IV SCH (16:08)
--- NOTE | 2017-02-12 18:37 | Infectious Disease Progress Nt ---
Progress Note Date of Service Feb 12, 2017. Subjective Pt evaluation today including: conversation w/ patient, physical exam, chart review, lab review, review of studies, conversation w/ senior business consultant, review of inpatient medication list Patient awaiting new catheter placement tomorrow for dialysis. Remains afebrile. Follow-up cultures of blood are no growth thus far, final results are pending. No other new complaints. All Other Systems: Reviewed and Negative Medications Current Inpatient Medications Medications (Trade) Dose Ordered Sig/Rica Route Start Time Stop Time Status Last Admin Dose Admin Ondansetron HCl (Zofran Inj) 4 mg Q6H PRN IV 02/07/17 02:00 03/09/17 01:59 02/10/17 04:28 4 MG Alprazolam (Xanax Tab) 1 mg Q6H PRN PO 02/07/17 02:00 03/09/17 01:59 Aspirin (Ecotrin Tab) 81 mg DAILY PO 02/07/17 09:00 03/09/17 08:59 02/12/17 08:27 81 MG Atorvastatin Calcium (Lipitor Tab) 80 mg QAM PO 02/07/17 09:00 03/09/17 08:59 02/12/17 08:27 80 MG Budesonide/ Formoterol Fumarate (Symbicort 160/ 4.5 Inh) 2 puffs BID INH 02/07/17 09:00 03/09/17 08:59 02/12/17 08:27 2 PUFFS Citalopram Hydrobromide (celeXA TAB) 40 mg QAM PO 02/07/17 09:00 03/09/17 08:59 02/12/17 08:27 40 MG Fentanyl (Duragesic Patch) 25 mcg Q72H TD 02/07/17 09:00 02/21/17 08:59 02/10/17 08:24 25 MCG Hydroxyzine HCl (Vistaril Tab) 25 mg Q6H PRN PO 02/07/17 02:00 03/09/17 01:59 02/12/17 12:14 25 MG Metoprolol Succinate (Toprol Xl Tab) 50 mg QAM PO 02/07/17 09:00 03/09/17 08:59 02/11/17 08:41 50 MG Oxycodone HCl (Roxicodone Immediate Rel Tab) 10 mg Q6H PRN PO 02/07/17 02:00 02/21/17 01:59 02/12/17 16:16 10 MG Tiotropium [place] (Spiriva Handihaler Inhaler) 1 puff QAM INH 02/07/17 09:00 03/09/17 08:59 02/12/17 09:13 1 PUFF Trazodone HCl (Desyrel Tab) 50 mg HS PO 02/07/17 21:00 03/09/17 20:59 02/11/17 21:10 50 MG Zolpidem Tartrate (Ambien Tab) 10 mg HS PO 02/07/17 21:00 03/09/17 20:59 02/11/17 21:13 10 MG Albuterol/ Ipratropium (Duoneb) 3 ml QIDR INH 02/07/17 08:00 03/09/17 07:59 02/12/17 15:10 3 ML Miscellaneous (Fentanyl Patch Remove & Waste) 1 ea Q3D@0859 N/A 02/07/17 08:59 03/09/17 08:58 02/10/17 08:23 1 EA Miscellaneous Information (Check Fentanyl Patch Placement) 1 ea QS N/A 02/07/17 08:00 03/09/17 07:59 02/12/17 16:08 1 EA Acetaminophen (Tylenol Tab) 650 mg Q4H PRN PO 02/07/17 05:00 03/09/17 04:59 02/07/17 23:59 650 MG Ondansetron HCl (Zofran Inj) 4 mg ONE PRN IV 02/07/17 15:00 Heparin Sodium (Porcine) (Heparin 10 Unit/ ml 5 ml Flush) 5 ml PRN PRN FLUSH 02/09/17 00:30 03/11/17 00:29 02/09/17 22:41 5 ML Miscellaneous Information 1 ea UD PRN N/A 02/11/17 14:30 02/21/17 14:29 Cefazolin Sodium 1000 mg/Dextrose 55 ml @ 110 mls/hr DAILY@1600 IV 02/12/17 16:00 02/25/17 15:59 02/12/17 16:08 110 MLS/HR Objective Vital Signs Date Time Temp Pulse Resp B/P (MAP) Pulse Ox O2 Delivery O2 Flow Rate FiO2 02/12/17 16:00 Nasal Cannula 2.0 02/12/17 15:25 36.8 71 24 102/44 (63) 96 Nasal Cannula 2.0 02/12/17 15:11 67 16 97 Nasal Cannula 2.0 02/12/17 12:00 Nasal Cannula 2.0 02/12/17 11:51 36.5 75 19 107/55 (72) 97 Nasal Cannula 2.0 02/12/17 11:05 68 16 97 Nasal Cannula 2.0 02/12/17 08:11 36.8 82 19 93/53 (66) 98 Nasal Cannula 2.0 02/12/17 08:00 95 Nasal Cannula 2.0 02/12/17 07:03 89 16 95 Nasal Cannula 2.0 02/12/17 04:03 93 Room Air 02/12/17 04:02 36.6 80 18 100/60 (73) 96 Nasal Cannula 2.0 02/12/17 01:53 93 Room Air 02/11/17 23:39 36.4 63 20 112/56 (74) 98 Nasal Cannula 2.0 02/11/17 21:16 93 Room Air 02/11/17 19:45 78 16 96 Nasal Cannula 2.0 02/11/17 19:22 36.6 69 18 102/70 (81) 97 Nasal Cannula 2.0 Humidified Oxygen Physical Exam General Appearance: WD/WN, no apparent distress, + obese Eyes: normal inspection, EOMI ENT: normal ENT inspection, pharynx normal Neck: supple, no adenopathy, trachea midline Respiratory/Chest: chest non-tender, lungs clear, normal breath sounds, no respiratory distress Cardiovascular: regular rate, rhythm, no gallop, no murmur Abdomen: normal bowel sounds, non tender, soft, no organomegaly Extremities: no calf tenderness, + pertinent finding ( Left below the elbow amputation) Neurologic/Psychiatric: alert, oriented x 3 Skin: normal color, no rash Lymphatic: no adenopathy Laboratory Results Last 24 Hours Test 02/12/17 05:04 White Blood Count 7.11 K/uL Red Blood Count 2.89 M/uL Hemoglobin 8.4 g/dL Hematocrit 25.8 % Mean Corpuscular Volume 89.3 fL Mean Corpuscular Hemoglobin 29.1 pg Mean Corpuscular Hemoglobin Concent 32.6 g/dl Platelet Count 206 K/uL Mean Platelet Volume 9.5 fL Neutrophils (%) (Auto) 57.1 % Lymphocytes (%) (Auto) 26.6 % Monocytes (%) (Auto) 9.3 % Eosinophils (%) (Auto) 6.0 % Basophils (%) (Auto) 0.3 % Neutrophils # (Auto) 4.06 K/uL Lymphocytes # (Auto) 1.89 K/uL Monocytes # (Auto) 0.66 K/uL Eosinophils # (Auto) 0.43 K/uL Basophils # (Auto) 0.02 K/uL RDW Standard Deviation 49.1 fL RDW Coefficient of Variation 14.9 % Immature Granulocyte % (Auto) 0.7 % Immature Granulocyte # (Auto) 0.05 K/uL Red Blood Cell Morphology Unremarkable Sodium Level 136 mmol/L Potassium Level 4.9 mmol/L Chloride Level 102 mmol/L Carbon Dioxide Level 24 mmol/L Anion Gap 10.0 mmol/L Blood Urea Nitrogen 70 mg/dl Creatinine 6.80 mg/dl Est Creatinine Clear Calc Drug Dose 15.0 ml/min Estimated GFR () 7.3 Estimated GFR (Non- 6.3 BUN/Creatinine Ratio 10.3 Random Glucose 100 mg/dl Calcium Level 7.2 mg/dl Phosphorus Level 8.5 mg/dl Magnesium Level 1.8 mg/dl Iron Level 110 mcg/dl Total Iron Binding Capacity 147 mcg/dl Transferrin 118 mg/dl Transferrin % Saturation 67 % Ferritin 452.1 ng/ml Assessment and Plan methicillin sensitive Staph aureus infection of dialysis catheter now status post removal. Complicated picture given underlying metastatic renal cell carcinoma, catheter placement planned for tomorrow. Patient to continue on IV antibiotics, likely 2 week course of therapy. Will follow.
[2017-02-12] MEDS: TRAZODONE HCL 50 MG TAB PO SCH (20:42)
[2017-02-12] MEDS: ZOLPIDEM TARTRATE 10 MG TAB PO SCH (20:42)
[2017-02-13] VITALS (27 sets, daily range): BP systolic 80–133; BP diastolic 47–65; PULSE 68–77; TEMP 36.8–37.4; O2SAT 95–98
[2017-02-13 04:38] LABS: HEMATOCRIT 25.7 % (37-47); MEAN CELL VOLUME 89.2 fL (80-100); MEAN CORPUSCULAR HEMOGLOBIN 28.8 pg (25-34); MEAN CORPUSCULAR HGB CONC 32.3 g/dl (32-36); MEAN PLATELET VOLUME 8.6 fL (7.4-10.4); PLATELET COUNT 238 K/uL (130-400); RED BLOOD COUNT 2.88 M/uL (4.2-5.4); WHITE BLOOD COUNT 10.17 K/uL (4.8-10.8)
[2017-02-13 05:19] LABS: BUN/CREATININE RATIO 10.3 (10-20); CALCIUM 7.2 mg/dl (8.5-10.1); CREATININE 7.8 mg/dl (0.60-1.20); POTASSIUM 5.3 mmol/L (3.5-5.1)
[2017-02-13] MEDS ORDERED: CEFAZOLIN 1000MG/55 ML D5W 55 ML IV SCH (06:00)
[2017-02-13] MEDS: ALBUT/IPRATROP 3MG/0.5MG NEB 3 ML VIAL INH SCH ×4 (06:59→20:09)
[2017-02-13] MEDS: CHECK FENTANYL PATCH PLACEMENT SCH ×2 (07:42→16:00)
--- NOTE | 2017-02-13 08:17 | Progress Note ---
Progress Note Date of Service Feb 13, 2017. Progress Note Patient for permcath insertion today. I have discussed the risks options and benefits of the procedure with the patient. The patient understands the risks options and benefits and agrees to the procedure. I have examined the patient, reviewed the History & Physical and in the interval since the performance of the History & Physical I have noted the following changes of clinical significance: No changes noted
[2017-02-13] MEDS: ATORVASTATIN 40 MG TAB PO SCH (09:00)
[2017-02-13] MEDS: ASPIRIN 81 MG ECTAB PO SCH (09:00)
[2017-02-13] MEDS: METOPROLOL SUCC 50MG EXT REL TAB PO SCH (09:00)
[2017-02-13] MEDS: CITALOPRAM 40 MG TAB PO SCH (09:00)
--- NOTE | 2017-02-13 09:01 | Oncology Consultation ---
Oncology/Heme Consultation Date of Consultation: Feb 13, 2017. Attending Physician: Subhash Lorenzana D.O. Reason for Consultation: Metastatic renal cell carcinoma to discuss treatment options. History of Present Illness Maty is a pleasant however morbidly obese 56-year-old female patient who was admitted to [facility] on 02/06/2017 because of malfunctioning dialysis catheter. At time of admission she complained of right neck and chest pain. Maty has suffered from end-stage renal disease for many years and continues hemodialysis 3 times weekly through the dialysis Center in [place]. She suffers from multiple comorbid issues particularly congestive heart failure , pulmonary embolism, history of clostridium differential serial colitis and metastatic renal cell carcinoma. Radiographic studies including chest x-ray and ultrasound reveal a tunneled right IJ dialysis catheter that terminates proximal to the expected location. Replacement or repositioning is recommended. Multiple consultants are currently on board with Maty's care and are working to improve her dialysis catheter situation to resume hemodialysis as necessary. I have been asked to see the patient regarding the diagnosis of metastatic renal cell carcinoma. Maty was previously under the care of Dr. Shaji Kohler medical oncologist at [facility]. She was originally diagnosed with renal cell carcinoma back in June 2016 when she had undergone right nephrectomy. At the time of diagnosis patient admits there were multiple pulmonary nodules that she claims were biopsied prior to nephrectomy confirming metastatic renal cell carcinoma. She states recommended treatment was "a chemotherapy pill" which she started a proximally 6 months ago and continued up until her most recent admission. Maty readily admits to suffering side effects including nausea and vomiting and fatigue however states she had been compliant up until admission. The patient also claims she has metastatic disease involving her liver pancreas and left kidney. Maty states her last radiographic study at [facility] took place about 8 months ago. She was last seen by Dr. Cespedes she estimates 3-4 months ago. The patient is requesting guidance on appropriate therapy for metastatic renal cell carcinoma. Past Medical/Surgical History Medical Problems: (1) Acute renal failure on dialysis Status: Acute (2) End stage renal disease Status: Acute (3) Fever Status: Acute (4) Hypomagnesemia Status: Acute (5) Renal failure Status: Acute Family History None stated Mother at age 63 suffered from heart disease end-stage renal disease diabetes mellitus and liver problems. Father in his 70s attributable to cirrhosis of the liver Social History Patient is currently unemployed, lives with her , 3 grown children, one pack per day smoker for 40 years, social alcohol, admits to past drug abuse. Smoking Status: Current Every Day Smoker Drug Use: none Marital Status: Housing Status: lives with family Occupation Status: disabled Allergies Coded Allergies: Iodinated Diagnostic Agents (Verified Allergy, Severe, ANAPHYLAXIS, ) Perflutren (Verified Allergy, Severe, RASH, DIFFICULTY BREATHING, ANAPHALYSIS, 02/06/17) Surgical Lubricant (Verified Allergy, Mild, rash, 02/06/17) Adhesives (Verified Allergy, Unknown, RASH, 02/06/17) Propylene Glycol (Verified Allergy, Unknown, RASH, 02/06/17) Home Medications Scheduled Albuterol (Ventolin Hfa), 2 PUFFS INH QID Aspirin (Aspirin Ec), 81 MG PO DAILY Atorvastatin (Lipitor), 80 MG PO QAM Budesonide/Formoterol Fumarate (Symbicort 160-4.5 Mcg/Act), 2 PUFFS INH BID Citalopram (Citalopram Hydrobromide), 40 MG PO QAM Ergocalciferol (Vitamin D 64732 Unit), 1 CAP PO SUNDAY Fentanyl (Duragesic), 25 MCG TD Q72H Metoprolol Succinate (Toprol Xl), 50 MG PO QAM Tiotropium [place] (Spiriva Handihaler), 2 PUFFS INH QAM Trazodone Hcl (Trazodone), 50 MG PO HS Zolpidem Tartrate (Ambien), 10 MG PO HS Scheduled PRN Alprazolam (Xanax), 1 MG PO Q6H PRN for Anxiety Hydroxyzine Hcl (Atarax), 25 MG PO DIRECTED PRN for Itching Ipratropium-Albuterol (Duoneb), 1 TREATMENT INH Q4H PRN for SOB/Wheezing Morphine Sulfate Ir (Morphine Sulfate Ir), 30 MG PO QAM PRN for Pain Ondansetron Hcl (Zofran), 4 MG PO Q4 PRN for Nausea Oxycodone Ir (Roxicodone Ir), 10 MG PO Q6H PRN for Severe Pain Current Inpatient Medications Current Inpatient Medications Medications (Trade) Dose Ordered Sig/Rica Route Start Time Stop Time Status Last Admin Dose Admin Ondansetron HCl (Zofran Inj) 4 mg Q6H PRN IV 02/07/17 02:00 03/09/17 01:59 02/10/17 04:28 4 MG Alprazolam (Xanax Tab) 1 mg Q6H PRN PO 02/07/17 02:00 03/09/17 01:59 Aspirin (Ecotrin Tab) 81 mg DAILY PO 02/07/17 09:00 03/09/17 08:59 02/12/17 08:27 81 MG Atorvastatin Calcium (Lipitor Tab) 80 mg QAM PO 02/07/17 09:00 03/09/17 08:59 02/12/17 08:27 80 MG Budesonide/ Formoterol Fumarate (Symbicort 160/ 4.5 Inh) 2 puffs BID INH 02/07/17 09:00 03/09/17 08:59 02/12/17 20:41 2 PUFFS Citalopram Hydrobromide (celeXA TAB) 40 mg QAM PO 02/07/17 09:00 03/09/17 08:59 02/12/17 08:27 40 MG Fentanyl (Duragesic Patch) 25 mcg Q72H TD 02/07/17 09:00 02/21/17 08:59 02/10/17 08:24 25 MCG Hydroxyzine HCl (Vistaril Tab) 25 mg Q6H PRN PO 02/07/17 02:00 03/09/17 01:59 02/12/17 12:14 25 MG Metoprolol Succinate (Toprol Xl Tab) 50 mg QAM PO 02/07/17 09:00 03/09/17 08:59 02/11/17 08:41 50 MG Oxycodone HCl (Roxicodone Immediate Rel Tab) 10 mg Q6H PRN PO 02/07/17 02:00 02/21/17 01:59 02/12/17 23:24 10 MG Tiotropium [place] (Spiriva Handihaler Inhaler) 1 puff QAM INH 02/07/17 09:00 03/09/17 08:59 02/12/17 09:13 1 PUFF Trazodone HCl (Desyrel Tab) 50 mg HS PO 02/07/17 21:00 03/09/17 20:59 02/12/17 20:42 50 MG Zolpidem Tartrate (Ambien Tab) 10 mg HS PO 02/07/17 21:00 03/09/17 20:59 02/12/17 20:42 10 MG Albuterol/ Ipratropium (Duoneb) 3 ml QIDR INH 02/07/17 08:00 03/09/17 07:59 02/13/17 06:59 3 ML Miscellaneous (Fentanyl Patch Remove & Waste) 1 ea Q3D@0859 N/A 02/07/17 08:59 03/09/17 08:58 02/10/17 08:23 1 EA Miscellaneous Information (Check Fentanyl Patch Placement) 1 ea QS N/A 02/07/17 08:00 03/09/17 07:59 02/13/17 07:42 1 EA Acetaminophen (Tylenol Tab) 650 mg Q4H PRN PO 02/07/17 05:00 03/09/17 04:59 02/07/17 23:59 650 MG Ondansetron HCl (Zofran Inj) 4 mg ONE PRN IV 02/07/17 15:00 Heparin Sodium (Porcine) (Heparin 10 Unit/ ml 5 ml Flush) 5 ml PRN PRN FLUSH 02/09/17 00:30 03/11/17 00:29 02/09/17 22:41 5 ML Miscellaneous Information 1 ea UD PRN N/A 02/11/17 14:30 02/21/17 14:29 Cefazolin Sodium 1000 mg/Dextrose 55 ml @ 110 mls/hr DAILY@1600 IV 02/12/17 16:00 02/25/17 15:59 02/12/17 16:08 110 MLS/HR Cefazolin Sodium 1000 mg/Dextrose 55 ml @ 100 mls/hr PRE-SPECIALS ONCE IV 02/13/17 08:15 02/13/17 08:47 UNV Review of Systems Constitutional: No fever, No chills, No sweats, No weight loss, No weakness, No fatigue, No problem reported Eyes: No worsening of vision, No eye pain, No redness, No discharge, No diplopia, No problem reported ENT: No hearing loss, No unusual epistaxis, No nasal symptoms, No sore throat, No tinnitus, No dental problems, No trouble swallowing, No problem reported Respiratory: No cough, No sputum, No wheezing, No shortness of breath, No dyspnea on exertion, No dyspnea at rest, No hemoptysis, No problem reported Cardiovascular: No chest pain, No orthopnea, No PND, No edema, No claudication , No palpitations, No problem reported Abdomen: No pain, No nausea, No vomiting, No diarrhea, No constipation, No GI bleeding, No problem reported Musculoskeletal: + problem reported (chronic back pain, partial amputation of the left upper extremity as a result of rhabdomyolysis and) Genitourinary - Female: No dysuria, No urinary frequency, No urinary urgency, No urinary incontinence, No urinary retention, No hematuria, No dysmenorrhea, No menorrhagia, No metrorrhagia, No rash, No vaginal bleeding, No vaginal discharge, No vaginal itching, No vulvodynia, No , No problem reported Neurologic: No memory loss, No paralysis, No weakness, No numbness/tingling, No vertigo, No balance problems, No problem reported Hematologic / Lymphatic: No abnormal bleeding/bruising, No clotting problems, No swollen lymph nodes, No night sweats, No problem reported Physical Exam Date Time Temp Pulse Resp B/P (MAP) Pulse Ox O2 Delivery O2 Flow Rate FiO2 02/13/17 07:53 36.8 72 20 131/64 (86) 97 Nasal Cannula 2.0 02/13/17 06:59 73 16 98 Nasal Cannula 2.0 02/13/17 04:00 Room Air 02/13/17 03:58 37.0 73 18 102/53 (69) 95 Nasal Cannula 2.0 Humidified Oxygen 02/12/17 23:59 Room Air 02/12/17 23:25 36.6 70 20 111/54 (73) 98 Nasal Cannula 2.0 Humidified Oxygen 02/12/17 20:09 36.5 68 18 128/61 (83) 94 Nasal Cannula 2.0 02/12/17 20:00 Room Air 02/12/17 19:49 74 16 93 Nasal Cannula 2.0 02/12/17 16:00 Nasal Cannula 2.0 02/12/17 15:25 36.8 71 24 102/44 (63) 96 Nasal Cannula 2.0 02/12/17 15:11 67 16 97 Nasal Cannula 2.0 02/12/17 12:00 Nasal Cannula 2.0 02/12/17 11:51 36.5 75 19 107/55 (72) 97 Nasal Cannula 2.0 02/12/17 11:05 68 16 97 Nasal Cannula 2.0 General Appearance: WD/WN, no apparent distress Head: normocephalic, atraumatic Eyes: normal inspection ENT: normal ENT inspection Neck: supple Respiratory/Chest: chest non-tender, lungs clear, normal breath sounds Cardiovascular: regular rate, rhythm, no edema, no gallop, no JVD Abdomen/GI: normal bowel sounds, non tender, soft, no organomegaly Back: normal inspection Extremities/Musculoskelatal: normal inspection, no calf tenderness, no pedal edema Neurologic/Psych: 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 Skin: normal color, warm/dry, no rash Lymphatic: no adenopathy Laboratory Results Last 24 Hours Test 02/13/17 04:28 White Blood Count 10.17 K/uL Red Blood Count 2.88 M/uL Hemoglobin 8.3 g/dL Hematocrit 25.7 % Mean Corpuscular Volume 89.2 fL Mean Corpuscular Hemoglobin 28.8 pg Mean Corpuscular Hemoglobin Concent 32.3 g/dl RDW Standard Deviation 48.8 fL RDW Coefficient of Variation 14.9 % Platelet Count 238 K/uL Mean Platelet Volume 8.6 fL Sodium Level 133 mmol/L Potassium Level 5.3 mmol/L Chloride Level 100 mmol/L Carbon Dioxide Level 23 mmol/L Anion Gap 10.0 mmol/L Blood Urea Nitrogen 81 mg/dl Creatinine 7.80 mg/dl Est Creatinine Clear Calc Drug Dose 13.0 ml/min Estimated GFR () 6.2 Estimated GFR (Non- 5.3 BUN/Creatinine Ratio 10.3 Random Glucose 103 mg/dl Calcium Level 7.2 mg/dl Assessment & Plan 1. Displaced dialysis catheter 2. Metastatic renal cell carcinoma 3. History of pulmonary embolism. 4. History of Clostridium difficile colitis. I had the pleasure of meeting Maty at bedside today in engaged in a lengthy discussion regarding her current clinical situation and past medical history. She was diagnosed with metastatic renal cell carcinoma in late 2015 at which time states pulmonary metastatic disease was evident and biopsy-proven. She establish care with medical oncology [facility] and was placed on one of the tyrosine kinase inhibitors commonly used for this disease. I've asked her to have one of her relatives bring her medication in for identification. Ideally I would like to have copies of her most recent CAT scans as well as pathologic reports to assist in assessing where she is at in the disease process. Generally speaking metastatic renal cell carcinoma is not curable, however tends to behave relatively indolently. I explained to the patient that no matter what chemotherapeutic agent is utilized side effects are part of treatment and we as medical oncologists strive to minimize these during the course of therapy. Maty also suffers from comorbid issues making treatment of her cancer a challenge. Maty fully understands her disease is not curable and the goal of proceeding with chemotherapy is to control her disease while maintaining life quality. Short-term goals were identified which include medical stability, repositioning or insertion of the dialysis catheter and resuming hemodialysis. We also discussed smoking cessation strategies, as I have recommended she stop smoking. Obviously, in her current clinical state I am not in favor of resuming any form of therapy until she is discharged and follows up as outpatient. She has [facility] and I will be more than happy to take on her case. Multiple questions were asked and answered to patient's satisfaction. I will ensure a follow-up appointment is scheduled on Maty's behalf, and will follow her periodically through her hospital stay. Thank you very much for allowing me to participate in her care.
[2017-02-13] MEDS: OXYCODONE HCL IR 5 MG TAB (IMMEDIATE RELEASE) PO PRN ×2 (09:58→19:16)
[2017-02-13] MEDS: FENTANYL PATCH REMOVE & WASTE SCH (09:58)
[2017-02-13] MEDS: TIOTROPIUM BROMIDE 5 PUFF/90 MCG INH INH SCH (09:59)
[2017-02-13] MEDS: BUDESONIDE/FORMOTEROL FUMARATE 160/4.5 60 PUFFS/INHALER INH SCH ×2 (09:59→20:56)
[2017-02-13] MEDS: FENTANYL 25 MCG/HR TDSY TD SCH (09:59)
[2017-02-13] MEDS ORDERED: MIDAZOLAM HCL 1 MG/ML 2ML VIAL ONE (10:48)
[2017-02-13] MEDS ORDERED: PROPOFOL IV EMULSION 10 MG/ML 20 ML VIAL IV ONE (10:48)
[2017-02-13] MEDS ORDERED: KETAMINE HCL INJ 50 MG/ML 10 ML VIAL ONE (10:49)
[2017-02-13] MEDS ORDERED: FENTANYL CITRATE INJ 50 MCG/1 ML 2 ML VIAL ONE (10:49)
[2017-02-13] MEDS ORDERED: CEFAZOLIN 2000 MG/60 ML D5W 60 ML IV SCH (11:00)
[2017-02-13] MEDS ORDERED: CEFAZOLIN SOD 1000MG/55 ML D5W IV ONE (11:02)
[2017-02-13] MEDS ORDERED: METOPROLOL TARTRATE 1 MG/ML VIAL ONE (11:17)
[2017-02-13] MEDS ORDERED: HEPARIN SOD (PORCINE) 5000 UNIT/ML 1 ML VIAL ONE (11:44)
[2017-02-13] MEDS ORDERED: LIDOCAINE HCL 1% 20 ML VIAL INJ ONE (11:46)
--- NOTE | 2017-02-13 11:49 | Nephrology Progress Note ---
Nephrology Progress Note Date of Service Feb 13, 2017. Chief Complaint PCN sensitive staph aureus HD catheter in this patient w/ ESRD Subjective Patient was seen & examined in the PCU this morning. She voiced no medical concerns. She expressed frustration that her IJ THC was not on the schedule until 11 am. Review of Systems Constitutional: No fever Cardiovascular: No chest pain Respiratory: No dyspnea at rest Abdomen: No pain, No nausea, No vomiting Extremities: No leg edema A complete review of systems was performed. Pertinent positives are noted above. All other systems are negative. Vital Signs Last 8 Hrs Date Time Temp Pulse Resp B/P (MAP) Pulse Ox O2 Delivery O2 Flow Rate FiO2 02/13/17 08:00 Nasal Cannula 2.0 02/13/17 07:53 36.8 72 20 131/64 (86) 97 Nasal Cannula 2.0 02/13/17 06:59 73 16 98 Nasal Cannula 2.0 02/13/17 04:00 Room Air 02/13/17 03:58 37.0 73 18 102/53 (69) 95 Nasal Cannula 2.0 Humidified Oxygen Last Recorded Weight Weight (Kilograms): 157.000 Physical Exam General Appearance: no apparent distress Head: normocephalic, atraumatic Eyes: PERRL, EOMI Neck: no adenopathy Respiratory/Chest: lungs clear Cardiovascular: regular rate, rhythm Abdomen/GI: normal bowel sounds, non tender, soft Extremities/Musculoskelatal: no calf tenderness, no pedal edema Neurologic/Psych: alert, oriented x 3 Family History None stated Social History Drug Use: none Marital Status: Housing Status: lives with family Occupation: disabled Laboratory Results Past 24 Hours 02/13/17 04:28 02/13/17 04:28 Test 02/13/17 04:28 Red Blood Count 2.88 M/uL (4.2-5.4) Mean Corpuscular Volume 89.2 fL (80-100) Mean Corpuscular Hemoglobin 28.8 pg (25-34) Mean Corpuscular Hemoglobin Concent 32.3 g/dl (32-36) RDW Standard Deviation 48.8 fL (36.4-46.3) RDW Coefficient of Variation 14.9 % (11.5-14.5) Mean Platelet Volume 8.6 fL (7.4-10.4) Anion Gap 10.0 mmol/L (3-11) Est Creatinine Clear Calc Drug Dose 13.0 ml/min Estimated GFR () 6.2 Estimated GFR (Non- 5.3 BUN/Creatinine Ratio 10.3 (10-20) Calcium Level 7.2 mg/dl (8.5-10.1) Allergies Coded Allergies: Iodinated Diagnostic Agents (Verified Allergy, Severe, ANAPHYLAXIS, ) Perflutren (Verified Allergy, Severe, RASH, DIFFICULTY BREATHING, ANAPHALYSIS, 02/06/17) Surgical Lubricant (Verified Allergy, Mild, rash, 02/06/17) Adhesives (Verified Allergy, Unknown, RASH, 02/06/17) Propylene Glycol (Verified Allergy, Unknown, RASH, 02/06/17) Medications Current Inpatient Medications Medications (Trade) Dose Ordered Sig/Rica Route Start Time Stop Time Status Last Admin Dose Admin Ondansetron HCl (Zofran Inj) 4 mg Q6H PRN IV 02/07/17 02:00 03/09/17 01:59 02/10/17 04:28 4 MG Alprazolam (Xanax Tab) 1 mg Q6H PRN PO 02/07/17 02:00 03/09/17 01:59 Aspirin (Ecotrin Tab) 81 mg DAILY PO 02/07/17 09:00 03/09/17 08:59 02/12/17 08:27 81 MG Atorvastatin Calcium (Lipitor Tab) 80 mg QAM PO 02/07/17 09:00 03/09/17 08:59 02/12/17 08:27 80 MG Budesonide/ Formoterol Fumarate (Symbicort 160/ 4.5 Inh) 2 puffs BID INH 02/07/17 09:00 03/09/17 08:59 02/13/17 09:59 2 PUFFS Citalopram Hydrobromide (celeXA TAB) 40 mg QAM PO 02/07/17 09:00 03/09/17 08:59 02/12/17 08:27 40 MG Fentanyl (Duragesic Patch) 25 mcg Q72H TD 02/07/17 09:00 02/21/17 08:59 02/13/17 09:59 25 MCG Hydroxyzine HCl (Vistaril Tab) 25 mg Q6H PRN PO 02/07/17 02:00 03/09/17 01:59 02/12/17 12:14 25 MG Metoprolol Succinate (Toprol Xl Tab) 50 mg QAM PO 02/07/17 09:00 03/09/17 08:59 02/11/17 08:41 50 MG Oxycodone HCl (Roxicodone Immediate Rel Tab) 10 mg Q6H PRN PO 02/07/17 02:00 02/21/17 01:59 02/13/17 09:58 10 MG Tiotropium [place] (Spiriva Handihaler Inhaler) 1 puff QAM INH 02/07/17 09:00 03/09/17 08:59 02/13/17 09:59 1 PUFF Trazodone HCl (Desyrel Tab) 50 mg HS PO 02/07/17 21:00 03/09/17 20:59 02/12/17 20:42 50 MG Zolpidem Tartrate (Ambien Tab) 10 mg HS PO 02/07/17 21:00 03/09/17 20:59 02/12/17 20:42 10 MG Albuterol/ Ipratropium (Duoneb) 3 ml QIDR INH 02/07/17 08:00 03/09/17 07:59 02/13/17 06:59 3 ML Miscellaneous (Fentanyl Patch Remove & Waste) 1 ea Q3D@0859 N/A 02/07/17 08:59 03/09/17 08:58 02/13/17 09:58 1 EA Miscellaneous Information (Check Fentanyl Patch Placement) 1 ea QS N/A 02/07/17 08:00 03/09/17 07:59 02/13/17 07:42 1 EA Acetaminophen (Tylenol Tab) 650 mg Q4H PRN PO 02/07/17 05:00 03/09/17 04:59 02/07/17 23:59 650 MG Ondansetron HCl (Zofran Inj) 4 mg ONE PRN IV 02/07/17 15:00 Heparin Sodium (Porcine) (Heparin 10 Unit/ ml 5 ml Flush) 5 ml PRN PRN FLUSH 02/09/17 00:30 03/11/17 00:29 02/09/17 22:41 5 ML Miscellaneous Information 1 ea UD PRN N/A 02/11/17 14:30 8/9/17 14:29 Cefazolin Sodium 1000 mg/Dextrose 55 ml @ 110 mls/hr DAILY@1600 IV 02/12/17 16:00 02/25/17 15:59 Future hold 02/12/17 16:08 110 MLS/HR Cefazolin Sodium 60 ml @ 100 mls/hr PRE-SPECIALS@1100 IV 02/13/17 11:00 02/13/17 18:00 Impression (1) End-stage renal disease on hemodialysis (2) Hypertension (3) Dialysis catheter clot or failure (4) Staphylococcus aureus bacteremia Mrs. Beth is a 56 year old female with ESRD. She presented with MSSA bacteremia from an infected TDC. Follow up cultures are negative. TTE negative for vegetations. She is currently being treated IV cefazolin. Maty's overall prognosis remains guarded. She will need to follow up with oncology to discuss prognosis and overall plan of care. At this time, she has requested to restart dialysis as a palliative therapy which can only safely provide benefit if she is compliant with follow up for treatments. She tolerated yesterday's dialysis well but was very somnolent which is likely related to many of the medications she is taking. Maty understands that placement of a new PermCath carries inherent risks including potential infection. She has had multiple catheters in the past and risks and potential benefits of catheter placement may favor medical management moving forward in the future. Recommendations ESRD: -- Patient to have IJ THC placed and temporary femoral HD catheter removed by Vascular Surgery this morning. -- HD today via IJ THC to ensure that it is functioning properly. Orders have been entered into EMR and HD RN notified -- Potassium restrict diet -- Monitor metabolic profile daily -- If discharge is anticipated please notify the [facility] HD unit at [phone] Anemia: -- Iron saturation 67% w/ ferritin 400. Hold IV iron at this time -- Will provide TYRELL w/ dialysis treatments MSSA bacteremia and TDC infection: -- IJ THC removed 02/07/17 -- 02/10/17 ID note reviewed this morning -- Continue cefazolin for now -- Follow up blood culture is negative Metastatic renal cell carcinoma: -- 02/13/17 Oncology note reviewed. Prognosis is guarded. Patient will follow up as outpatient w/ Dr. Stevens
[2017-02-13] MEDS ORDERED: HEPARIN SOD (PORCINE) 5000 UNIT/ML 1 ML VIAL IV ONE (12:04)
--- NOTE | 2017-02-13 12:06 | [facility] Operative Report ---
Operative Report Operative Date Feb 13, 2017. Pre-Operative Diagnosis Infected Dialysis Catheter right int jugular, End stage renal disease Post-Operative Diagnosis Same Procedure(s) Performed Insertion of left internal jugular vein permcath, 23cm USN localization of left internal jugular vein Fluoro for positioning Removal temporary femoral Dialysis Catheter Surgeon Andrez Continuous Mining Machine Lode Miner Surgeon(s) none Estimated Blood Loss 5 Findings tip in distal SVC Specimens none Anesthesia MAC Complication(s) None Disposition Recovery Room / PACU Indications This patient's a 56-year-old white female who had a PermCath removed from her right internal jugular vein secondary to sepsis. She is now brought back to the [facility] for an insertion of a new PermCath. She is also to have the left femoral temporary dialysis catheter removed. She understood the risks options and benefits and agrees to go ahead with this procedure. Description of Procedure Patient was takent to the angio suite and placed in the supine position. The left side of the neck and chest wall were prepped and draped in a sterile manner. Local anesthesia was then administered to the appropriate areas of the neck and chest wall. Ultrasound was then used to locate the left internal jugular vein. The vein compressed easily, had no filing defects, and was patent. The vein was then punctured under direct ultrasound imaging. A guidewire was then passed centrally under fluoroscopic imaging. A stab wound was then made in the anterior chest wall and a 23cm permcath was passed from the stab wound on the chest wall to the puncture site on the neck. The puncture site was then dilated till the 14Fr peel away sheath was inserted. The permcath was then inserted through the sheath to a central position in the distal superior vena cava. The peel away sheath was then removed. The catheter was then sutured in place using nylon sutures. The puncture was then closed using a 4-0 Vicryl subcuticular suture. Dermabond was used for a dressing on the puncture site. Both ports aspirated and flushed easily and were then packed with heparin. A sterile dressing was applied to the catheter. The patient left the angio suite in good condition and tolerated the procedure well. I attest to the content of the Intraoperative Record and any orders documented therein. Any exceptions are noted below.
[2017-02-13] MEDS ORDERED: EPOETIN ALFA 10,000 UNITS/ML VIAL IV. SCH (12:30)
[2017-02-13] MEDS ORDERED: ATROPINE SULFATE 0.1 MG/ML 5ML SYR IV PRN (12:30)
[2017-02-13] MEDS ORDERED: EpHEDrine SULFATE INJ 50 MG/ML AMP IV PRN (12:30)
[2017-02-13] MEDS: FENTANYL CITRATE INJ 50 MCG/1 ML 2 ML VIAL IV PRN ×4 (12:42→13:01)
--- NOTE | 2017-02-13 13:32 | Anesthesiology Progress Note ---
Anesthesia Post Op Note Date & Time Feb 13, 2017 at 13:32 Vital Signs Pain Intensity: 8 Vital Signs Past 12 Hours Date Time Temp Pulse Resp B/P (MAP) Pulse Ox O2 Delivery O2 Flow Rate FiO2 02/13/17 13:16 102/67 02/13/17 13:13 70 18 96 02/13/17 13:13 72 15 94 02/13/17 13:12 73 16 117/74 02/13/17 13:12 16 02/13/17 13:11 37.0 02/13/17 13:06 122/61 02/13/17 13:02 72 15 97 02/13/17 13:02 72 19 97 02/13/17 13:01 111/82 02/13/17 13:00 125/54 02/13/17 12:57 71 16 96/51 92 02/13/17 12:57 69 16 02/13/17 12:52 70 23 96 02/13/17 12:52 73 23 02/13/17 12:51 117/71 02/13/17 12:49 70 13 98 02/13/17 12:49 72 16 96 02/13/17 12:46 108/67 02/13/17 12:45 114/56 02/13/17 12:39 73 17 97 02/13/17 12:39 71 17 02/13/17 12:38 71 16 98 02/13/17 12:38 71 16 02/13/17 12:36 73 15 121/75 98 02/13/17 12:36 71 15 02/13/17 12:31 115/61 02/13/17 12:28 121/65 02/13/17 12:26 72 17 97 02/13/17 12:26 71 23 96 02/13/17 12:21 71 18 111/79 98 02/13/17 12:21 72 18 02/13/17 12:17 103/74 02/13/17 12:16 37.0 70 16 103/74 96 Nasal Cannula 2 02/13/17 08:00 Nasal Cannula 2.0 02/13/17 07:53 36.8 72 20 131/64 (86) 97 Nasal Cannula 2.0 02/13/17 06:59 73 16 98 Nasal Cannula 2.0 02/13/17 04:00 Room Air 8/1/17 03:58 37.0 73 18 102/53 (69) 95 Nasal Cannula 2.0 Humidified Oxygen Notes Mental Status: alert / awake / arousable, participated in evaluation Pt Amnestic to Procedure: Yes Nausea / Vomiting: adequately controlled Pain: adequately controlled Airway Patency, RR, SpO2: stable & adequate BP & HR: stable & adequate Hydration State: stable & adequate Anesthetic Complications: no major complications apparent
--- NOTE | 2017-02-13 15:08 | Infectious Disease Progress Nt ---
Progress Note Date of Service Feb 13, 2017. Subjective Pt evaluation today including: conversation w/ patient, physical exam, chart review, lab review, review of studies, conversation w/ health care consultant, review of inpatient medication list Patient now status post replacement of dialysis catheter. Remains afebrile. No new complaints.Follow-up blood cultures no growth to date. All Other Systems: Reviewed and Negative Medications Current Inpatient Medications Medications (Trade) Dose Ordered Sig/Rica Route Start Time Stop Time Status Last Admin Dose Admin Ondansetron HCl (Zofran Inj) 4 mg Q6H PRN IV 02/07/17 02:00 03/09/17 01:59 02/10/17 04:28 4 MG Alprazolam (Xanax Tab) 1 mg Q6H PRN PO 02/07/17 02:00 03/09/17 01:59 Aspirin (Ecotrin Tab) 81 mg DAILY PO 02/07/17 09:00 03/09/17 08:59 02/12/17 08:27 81 MG Atorvastatin Calcium (Lipitor Tab) 80 mg QAM PO 02/07/17 09:00 03/09/17 08:59 02/12/17 08:27 80 MG Budesonide/ Formoterol Fumarate (Symbicort 160/ 4.5 Inh) 2 puffs BID INH 02/07/17 09:00 03/09/17 08:59 02/13/17 09:59 2 PUFFS Citalopram Hydrobromide (celeXA TAB) 40 mg QAM PO 02/07/17 09:00 03/09/17 08:59 02/12/17 08:27 40 MG Fentanyl (Duragesic Patch) 25 mcg Q72H TD 02/07/17 09:00 02/21/17 08:59 02/13/17 09:59 25 MCG Hydroxyzine HCl (Vistaril Tab) 25 mg Q6H PRN PO 02/07/17 02:00 03/09/17 01:59 02/12/17 12:14 25 MG Metoprolol Succinate (Toprol Xl Tab) 50 mg QAM PO 02/07/17 09:00 03/09/17 08:59 02/11/17 08:41 50 MG Oxycodone HCl (Roxicodone Immediate Rel Tab) 10 mg Q6H PRN PO 02/07/17 02:00 02/21/17 01:59 02/13/17 09:58 10 MG Tiotropium [place] (Spiriva Handihaler Inhaler) 1 puff QAM INH 02/07/17 09:00 03/09/17 08:59 02/13/17 09:59 1 PUFF Trazodone HCl (Desyrel Tab) 50 mg HS PO 02/07/17 21:00 03/09/17 20:59 02/12/17 20:42 50 MG Zolpidem Tartrate (Ambien Tab) 10 mg HS PO 02/07/17 21:00 03/09/17 20:59 02/12/17 20:42 10 MG Albuterol/ Ipratropium (Duoneb) 3 ml QIDR INH 02/07/17 08:00 03/09/17 07:59 02/13/17 06:59 3 ML Miscellaneous (Fentanyl Patch Remove & Waste) 1 ea Q3D@0859 N/A 02/07/17 08:59 03/09/17 08:58 02/13/17 09:58 1 EA Miscellaneous Information (Check Fentanyl Patch Placement) 1 ea QS N/A 02/07/17 08:00 03/09/17 07:59 02/13/17 07:42 1 EA Acetaminophen (Tylenol Tab) 650 mg Q4H PRN PO 02/07/17 05:00 03/09/17 04:59 02/07/17 23:59 650 MG Ondansetron HCl (Zofran Inj) 4 mg ONE PRN IV 02/07/17 15:00 Heparin Sodium (Porcine) (Heparin 10 Unit/ ml 5 ml Flush) 5 ml PRN PRN FLUSH 02/09/17 00:30 03/11/17 00:29 02/09/17 22:41 5 ML Miscellaneous Information 1 ea UD PRN N/A 02/11/17 14:30 02/21/17 14:29 Cefazolin Sodium 1000 mg/Dextrose 55 ml @ 110 mls/hr DAILY@1600 IV 02/12/17 16:00 02/25/17 15:59 Future hold 02/12/17 16:08 110 MLS/HR Epoetin Jose (Procrit Inj) 10,000 units TODAY@1230 IV. 02/13/17 12:30 02/13/17 23:59 Oxycodone/ Acetaminophen (Percocet 5-325mg Tab) FOR MODERATE PAIN ... Q4H PRN PO 02/13/17 11:30 02/27/17 11:29 Fentanyl Citrate (Fentanyl Inj) 25 mcg Q5M PRN IV 02/13/17 12:30 02/13/17 17:30 02/13/17 13:01 25 MCG Ephedrine Sulfate (EpHEDrine SULFATE INJ) 5 mg Q5M PRN IV 02/13/17 12:30 02/13/17 17:30 Atropine Sulfate (Atropine Sulfate 0.1MG/Ml Inj) 0.5 mg Q1M PRN IV 02/13/17 12:30 02/13/17 17:30 Objective Vital Signs Date Time Temp Pulse Resp B/P (MAP) Pulse Ox O2 Delivery O2 Flow Rate FiO2 02/13/17 13:16 102/67 02/13/17 13:13 70 18 96 02/13/17 13:13 72 15 94 02/13/17 13:12 73 16 117/74 02/13/17 13:12 16 02/13/17 13:11 37.0 02/13/17 13:06 122/61 02/13/17 13:02 72 15 97 02/13/17 13:02 72 19 97 02/13/17 13:01 111/82 02/13/17 13:00 125/54 02/13/17 12:57 71 16 96/51 92 02/13/17 12:57 69 16 02/13/17 12:52 70 23 96 02/13/17 12:52 73 23 02/13/17 12:51 117/71 02/13/17 12:49 70 13 98 02/13/17 12:49 72 16 96 02/13/17 12:46 108/67 02/13/17 12:45 114/56 02/13/17 12:39 73 17 97 02/13/17 12:39 71 17 02/13/17 12:38 71 16 98 02/13/17 12:38 71 16 02/13/17 12:36 73 15 121/75 98 02/13/17 12:36 71 15 02/13/17 12:31 115/61 02/13/17 12:28 121/65 02/13/17 12:26 72 17 97 02/13/17 12:26 71 23 96 02/13/17 12:21 71 18 111/79 98 02/13/17 12:21 72 18 02/13/17 12:17 103/74 02/13/17 12:16 37.0 70 16 103/74 96 Nasal Cannula 2 02/13/17 08:00 Nasal Cannula 2.0 02/13/17 07:53 36.8 72 20 131/64 (86) 97 Nasal Cannula 2.0 02/13/17 06:59 73 16 98 Nasal Cannula 2.0 02/13/17 04:00 Room Air 02/13/17 03:58 37.0 73 18 102/53 (69) 95 Nasal Cannula 2.0 Humidified Oxygen 02/12/17 23:59 Room Air 02/12/17 23:25 36.6 70 20 111/54 (73) 98 Nasal Cannula 2.0 Humidified Oxygen 02/12/17 20:09 36.5 68 18 128/61 (83) 94 Nasal Cannula 2.0 02/12/17 20:00 Room Air 02/12/17 19:49 74 16 93 Nasal Cannula 2.0 02/12/17 16:00 Nasal Cannula 2.0 02/12/17 15:25 36.8 71 24 102/44 (63) 96 Nasal Cannula 2.0 02/12/17 15:11 67 16 97 Nasal Cannula 2.0 Physical Exam General Appearance: WD/WN, no apparent distress Eyes: normal inspection, sclerae normal ENT: normal ENT inspection, pharynx normal Neck: supple, no adenopathy, trachea midline Respiratory/Chest: chest non-tender, lungs clear, normal breath sounds, no respiratory distress Cardiovascular: regular rate, rhythm, no gallop, no murmur Abdomen: normal bowel sounds, non tender, soft, no organomegaly Extremities: non-tender, no calf tenderness Neurologic/Psychiatric: alert, oriented x 3 Skin: normal color Lymphatic: no adenopathy Laboratory Results RUN DATE: 02/13/17 [facility] LAB PAGE 1 RUN TIME: 1113 Specimen Inquiry PATIENT: DELBERT ROWE LOC: Luis U # : [id number] AGE/SX: 56/F ROOM: [facility] REG : 02/07/[address]: Subhash Loernzana D.O. : 1960 BED: 1 DIS : STATUS: ADM IN TLOC: SPEC #: [id number] JULITA: 02/09/17-1026 STATUS: RES REQ #: [id number] RECD: 02/09/17-104 [facility] [address]: Lm Laureano D.O. SOURCE: BLOOD ENTR: 02/09/17-1004 [facility] DR: Gurpreet Tovar M.D. [facility]: Cl Victoria M.D., Melissa C., MD Ramondelli, Salvatore, M.D. Simoni, Eugene J., M.D. Thaker, Upendra., M.D. Thomas, Peter W., D.O. Thebaud, Gregor D.O. ORDERED: BLOOD CULTURE COMMENTS: Drawn from CVAD per protocol. 10 cc discard. Procedure Result Verified Site BLD CULT Preliminary 02/13/17-1113 NO GROWTH TO DATE. Last 24 Hours Test 02/13/17 04:28 White Blood Count 10.17 K/uL Red Blood Count 2.88 M/uL Hemoglobin 8.3 g/dL Hematocrit 25.7 % Mean Corpuscular Volume 89.2 fL Mean Corpuscular Hemoglobin 28.8 pg Mean Corpuscular Hemoglobin Concent 32.3 g/dl RDW Standard Deviation 48.8 fL RDW Coefficient of Variation 14.9 % Platelet Count 238 K/uL Mean Platelet Volume 8.6 fL Sodium Level 133 mmol/L Potassium Level 5.3 mmol/L Chloride Level 100 mmol/L Carbon Dioxide Level 23 mmol/L Anion Gap 10.0 mmol/L Blood Urea Nitrogen 81 mg/dl Creatinine 7.80 mg/dl Est Creatinine Clear Calc Drug Dose 13.0 ml/min Estimated GFR () 6.2 Estimated GFR (Non- 5.3 BUN/Creatinine Ratio 10.3 Random Glucose 103 mg/dl Calcium Level 7.2 mg/dl Assessment and Plan methicillin sensitive Staph aureus infection of dialysis catheter now status post removal. Complicated picture given underlying metastatic renal cell carcinoma, catheter placement planned for tomorrow. Patient to continue on IV antibiotics, likely 2 week course of therapy. Will follow.
[2017-02-13] MEDS: OXYCODONE/ACETAMINOPHEN 5-325 TAB PO PRN (16:54)
[2017-02-13] MEDS ORDERED: MoRPHine SULFATE 2 MG/ML CARP IV STA (20:48)
[2017-02-13] MEDS: ZOLPIDEM TARTRATE 10 MG TAB PO SCH (20:56)
[2017-02-13] MEDS: CEFAZOLIN IV 1,000 MG in DEXTROSE 5% 50ML 50 ML IV SCH (20:56)
[2017-02-13] MEDS: TRAZODONE HCL 50 MG TAB PO SCH (21:00)
--- NOTE | 2017-02-13 22:46 | Hospitalist Progress Note ---
Hospitalist Progress Note Date of Service Feb 13, 2017. Subjective Pt evaluation today including: conversation w/ patient Pt seen at dialysis today after she received her new left TIJ Permcath. She has c/o left sided neck pain but is very drowsy. HD RN states pt received percocet for pain but was drowsy when she arrived from anesthesia as well. Pt denies any other complaints. Afebrile. All Other Systems: Reviewed and Negative Objective Vital Signs Date Time Temp Pulse Resp B/P (MAP) Pulse Ox O2 Delivery O2 Flow Rate FiO2 02/13/17 19:47 37.1 73 20 94/52 (66) 96 Nasal Cannula 2.0 02/13/17 19:25 74 16 96 Nasal Cannula 2.0 02/13/17 18:47 37.1 75 116/65 (82) 02/13/17 18:30 75 116/65 02/13/17 18:15 72 87/52 02/13/17 18:00 76 106/47 02/13/17 17:45 68 83/50 02/13/17 17:30 72 92/61 02/13/17 17:15 70 117/52 02/13/17 17:00 70 133/65 02/13/17 16:45 73 110/65 02/13/17 16:30 68 86/57 02/13/17 16:15 68 100/50 02/13/17 16:00 68 88/58 02/13/17 15:45 70 113/51 02/13/17 15:30 70 85/50 02/13/17 15:15 70 93/60 02/13/17 15:00 68 100/57 02/13/17 14:50 68 99/53 02/13/17 14:45 71 80/54 02/13/17 14:35 68 109/56 02/13/17 14:24 69 121/53 02/13/17 14:13 37.0 70 109/57 (74) 02/13/17 13:16 102/67 02/13/17 13:13 70 18 96 02/13/17 13:13 72 15 94 02/13/17 13:12 73 16 117/74 02/13/17 13:12 16 02/13/17 13:11 37.0 02/13/17 13:06 122/61 02/13/17 13:02 72 15 97 02/13/17 13:02 72 19 97 02/13/17 13:01 111/82 02/13/17 13:00 125/54 02/13/17 12:57 71 16 96/51 92 02/13/17 12:57 69 16 02/13/17 12:52 70 23 96 02/13/17 12:52 73 23 02/13/17 12:51 117/71 02/13/17 12:49 70 13 98 02/13/17 12:49 72 16 96 02/13/17 12:46 108/67 02/13/17 12:45 114/56 02/13/17 12:39 73 17 97 02/13/17 12:39 71 17 02/13/17 12:38 71 16 98 02/13/17 12:38 71 16 02/13/17 12:36 73 15 121/75 98 02/13/17 12:36 71 15 02/13/17 12:31 115/61 02/13/17 12:28 121/65 02/13/17 12:26 72 17 97 02/13/17 12:26 71 23 96 02/13/17 12:21 71 18 111/79 98 02/13/17 12:21 72 18 02/13/17 12:17 103/74 02/13/17 12:16 37.0 70 16 103/74 96 Nasal Cannula 2 02/13/17 08:00 Nasal Cannula 2.0 02/13/17 07:53 36.8 72 20 131/64 (86) 97 Nasal Cannula 2.0 02/13/17 06:59 73 16 98 Nasal Cannula 2.0 02/13/17 04:00 Room Air 02/13/17 03:58 37.0 73 18 102/53 (69) 95 Nasal Cannula 2.0 Humidified Oxygen 02/12/17 23:59 Room Air 02/12/17 23:25 36.6 70 20 111/54 (73) 98 Nasal Cannula 2.0 Humidified Oxygen Physical Exam General Appearance: no apparent distress, + obese Eyes: normal inspection, sclerae normal Neck: trachea midline Respiratory/Chest: lungs clear, normal breath sounds, no respiratory distress, no accessory muscle use Cardiovascular: regular rate, rhythm, no edema, no gallop, no murmur Abdomen: normal bowel sounds, non tender, soft Extremities: non-tender, normal inspection, no pedal edema, no calf tenderness Neurologic/Psychiatric: + pertinent finding (drowsy and briefly wakes up for questioning, then falls asleep) Skin: normal color, warm/dry, no rash, + pertinent finding (Left anterior chest with Permcath in place) Laboratory Results Last 24 Hours Test 02/13/17 04:28 White Blood Count 10.17 K/uL Red Blood Count 2.88 M/uL Hemoglobin 8.3 g/dL Hematocrit 25.7 % Mean Corpuscular Volume 89.2 fL Mean Corpuscular Hemoglobin 28.8 pg Mean Corpuscular Hemoglobin Concent 32.3 g/dl RDW Standard Deviation 48.8 fL RDW Coefficient of Variation 14.9 % Platelet Count 238 K/uL Mean Platelet Volume 8.6 fL Sodium Level 133 mmol/L Potassium Level 5.3 mmol/L Chloride Level 100 mmol/L Carbon Dioxide Level 23 mmol/L Anion Gap 10.0 mmol/L Blood Urea Nitrogen 81 mg/dl Creatinine 7.80 mg/dl Est Creatinine Clear Calc Drug Dose 13.0 ml/min Estimated GFR () 6.2 Estimated GFR (Non- 5.3 BUN/Creatinine Ratio 10.3 Random Glucose 103 mg/dl Calcium Level 7.2 mg/dl Assessment and Plan 56 year old female with metastatic renal cell carcinoma who presents to the ER on advice of her dialysis unit due to a non functioning tunneled catheter placed on 01/23/[address] Maguire. Non occlusive clot shown on imaging, evidence of line infection with positive blood and catheter tip cultures. Sepsis, MSSA bacteremia secondary to infected tunneled HD catheter - blood cultures with MSSA, ID recommends Cefazolin, will need 2 weeks total called pharmacy to renally dose the Cefazolin - both blood cultures and tip of catheter growing gram positive cocci - MSSA - no evidence of vegetations on echo - line holiday x 3 days, HD catheter (temporary) placed on 02/10, then pulled once tunneled cath placed on 02/13 -ID following -will likely need PICC line placed for continued IV abx for discharge--> will order tomorrow UTI-growing E. coli pansensitive -Cefazolin will cover for this as well End stage renal disease on HD - - HD on 02/13 -Appreciate Nephro consult -continue outpt HD upon discharge Chronic anemia: Hb down to 7.2 02/09,received 2 units of PRBC on 02/09. Fe studies with high serum Fe and high transferrin sat 67% - Hb 8.3 today and stable -Nephro managing but hold off on Epo at this time Nonocclusive thrombus in intravascular catheter within right IJ vein - initially given IV heparin, line pulled on 02/07, heparin stopped, no further treatment needed with anticoagulation Elevated troponin - at baseline secondary to end stage renal disease, no need to repeat HTN: BPs actually on low side continue home metoprolol with hold parameters Chronic diastolic CHF: no current exacerbation -fluid status managed with HD COPD: continue inhalers, add duonebs to help with coughing, no current exacerbation Depression: appreciate psychiatry consult, continue Celexa and no active +SI or need for inpt Psych stay 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 States she was on po chemo at some point but has not taken any treatment, has distrust in previous Oncologist and now not following with Oncology? She is interested in seeking consultation here with [facility] -Oncology consultation to see if any treatment options for her--> Dr. Stevens saw her and plans on seeing her in follow up after discharge, will obtain her old records including pathology and old CT scans Code - DNR/DNI as per patient wishes Disposition: plan for 2 weeks of IV antibiotics, ID recommends Cefazolin, needs PICC line CM will need to help arrange for antibiotics once she is ready for discharge patient from home PT/OT sancho
[2017-02-14] VITALS (7 sets, daily range): BP systolic 91–132; BP diastolic 57–63; PULSE 64–83; TEMP 36.3–37.3; O2SAT 92–98
[2017-02-14] MEDS: OXYCODONE/ACETAMINOPHEN 5-325 TAB PO PRN ×4 (00:34→18:13)
[2017-02-14] MEDS ORDERED: CEFAZOLIN 2000 MG/60 ML D5W 60 ML IV SCH (06:00)
[2017-02-14 06:53] LABS: HEMATOCRIT 26.9 % (37-47); MEAN CELL VOLUME 90.3 fL (80-100); MEAN CORPUSCULAR HEMOGLOBIN 29.2 pg (25-34); MEAN CORPUSCULAR HGB CONC 32.3 g/dl (32-36); MEAN PLATELET VOLUME 8.9 fL (7.4-10.4); PLATELET COUNT 289 K/uL (130-400); RED BLOOD COUNT 2.98 M/uL (4.2-5.4); WHITE BLOOD COUNT 10.55 K/uL (4.8-10.8)
[2017-02-14] MEDS: ALBUT/IPRATROP 3MG/0.5MG NEB 3 ML VIAL INH SCH ×5 (07:01→19:44)
[2017-02-14 07:35] LABS: BUN/CREATININE RATIO 8.3 (10-20); CALCIUM 7.5 mg/dl (8.5-10.1); POTASSIUM 4.7 mmol/L (3.5-5.1)
[2017-02-14] MEDS: CHECK FENTANYL PATCH PLACEMENT SCH ×3 (07:45→15:32)
[2017-02-14] MEDS: TIOTROPIUM BROMIDE 5 PUFF/90 MCG INH INH SCH (07:46)
[2017-02-14] MEDS: CITALOPRAM 40 MG TAB PO SCH (07:46)
[2017-02-14] MEDS: ASPIRIN 81 MG ECTAB PO SCH (07:46)
[2017-02-14] MEDS: METOPROLOL SUCC 50MG EXT REL TAB PO SCH (07:46)
[2017-02-14] MEDS: ATORVASTATIN 40 MG TAB PO SCH (07:46)
[2017-02-14] MEDS: BUDESONIDE/FORMOTEROL FUMARATE 160/4.5 60 PUFFS/INHALER INH SCH ×2 (07:46→20:52)
[2017-02-14] MEDS ORDERED: FENTANYL PATCH REMOVE & WASTE SCH (08:59)
[2017-02-14] MEDS ORDERED: FENTANYL 25 MCG/HR TDSY TD SCH (09:00)
--- NOTE | 2017-02-14 10:42 | Nephrology Progress Note ---
Nephrology Progress Note Date of Service Feb 14, 2017. Chief Complaint PCN sensitive staph aureus HD catheter in this patient w/ ESRD Subjective Mrs. Beth was seen & examined in the ICU this morning. She currently denies fever, angina or dyspnea. She underwent L IJ THC placement yesterday and then dialyzed for 4 hours w/ 2300 cc UF. Catheter functioned well. There were no complications. Mrs. Beth voices no new medical concerns at this time. Review of Systems Constitutional: No fever Cardiovascular: No chest pain Respiratory: No dyspnea at rest Abdomen: No pain, No nausea, No vomiting Extremities: No leg edema A complete review of systems was performed. Pertinent positives are noted above. All other systems are negative. Vital Signs Last 8 Hrs Date Time Temp Pulse Resp B/P (MAP) Pulse Ox O2 Delivery O2 Flow Rate FiO2 02/14/17 07:38 37.3 83 20 115/60 (78) 95 Nasal Cannula 2.0 02/14/17 07:02 74 16 95 Nasal Cannula 2.0 02/14/17 04:00 Nasal Cannula 2.0 02/14/17 03:50 37.2 71 16 94/62 (73) 93 Nasal Cannula 2.0 Humidified Oxygen Last Recorded Weight Weight (Kilograms): 159.800 Physical Exam General Appearance: no apparent distress, + obese Head: normocephalic, atraumatic Eyes: PERRL, EOMI Neck: no adenopathy Respiratory/Chest: lungs clear Cardiovascular: regular rate, rhythm Abdomen/GI: non tender, soft Extremities/Musculoskelatal: + pertinent finding (s/p L forearm amputation) Neurologic/Psych: alert, oriented x 3 Family History None stated Social History Drug Use: none Marital Status: Housing Status: lives with family Occupation: disabled Laboratory Results Past 24 Hours 02/14/17 06:18 02/14/17 06:18 Test 02/14/17 06:18 Red Blood Count 2.98 M/uL (4.2-5.4) Mean Corpuscular Volume 90.3 fL (80-100) Mean Corpuscular Hemoglobin 29.2 pg (25-34) Mean Corpuscular Hemoglobin Concent 32.3 g/dl (32-36) RDW Standard Deviation 49.5 fL (36.4-46.3) RDW Coefficient of Variation 15.1 % (11.5-14.5) Mean Platelet Volume 8.9 fL (7.4-10.4) Anion Gap 8.0 mmol/L (3-11) Est Creatinine Clear Calc Drug Dose 17.1 ml/min Estimated GFR () 8.5 Estimated GFR (Non- 7.3 BUN/Creatinine Ratio 8.3 (10-20) Calcium Level 7.5 mg/dl (8.5-10.1) Allergies Coded Allergies: Iodinated Diagnostic Agents (Verified Allergy, Severe, ANAPHYLAXIS, ) Perflutren (Verified Allergy, Severe, RASH, DIFFICULTY BREATHING, ANAPHALYSIS, 02/06/17) Surgical Lubricant (Verified Allergy, Mild, rash, 02/06/17) Adhesives (Verified Allergy, Unknown, RASH, 02/06/17) Propylene Glycol (Verified Allergy, Unknown, RASH, 02/06/17) Medications Current Inpatient Medications Medications (Trade) Dose Ordered Sig/Rica Route Start Time Stop Time Status Last Admin Dose Admin Ondansetron HCl (Zofran Inj) 4 mg Q6H PRN IV 02/07/17 02:00 03/09/17 01:59 02/10/17 04:28 4 MG Alprazolam (Xanax Tab) 1 mg Q6H PRN PO 02/07/17 02:00 03/09/17 01:59 Aspirin (Ecotrin Tab) 81 mg DAILY PO 02/07/17 09:00 03/09/17 08:59 02/14/17 07:46 81 MG Atorvastatin Calcium (Lipitor Tab) 80 mg QAM PO 02/07/17 09:00 03/09/17 08:59 02/14/17 07:46 80 MG Budesonide/ Formoterol Fumarate (Symbicort 160/ 4.5 Inh) 2 puffs BID INH 02/07/17 09:00 03/09/17 08:59 02/14/17 07:46 2 PUFFS Citalopram Hydrobromide (celeXA TAB) 40 mg QAM PO 02/07/17 09:00 03/09/17 08:59 02/14/17 07:46 40 MG Hydroxyzine HCl (Vistaril Tab) 25 mg Q6H PRN PO 02/07/17 02:00 03/09/17 01:59 02/12/17 12:14 25 MG Metoprolol Succinate (Toprol Xl Tab) 50 mg QAM PO 02/07/17 09:00 03/09/17 08:59 02/14/17 07:46 50 MG Oxycodone HCl (Roxicodone Immediate Rel Tab) 10 mg Q6H PRN PO 02/07/17 02:00 02/21/17 01:59 02/13/17 19:16 10 MG Tiotropium [place] (Spiriva Handihaler Inhaler) 1 puff QAM INH 02/07/17 09:00 03/09/17 08:59 02/14/17 07:46 1 PUFF Trazodone HCl (Desyrel Tab) 50 mg HS PO 02/07/17 21:00 03/09/17 20:59 02/12/17 20:42 50 MG Zolpidem Tartrate (Ambien Tab) 10 mg HS PO 02/07/17 21:00 03/09/17 20:59 02/13/17 20:56 10 MG Albuterol/ Ipratropium (Duoneb) 3 ml QIDR INH 02/07/17 08:00 03/09/17 07:59 02/14/17 07:01 3 ML Acetaminophen (Tylenol Tab) 650 mg Q4H PRN PO 02/07/17 05:00 03/09/17 04:59 02/07/17 23:59 650 MG Ondansetron HCl (Zofran Inj) 4 mg ONE PRN IV 02/07/17 15:00 Heparin Sodium (Porcine) (Heparin 10 Unit/ ml 5 ml Flush) 5 ml PRN PRN FLUSH 02/09/17 00:30 03/11/17 00:29 02/09/17 22:41 5 ML Miscellaneous Information 1 ea UD PRN N/A 02/11/17 14:30 02/21/17 14:29 Cefazolin Sodium 1000 mg/Dextrose 55 ml @ 110 mls/hr DAILY@1600 IV 02/12/17 16:00 02/25/17 15:59 Future hold 02/13/17 20:56 110 MLS/HR Oxycodone/ Acetaminophen (Percocet 5-325mg Tab) FOR MODERATE PAIN ... Q4H PRN PO 02/13/17 11:30 02/27/17 11:29 02/14/17 07:47 2 TAB Fentanyl (Duragesic Patch) 25 mcg Q72H TD 02/14/17 09:00 02/21/17 08:59 02/14/17 09:03 25 MCG Miscellaneous (Fentanyl Patch Remove & Waste) 1 ea Q3D@0859 N/A 02/14/17 08:59 03/16/17 08:58 02/14/17 09:02 1 EA Miscellaneous Information (Check Fentanyl Patch Placement) 1 ea QS N/A 02/14/17 16:00 03/16/17 15:59 Impression (1) End-stage renal disease on hemodialysis (2) Hypertension (3) Dialysis catheter clot or failure (4) Staphylococcus aureus bacteremia Mrs. Beth is a 56 year old female with ESRD. She presented with MSSA bacteremia from an infected TDC. Follow up cultures are negative. TTE negative for vegetations. She is currently being treated IV cefazolin. Maty's overall prognosis remains guarded. She will need to follow up with oncology to discuss prognosis and overall plan of care. At this time, she has requested to restart dialysis as a palliative therapy which can only safely provide benefit if she is compliant with follow up for treatments. She tolerated yesterday's dialysis well but was very somnolent which is likely related to many of the medications she is taking. Maty understands that placement of a new PermCath carries inherent risks including potential infection. She has had multiple catheters in the past and risks and potential benefits of catheter placement may favor medical management moving forward in the future. Recommendations ESRD: -- Volume status and electrolyte balance remain acceptable at this time. No acute indication for HD this morning -- Monitor metabolic profile daily -- If discharge is anticipated please notify the [facility] HD unit at [phone] to resume outpatient TTS dialysis Anemia: -- Iron saturation 67% w/ ferritin 400. Hold IV iron at this time -- Will provide TYRELL w/ dialysis treatments MSSA bacteremia and TDC infection: -- IJ THC removed 02/07/17 -- Initial blood cultures were positive for PCN sensitive Staph Aureus -- Patient had been treated w/ IV Cefazolin and removal of IJ THC -- Follow up blood culture 02/09/17 was negative -- Await further ID recommendations on oral vs. IV antibiotics and length of therapy Metastatic renal cell carcinoma: -- 02/13/17 Oncology note reviewed. Prognosis is guarded. Patient will follow up as outpatient w/ Dr. Stevens
[2017-02-14] MEDS: hydrOXYzine HCL 25 MG TAB PO PRN ×2 (12:16→20:52)
[2017-02-14] MEDS ORDERED: CEFA1INJ3 IV (12:52)
[2017-02-14] MEDS ORDERED: VANC1INJ9 IV (15:05)
[2017-02-14] MEDS ORDERED: ACET-1047 PO (15:05)
--- NOTE | 2017-02-14 15:16 | Discharge Instructions ---
Discharge Instructions Date of Service Feb 14, 2017. Admission Reason for Admission: Dialysis Catheter Clot with Failure Discharge Discharge Diagnosis / Problem: MSSA Bacteremia, Line infection Discharge Goals Goal(s): Improve disease control, Diagnostic testing, Therapeutic intervention Activity Recommendations Activity Limitations: resume your previous activity Shower/Bathe: keep incision dry . Instructions / Follow-Up Instructions / Follow-Up You were admitted with a malfunctioning right sided Permcath and were found to have a clot at the end with associated infection causing bacteria in your bloodstream. You will need to finish out a total of 2 weeks of antibiotics. The antibiotic will be given to you with dialysis. It is VERY important that you attend dialysis on all days scheduled. You had a new Permcath placed on the left for dialysis. You should be contacted with your follow up with Dr. Rd Stevens [facility] for an appointment for follow up on your kidney cancer. Please also follow up with your PCP as scheduled for you tomorrow. Current Hospital Diet Patient's current hospital diet: AHA Diet (Heart Healthy), Renal Diet, Low Sodium Diet (2gm Na) Discharge Diet Recommended Diet: AHA Diet (Heart Healthy), Low Sodium Diet (2gm Na), Renal Diet Procedures Procedures Performed: Insertion of left internal jugular vein permcath, 23cm USN localization of left internal jugular vein Fluoro for positioning Removal temporary femoral Dialysis Catheter Pending Studies Studies pending at discharge: no Laboratory Results Last 24 Hours Test 02/14/17 06:18 White Blood Count 10.55 K/uL Red Blood Count 2.98 M/uL Hemoglobin 8.7 g/dL Hematocrit 26.9 % Mean Corpuscular Volume 90.3 fL Mean Corpuscular Hemoglobin 29.2 pg Mean Corpuscular Hemoglobin Concent 32.3 g/dl RDW Standard Deviation 49.5 fL RDW Coefficient of Variation 15.1 % Platelet Count 289 K/uL Mean Platelet Volume 8.9 fL Sodium Level 136 mmol/L Potassium Level 4.7 mmol/L Chloride Level 104 mmol/L Carbon Dioxide Level 24 mmol/L Anion Gap 8.0 mmol/L Blood Urea Nitrogen 50 mg/dl Creatinine 6.00 mg/dl Est Creatinine Clear Calc Drug Dose 17.1 ml/min Estimated GFR () 8.5 Estimated GFR (Non- 7.3 BUN/Creatinine Ratio 8.3 Random Glucose 94 mg/dl Calcium Level 7.5 mg/dl Medical Emergencies . Who to Call and When: Medical Emergencies: If at any time you feel your situation is an emergency, please call 911 immediately. . Non-Emergent Contact Non-Emergency issues call your: Primary Care Provider, Technical Operations Vice President Call Non-Emergent contact if: you have a fever, your pain is not controlled, your pain is worsening, your pain is unusual for you, your pain is concerning you, wound has increased drainage, wound has increased redness, wound has increased pain, you have any medication questions . . "Provider Documentation" section prepared by Avis Benson. . VTE Core Measure Inpt VTE Proph given/why not?: Contraindicated (due to removal and insertion of central venous catheters, risk of bleeding)
[2017-02-14] MEDS: CEFAZOLIN IV 1,000 MG in DEXTROSE 5% 50ML 50 ML IV SCH (15:31)
--- NOTE | 2017-02-14 16:02 | Infectious Disease Progress Nt ---
Progress Note Date of Service Feb 14, 2017. Subjective Pt evaluation today including: conversation w/ patient, physical exam, chart review, lab review, review of studies, conversation w/ events solutions consultant, review of inpatient medication list Patient offering no new complaints today. Remains afebrile. Repeat blood cultures remain negative. All Other Systems: Reviewed and Negative Medications Current Inpatient Medications Medications (Trade) Dose Ordered Sig/Rica Route Start Time Stop Time Status Last Admin Dose Admin Ondansetron HCl (Zofran Inj) 4 mg Q6H PRN IV 02/07/17 02:00 03/09/17 01:59 02/10/17 04:28 4 MG Alprazolam (Xanax Tab) 1 mg Q6H PRN PO 02/07/17 02:00 03/09/17 01:59 Aspirin (Ecotrin Tab) 81 mg DAILY PO 02/07/17 09:00 03/09/17 08:59 02/14/17 07:46 81 MG Atorvastatin Calcium (Lipitor Tab) 80 mg QAM PO 02/07/17 09:00 03/09/17 08:59 02/14/17 07:46 80 MG Budesonide/ Formoterol Fumarate (Symbicort 160/ 4.5 Inh) 2 puffs BID INH 02/07/17 09:00 03/09/17 08:59 02/14/17 07:46 2 PUFFS Citalopram Hydrobromide (celeXA TAB) 40 mg QAM PO 02/07/17 09:00 03/09/17 08:59 02/14/17 07:46 40 MG Hydroxyzine HCl (Vistaril Tab) 25 mg Q6H PRN PO 02/07/17 02:00 03/09/17 01:59 02/14/17 12:16 25 MG Metoprolol Succinate (Toprol Xl Tab) 50 mg QAM PO 02/07/17 09:00 03/09/17 08:59 02/14/17 07:46 50 MG Oxycodone HCl (Roxicodone Immediate Rel Tab) 10 mg Q6H PRN PO 02/07/17 02:00 02/21/17 01:59 02/13/17 19:16 10 MG Tiotropium [place] (Spiriva Handihaler Inhaler) 1 puff QAM INH 02/07/17 09:00 03/09/17 08:59 02/14/17 07:46 1 PUFF Trazodone HCl (Desyrel Tab) 50 mg HS PO 02/07/17 21:00 03/09/17 20:59 02/12/17 20:42 50 MG Zolpidem Tartrate (Ambien Tab) 10 mg HS PO 02/07/17 21:00 03/09/17 20:59 02/13/17 20:56 10 MG Albuterol/ Ipratropium (Duoneb) 3 ml QIDR INH 02/07/17 08:00 03/09/17 07:59 02/14/17 14:38 3 ML Acetaminophen (Tylenol Tab) 650 mg Q4H PRN PO 02/07/17 05:00 03/09/17 04:59 02/07/17 23:59 650 MG Ondansetron HCl (Zofran Inj) 4 mg ONE PRN IV 02/07/17 15:00 Heparin Sodium (Porcine) (Heparin 10 Unit/ ml 5 ml Flush) 5 ml PRN PRN FLUSH 02/09/17 00:30 03/11/17 00:29 02/09/17 22:41 5 ML Miscellaneous Information 1 ea UD PRN N/A 02/11/17 14:30 02/21/17 14:29 Cefazolin Sodium 1000 mg/Dextrose 55 ml @ 110 mls/hr DAILY@1600 IV 02/12/17 16:00 02/25/17 15:59 Future hold 02/14/17 15:31 110 MLS/HR Oxycodone/ Acetaminophen (Percocet 5-325mg Tab) FOR MODERATE PAIN ... Q4H PRN PO 02/13/17 11:30 02/27/17 11:29 02/14/17 12:16 2 TAB Fentanyl (Duragesic Patch) 25 mcg Q72H TD 02/14/17 09:00 02/21/17 08:59 02/14/17 09:03 25 MCG Miscellaneous (Fentanyl Patch Remove & Waste) 1 ea Q3D@0859 N/A 02/14/17 08:59 03/16/17 08:58 02/14/17 09:02 1 EA Miscellaneous Information (Check Fentanyl Patch Placement) 1 ea QS N/A 02/14/17 16:00 03/16/17 15:59 02/14/17 15:32 1 EA Objective Vital Signs Date Time Temp Pulse Resp B/P (MAP) Pulse Ox O2 Delivery O2 Flow Rate FiO2 02/14/17 14:38 69 16 98 Nasal Cannula 2.0 02/14/17 12:15 36.4 67 18 101/63 (76) 94 Nasal Cannula 2.0 02/14/17 12:00 Nasal Cannula 2.0 02/14/17 08:00 Nasal Cannula 2.0 02/14/17 07:38 37.3 83 20 115/60 (78) 95 Nasal Cannula 2.0 02/14/17 07:02 74 16 95 Nasal Cannula 2.0 02/14/17 04:00 Nasal Cannula 2.0 02/14/17 03:50 37.2 71 16 94/62 (73) 93 Nasal Cannula 2.0 Humidified Oxygen 02/13/17 23:59 Nasal Cannula 2.0 02/13/17 23:20 37.4 77 18 114/58 (76) 95 Nasal Cannula 2.0 Humidified Oxygen 02/13/17 19:47 37.1 73 20 94/52 (66) 96 Nasal Cannula 2.0 02/13/17 19:27 Room Air 02/13/17 19:25 74 16 96 Nasal Cannula 2.0 02/13/17 18:47 37.1 75 116/65 (82) 02/13/17 18:30 75 116/65 02/13/17 18:15 72 87/52 02/13/17 18:00 76 106/47 02/13/17 17:45 68 83/50 02/13/17 17:30 72 92/61 02/13/17 17:15 70 117/52 02/13/17 17:00 70 133/65 02/13/17 16:45 73 110/65 02/13/17 16:30 68 86/57 02/13/17 16:15 68 100/50 Physical Exam General Appearance: WD/WN, no apparent distress Eyes: normal inspection, sclerae normal ENT: normal ENT inspection, pharynx normal Neck: supple, no adenopathy, trachea midline Respiratory/Chest: chest non-tender, lungs clear, normal breath sounds, no respiratory distress Cardiovascular: regular rate, rhythm, no gallop, no murmur Abdomen: normal bowel sounds, non tender, soft, no organomegaly Extremities: non-tender, no pedal edema Neurologic/Psychiatric: alert, oriented x 3 Skin: normal color, no rash Lymphatic: no adenopathy Laboratory Results Last 24 Hours Test 02/14/17 06:18 White Blood Count 10.55 K/uL Red Blood Count 2.98 M/uL Hemoglobin 8.7 g/dL Hematocrit 26.9 % Mean Corpuscular Volume 90.3 fL Mean Corpuscular Hemoglobin 29.2 pg Mean Corpuscular Hemoglobin Concent 32.3 g/dl RDW Standard Deviation 49.5 fL RDW Coefficient of Variation 15.1 % Platelet Count 289 K/uL Mean Platelet Volume 8.9 fL Sodium Level 136 mmol/L Potassium Level 4.7 mmol/L Chloride Level 104 mmol/L Carbon Dioxide Level 24 mmol/L Anion Gap 8.0 mmol/L Blood Urea Nitrogen 50 mg/dl Creatinine 6.00 mg/dl Est Creatinine Clear Calc Drug Dose 17.1 ml/min Estimated GFR () 8.5 Estimated GFR (Non- 7.3 BUN/Creatinine Ratio 8.3 Random Glucose 94 mg/dl Calcium Level 7.5 mg/dl Assessment and Plan methicillin sensitive Staph aureus infection of dialysis catheter now status post removal and replacement of dialysis catheter. Patient will require 2 weeks of IV antibiotics, given difficulty with outpatient cefazolin, would consider use of vancomycin with dialysis. Discussed with hospitalist service.
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
[2017-02-14] MEDS: TRAZODONE HCL 50 MG TAB PO SCH (20:52)
[2017-02-14] MEDS: ZOLPIDEM TARTRATE 10 MG TAB PO SCH (20:52)
[2017-02-15] VITALS (28 sets, daily range): BP systolic 86–138; BP diastolic 45–69; PULSE 53–70; TEMP 36.5–37; O2SAT 94–98
[2017-02-15] MEDS: OXYCODONE HCL IR 5 MG TAB (IMMEDIATE RELEASE) PO PRN ×2 (00:05→13:54)
[2017-02-15] MEDS: CHECK FENTANYL PATCH PLACEMENT SCH ×3 (00:07→16:00)
[2017-02-15] MEDS: hydrOXYzine HCL 25 MG TAB PO PRN ×2 (04:57→13:52)
[2017-02-15] MEDS: OXYCODONE/ACETAMINOPHEN 5-325 TAB PO PRN (04:58)
[2017-02-15 06:10] LABS: BASO % 0.3 %; BASO ABS # 0.03 K/uL (0-0.2); EOS % 5.6 %; HEMATOCRIT 25.1 % (37-47); IG% 2.4 %; LYMPH % 21.1 %; LYMPH ABS # 2.05 K/uL (1.2-3.4); MEAN CELL VOLUME 90.3 fL (80-100); MEAN CORPUSCULAR HEMOGLOBIN 28.8 pg (25-34); MEAN CORPUSCULAR HGB CONC 31.9 g/dl (32-36); MEAN PLATELET VOLUME 8.5 fL (7.4-10.4); MONO % 6.2 %; NEUT % 64.4 %; PLATELET COUNT 248 K/uL (130-400); RED BLOOD COUNT 2.78 M/uL (4.2-5.4)
[2017-02-15 06:44] LABS: COMPLETE YES
[2017-02-15 07:00] LABS: BUN/CREATININE RATIO 8.6 (10-20); CALCIUM 7.7 mg/dl (8.5-10.1); CREATININE 7.2 mg/dl (0.60-1.20); POTASSIUM 4.5 mmol/L (3.5-5.1)
[2017-02-15] MEDS: ALBUT/IPRATROP 3MG/0.5MG NEB 3 ML VIAL INH SCH ×3 (07:10→15:50)
[2017-02-15] MEDS ORDERED: EPOETIN ALFA 10,000 UNITS/ML VIAL IV. SCH (09:00)
[2017-02-15] MEDS ORDERED: HEPARIN SOD (PORCINE) 1000 UNIT/ML 10 ML VIAL IV SCH (09:00)
--- NOTE | 2017-02-15 09:49 | Nephrology Progress Note ---
Nephrology Progress Note Date of Service Feb 15, 2017. Chief Complaint PCN sensitive staph aureus HD catheter in this patient w/ ESRD Subjective Mrs. Beth was seen & examined in prior to starting HD this morning. She is hoping to return home today. She voices no medical concerns. Review of Systems Constitutional: No fever Cardiovascular: No chest pain Respiratory: No dyspnea at rest Abdomen: No pain, No nausea, No vomiting Extremities: No leg edema A complete review of systems was performed. Pertinent positives are noted above. All other systems are negative. Vital Signs Last 8 Hrs Date Time Temp Pulse Resp B/P (MAP) Pulse Ox O2 Delivery O2 Flow Rate FiO2 02/15/17 09:15 58 105/45 02/15/17 09:00 60 107/54 02/15/17 08:45 36.5 66 131/61 (84) 02/15/17 08:19 36.8 64 19 136/51 (79) 96 Nasal Cannula 2.0 02/15/17 07:12 70 16 96 Nasal Cannula 2.0 02/15/17 04:00 Nasal Cannula 2.0 02/15/17 03:58 36.8 65 20 138/69 (92) 95 Room Air Last Recorded Weight Weight (Kilograms): 161.600 Physical Exam General Appearance: no apparent distress Head: normocephalic, atraumatic Eyes: PERRL Neck: no adenopathy Respiratory/Chest: lungs clear Cardiovascular: regular rate, rhythm Abdomen/GI: normal bowel sounds, non tender, soft Extremities/Musculoskelatal: no pedal edema, + pertinent finding (L forearm amputation) Neurologic/Psych: alert, oriented x 3 Family History None stated Social History Drug Use: none Marital Status: Housing Status: lives with family Occupation: disabled Laboratory Results Past 24 Hours 02/15/17 05:53 Red Blood Count 2.78, Mean Corpuscular Volume 90.3, Mean Corpuscular Hemoglobin 28.8, Mean Corpuscular Hemoglobin Concent 31.9, Mean Platelet Volume 8.5, Neutrophils (%) (Auto) 64.4, Lymphocytes (%) (Auto) 21.1, Monocytes (%) (Auto) 6.2, Eosinophils (%) (Auto) 5.6, Basophils (%) (Auto) 0.3, Neutrophils # (Auto) 6.25, Lymphocytes # (Auto) 2.05, Monocytes # (Auto) 0.60, Eosinophils # (Auto) 0.54, Basophils # (Auto) 0.03 02/15/17 05:53 Test 02/15/17 05:53 White Blood Count 9.70 K/uL (4.8-10.8) Red Blood Count 2.78 M/uL (4.2-5.4) Hemoglobin 8.0 g/dL (12.0-16.0) Hematocrit 25.1 % (37-47) Mean Corpuscular Volume 90.3 fL (80-100) Mean Corpuscular Hemoglobin 28.8 pg (25-34) Mean Corpuscular Hemoglobin Concent 31.9 g/dl (32-36) Platelet Count 248 K/uL (130-400) Mean Platelet Volume 8.5 fL (7.4-10.4) Neutrophils (%) (Auto) 64.4 % Lymphocytes (%) (Auto) 21.1 % Monocytes (%) (Auto) 6.2 % Eosinophils (%) (Auto) 5.6 % Basophils (%) (Auto) 0.3 % Neutrophils # (Auto) 6.25 K/uL (1.4-6.5) Lymphocytes # (Auto) 2.05 K/uL (1.2-3.4) Monocytes # (Auto) 0.60 K/uL (0.11-0.59) Eosinophils # (Auto) 0.54 K/uL (0-0.5) Basophils # (Auto) 0.03 K/uL (0-0.2) RDW Standard Deviation 48.8 fL (36.4-46.3) RDW Coefficient of Variation 14.8 % (11.5-14.5) Immature Granulocyte % (Auto) 2.4 % Immature Granulocyte # (Auto) 0.23 K/uL (0.00-0.02) Red Blood Cell Morphology Unremarkable Anion Gap 9.0 mmol/L (3-11) Est Creatinine Clear Calc Drug Dose 14.2 ml/min Estimated GFR () 6.8 Estimated GFR (Non- 5.9 BUN/Creatinine Ratio 8.6 (10-20) Calcium Level 7.7 mg/dl (8.5-10.1) Allergies Coded Allergies: Iodinated Diagnostic Agents (Verified Allergy, Severe, ANAPHYLAXIS, ) Perflutren (Verified Allergy, Severe, RASH, DIFFICULTY BREATHING, ANAPHALYSIS, 02/06/17) Surgical Lubricant (Verified Allergy, Mild, rash, 02/06/17) Adhesives (Verified Allergy, Unknown, RASH, 02/06/17) Propylene Glycol (Verified Allergy, Unknown, RASH, 02/06/17) Medications Current Inpatient Medications Medications (Trade) Dose Ordered Sig/Rica Route Start Time Stop Time Status Last Admin Dose Admin Ondansetron HCl (Zofran Inj) 4 mg Q6H PRN IV 02/07/17 02:00 03/09/17 01:59 02/10/17 04:28 4 MG Alprazolam (Xanax Tab) 1 mg Q6H PRN PO 02/07/17 02:00 03/09/17 01:59 02/15/17 00:04 1 MG Aspirin (Ecotrin Tab) 81 mg DAILY PO 02/07/17 09:00 03/09/17 08:59 02/14/17 07:46 81 MG Atorvastatin Calcium (Lipitor Tab) 80 mg QAM PO 02/07/17 09:00 03/09/17 08:59 02/14/17 07:46 80 MG Budesonide/ Formoterol Fumarate (Symbicort 160/ 4.5 Inh) 2 puffs BID INH 02/07/17 09:00 03/09/17 08:59 02/14/17 20:52 2 PUFFS Citalopram Hydrobromide (celeXA TAB) 40 mg QAM PO 02/07/17 09:00 03/09/17 08:59 02/14/17 07:46 40 MG Hydroxyzine HCl (Vistaril Tab) 25 mg Q6H PRN PO 02/07/17 02:00 03/09/17 01:59 02/15/17 04:57 25 MG Metoprolol Succinate (Toprol Xl Tab) 50 mg QAM PO 02/07/17 09:00 03/09/17 08:59 02/14/17 07:46 50 MG Oxycodone HCl (Roxicodone Immediate Rel Tab) 10 mg Q6H PRN PO 02/07/17 02:00 02/21/17 01:59 02/15/17 00:05 10 MG Tiotropium [place] (Spiriva Handihaler Inhaler) 1 puff QAM INH 02/07/17 09:00 03/09/17 08:59 02/14/17 07:46 1 PUFF Trazodone HCl (Desyrel Tab) 50 mg HS PO 02/07/17 21:00 03/09/17 20:59 02/14/17 20:52 50 MG Zolpidem Tartrate (Ambien Tab) 10 mg HS PO 02/07/17 21:00 03/09/17 20:59 02/14/17 20:52 10 MG Albuterol/ Ipratropium (Duoneb) 3 ml QIDR INH 02/07/17 08:00 03/09/17 07:59 02/15/17 07:10 3 ML Acetaminophen (Tylenol Tab) 650 mg Q4H PRN PO 02/07/17 05:00 03/09/17 04:59 02/07/17 23:59 650 MG Ondansetron HCl (Zofran Inj) 4 mg ONE PRN IV 02/07/17 15:00 Heparin Sodium (Porcine) (Heparin 10 Unit/ ml 5 ml Flush) 5 ml PRN PRN FLUSH 02/09/17 00:30 03/11/17 00:29 02/09/17 22:41 5 ML Miscellaneous Information 1 ea UD PRN N/A 02/11/17 14:30 02/21/17 14:29 Cefazolin Sodium 1000 mg/Dextrose 55 ml @ 110 mls/hr DAILY@1600 IV 02/12/17 16:00 02/25/17 15:59 Future hold 02/14/17 15:31 110 MLS/HR Oxycodone/ Acetaminophen (Percocet 5-325mg Tab) FOR MODERATE PAIN ... Q4H PRN PO 02/13/17 11:30 02/27/17 11:29 02/15/17 04:58 2 TAB Fentanyl (Duragesic Patch) 25 mcg Q72H TD 02/14/17 09:00 02/21/17 08:59 02/14/17 09:03 25 MCG Miscellaneous (Fentanyl Patch Remove & Waste) 1 ea Q3D@0859 N/A 02/14/17 08:59 03/16/17 08:58 02/14/17 09:02 1 EA Miscellaneous Information (Check Fentanyl Patch Placement) 1 ea QS N/A 02/14/17 16:00 03/16/17 15:59 02/15/17 07:56 1 EA Heparin Sodium (Porcine) (Heparin Iv Bolus) 2,000 unit TODAY@0900 IV 02/15/17 09:00 02/15/17 23:59 Epoetin Jose (Procrit Inj) 10,000 units TODAY@0900 IV. 02/15/17 09:00 02/15/17 23:59 Impression (1) End-stage renal disease on hemodialysis (2) Hypertension (3) Dialysis catheter clot or failure (4) Staphylococcus aureus bacteremia Mrs. Beth is a 56 year old female with ESRD. She presented with MSSA bacteremia from an infected TDC. Follow up cultures are negative. TTE negative for vegetations. She is currently being treated IV cefazolin. Recommendations ESRD: -- HD orders placed in EMR and HD RN notified -- If discharge is anticipated please notify the [facility] HD unit at [phone] to resume outpatient TTS dialysis Anemia: -- Iron saturation 67% w/ ferritin 400. Hold IV iron at this time -- Will provide TYRELL w/ dialysis treatments MSSA bacteremia and TDC infection: -- IJ THC removed 02/07/17 -- Initial blood cultures were positive for PCN sensitive Staph Aureus -- Patient had been treated w/ IV Cefazolin and removal of IJ THC -- Follow up blood culture 02/09/17 was negative -- IV antibiotics as per ID Metastatic renal cell carcinoma: -- 02/13/17 Oncology note reviewed. Prognosis is guarded. Patient will follow up as outpatient w/ Dr. Stevens
[2017-02-15] MEDS ORDERED: VANCOMYCIN CONSULT ACTIVE PRN (11:00)
[2017-02-15] MEDS: ATORVASTATIN 40 MG TAB PO SCH (13:50)
[2017-02-15] MEDS: TIOTROPIUM BROMIDE 5 PUFF/90 MCG INH INH SCH (13:50)
[2017-02-15] MEDS: ASPIRIN 81 MG ECTAB PO SCH (13:50)
[2017-02-15] MEDS: CITALOPRAM 40 MG TAB PO SCH (13:50)
[2017-02-15] MEDS: METOPROLOL SUCC 50MG EXT REL TAB PO SCH (13:51)
[2017-02-15] MEDS: BUDESONIDE/FORMOTEROL FUMARATE 160/4.5 60 PUFFS/INHALER INH SCH (13:51)
[2017-02-15] MEDS ORDERED: VANCOMYCIN INJ 2,500 MG in SODIUM CHLORIDE 0.9% 500ML 500 ML IV ONE (14:00)
--- NOTE | 2017-02-15 22:55 | Discharge Summary ---
Discharge Summary Date of Service Feb 15, 2017. Discharge Summary Admission Date: Feb 07, 2017 at 01:56 Discharge Date: Feb 15, 2017 Discharge Disposition: Home Principal Diagnosis: MSSA Bacteremia, Line infection Problems/Secondary Diagnoses: Metastatic renal cell carcinoma Sepsis MSSA bacteremia secondary to infected tunneled catheter UTI-E. coli pansensitive End stage renal disease on HD Anemia of chronic renal disease Nonocclusive thrombus in intravascular catheter within right IJ vein Elevated troponin/demand ischemia HTN Chronic diastolic CHF COPD Depression Immunizations: Have You Had Influenza Vaccine: Unknown History of Tetanus Vaccine?: Unknown History of Pneumococcal: Unknown History of Hepatitis B Vaccine: Unknown Procedures: Insertion of left internal jugular vein permcath, 23cm USN localization of left internal jugular vein Fluoro for positioning Removal temporary femoral Dialysis Catheter RIGHT EXTREMITY NONVASCULAR LIMITED CLINICAL HISTORY: 56 years-old Female presenting with right neck pain after port placement Right. TECHNIQUE: Real-time grayscale ultrasound imaging of the right base of the neck was performed. Color Doppler was also performed. COMPARISON: None. FINDINGS: Nonocclusive filling defect in the right internal jugular vein along the course of the catheter, consistent with nonocclusive thrombus. Subclavian vein patent. At the site of clinical interest at the port, no associated fluid collection. IMPRESSION: 1. No associated fluid collection at the port site to suggest hematoma or abscess. 2. Nonocclusive thrombus along the course of the intravascular catheter within the right internal jugular vein. CHEST ONE VIEW PORTABLE CLINICAL HISTORY: 56 years-old Female presenting with Sepsis. TECHNIQUE: Portable upright AP view of the chest was obtained. COMPARISON: 01/22/2017. FINDINGS: Tunneled right internal jugular dialysis catheter terminates in the right IJ proximal to the brachiocephalic confluence. Cardiomediastinal silhouette remains prominent. Multiple rounded opacities noted in the right mid and upper lung as well as the left lower lung, unchanged from prior. No large effusion or pneumothorax. Osseous structures and upper abdomen normal. IMPRESSION: 1. Tunneled right IJ dialysis catheter terminates proximal to the expected location. Replacement/repositioning recommended. 2. Multiple masslike opacities for which chest CT is warranted as previously mentioned. C-SPINE ROUTINE 4 OR 5 VIEWS HISTORY: 56 years-old Female r sided cervicalgia COMPARISON: Chest radiograph 02/06/2017 TECHNIQUE: Lateral, bilateral oblique, AP and odontoid views of the cervical spine. FINDINGS: The sixth and seventh vertebral segments are not well seen on the lateral projection secondary to overlying soft tissue. There is intervertebral disc space narrowing with prominent endplate spurring at the C5-C6 and C6-C7 levels. No acute fracture is identified. There is 2 mm retrolisthesis of C3 on C4 with extension. This is likely on a degenerative basis as there is associated moderate facet arthropathy at this level. Multilevel moderate facet arthropathy involves the mid and lower levels. Evaluation of the foramina is limited secondary to positioning. Image odontoid process and lateral pillars of C1 appear intact. There is no prevertebral soft tissue swelling There is atherosclerotic plaquing of the carotid bulbs. There is a right internal jugular hemodialysis catheter which appears unchanged with distal tip terminating at the level of the right clavicular head. IMPRESSION: 1. No acute fracture. 2 mm retrolisthesis of C3 on C4 is likely secondary to associated facet arthropathy. 2. Intervertebral disc space narrowing is seen at C5-C6 and C6-C7. 3. Carotid atherosclerotic vascular disease. Consultations: Nephrology Vascular Surgery Infectious Disease Medication Reconciliation New Medications: Vancomycin Hcl In Dextrose (Vancomycin Hcl In Dextros) 1 Inj Inj 1000 MG IV DAILY for 7 Days TO BE GIVEN WITH DIALYSIS WHEN RANDOM VANCOMYCIN LEVEL LESS THAN 17. LAST DOSE 02/21/17 Acetaminophen (Mapap) 325 Mg Tab 650 MG PO Q4H PRN for fever/pain for 30 Days, TAB Continued Medications: Albuterol (Ventolin Hfa) 60 Puffs/5400 Mcg Aers 2 PUFFS INH QID Alprazolam (Xanax) 0.5 Mg Tab 1 MG PO Q6H PRN for Anxiety Aspirin (Aspirin Ec) 81 Mg Tab 81 MG PO DAILY Restart in 1 week if no bleeding from incisions Atorvastatin (Lipitor) 80 Mg Tab 80 MG PO QAM Budesonide/Formoterol Fumarate (Symbicort 160-4.5 Mcg/Act) 60 Puffs/Inhaler Aero 2 PUFFS INH BID Citalopram (Citalopram Hydrobromide) 40 Mg Tab 40 MG PO QAM Ergocalciferol (Vitamin D 41227 Unit) 50,000 Unit Cap 1 CAP PO SUNDAY Fentanyl (Duragesic) 25 Mcg/Hr Dis 25 MCG TD Q72H Hydroxyzine Hcl (Atarax) 25 Mg Tab 25 MG PO DIRECTED PRN for Itching, TAB MAY TAKE EVERY 6 TO 8 HOURS NEEDED. Ipratropium-Albuterol (Duoneb) 3 Ml Nebu 1 TREATMENT INH Q4H PRN for SOB/Wheezing Metoprolol Succinate (Toprol Xl) 50 Mg Tabcr 50 MG PO QAM, #30 TAB Morphine Sulfate Ir (Morphine Sulfate Ir) 30 Mg Tab 30 MG PO QAM PRN for Pain Ondansetron Hcl (Zofran) 4 Mg Tab 4 MG PO Q4 PRN for Nausea Oxycodone Ir (Roxicodone Ir) 5 Mg Tab 10 MG PO Q6H PRN for Severe Pain Tiotropium Treadwell (Spiriva Handihaler) 30 Puff/540 Mcg Aerp 2 PUFFS INH QAM Trazodone Hcl (Trazodone) 50 Mg Tab 50 MG PO HS, TAB Zolpidem Tartrate (Ambien) 10 Mg Tab 10 MG PO HS Referrals At Discharge Follow up Referrals: Family Practice Referral - Within 1-2 Weeks with Gerson Estrada D.O. Oncology/Hematology Referral - Within a Month with Rd Stevens D.O. Discharge Exam Review of Systems: Constitutional: No fever Eyes: No problem reported ENT: No problem reported Respiratory: No shortness of breath Cardiovascular: No chest pain Abdomen: No pain Musculoskeletal: No problem reported Genitourinary - Female: No problem reported Neurologic: No problem reported Psychiatric: No problem reported Endocrine: No problem reported Hematologic / Lymphatic: No problem reported Integumentary: No problem reported Physical Exam: General Appearance: no apparent distress, + obese Eyes: normal inspection, sclerae normal ENT: hearing grossly normal Neck: trachea midline Respiratory/Chest: lungs clear, normal breath sounds, no respiratory distress, no accessory muscle use Cardiovascular: regular rate, rhythm, no gallop, no murmur, + pertinent finding (trace pitting edema legs bilat) Abdomen / GI: normal bowel sounds, non tender, soft Extremities: no calf tenderness, + pertinent finding (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 Non occlusive clot shown on imaging, evidence of line infection with positive blood and catheter tip cultures. Sepsis, MSSA bacteremia secondary to infected tunneled HD catheter - blood cultures and catheter tip with MSSA, ID recommended Cefazolin x 2 weeks total, but Nephrology did not want PICC line put in her only remaining limb in case of future need for AVF -plan to switch to Vancomycin with dialysis upon discharge - no evidence of vegetations on echo - line holiday x 3 days, HD catheter (temporary) placed on 02/10, then pulled once tunneled cath placed on 02/13 -ID following UTI-growing E. coli pansensitive -Cefazolin covered for this End stage renal disease on HD - - HD on 02/15 -Appreciate Nephro consult -continue outpt HD upon discharge on TTS Chronic anemia of renal disease: Hb down to 7.2 02/09,received 2 units of PRBC on 02/09. Fe studies with high serum Fe and high transferrin sat 67% - Hb 8.0 today and stable -Nephro managing with Epo Nonocclusive thrombus in intravascular catheter within right IJ vein - initially given IV heparin, line pulled on 02/07, heparin stopped, no further treatment needed with anticoagulation Elevated troponin - at baseline secondary to end stage renal disease, no need to repeat HTN: BPs actually on low side continue home metoprolol with hold parameters Chronic diastolic CHF: no current exacerbation -fluid status managed with HD COPD: continue inhalers, add duonebs to help with coughing, no current exacerbation Depression: appreciate psychiatry consult, continue Celexa and no active +SI or need for inpt Psych stay 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 States she was on po chemo at some point but has not taken any treatment, has distrust in previous Oncologist and now not following with Oncology? She is interested in seeking consultation here with [facility] -Oncology consultation to see if any treatment options for her--> Dr. Stevens saw her and plans on seeing her in follow up after discharge, will obtain her old records including pathology and old CT scans Code - DNR/DNI as per patient wishes Disposition: to home today after HD, with plans and orders already faxed to [facility] for [facility] with HD Total Time Spent: Greater than 30 minutes This includes examination of the patient, discharge planning, medication reconciliation, and communication with other providers. Discharge Instructions Please refer to the electronic Patient Visit Report (Discharge Instructions) for additional information. Follow-Up PCP in 1 day Dialysis in 2 days Oncology within 1-2 weeks Additional Copies To Gerson Estrada D.O.
== END 2017-02-15 17:20 | disposition home or self-care (01) | DRG 314 ==
LOC: C.EDB 19:18 → C.2E 02-07 01:56 → ENRESERV 02-07 02:15
PROVIDERS: ADMIT Hospitalist; ATTEND Family Medicine
PROC: 05PYX3Z Removal of Infusion Device from Upper Vein, External Approach (ICD-10-PCS; principal; 2017-02-07 08:30)
PROC: 06HN33Z Insertion of Infusion Device into Left Femoral Vein, Percutaneous Approach (ICD-10-PCS; 2017-02-10)
PROC: 02HV33Z Insertion of Infusion Device into Superior Vena Cava, Percutaneous Approach (ICD-10-PCS; 2017-02-13)
DX: T82.7XXA Infection and inflammatory reaction due to other cardiac and vascular devices, implants and grafts, initial encounter (principal); A41.01 Sepsis due to Methicillin susceptible Staphylococcus aureus; N18.6 End stage renal disease; T82.524A Displacement of infusion catheter, initial encounter; N39.0 Urinary tract infection, site not specified; I50.32 Chronic diastolic (congestive) heart failure; I13.2 Hypertensive heart and chronic kidney disease with heart failure and with stage 5 chronic kidney disease, or end stage renal disease; C64.9 Malignant neoplasm of unspecified kidney, except renal pelvis; C78.02 Secondary malignant neoplasm of left lung; C78.01 Secondary malignant neoplasm of right lung; M86.60 Other chronic osteomyelitis, unspecified site; E87.2 Acidosis; T82.868A Thrombosis due to vascular prosthetic devices, implants and grafts, initial encounter; Y83.1 Surgical operation with implant of artificial internal device as the cause of abnormal reaction of the patient, or of later complication, without mention of misadventure at the time of the procedure; Z99.2 Dependence on renal dialysis; B96.20 Unspecified Escherichia coli [E. coli] as the cause of diseases classified elsewhere; D64.9 Anemia, unspecified; Z89.611 Acquired absence of right leg above knee; G89.29 Other chronic pain; E11.22 Type 2 diabetes mellitus with diabetic chronic kidney disease; M54.9 Dorsalgia, unspecified; F17.210 Nicotine dependence, cigarettes, uncomplicated; E66.01 Morbid (severe) obesity due to excess calories; J44.9 Chronic obstructive pulmonary disease, unspecified; Z91.14 Patient's other noncompliance with medication regimen; Z91.19 Patient's noncompliance with other medical treatment and regimen; Z90.5 Acquired absence of kidney; E83.42 Hypomagnesemia; E87.5 Hyperkalemia; F32.9 Major depressive disorder, single episode, unspecified; F41.9 Anxiety disorder, unspecified; Z86.711 Personal history of pulmonary embolism; Z91.041 Radiographic dye allergy status; Z91.048 Other nonmedicinal substance allergy status; Z88.8 Allergy status to other drugs, medicaments and biological substances; Z90.49 Acquired absence of other specified parts of digestive tract; Z79.82 Long term (current) use of aspirin; Z79.899 Other long term (current) drug therapy; Z83.3 Family history of diabetes mellitus; Z84.1 Family history of disorders of kidney and ureter; Z83.79 Family history of other diseases of the digestive system